=== PATIENT | male | born 1940 | race Caucasian/White ===

== ENCOUNTER → 2017-08-23 13:55 | Outpatient (CLI) | payer MEDICARE, SELFPAY ==
[2017-08-23 17:21] LABS: Absolute Lymphocyte Count 1.95 X10^3/ul (0.83-4.51); Absolute Neutrophil Count 2.9 X10^3/uL (2.0-7.7); Basophil# 0.04 X10^3/uL; Basophil% 0.7 % (0-1); Eosinophil# 0.26 X10^3/uL; Eosinophils% 4.5 % (0-5); Hematocrit 43.5 % (40-54); Hemoglobin 14.6 g/dl (13.0-16.5); Lymphocyte # 1.95 X10^3/ul (4.0); Lymphocyte % 33.4 % (19-41); Mean Corp Hgb Conc 33.6 g/gl (32-36); Mean Corpuscular Hgb 30.7 pg (27.0-32.0); Mean Corpuscular Volume 91.4 fL (80-94); Mean Platelet Vol. 11.1 fl (6.2-12.0); Monocyte# 0.66 X10^3/uL; Monocyte% 11.3 % (0-10); Neutrophil # 2.91 X10^3/uL (2.7-7.7); Neutrophil % 49.8 % (47-70); Platelet Count 243 K/mm3 (150-450); RBC Distribution Width CV 13.3 % (11.6-14.6); RBC Distribution Width SD 43.9 fl (35.1-43.9); Red Blood Count 4.76 M/mm3 (4.6-6.2); White Blood Count 5.8 K/mm3 (4.4-11.0)
[2017-08-23 17:25] LABS: POSITIVE COUNT NO; POSITIVE DIFFERENTIAL NO; POSITIVE MORPHOLOGY NO
[2017-08-23 18:17] LABS: AST(SGOT) 16 U/L (15-37); Alanine Aminotransfer ALT/SGPT 18 U/L (16-61); Albumin, Serum 3.8 g/dL (3.2-5.0); Alkaline Phosphatase 112 U/L (45-117); Anion Gap 8 (5-15); BUN 14 mg/dL (7-18); BUN/Creat Ratio 14.9 RATIO (10-20); Chloride 103 mmol/L (98-107); Creatinine, Serum 0.94 mg/dL (0.70-1.30); EST Glomerular Filtration Rate 82 mL/min (>60); Est Glom Filt Rate - Afr Amer 99 mL/min (>60); Glucose 95 mg/dL (74-106); Potassium 4.5 mmol/L (3.5-5.1); Protein, Total 7.8 g/dL (6.4-8.2); Sodium Level 138 mmol/L (136-145); Thyroid Stim Hormone (TSH) 3.13 uIU/mL (0.358-3.74)
[2017-08-24 08:50] LABS: Vitamin D,25 Hydroxy 25.4 ng/mL (29.95-100.01)
== END ==
LOC: POLAB3 13:56
PROVIDERS: Family Provider Family Medicine Geriatric Medicine; PCP Family Medicine Geriatric Medicine; Visit Provider Family Medicine Geriatric Medicine
DX: I10 Essential (primary) hypertension (principal); E55.9 Vitamin D deficiency, unspecified
CPT/HCPCS: 36415; 80053; 82306; 84443; 85025

== ENCOUNTER → 2018-02-13 13:29 | Outpatient (CLI) | payer MEDICARE, SELFPAY ==
[2018-02-13 17:23] LABS: Absolute Neutrophil Count 7.3 X10^3/uL (2.0-7.7); Basophil# 0.01 X10^3/uL; Basophil% 0.1 % (0-1); Eosinophil# 0.01 X10^3/uL; Eosinophils% 0.1 % (0-5); Hematocrit 40.3 % (40-54); Hemoglobin 13.5 g/dl (13.0-16.5); Lymphocyte % 12.3 % (19-41); Mean Corp Hgb Conc 33.5 g/gl (32-36); Mean Corpuscular Hgb 31.1 pg (27.0-32.0); Mean Corpuscular Volume 92.9 fL (80-94); Mean Platelet Vol. 10.8 fl (6.2-12.0); Monocyte# 0.45 X10^3/uL; Neutrophil # 7.27 X10^3/uL (2.7-7.7); Neutrophil % 81.5 % (47-70); Platelet Count 330 K/mm3 (150-450); RBC Distribution Width CV 13.4 % (11.6-14.6); RBC Distribution Width SD 44.3 fl (35.1-43.9); Red Blood Count 4.34 M/mm3 (4.6-6.2); White Blood Count 8.9 K/mm3 (4.4-11.0)
[2018-02-13 17:24] LABS: POSITIVE COUNT NO; POSITIVE DIFFERENTIAL NO; POSITIVE MORPHOLOGY NO
[2018-02-13 17:48] LABS: BUN 23 mg/dL (7-18); EST Glomerular Filtration Rate 77 mL/min (>60); Glucose 104 mg/dL (74-106)
[2018-02-13 17:49] LABS: ALB/GLOB Ratio 0.9 RATIO (0.9-2.4); AST(SGOT) 11 U/L (15-37); Alanine Aminotransfer ALT/SGPT 18 U/L (16-61); Albumin, Serum 3.4 g/dL (3.2-5.0); Alkaline Phosphatase 104 U/L (45-117); Anion Gap 11 (5-15); Calcium,Total 8.8 mg/dL (8.5-10.1); Chloride 101 mmol/L (98-107); Cholesterol 185 mg/dL (200); Est Glom Filt Rate - Afr Amer 93 mL/min (>60); Globulin 3.7 g/dL (2.2-4.2); High Density Lipoprotein 88 mg/dL; Potassium 4.1 mmol/L (3.5-5.1); Protein, Total 7.1 g/dL (6.4-8.2); Sodium Level 138 mmol/L (136-145); Thyroid Stim Hormone (TSH) 1.08 uIU/mL (0.358-3.74); Triglycerides 95 mg/dL; Very Low Density Lipoprotein 19 mg/dL (5-40)
[2018-02-13 17:52] LABS: Vitamin D,25 Hydroxy 22.4 ng/mL (29.95-100.01)
== END ==
PROVIDERS: Family Provider Family Medicine Geriatric Medicine; PCP Family Medicine Geriatric Medicine; Visit Provider Family Medicine Geriatric Medicine
DX: I10 Essential (primary) hypertension (principal); E78.49 Other hyperlipidemia; E55.9 Vitamin D deficiency, unspecified
CPT/HCPCS: 36415; 80053; 80061; 82306; 84443; 85025

== ENCOUNTER → 2018-08-17 10:45 | Outpatient (CLI) | payer MEDICARE, SELFPAY ==
[2017-01-06 13:29] VITALS: BMI 29.8
[2018-08-17 12:51] LABS: Absolute Neutrophil Count 3.4 X10^3/uL (2.0-7.7); Basophil# 0.03 X10^3/uL; Basophil% 0.5 % (0-1); Eosinophil# 0.09 X10^3/uL; Eosinophils% 1.5 % (0-5); Hematocrit 41.5 % (40-54); Hemoglobin 13.8 g/dl (13.0-16.5); Lymphocyte % 28.9 % (19-41); Mean Corp Hgb Conc 33.3 g/gl (32-36); Mean Corpuscular Hgb 31.2 pg (27.0-32.0); Mean Corpuscular Volume 93.9 fL (80-94); Mean Platelet Vol. 11.2 fl (6.2-12.0); Monocyte# 0.64 X10^3/uL; Monocyte% 10.9 % (0-10); Neutrophil # 3.41 X10^3/uL (2.7-7.7); Platelet Count 247 K/mm3 (150-450); RBC Distribution Width CV 13.9 % (11.6-14.6); RBC Distribution Width SD 47.7 fl (35.1-43.9); Red Blood Count 4.42 M/mm3 (4.6-6.2); White Blood Count 5.9 K/mm3 (4.4-11.0)
[2018-08-17 12:52] LABS: POSITIVE COUNT NO; POSITIVE DIFFERENTIAL NO; POSITIVE MORPHOLOGY NO
[2018-08-17 13:24] LABS: ALB/GLOB Ratio 1.1 RATIO (0.9-2.4); AST(SGOT) 19 U/L (15-37); Alanine Aminotransfer ALT/SGPT 23 U/L (16-61); Albumin, Serum 3.9 g/dL (3.2-5.0); Alkaline Phosphatase 93 U/L (45-117); Anion Gap 9 (5-15); BUN 15 mg/dL (7-18); BUN/Creat Ratio 14.4 RATIO (10-20); Calcium,Total 8.9 mg/dL (8.5-10.1); Chloride 103 mmol/L (98-107); Cholesterol 208 mg/dL (200); Creatinine, Serum 1.04 mg/dL (0.70-1.30); EST Glomerular Filtration Rate 73 mL/min (>60); Est Glom Filt Rate - Afr Amer 88 mL/min (>60); Globulin 3.6 g/dL (2.2-4.2); Glucose 87 mg/dL (74-106); High Density Lipoprotein 90 mg/dL; Potassium 3.8 mmol/L (3.5-5.1); Protein, Total 7.5 g/dL (6.4-8.2); Sodium Level 137 mmol/L (136-145); Thyroid Stim Hormone (TSH) 2.32 uIU/mL (0.358-3.74); Triglycerides 151 mg/dL; Very Low Density Lipoprotein 30 mg/dL (5-40)
[2018-08-17 14:20] LABS: Vitamin D,25 Hydroxy 14.5 ng/mL (29.95-100.01)
== END ==
PROVIDERS: Family Provider Family Medicine Geriatric Medicine; PCP Family Medicine Geriatric Medicine; Visit Provider Family Medicine Geriatric Medicine
DX: I10 Essential (primary) hypertension (principal); E78.5 Hyperlipidemia, unspecified; E55.9 Vitamin D deficiency, unspecified
CPT/HCPCS: 36415; 80053; 80061; 82306; 84443; 85025

== ENCOUNTER → 2019-02-14 11:35 | Outpatient (CLI) | payer MEDICARE, SELFPAY ==
[2017-01-06 13:29] VITALS: BMI 29.8
[2019-02-14 12:53] LABS: Absolute Lymphocyte Count 1.71 X10^3/uL (0.83-4.51); Absolute Neutrophil Count 3.2 X10^3/uL (2.0-7.7); Basophil# 0.05 X10^3/uL; Basophil% 0.9 % (0-1); Eosinophil# 0.14 X10^3/uL; Eosinophils% 2.4 % (0-5); Hematocrit 45.8 % (40-54); Hemoglobin 14.8 g/dL (13.0-16.5); Lymphocyte # 1.71 X10^3/ul (4.0); Lymphocyte % 29.4 % (19-41); Mean Corp Hgb Conc 32.3 g/dL (32-36); Mean Platelet Vol. 11.2 fl (6.2-12.0); NRBC Flagged by Analyzer 0 % (0-5); Neutrophil # 3.19 X10^3/uL (2.7-7.7); Neutrophil % 54.8 % (47-70); Platelet Count 270 K/mm3 (150-450); RBC Distribution Width CV 12.5 % (11.6-14.6); Red Blood Count 4.77 M/mm3 (4.6-6.2); White Blood Count 5.8 K/mm3 (4.4-11.0)
[2019-02-14 13:14] LABS: AST(SGOT) 13 U/L (15-37); Alanine Aminotransfer ALT/SGPT 17 U/L (16-61); Albumin, Serum 3.8 g/dL (3.2-5.0); Alkaline Phosphatase 94 U/L (45-117); Anion Gap 6 (5-15); BUN 19 mg/dL (7-18); BUN/Creat Ratio 19.3 RATIO (10-20); Calcium,Total 9.3 mg/dL (8.5-10.1); Chloride 104 mmol/L (98-107); Cholesterol 209 mg/dL (200); Creatinine, Serum 0.99 mg/dL (0.70-1.30); EST Glomerular Filtration Rate 78 mL/min (>60); Est Glom Filt Rate - Afr Amer 94 mL/min (>60); Globulin 3.9 g/dL (2.2-4.2); Glucose 106 mg/dL (74-106); High Density Lipoprotein 74 mg/dL; Potassium 4.9 mmol/L (3.5-5.1); Protein, Total 7.7 g/dL (6.4-8.2); Sodium Level 139 mmol/L (136-145); Thyroid Stim Hormone (TSH) 2.44 uIU/mL (0.358-3.74); Triglycerides 233 mg/dL; Very Low Density Lipoprotein 47 mg/dL (5-40); Vitamin D,25 Hydroxy 22.6 ng/mL (29.95-100.01)
== END ==
LOC: POLAB3 11:35
PROVIDERS: Family Provider Family Medicine Geriatric Medicine; PCP Family Medicine Geriatric Medicine; Visit Provider Family Medicine Geriatric Medicine
DX: I10 Essential (primary) hypertension (principal); E78.5 Hyperlipidemia, unspecified; E55.9 Vitamin D deficiency, unspecified
CPT/HCPCS: 36415; 80053; 80061; 82306; 84443; 85025

== ENCOUNTER → 2019-08-15 10:30 | Outpatient (CLI) | payer MEDICARE, SELFPAY ==
[2017-01-06 13:29] VITALS: BMI 29.8
[2019-08-15 11:37] LABS: Absolute Lymphocyte Count 1.75 X10^3/uL (0.83-4.51); Absolute Neutrophil Count 3.3 X10^3/uL (2.0-7.7); Basophil# 0.03 X10^3/uL; Basophil% 0.5 % (0-1); Eosinophil# 0.12 X10^3/uL; Eosinophils% 2.1 % (0-5); Hematocrit 41.7 % (40-54); Hemoglobin 13.7 g/dL (13.0-16.5); Lymphocyte # 1.75 X10^3/ul (4.0); Lymphocyte % 30.4 % (19-41); Mean Corp Hgb Conc 32.9 g/dL (32-36); Mean Corpuscular Hgb 30.8 pg (27.0-32.0); Mean Corpuscular Volume 93.7 fL (80-94); Mean Platelet Vol. 10.9 fl (6.2-12.0); Monocyte# 0.55 X10^3/uL; Monocyte% 9.5 % (0-10); NRBC Flagged by Analyzer 0 % (0-5); Neutrophil # 3.29 X10^3/uL (2.7-7.7); Neutrophil % 57.2 % (47-70); Platelet Count 216 K/mm3 (150-450); RBC Distribution Width CV 12.8 % (11.6-14.6); Red Blood Count 4.45 M/mm3 (4.6-6.2); White Blood Count 5.8 K/mm3 (4.4-11.0)
[2019-08-15 12:11] LABS: ALB/GLOB Ratio 1.1 RATIO (0.9-2.4); AST(SGOT) 23 U/L (15-37); Alanine Aminotransfer ALT/SGPT 19 U/L (16-61); Albumin, Serum 3.9 g/dL (3.2-5.0); Alkaline Phosphatase 95 U/L (45-117); Anion Gap 5 (5-15); BUN 16 mg/dL (7-18); BUN/Creat Ratio 15.7 RATIO (10-20); Calcium,Total 9.4 mg/dL (8.5-10.1); Chloride 106 mmol/L (98-107); Cholesterol 189 mg/dL (200); Creatinine, Serum 1.02 mg/dL (0.70-1.30); EST Glomerular Filtration Rate 75 mL/min (>60); Est Glom Filt Rate - Afr Amer 90 mL/min (>60); Globulin 3.6 g/dL (2.2-4.2); Glucose 90 mg/dL (74-106); High Density Lipoprotein 75 mg/dL; Potassium 4.9 mmol/L (3.5-5.1); Protein, Total 7.5 g/dL (6.4-8.2); Sodium Level 138 mmol/L (136-145); Thyroid Stim Hormone (TSH) 3.36 uIU/mL (0.358-3.74); Triglycerides 115 mg/dL; Very Low Density Lipoprotein 23 mg/dL (5-40); Vitamin D,25 Hydroxy 28.4 ng/mL
== END ==
LOC: LAB 10:33
PROVIDERS: PCP Family Medicine Geriatric Medicine; Referring Provider Family Medicine Geriatric Medicine; Visit Provider Family Medicine Geriatric Medicine
DX: E55.9 Vitamin D deficiency, unspecified (principal); E78.5 Hyperlipidemia, unspecified; I10 Essential (primary) hypertension
CPT/HCPCS: 36415; 80053; 80061; 82306; 84443; 85025

== ENCOUNTER → 2020-02-19 10:29 | Outpatient (CLI) | payer MEDICARE, SELFPAY ==
[2017-01-06 13:29] VITALS: BMI 29.8
[2020-02-19 12:46] LABS: Absolute Neutrophil Count 3.7 X10^3/uL (2.0-7.7); Basophil# 0.04 X10^3/uL; Basophil% 0.7 % (0-1); Eosinophil# 0.18 X10^3/uL; Hematocrit 44.4 % (40-54); Hemoglobin 14.3 g/dL (13.0-16.5); Lymphocyte % 23.1 % (19-41); Mean Corp Hgb Conc 32.2 g/dL (32-36); Mean Corpuscular Volume 96.3 fL (80-94); Mean Platelet Vol. 11.7 fl (6.2-12.0); Monocyte% 11.5 % (0-10); NRBC Flagged by Analyzer 0 % (0-5); Neutrophil # 3.74 X10^3/uL (2.7-7.7); Neutrophil % 61.5 % (47-70); Platelet Count 262 K/mm3 (150-450); RBC Distribution Width CV 12.8 % (11.6-14.6); Red Blood Count 4.61 M/mm3 (4.6-6.2); White Blood Count 6.1 K/mm3 (4.4-11.0)
[2020-02-19 13:04] LABS: Vitamin D,25 Hydroxy 24.6 ng/mL
[2020-02-19 13:13] LABS: AST(SGOT) 19 U/L (15-37); Alanine Aminotransfer ALT/SGPT 23 U/L (16-61); Albumin, Serum 3.8 g/dL (3.2-5.0); Alkaline Phosphatase 98 U/L (45-117); Anion Gap 7 (5-15); BUN 19 mg/dL (7-18); BUN/Creat Ratio 16.4 RATIO (10-20); Chloride 106 mmol/L (98-107); Creatinine, Serum 1.16 mg/dL (0.70-1.30); EST Glomerular Filtration Rate 64 mL/min (>60); Est Glom Filt Rate - Afr Amer 78 mL/min (>60); Glucose 103 mg/dL (74-106); Potassium 4.1 mmol/L (3.5-5.1); Protein, Total 7.8 g/dL (6.4-8.2); Sodium Level 140 mmol/L (136-145)
== END ==
LOC: POLAB3 10:31
PROVIDERS: PCP Family Medicine Geriatric Medicine; Visit Provider Family Medicine Geriatric Medicine
DX: E55.9 Vitamin D deficiency, unspecified (principal); I10 Essential (primary) hypertension
CPT/HCPCS: 36415; 80053; 82306; 84443; 85025

== ENCOUNTER → 2020-03-25 10:28 | Outpatient (CLI) | payer MEDICARE, SELFPAY ==
[2017-01-06 13:29] VITALS: BMI 29.8
[2020-03-25 12:46] LABS: Anion Gap 6 (5-15); BUN 23 mg/dL (7-18); BUN/Creat Ratio 21.1 RATIO (10-20); Calcium,Total 9.4 mg/dL (8.5-10.1); Chloride 104 mmol/L (98-107); Creatinine, Serum 1.09 mg/dL (0.70-1.30); EST Glomerular Filtration Rate 69 mL/min (>60); Est Glom Filt Rate - Afr Amer 83 mL/min (>60); Glucose 119 mg/dL (74-106); Potassium 4.8 mmol/L (3.5-5.1); Sodium Level 137 mmol/L (136-145)
== END ==
PROVIDERS: PCP Family Medicine Geriatric Medicine; Visit Provider Family Medicine Geriatric Medicine
DX: E87.6 Hypokalemia (principal)
CPT/HCPCS: 36415; 80048

== ENCOUNTER → 2020-08-19 10:07 | Outpatient (CLI) | payer MEDICARE, SELFPAY ==
[2020-08-19 12:34] LABS: Absolute Lymphocyte Count 1.63 X10^3/uL (0.83-4.51); Absolute Neutrophil Count 3.1 X10^3/uL (2.0-7.7); Basophil# 0.03 X10^3/uL; Basophil% 0.5 % (0-1); Eosinophil# 0.11 X10^3/uL; Hematocrit 43.8 % (40-54); Hemoglobin 13.8 g/dL (13.0-16.5); Lymphocyte # 1.63 X10^3/ul (0.83-4.51); Lymphocyte % 29.5 % (19-41); Mean Corp Hgb Conc 31.5 g/dL (32-36); Mean Corpuscular Hgb 29.6 pg (27.0-32.0); Mean Platelet Vol. 11.7 fl (6.2-12.0); Monocyte# 0.64 X10^3/uL; Monocyte% 11.6 % (0-10); NRBC Flagged by Analyzer 0 % (0-5); Neutrophil # 3.09 X10^3/uL (2.7-7.7); Platelet Count 249 K/mm3 (150-450); RBC Distribution Width CV 12.9 % (11.6-14.6); RBC Distribution Width SD 44.7 fl (35.1-43.9); Red Blood Count 4.66 M/mm3 (4.6-6.2); White Blood Count 5.5 K/mm3 (4.4-11.0)
[2020-08-19 12:50] LABS: Vitamin D,25 Hydroxy 16.8 ng/mL
[2020-08-19 13:03] LABS: ALB/GLOB Ratio 1.2 RATIO (0.9-2.4); AST(SGOT) 14 U/L (15-37); Alanine Aminotransfer ALT/SGPT 15 U/L (16-61); Albumin, Serum 3.9 g/dL (3.2-5.0); Alkaline Phosphatase 105 U/L (45-117); Anion Gap 8 (5-15); BUN 13 mg/dL (7-18); Calcium,Total 8.9 mg/dL (8.5-10.1); Chloride 104 mmol/L (98-107); Cholesterol 209 mg/dL (200); EST Glomerular Filtration Rate 76 mL/min (>60); Est Glom Filt Rate - Afr Amer 92 mL/min (>60); Globulin 3.2 g/dL (2.2-4.2); Glucose 96 mg/dL (74-106); High Density Lipoprotein 76 mg/dL; Potassium 3.8 mmol/L (3.5-5.1); Protein, Total 7.1 g/dL (6.4-8.2); Sodium Level 140 mmol/L (136-145); Thyroid Stim Hormone (TSH) 2.35 uIU/mL (0.358-3.74); Triglycerides 233 mg/dL; Very Low Density Lipoprotein 47 mg/dL (5-40)
== END ==
LOC: POLAB3 10:13
PROVIDERS: PCP Family Medicine Geriatric Medicine; Visit Provider Family Medicine Geriatric Medicine
DX: I10 Essential (primary) hypertension (principal); E78.5 Hyperlipidemia, unspecified; E55.9 Vitamin D deficiency, unspecified
CPT/HCPCS: 36415; 80053; 80061; 82306; 84443; 85025

== ENCOUNTER → 2021-02-19 09:31 | Outpatient (CLI) | payer MEDICARE, SELFPAY ==
--- NOTE | 2021-02-19 09:47 | RAD_ITS ---
STUDY: X-RAY CHEST REASON FOR EXAM: Male, 80 years old. Wheezing and shortness of breath. TECHNIQUE: PA and lateral views of the chest. COMPARISON: None. FINDINGS: The lungs are hypoexpanded. There is bibasilar atelectasis There is no acute infiltrate or mass. There is no demonstrated pleural abnormality. Normal size heart. Normal mediastinum and chasity. Normal visualized pulmonary arteries. Normal visualized aortic arch and descending thoracic aorta. There is demineralization of the osseous structures. There are mild degenerative changes of the thoracic spine without fracture. There is degenerative osteoarthritis of the bilateral shoulders. There is no demonstrated abnormality of the visualized soft tissue structures of the upper abdomen. RAD/Chest PA and Lateral IMPRESSION: Limited inspiration with bibasilar atelectasis Electronically Signed: Ernst Garzon DO at 18:19 EDT Tel [phone], Service support ,
[2021-02-19 12:33] LABS: Absolute Lymphocyte Count 1.76 X10^3/uL (0.83-4.51); Absolute Neutrophil Count 3.2 X10^3/uL (2.0-7.7); Basophil# 0.04 X10^3/uL; Basophil% 0.7 % (0-1); Eosinophil# 0.13 X10^3/uL; Eosinophils% 2.3 % (0-5); Hematocrit 41.4 % (40-54); Hemoglobin 13.2 g/dL (13.0-16.5); Lymphocyte # 1.76 X10^3/ul (0.83-4.51); Lymphocyte % 30.8 % (19-41); Mean Corp Hgb Conc 31.9 g/dL (32-36); Mean Corpuscular Hgb 30.1 pg (27.0-32.0); Mean Corpuscular Volume 94.5 fL (80-94); Mean Platelet Vol. 11.3 fl (6.2-12.0); Monocyte# 0.61 X10^3/uL; Monocyte% 10.7 % (0-10); NRBC Flagged by Analyzer 0 % (0-5); Neutrophil # 3.16 X10^3/uL (2.7-7.7); Neutrophil % 55.3 % (47-70); Platelet Count 254 K/mm3 (150-450); RBC Distribution Width CV 13.2 % (11.6-14.6); RBC Distribution Width SD 46.3 fl (35.1-43.9); Red Blood Count 4.38 M/mm3 (4.6-6.2); White Blood Count 5.7 K/mm3 (4.4-11.0)
[2021-02-19 12:56] LABS: Vitamin D,25 Hydroxy 18.2 ng/mL
[2021-02-19 12:57] LABS: ALB/GLOB Ratio 0.9 RATIO (0.9-2.4); AST(SGOT) 17 U/L (15-37); Alanine Aminotransfer ALT/SGPT 20 U/L (16-61); Albumin, Serum 3.6 g/dL (3.2-5.0); Alkaline Phosphatase 93 U/L (45-117); Anion Gap 6 (5-15); BUN 18 mg/dL (7-18); BUN/Creat Ratio 18.6 RATIO (10-20); Chloride 104 mmol/L (98-107); Cholesterol 201 mg/dL (200); Creatinine, Serum 0.97 mg/dL (0.70-1.30); EST Glomerular Filtration Rate 79 mL/min (>60); Est Glom Filt Rate - Afr Amer 95 mL/min (>60); Globulin 3.8 g/dL (2.2-4.2); Glucose 93 mg/dL (74-106); High Density Lipoprotein 87 mg/dL; Protein, Total 7.4 g/dL (6.4-8.2); Sodium Level 138 mmol/L (136-145); Thyroid Stim Hormone (TSH) 2.59 uIU/mL (0.358-3.74); Triglycerides 113 mg/dL; Very Low Density Lipoprotein 23 mg/dL (5-40)
[2021-02-19 13:32] LABS: BNP,B-Type NATRIURETIC PEPTIDE 33.9 pg/mL (0-100)
== END ==
PROVIDERS: PCP Family Medicine Geriatric Medicine; Visit Provider Family Medicine Geriatric Medicine
DX: E55.9 Vitamin D deficiency, unspecified (principal); E78.5 Hyperlipidemia, unspecified; I10 Essential (primary) hypertension; R06.9 Unspecified abnormalities of breathing
CPT/HCPCS: 36415; 71046; 80053; 80061; 82306; 83880; 84443; 85025

== ENCOUNTER → 2021-08-20 | Outpatient (CLI) | payer MEDICARE, SELFPAY ==
[2021-08-20 12:35] LABS: Absolute Lymphocyte Count 1.95 X10^3/uL (0.83-4.51); Absolute Neutrophil Count 3.8 X10^3/uL (2.0-7.7); Basophil# 0.05 X10^3/uL; Basophil% 0.7 % (0-1); Eosinophil# 0.15 X10^3/uL; Eosinophils% 2.2 % (0-5); Hematocrit 42.3 % (40-54); Hemoglobin 13.9 g/dL (13.0-16.5); Lymphocyte # 1.95 X10^3/ul (0.83-4.51); Lymphocyte % 28.7 % (19-41); Mean Corp Hgb Conc 32.9 g/dL (32-36); Mean Corpuscular Hgb 31.3 pg (27.0-32.0); Mean Corpuscular Volume 95.3 fL (80-94); Mean Platelet Vol. 11.7 fl (6.2-12.0); Monocyte# 0.83 X10^3/uL; Monocyte% 12.2 % (0-10); NRBC Flagged by Analyzer 0 % (0-5); Neutrophil # 3.78 X10^3/uL (2.7-7.7); Neutrophil % 55.8 % (47-70); Platelet Count 240 K/mm3 (150-450); RBC Distribution Width CV 13.1 % (11.6-14.6); RBC Distribution Width SD 45.8 fl (35.1-43.9); Red Blood Count 4.44 M/mm3 (4.6-6.2); White Blood Count 6.8 K/mm3 (4.4-11.0)
[2021-08-20 12:59] LABS: AST(SGOT) 21 U/L (15-37); Alanine Aminotransfer ALT/SGPT 25 U/L (16-61); Albumin, Serum 3.9 g/dL (3.2-5.0); Alkaline Phosphatase 79 U/L (45-117); Anion Gap 7 (5-15); BUN 21 mg/dL (7-18); BUN/Creat Ratio 18.9 RATIO (10-20); Calcium,Total 9.8 mg/dL (8.5-10.1); Chloride 102 mmol/L (98-107); Creatinine, Serum 1.11 mg/dL (0.70-1.30); EST Glomerular Filtration Rate 67 mL/min (>60); Est Glom Filt Rate - Afr Amer 81 mL/min (>60); Globulin 3.8 g/dL (2.2-4.2); Glucose 104 mg/dL (74-106); Potassium 5.1 mmol/L (3.5-5.1); Protein, Total 7.7 g/dL (6.4-8.2); Sodium Level 137 mmol/L (136-145); Thyroid Stim Hormone (TSH) 2.83 uIU/mL (0.358-3.74)
[2021-08-20 13:15] LABS: Vitamin D,25 Hydroxy 19.8 ng/mL
== END | disposition home or self-care (01) ==
PROVIDERS: PCP Family Medicine Geriatric Medicine; Visit Provider Family Medicine Geriatric Medicine
DX: E55.9 Vitamin D deficiency, unspecified (principal); E78.5 Hyperlipidemia, unspecified; I10 Essential (primary) hypertension
CPT/HCPCS: 36415; 80053; 82306; 84443; 85025

== ENCOUNTER → 2022-02-25 | Outpatient (CLI) | payer MEDICARE, SELFPAY ==
[2022-02-25 12:32] LABS: Absolute Lymphocyte Count 1.81 X10^3/uL (0.83-4.51); Absolute Neutrophil Count 2.8 X10^3/uL (2.0-7.7); Basophil# 0.04 X10^3/uL; Basophil% 0.7 % (0-1); Eosinophil# 0.14 X10^3/uL; Eosinophils% 2.6 % (0-5); Hematocrit 41.1 % (40-54); Hemoglobin 13.4 g/dL (13.0-16.5); Lymphocyte # 1.81 X10^3/ul (0.83-4.51); Lymphocyte % 33.2 % (19-41); Mean Corp Hgb Conc 32.6 g/dL (32-36); Mean Corpuscular Hgb 31.2 pg (27.0-32.0); Mean Corpuscular Volume 95.8 fL (80-94); Mean Platelet Vol. 11.6 fl (6.2-12.0); Monocyte# 0.67 X10^3/uL; Monocyte% 12.3 % (0-10); NRBC Flagged by Analyzer 0 % (0-5); Neutrophil # 2.78 X10^3/uL (2.7-7.7); Neutrophil % 50.8 % (47-70); Platelet Count 252 K/mm3 (150-450); RBC Distribution Width CV 13.1 % (11.6-14.6); RBC Distribution Width SD 46.3 fl (35.1-43.9); Red Blood Count 4.29 M/mm3 (4.6-6.2); White Blood Count 5.5 K/mm3 (4.4-11.0)
[2022-02-25 12:51] LABS: Vitamin D,25 Hydroxy 23.2 ng/mL
[2022-02-25 13:08] LABS: AST(SGOT) 17 U/L (15-37); Alanine Aminotransfer ALT/SGPT 27 U/L (16-61); Albumin, Serum 3.7 g/dL (3.2-5.0); Alkaline Phosphatase 86 U/L (45-117); Anion Gap 9 (5-15); BUN 16 mg/dL (7-18); BUN/Creat Ratio 17.9 RATIO (10-20); Calcium,Total 9.1 mg/dL (8.5-10.1); Chloride 100 mmol/L (98-107); Creatinine, Serum 0.89 mg/dL (0.70-1.30); EST Glomerular Filtration Rate 86 mL/min (>60); Est Glom Filt Rate - Afr Amer 105 mL/min (>60); Globulin 3.8 g/dL (2.2-4.2); Glucose 96 mg/dL (74-106); Potassium 4.2 mmol/L (3.5-5.1); Protein, Total 7.5 g/dL (6.4-8.2); Sodium Level 136 mmol/L (136-145); Thyroid Stim Hormone (TSH) 3.46 uIU/mL (0.358-3.74)
== END | disposition home or self-care (01) ==
LOC: POLAB3 08:56
PROVIDERS: PCP Family Medicine Geriatric Medicine; Visit Provider Family Medicine Geriatric Medicine
DX: E55.9 Vitamin D deficiency, unspecified (principal); I10 Essential (primary) hypertension
CPT/HCPCS: 36415; 80053; 82306; 84443; 85025

== ENCOUNTER → 2022-08-19 | Outpatient (CLI) | payer MEDICARE, SELFPAY ==
[2022-08-19 11:14] LABS: Absolute Lymphocyte Count 1.83 X10^3/uL (0.83-4.51); Absolute Neutrophil Count 3.5 X10^3/uL (2.0-7.7); Basophil# 0.04 X10^3/uL; Basophil% 0.7 % (0-1); Eosinophil# 0.14 X10^3/uL; Eosinophils% 2.3 % (0-5); Hematocrit 41.2 % (40-54); Lymphocyte # 1.83 X10^3/ul (0.83-4.51); Lymphocyte % 29.8 % (19-41); Mean Corp Hgb Conc 31.6 g/dL (32-36); Mean Corpuscular Hgb 30.7 pg (27.0-32.0); Mean Corpuscular Volume 97.4 fL (80-94); Mean Platelet Vol. 10.8 fl (6.2-12.0); Monocyte# 0.64 X10^3/uL; Monocyte% 10.4 % (0-10); NRBC Flagged by Analyzer 0 % (0-5); Neutrophil # 3.48 X10^3/uL (2.7-7.7); Neutrophil % 56.5 % (47-70); Platelet Count 242 K/mm3 (150-450); RBC Distribution Width CV 12.6 % (11.6-14.6); RBC Distribution Width SD 44.8 fl (35.1-43.9); Red Blood Count 4.23 M/mm3 (4.6-6.2); White Blood Count 6.2 K/mm3 (4.4-11.0)
[2022-08-19 11:39] LABS: Vitamin D,25 Hydroxy 31.9 ng/mL
[2022-08-19 11:50] LABS: ALB/GLOB Ratio 1.1 RATIO (0.9-2.4); AST(SGOT) 14 U/L (15-37); Alanine Aminotransfer ALT/SGPT 23 U/L (16-61); Albumin, Serum 3.8 g/dL (3.2-5.0); Alkaline Phosphatase 90 U/L (45-117); Anion Gap 8 (5-15); BUN 17 mg/dL (7-18); BUN/Creat Ratio 13.8 RATIO (10-20); Calcium,Total 9.2 mg/dL (8.5-10.1); Chloride 102 mmol/L (98-107); Creatinine, Serum 1.23 mg/dL (0.70-1.30); EST Glomerular Filtration Rate 60 mL/min (>60); Est Glom Filt Rate - Afr Amer 72 mL/min (>60); Globulin 3.5 g/dL (2.2-4.2); Glucose 110 mg/dL (74-106); Potassium 4.7 mmol/L (3.5-5.1); Protein, Total 7.3 g/dL (6.4-8.2); Sodium Level 138 mmol/L (136-145); Thyroid Stim Hormone (TSH) 3.23 uIU/mL (0.358-3.74)
== END | disposition home or self-care (01) ==
PROVIDERS: PCP Family Medicine Geriatric Medicine; Referring Provider Family Medicine Geriatric Medicine; Visit Provider Family Medicine Geriatric Medicine
DX: I10 Essential (primary) hypertension (principal); E55.9 Vitamin D deficiency, unspecified
CPT/HCPCS: 36415; 80053; 82306; 84443; 85025

== ENCOUNTER → 2023-02-15 | Outpatient (CLI) | payer MEDICARE, SELFPAY ==
[2023-02-15 11:20] LABS: Absolute Lymphocyte Count 1.66 X10^3/uL (0.83-4.51); Absolute Neutrophil Count 3.6 X10^3/uL (2.0-7.7); Basophil# 0.03 X10^3/uL; Basophil% 0.5 % (0-1); Eosinophil# 0.15 X10^3/uL; Eosinophils% 2.5 % (0-5); Hematocrit 43.1 % (40-54); Hemoglobin 13.7 g/dL (13.0-16.5); Lymphocyte # 1.66 X10^3/ul (0.83-4.51); Lymphocyte % 27.5 % (19-41); Mean Corp Hgb Conc 31.8 g/dL (32-36); Mean Corpuscular Hgb 30.3 pg (27.0-32.0); Mean Corpuscular Volume 95.4 fL (80-94); Mean Platelet Vol. 10.9 fl (6.2-12.0); Monocyte# 0.56 X10^3/uL; Monocyte% 9.3 % (0-10); NRBC Flagged by Analyzer 0 % (0-5); Neutrophil % 59.7 % (47-70); Platelet Count 250 K/mm3 (150-450); RBC Distribution Width CV 12.5 % (11.6-14.6); RBC Distribution Width SD 43.9 fl (35.1-43.9); Red Blood Count 4.52 M/mm3 (4.6-6.2)
[2023-02-15 11:36] LABS: AST(SGOT) 15 U/L (15-37); Alanine Aminotransfer ALT/SGPT 19 U/L (16-61); Albumin, Serum 3.7 g/dL (3.2-5.0); Alkaline Phosphatase 84 U/L (45-117); Anion Gap 5 (5-15); BUN 21 mg/dL (7-18); BUN/Creat Ratio 18.1 RATIO (10-20); Calcium,Total 9.1 mg/dL (8.5-10.1); Chloride 102 mmol/L (98-107); Creatinine, Serum 1.16 mg/dL (0.70-1.30); EST Glomerular Filtration Rate 64 mL/min (>60); Est Glom Filt Rate - Afr Amer 77 mL/min (>60); Globulin 3.6 g/dL (2.2-4.2); Glucose 109 mg/dL (74-106); Potassium 4.8 mmol/L (3.5-5.1); Protein, Total 7.3 g/dL (6.4-8.2); Sodium Level 137 mmol/L (136-145)
[2023-02-15 11:38] LABS: Vitamin D,25 Hydroxy 32.6 ng/mL
== END | disposition home or self-care (01) ==
LOC: POLAB3 10:31
PROVIDERS: PCP Family Medicine Geriatric Medicine; Visit Provider Family Medicine Geriatric Medicine
DX: I10 Essential (primary) hypertension (principal); E55.9 Vitamin D deficiency, unspecified
CPT/HCPCS: 36415; 80053; 82306; 84443; 85025

== ENCOUNTER → 2023-08-23 | Outpatient (CLI) | payer MEDICARE, SELFPAY ==
[2023-08-23 10:29] LABS: Absolute Lymphocyte Count 1.55 X10^3/uL (0.83-4.51); Absolute Neutrophil Count 3.5 X10^3/uL (2.0-7.7); Basophil# 0.03 X10^3/uL; Basophil% 0.5 % (0-1); Eosinophils% 1.7 % (0-5); Hematocrit 42.9 % (40-54); Lymphocyte # 1.55 X10^3/ul (0.83-4.51); Lymphocyte % 27.1 % (19-41); Mean Corp Hgb Conc 32.6 g/dL (32-36); Mean Corpuscular Volume 95.1 fL (80-94); Mean Platelet Vol. 9.9 fl (6.2-12.0); Monocyte# 0.57 X10^3/uL; Monocyte% 9.9 % (0-10); NRBC Flagged by Analyzer 0 % (0-5); Neutrophil # 3.46 X10^3/uL (2.7-7.7); Neutrophil % 60.5 % (47-70); Platelet Count 242 K/mm3 (150-450); RBC Distribution Width CV 12.4 % (11.6-14.6); RBC Distribution Width SD 43.2 fl (35.1-43.9); Red Blood Count 4.51 M/mm3 (4.6-6.2); White Blood Count 5.7 K/mm3 (4.4-11.0)
[2023-08-23 10:57] LABS: Vitamin D,25 Hydroxy 22.2 ng/mL
[2023-08-23 11:16] LABS: ALB/GLOB Ratio 1.1 RATIO (0.9-2.4); AST(SGOT) 15 U/L (15-37); Alanine Aminotransfer ALT/SGPT 14 U/L (16-61); Albumin, Serum 3.8 g/dL (3.2-5.0); Alkaline Phosphatase 85 U/L (45-117); Anion Gap 4 (5-15); BUN 15 mg/dL (7-18); BUN/Creat Ratio 12.1 RATIO (10-20); Calcium,Total 9.9 mg/dL (8.5-10.1); Chloride 104 mmol/L (98-107); Creatinine, Serum 1.24 mg/dL (0.70-1.30); EST Glomerular Filtration Rate 59 mL/min (>60); Est Glom Filt Rate - Afr Amer 71 mL/min (>60); Globulin 3.6 g/dL (2.2-4.2); Glucose 115 mg/dL (74-106); Potassium 4.4 mmol/L (3.5-5.1); Protein, Total 7.4 g/dL (6.4-8.2); Sodium Level 138 mmol/L (136-145); Thyroid Stim Hormone (TSH) 3.33 uIU/mL (0.358-3.74)
== END | disposition home or self-care (01) ==
LOC: LAB 10:13
PROVIDERS: PCP Family Medicine Geriatric Medicine; Referring Provider Family Medicine Geriatric Medicine; Visit Provider Family Medicine Geriatric Medicine
DX: I10 Essential (primary) hypertension (principal); E55.9 Vitamin D deficiency, unspecified
CPT/HCPCS: 36415; 80053; 82306; 84443; 85025

== ENCOUNTER → 2024-02-20 | Outpatient (CLI) | payer MEDICARE, SELFPAY ==
[2024-02-20 09:34] LABS: Absolute Lymphocyte Count 1.68 X10^3/uL (0.83-4.51); Absolute Neutrophil Count 4.1 X10^3/uL (2.0-7.7); Basophil# 0.05 X10^3/uL; Basophil% 0.7 % (0-1); Eosinophil# 0.17 X10^3/uL; Eosinophils% 2.5 % (0-5); Hemoglobin 14.2 g/dL (13.0-16.5); Lymphocyte # 1.68 X10^3/ul (0.83-4.51); Lymphocyte % 24.8 % (19-41); Mean Corp Hgb Conc 32.3 g/dL (32-36); Mean Corpuscular Hgb 30.9 pg (27.0-32.0); Mean Corpuscular Volume 95.7 fL (80-94); Mean Platelet Vol. 10.3 fl (6.2-12.0); Monocyte# 0.71 X10^3/uL; Monocyte% 10.5 % (0-10); NRBC Flagged by Analyzer 0 % (0-5); Neutrophil # 4.13 X10^3/uL (2.7-7.7); Neutrophil % 60.9 % (47-70); Platelet Count 260 K/mm3 (150-450); RBC Distribution Width CV 12.6 % (11.6-14.6); White Blood Count 6.8 K/mm3 (4.4-11.0)
[2024-02-20 10:01] LABS: Vitamin D,25 Hydroxy 19.2 ng/mL
[2024-02-20 10:15] LABS: AST(SGOT) 23 U/L (15-37); Alanine Aminotransfer ALT/SGPT 18 U/L (16-61); Albumin, Serum 3.8 g/dL (3.2-5.0); Alkaline Phosphatase 88 U/L (45-117); Anion Gap 7 (5-15); BUN 17 mg/dL (7-18); BUN/Creat Ratio 13.6 RATIO (10-20); Calcium,Total 9.4 mg/dL (8.5-10.1); Chloride 102 mmol/L (98-107); Creatinine, Serum 1.25 mg/dL (0.70-1.30); EST Glomerular Filtration Rate 58 mL/min (>60); Est Glom Filt Rate - Afr Amer 71 mL/min (>60); Globulin 3.8 g/dL (2.2-4.2); Glucose 107 mg/dL (74-106); Potassium 4.5 mmol/L (3.5-5.1); Protein, Total 7.6 g/dL (6.4-8.2); Sodium Level 138 mmol/L (136-145)
== END | disposition home or self-care (01) ==
LOC: POLAB3 09:20
PROVIDERS: PCP Family Medicine Geriatric Medicine; Referring Provider Family Medicine Geriatric Medicine; Visit Provider Family Medicine Geriatric Medicine
DX: I10 Essential (primary) hypertension (principal); E55.9 Vitamin D deficiency, unspecified
CPT/HCPCS: 36415; 80053; 82306; 84443; 85025

== ENCOUNTER 2024-07-28 18:34 | Inpatient (IN) | payer MEDICARE, SELFPAY ==
[2024-07-28] VITALS (7 sets, daily range): BP systolic 108–145; BP diastolic 79–95; PULSE 86–169; RESP 18–30; TEMP 36.5–37.1; O2SAT 89–96; BMI 35.2; BMI 33.3
--- NOTE | 2024-07-28 18:37 | EKG12_ITS ---
Test Reason : SVT Blood Pressure : */* mmHG Vent. Rate : 168 BPM Atrial Rate : * BPM P-R Int : * ms QRS Dur : 142 ms QT Int : 280 ms P-R-T Axes : * -52 -12 degrees QTcB Int : 468 ms Critical Test Result: High HR Probable SVT Left axis deviation Right bundle branch block Possible Lateral infarct , age undetermined Inferior infarct , age undetermined Abnormal ECG Confirmed by Bello Persaud ([id number]), online content editor MARY HERNANDEZ ([id number]) on 08/01/2024 10:05:19 AM Referred By: Confirmed By: Bello Persaud
[2024-07-28] MEDS: Adenosine 6 MG/2 ML Syringe IV ×2 (18:44→20:31)
--- NOTE | 2024-07-28 18:44 | RAD_ITS ---
PROCEDURE: CHEST 1 VIEW (PORTABLE) 07/28/2024 REASON FOR EXAM: Chest pain TECHNIQUE: Frontal view of the chest. COMPARISON: None FINDINGS: Low lung volumes. Mild cardiomegaly. Possible small right pleural with adjacent atelectasis/infiltrate. Left lung is relatively clear. No sizable pneumothorax. RAD/Chest 1 View (Portable) IMPRESSION: Low lung volumes with right basilar opacity as above. Reading Location: [facility]
--- NOTE | 2024-07-28 18:45 | EKG12_ITS ---
Test Reason : REPEAT Blood Pressure : */* mmHG Vent. Rate : 116 BPM Atrial Rate : 116 BPM P-R Int : 156 ms QRS Dur : 142 ms QT Int : 350 ms P-R-T Axes : 68 -29 -6 degrees QTcB Int : 486 ms Sinus tachycardia Right bundle branch block Inferior infarct , age undetermined Abnormal ECG When compared with ECG of 28-Jul-2024 18:37, MANUAL COMPARISON REQUIRED DATA IS UNCONFIRMED Confirmed by Bello Persaud ([id number]), editor at large MARY HERNANDEZ ([id number]) on 08/01/2024 10:07:27 AM Referred By: Confirmed By: Bello Persaud
--- NOTE | 2024-07-28 18:45 | EX.ED.DYSGE1 ---
HPI History of Present Illness Chief Complaint: General Illness Informant: patient and EMS Onset/Context/Timing Onset: Days and - (Started not feeling well afternoon.) Context: Gradual Onset Timing: Continuous Current Severity: Mild Maximum Severity: Mild Narrative Narrative: 84-year-old male from home history of hypertension. States he just has not felt well since . Just kind in general malaise. Some mild diarrhea. No melena. No vomiting or fever. No dysuria. He has chronic lower extremity edema he says he thinks it is a little worse. He denies any shortness of breath or chest pain. He denies any prior cardiac history. He denies being diabetic. He is on losartan for his blood pressure. Prior similar symptoms: No Recent Illness/Hospitalization: No PFSH [facility] Medical History History of blood transfusion Ulcer Hypertension Home Medications ?Medication ?Instructions ?Recorded ?Last Taken ?Type pantoprazole 40 mg tablet,delayed 40 mg PO BID 12/29/15 Unknown History release losartan 50 mg tablet 50 mg PO DAILY 07/28/24 Unknown History Allergy/AdvReac Type Severity Reaction Status Date / Time No Known Allergies Allergy Verified 01/06/17 13:32 Family History Father Arthritis Social History Smoking Status: Never smoker ROS ROS ED ROS Narrative General malaise. Weakness. Diarrhea. No melena. No fever. No chest pain. No shortness of breath. Constitutional Constitutional ED: Denies chills or fever(s) Eyes Eyes: Denies blurry vision ENT ENT ED: Denies ear pain Cardiovascular Cardiovascular: Reports racing heartbeat; Denies chest pain Respiratory/Chest Respiratory/Chest: Denies cough or dyspnea Gastrointestinal Gastrointestinal: Reports diarrhea; Denies abdominal pain, constipation, melena, nausea or vomiting Genitourinary Genitourinary ED: Denies dysuria or hematuria Musculoskeletal Musculoskeletal: Denies arthralgias Integumentary Denies abscess Neurologic Neurologic: Denies headache(s) Psychiatric Psychiatric: Denies anxiety or depression Endocrine Endocrinology: Denies cold intolerance Hematologic/Lymphatic Hematologic/Lymphatic: Reports none Allergic/Immunologic Allergic/Immunologic ED: Denies mouth swelling, tongue swelling or urticaria EXAM Physical Exam Narrative Exam Narrative: 84-year-old male brought in by squad. Blood pressure 108/92. Pulse ox 91% on room air no hypoxia. Afebrile. His heart rates 167. Suspect SVT on the monitor with a bundle branch block. He is awake alert talking. He sitting upright in bed. H EENT exam pupils are round reactive light. Moist mucous membranes. Poor dentition. No facial droop. Normal speech. Neck nontender no JVD. No lymphadenopathy. Lungs clear to auscultation bilaterally. Heart tachycardic 167 no murmur appreciated. Chest wall ribs nontender. Abdomen nontender. No peritoneal signs. Moving all 4 extremities. Normal maintenance aide strength. Normal dorsi plantarflexion. He has 1+ pitting edema from below his knees to his feet. Bilaterally. Equal symmetrical. Calves are nontender. Neurologically. He is awake alert. Answering questions following commands. No focal motor deficits. Const Vital Signs: 07/28/24 18:36 07/28/24 18:39 07/28/24 18:41 Temperature 98 F Temperature Source Oral Pulse Rate 167 H Respiratory Rate 30 H Respiratory Effort Short of Breath Blood Pressure 108/92 H Blood Pressure Mean 97 Pulse Ox 91 Oxygen Delivery Method Room Air Room Air Oxygen Flow Rate (L/min) 07/28/24 18:48 07/28/24 18:48 07/28/24 19:25 Temperature 97.7 F L Temperature Source Oral Pulse Rate 102 H Respiratory Rate 23 H Respiratory Effort Blood Pressure 139/95 H 145/93 H Blood Pressure Mean 109 110 Pulse Ox 89 95 96 Oxygen Delivery Method Room Air Nasal Cannula Room Air Oxygen Flow Rate (L/min) 2 07/28/24 20:20 Temperature Temperature Source Pulse Rate 169 H Respiratory Rate 25 H Respiratory Effort Blood Pressure 110/80 Blood Pressure Mean 90 Pulse Ox 95 Oxygen Delivery Method Nasal Cannula Oxygen Flow Rate (L/min) Positive well nourished, well developed and obese; Negative for cachectic, contractures or unkempt General Appearance ED: well developed; Negative for unkempt, cachectic, contractures, cyanotic, diaphoretic, NAD or pallor Nutritional Appearance: obese; Negative for cachectic HEENT Reports moist mucous membranes Negative for trauma or tenderness Eyes PERRL and EOMs intact bilaterally Neck no lymphadenopathy, supple and no JVD General: Negative for tenderness Lymph Lymphatic: Negative for other Chest Wall inspection of chest normal and palpation of chest normal Resp normal respiratory effort and clear to auscultation bilaterally Cardio no murmurs; Negative for regular rate Rate: tachycardic and other Other Details: Tachycardia rate 167. Suspect SVT with bundle branch block. GI normal to inspection, nondistended, normoactive bowel sounds, non-tender, non-distended and no masses Palpation: soft; Negative for tender, guarding or rebound tenderness present Back/Spine no CVA tenderness General Back: Negative for CVA tenderness Cervical Spine: Negative for cervical spine tenderness Thoracic Spine / Upper Back: Negative for thoracic spinal tenderness or paraspinal muscle tenderness Lumbar Spine / Lower Back: Negative for lumbar spinal tenderness Extremity Negative for normal to inspection Extremity Narrative: 1+ pitting edema bilaterally from below the knees to the feet. General Extremety ED: Yes edema; Negative for tenderness General Extremity: edema Neuro oriented x3 and CN's II-XII intact bilaterally Sensorium / Orientation: alert; Negative for orientation impaired, lethargic or stuporous Motor Exam: strength 5/5 throughout Psych mental status grossly normal Appearance: Negative for unkempt Attitude: No agitated Mood & Affect: Negative for depressed, anxious or tearful Skin no rashes or lesions noted and no wounds General Skin Exam: Negative for jaundice or pallor Lesions: No lesion noted Rashes: No rashes noted Trauma: Negative for abrasion Wounds: Negative for wounds noted MDM MDM MDM Narrative Medical decision making narrative: 84-year-old male suspect SVT with right bundle branch block. He is also increasing lower extremity peripheral edema. Consider CHF, cardiac event. Versus other etiologies. Patient was given Identicard 6 mg quickly cardioverted and currently has a sinus tachycardia rate around 114. Repeat exam at 8:15 PM he is feeling much better. Current heart rate is 101. He and I went over his test results. I ordered an ABG and a repeat 2-hour troponin. Patient had a recurrent episode of SVT again at 168. I again given 6 mg of adenosine. I again cardioverted after a single dose to a rate around 115. Patient doing well at 9:02 PM. I spoke to the hospitalist. He will be admitted to PCU. I have cardiology on page. History & Record Review Discussion w/independent historian: EMS personnel and Patient Additional record(s) reviewed:: Prior inpatient record, Prior outpatient record, Prior ED visit and Prior labs Lab Data Attestation: I reviewed the patient's lab results. Lab results narrative: CBC unremarkable. White count 8. H&H 14 and 43. Platelets 230. Chemistries show sodium 129. Gap of 27. BUN of 39 creatinine 1.2. Glucose 197. Initial troponin 30. BNP is 387. TSH is normal at 3.0. Chest x-ray shows cardiomegaly. Chronic changes. Due to the elevated anion gap I did obtain a blood gas is pH is 7.36. pCO2 is only 33 and his pO2 is 70. O2 sat is 93%. Labs: Laboratory Results - last 24 hr 07/28/24 18:40 WBC 8.4 RBC 4.63 Hgb 14.9 Hct 43.2 MCV 93.3 MCH 32.2 H MCHC 34.5 RDW Std Deviation 47.2 H RDW Coeff of Ailyn 14.4 Plt Count 230 MPV 9.8 Immature Gran % (Auto) 0.700 Neut % (Auto) 79.5 H Lymph % (Auto) 10.8 L [place] % (Auto) 8.5 Eos % (Auto) 0.1 Baso % (Auto) 0.4 Absolute Neuts (auto) 6.7 Absolute Lymphs (auto) 0.91 Nucleated RBC % 0.2 Sodium 129 L Potassium 4.9 Chloride 84 L Carbon Dioxide 18.1 L Anion Gap 27 H BUN 39 H Creatinine 1.20 Estim Creat Clear Calc 50.34 Est GFR (MDRD) Non-Af 59 L BUN/Creatinine Ratio 32.8 H Glucose 97 Calcium 9.0 Troponin T High Sens 30 H NT pro BNP II 387 TSH 3.010 ABG Data ABG results: ABG 07/28/24 20:28 Specimen Type ART Sample Site R Radial pH 7.37 Bicarbonate Actual 19.2 L Total CO2 20 Base Excess -6 L O2 Saturation 94 L ABG pCO2 33.6 L ABG pO2 71 L Erik Test Positive O2 Delivery Device Room Air Vent Mode Not entered Radiography Chest X-Ray - ED: 1 View, Read by ED Physician, Lungs, Mediastinum, Bony Structures, No Acute Disease, Chronic Changes and Cardiomegaly Diagnostic Testing: Clinical Impression(s) from Imaging Studies Chest X-Ray 07/28/24 18:44 IMPRESSION: Low lung volumes with right basilar opacity as above. Reading Location: [facility] Chest x-ray, portable, single view interpreted both by myself and the radiologist. Shows cardiomegaly. Chronic lung changes. No acute process. No pulmonary edema. No effusions. No pneumonia. Rhythm Strip Rhythm Strip: SVT Rate: 168 Ectopy: None EKG Initial EKG: Attestation: I personally reviewed and interpreted this EKG as follows: Interpretation: RBBB and SVT Comments: SVT with a right bundle branch block. Rate 168. Rate dependent ischemia with ST depression in lead I to III. V1 through V6. Follow-up EKG: Attestation: I personally reviewed and interpreted this EKG as follows: Interpretation: Sinus Tachycardia Comments: After 6 Identicard cardioverted. There is a sinus tachycardia rate of 116. Right bundle branch block. Prior: Changed Critical Care Time Critical Care Time: Yes Critical care time (excluding procedures): 30-74 minutes, Including time spent:, Discussing w/Patient &/or Family/Receiver/Laborer, Discussing w/Consultants, Arranging Admission or Transfer, Performing Direct Patient Care at Bedside and - ( 35 minutes.) Discharge Plan Dx/Rx/DC Orders Clinical Impression: Sustained SVT, Right bundle branch block, Edema, peripheral, History of hypertension, Elevated troponin, Acute hyponatremia Disposition Disposition: Acute Care [facility]
[2024-07-28 18:58] LABS: Absolute Lymphocyte Count 0.91 X10^3/uL (0.83-4.51); Absolute Neutrophil Count 6.7 X10^3/uL (2.0-7.7); Basophil# 0.03 X10^3/uL; Basophil% 0.4 % (0-1); Eosinophil# 0.01 X10^3/uL; Eosinophils% 0.1 % (0-5); Hematocrit 43.2 % (40-54); Hemoglobin 14.9 g/dL (13.0-16.5); Lymphocyte # 0.91 X10^3/ul (0.83-4.51); Lymphocyte % 10.8 % (19-41); Mean Corp Hgb Conc 34.5 g/dL (32-36); Mean Corpuscular Hgb 32.2 pg (27.0-32.0); Mean Corpuscular Volume 93.3 fL (80-94); Mean Platelet Vol. 9.8 fl (6.2-12.0); Monocyte# 0.72 X10^3/uL; Monocyte% 8.5 % (0-10); NRBC Flagged by Analyzer 0.2 % (0-5); Neutrophil % 79.5 % (47-70); Platelet Count 230 K/mm3 (150-450); RBC Distribution Width CV 14.4 % (11.6-14.6); RBC Distribution Width SD 47.2 fl (35.1-43.9); Red Blood Count 4.63 M/mm3 (4.6-6.2); White Blood Count 8.4 K/mm3 (4.4-11.0)
[2024-07-28 19:27] LABS: Anion Gap 27 (5-15); BUN 39 mg/dL (4-19); BUN/Creat Ratio 32.8 RATIO (10-20); Carbon Dioxide 18.1 mmol/L (21.0-32.0); Chloride 84 mmol/L (98-108); EST Glomerular Filtration Rate 59 (>60); Estimated Creatinine Clearance 50.34 ml/min (50-250); Glucose 97 mg/dL (70-99); Potassium 4.9 mmol/L (3.3-5.1); Sodium Level 129 mmol/L (133-145); Troponin T High Sensitivity 30 ng/L (<=22)
[2024-07-28 19:50] LABS: Pro- Brain NATRIURETIC PEPTIDE 387 pg/mL (<=1800)
[2024-07-28 20:32] LABS: Allen Test Positive; Base Excess -6 mmol/L (-2 to +2); Bicarbonate 19.2 mmol/L (22-26); Blood Gas Specimen Type ART; Mode Not entered; O2 Delivery Device Room Air; PO2 71 mmHG (75-100); SITE R Radial; SO2 94 % (95-99); Total Carbon Dioxide 20 mmol/L; pCO2 33.6 mmHg (35-45); pH 7.37 (7.35-7.45)
--- NOTE | 2024-07-28 20:57 | PCM.HP.STD ---
HPI - General General Date of Admission: 07/28/24 Date of Service: 07/28/24 Chief Complaint: Generalized Weakness and Malaise. HPI Narrative PATRICK STROUD, is a 84 M with a past medical history of essential hypertension; on losartan, obesity; with BMI of 35.3 this admission, chronic alcohol abuse; with patient meaning to drinking 2 beers and 2 glasses of whiskey daily, history of RBBB, history of RISHABH, GERD; with history of PUD and GI bleed (2017); s/p transfusion on pantoprazole BID, chronic lower extremity lymphedema and OA who presents to [facility] ER complaining of generalized weakness and malaise. Mr. Stroud reports his symptoms began approximately 3 days prior to admission on , July 26, 2024 with the abrupt-onset of not feeling well in general with some mild diarrhea that was nonbloody. He states he has been taking his losartan as scheduled with no other recent illness or medication changes. He admits to racing heartbeat. He states he has chronic lower extremity lymphedema that is slightly worse than normal but he denies related fever, chills, nausea, vomiting, chest pain, shortness of breath or headache. In the ER he was noted to have EKG evidence of SVT; with heart rate up to ~170 bpm requiring IV adenosine x 1 before resolving but then approximately 1 hour later he had a recurrence requiring a second dose of IV adenosine. He was also noted to have laboratory evidence of mild Hyponatremia with serum sodium of 129 mmol/L present on admission complicated by Dehydration with BUN/creatinine ratio of 32.8 present on admission with a corresponding CXR that revealed low lung volumes Right basilar opacity consistent with suspected atelectasis versus infiltrate. He was then admitted to the PCU for ongoing care for status expected to extend beyond 2 midnights. [facility] Medical History History of blood transfusion Ulcer Hypertension Home Medications ?Medication ?Instructions ?Recorded ?Last Taken ?Type pantoprazole 40 mg tablet,delayed 40 mg PO BID 12/29/15 Unknown History release losartan 50 mg tablet 50 mg PO DAILY 07/28/24 Unknown History Allergy/AdvReac Type Severity Reaction Status Date / Time No Known Allergies Allergy Verified 01/06/17 13:32 Family History Father Arthritis Social History Smoking Status: Never smoker ROS ROS Narrative Review of Systems: Constitutional: Patient admits to generalized weakness and malaise but he denies fever or chills. Eyes: Patient denies changes in vision or discharge from eyes. ENT: Patient denies runny nose, sore throat or ear pain. Resp: Patient denies shortness of breath or cough. CV: Patient admits to heart racing and palpitations with increasing lower extremity edema as per HPI but he denies chest pain. GI: Patient admits to nonbloody diarrhea but denies abdominal pain, nausea, vomiting or constipation. : Patient denies dysuria, hematuria or urinary frequency. MSK: Patient denies arthralgias or myalgias. Skin: Patient denies rash, abscess, wounds or jaundice. Psych: Patient denies symptoms of uncontrolled depression or anxiety. Neuro: Patient denies headache, paresthesias or focal neurologic deficits. Allergy: Patient denies lip swelling, tongue swelling or urticaria. Hematology: Patient denies easy bleeding or easy bruisability. Endocrinology: Patient denies polyuria, polydipsia, polyphagia or heat/cold intolerance. 14 point ROS otherwise negative save for positives noted above in HPI. Vital Signs Vital Signs Vital Signs: 07/28/24 18:36 07/28/24 18:39 07/28/24 18:41 Temperature 98 F Temperature Source Oral Pulse Rate 167 H Respiratory Rate 30 H Respiratory Effort Short of Breath Blood Pressure 108/92 H Blood Pressure Mean 97 Pulse Ox 91 Oxygen Delivery Method Room Air Room Air Oxygen Flow Rate (L/min) 07/28/24 18:48 07/28/24 18:48 07/28/24 19:25 Temperature 97.7 F L Temperature Source Oral Pulse Rate 102 H Respiratory Rate 23 H Respiratory Effort Blood Pressure 139/95 H 145/93 H Blood Pressure Mean 109 110 Pulse Ox 89 95 96 Oxygen Delivery Method Room Air Nasal Cannula Room Air Oxygen Flow Rate (L/min) 2 07/28/24 20:20 Temperature Temperature Source Pulse Rate 169 H Respiratory Rate 25 H Respiratory Effort Blood Pressure 110/80 Blood Pressure Mean 90 Pulse Ox 95 Oxygen Delivery Method Nasal Cannula Oxygen Flow Rate (L/min) Weight Weight: 225 lb 4.999 oz Body Mass Index (BMI) 35.2 Physical Exam Const alert, oriented x3, no apparent distress and average body habitus General Appearance: cooperative HEENT normocephalic, head/scalp atraumatic and hearing grossly normal bilaterally HEENT Narrative: Mucous membranes dry. Eyes PERRL and EOMs intact bilaterally Neck no lymphadenopathy and supple Resp normal respiratory effort, no retractions, no use of accessory muscles and clear to auscultation bilaterally Cardio regular rate and regular rhythm GI normal to inspection, nondistended, normoactive bowel sounds, soft to palpation, non-tender and non-distended GI Narrative: Obese. Extremity Extremity Narrative: Patient has ~1+ pitting edema below the knees on both lower extremities. Skin Skin Narrative: Patient has no evidence of rash, abscess, wounds or jaundice Neuro oriented x3, CN's II-XII intact bilaterally, moves all extremities and no focal motor deficits Sensorium / Orientation: awake, alert, oriented to person, oriented to place and oriented to time Speech: speech normal Psych affect normal Results Medical Records Data Attestation: I reviewed the patient's medical records Lab / Micro Data Attestation: I reviewed the patient's lab results. 07/28/24 18:40 07/28/24 18:40 Labs: Laboratory Results - last 24 hr 07/28/24 18:40: WBC 8.4, RBC 4.63, Hgb 14.9, Hct 43.2, MCV 93.3, MCH 32.2 H, MCHC 34.5, RDW Std Deviation 47.2 H, RDW Coeff of Ailyn 14.4, Plt Count 230, MPV 9.8, Immature Gran % (Auto) 0.700, Neut % (Auto) 79.5 H, Lymph % (Auto) 10.8 L, [place] % (Auto) 8.5, Eos % (Auto) 0.1, Baso % (Auto) 0.4, Absolute Neuts (auto) 6.7, Absolute Lymphs (auto) 0.91, Nucleated RBC % 0.2, Sodium 129 L, Potassium 4.9, Chloride 84 L, Carbon Dioxide 18.1 L, Anion Gap 27 H, BUN 39 H, Creatinine 1.20, Estim Creat Clear Calc 50.34, Est GFR (MDRD) Non-Af 59 L, BUN/Creatinine Ratio 32.8 H, Glucose 97, Calcium 9.0, Troponin T High Sens 30 H, NT pro BNP II 387, TSH 3.010 ABG Data ABG results: ABG 07/28/24 20:28 Specimen Type ART Sample Site R Radial pH 7.37 Bicarbonate Actual 19.2 L Total CO2 20 Base Excess -6 L O2 Saturation 94 L ABG pCO2 33.6 L ABG pO2 71 L Erik Test Positive O2 Delivery Device Room Air Vent Mode Not entered Rhythm Strip Rhythm Strip: SVT Rate: 168 Ectopy: None Imaging Radiology Impression Chest X-Ray 07/28/24 18:44 IMPRESSION: Low lung volumes with right basilar opacity as above. Reading Location: [facility] Imaging Services [address] [place], [place] [id number] CTA Chest W/WO Contrast MR#: [id number] Acct: [id number] Name: ARELYPATRICK FISHER Rep #: [id number] : 1940 M 84 From: Gus Davis DO PCP: Dr. Elvis Fishman MD Status: ADM IN Study: CTA Chest W/WO Contrast Date of Exam: 07/28/24 Exam# [id number] Ordering Dr: Andrea Barnes DO PROCEDURE: CTA CHEST W/WO CONTRAST 07/28/2024 REASON FOR EXAM: RLL INFILTRATE WITH RECURRENT SVT. TECHNIQUE: CTA imaging of the chest, abdomen and pelvis without and with intravenous contrast. Coronal and Sagittal reconstruction series were provided. 3D, 3D post processing, 3D reconstructions, Maximum intensity projection (MIPs) Volume rendering and Shaded surface rendering was provided. One or more dose reduction techniques were used (e.g., Automated exposure control, adjustment of the mA and/or kV according to patient size, use of iterative reconstruction technique). COMPARISON: None FINDINGS: Moderate cardiomegaly. Moderate LAD coronary artery calcifications. No significant pericardial effusion. 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 No dissection. Normal caliber pulmonary arteries without filling defects. No suspicious adenopathy. Moderate/large hiatal hernia. Mild distal esophageal wall thickening. Severe hepatic steatosis. Superficial soft tissues are within normal limits. Central airways are patent. Mild/moderate bibasilar atelectasis. No patchy infiltrates, pleural effusion or pneumothorax. No pulmonary mass. No acute osseous abnormality. CT/CTA Chest W/WO Contrast IMPRESSION: 1. No acute process. 2. Moderate/large hiatal hernia with distal esophageal wall thickening. 3. Severe hepatic steatosis. 4. Cardiomegaly and coronary artery disease. 5. Mild/moderate bibasilar atelectasis. 6. 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 Reading Location: [facility] CC: Dr. Andrea Barnes DO; Dr. Elvis Fishman MD ~ Thermal Intelligence Analyst: Signed Assessment & Plan Assessment/Plan (1) Sustained SVT: (2) Elevated troponin: (3) Diarrhea: QUALIFIERS: Diarrhea type: presumed infectious Qualified Code(s): R19.7 - Diarrhea, unspecified (4) Dehydration: (5) Chronic alcohol abuse: (6) Acute hyponatremia: (7) Obesity (BMI 30-39.9): PLAN: Plan 1. EKG evidence of SVT; with heart rate up to ~170 bpm requiring IV adenosine x 1 before resolving but then approximately 1 hour later he had a recurrence requiring a second dose of IV adenosine with a mildly elevated troponin T of 30 pg/mL present on admission - Admit to PCU. Give repeat dose of IV adenosine should SVT sustain again greater than 160 bpm. Serialize troponin. Check echocardiogram to evaluate LVEF. Finally, we will consult [facility] to see this patient on rounds in the a.m. further recommendations to help appreciated in advance. 2. Diarrhea with Dehydration; evidence by BUN/creatinine ratio of 32.8 present on admission complicating #1 - Stool studies pending at this time. Placed on enteric precautions. Continue volume resuscitation begun in ER and recheck renal indices daily to follow trend. 3. Chronic EtOH abuse; with patient admitting to drinking 2 beers and 2 glasses of whiskey daily compounding #1 & #2 - EtOH cessation will be strongly encouraged. Start phenobarbital taper plus standard alcohol detox protocol. 4. Hyponatremia with serum sodium of 129 mmol/L present on admission adding to the medical complexity of #1 - #3 - Give NS IVF to restore volume and recheck level in a.m. to ensure improvement. 5. Obesity; with BMI of 35.3 this admission adding to the burden of disease outlined from #1 - #4 - Weight loss will be recommended. Check TSH. This complicates his case and may hamper recovery. 6. Essential hypertension; on losartan - Hold losartan in light of #3. Give hydralazine IV prn for systolic blood pressure > 160 mmHg. 7. History of RBBB - Noted. 8. History of RISHABH - Stable with hemoglobin of 14.9 g/dL and MCV of 93.3 fL. 9. GERD; with history of PUD and GI bleed (2017); s/p transfusion on pantoprazole BID - Stable with no evidence of active bleeding. Stool studies pending. Resume PPI as before. 10. Chronic lower extremity lymphedema - Stable. 11. OA - Give acetaminophen prn pain or fever. 12. DVT prophylaxis - Heparin 5,000U sq BID plus SCD's. Total time: Approximately (but not less than) 75 minutes. Charges/Coding Visit Charges Inpatient E&M: 27480 Init Hosp L3
--- NOTE | 2024-07-28 21:16 | CT_ITS ---
PROCEDURE: CTA CHEST W/WO CONTRAST 07/28/2024 REASON FOR EXAM: RLL INFILTRATE WITH RECURRENT SVT. TECHNIQUE: CTA imaging of the chest, abdomen and pelvis without and with intravenous contrast. Coronal and Sagittal reconstruction series were provided. 3D, 3D post processing, 3D reconstructions, Maximum intensity projection (MIPs) Volume rendering and Shaded surface rendering was provided. One or more dose reduction techniques were used (e.g., Automated exposure control, adjustment of the mA and/or kV according to patient size, use of iterative reconstruction technique). COMPARISON: None FINDINGS: Moderate cardiomegaly. Moderate LAD coronary artery calcifications. No significant pericardial effusion. 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 No dissection. Normal caliber pulmonary arteries without filling defects. No suspicious adenopathy. Moderate/large hiatal hernia. Mild distal esophageal wall thickening. Severe hepatic steatosis. Superficial soft tissues are within normal limits. Central airways are patent. Mild/moderate bibasilar atelectasis. No patchy infiltrates, pleural effusion or pneumothorax. No pulmonary mass. No acute osseous abnormality. CT/CTA Chest W/WO Contrast IMPRESSION: 1. No acute process. 2. Moderate/large hiatal hernia with distal esophageal wall thickening. 3. Severe hepatic steatosis. 4. Cardiomegaly and coronary artery disease. 5. Mild/moderate bibasilar atelectasis. 6. 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 [facility]
[2024-07-28 21:25] LABS: Troponin T High Sens 2 HR 35 ng/L (<=22)
[2024-07-28] MEDS: Metoprolol Tartrate 25 MG Tablet 12.5 MG PO (21:42)
[2024-07-28] MEDS: 0.9% Normal Saline (1000mL) 1,000 ML 150 ML IV ×2 (21:44→23:08)
[2024-07-28 21:50] LABS: Magnesium 2.4 mg/dL (1.5-2.2)
[2024-07-28 21:56] LABS: D-Dimer Quantitative (DVT/PE) 2.26 FEU/ug/m (0.27-0.49)
[2024-07-28] MEDS: Mag Hydrox/Al Hydrox/Simeth 30 ML UDC PO (22:21)
[2024-07-28] MEDS: Heparin Injection (Vial) 5,000 UNIT/ML VIAL 5000 UNIT SC (22:22)
[2024-07-28] MEDS: Pantoprazole Sodium 40 MG Tablet PO (22:22)
[2024-07-28] MEDS: Phenobarbital 32.4 MG Tablet 64.8 MG PO (23:21)
[2024-07-28 23:38] LABS: International Normalized Ratio 1.1; Prothrombin Time (Protime)PT. 14.6 SECONDS (11.7-14.9)
[2024-07-28] MEDS: metroNIDAZOLE 500 MG/100 ML BAG 100 MG IV (23:49)
[2024-07-29] VITALS (8 sets, daily range): BP systolic 108–143; BP diastolic 78–87; PULSE 72–160; RESP 14–18; TEMP 35.7–36.6; O2SAT 93–96; BMI 33.3
[2024-07-29] MEDS: Metoprolol Tartrate 5 MG/5 ML Vial 2.5 MG IV ×2 (01:55→02:07)
[2024-07-29] MEDS: Phenobarbital 32.4 MG Tablet 64.8 MG PO ×6 (03:38→23:50)
[2024-07-29] MEDS: metroNIDAZOLE 500 MG/100 ML BAG 100 MG IV ×3 (05:37→21:08)
[2024-07-29 06:08] LABS: Absolute Lymphocyte Count 0.66 X10^3/uL (0.83-4.51); Basophil# 0.02 X10^3/uL; Basophil% 0.2 % (0-1); Eosinophil# 0.01 X10^3/uL; Eosinophils% 0.1 % (0-5); Hemoglobin 12.7 g/dL (13.0-16.5); Lymphocyte # 0.66 X10^3/ul (0.83-4.51); Lymphocyte % 7.7 % (19-41); Mean Corp Hgb Conc 34.3 g/dL (32-36); Mean Corpuscular Hgb 31.8 pg (27.0-32.0); Mean Corpuscular Volume 92.7 fL (80-94); Mean Platelet Vol. 9.9 fl (6.2-12.0); Monocyte# 0.87 X10^3/uL; Monocyte% 10.2 % (0-10); NRBC Flagged by Analyzer 0 % (0-5); Neutrophil # 6.95 X10^3/uL (2.7-7.7); Neutrophil % 81.3 % (47-70); Platelet Count 154 K/mm3 (150-450); RBC Distribution Width CV 14.1 % (11.6-14.6); RBC Distribution Width SD 46.6 fl (35.1-43.9); Red Blood Count 3.99 M/mm3 (4.6-6.2); White Blood Count 8.6 K/mm3 (4.4-11.0)
--- NOTE | 2024-07-29 06:35 | VDLE_ITS ---
Reason For Study Reason For Study: Elevated D Dimer RIGHT LEFT GSV is normal. GSV is normal. CFV is compressible, spontaneous, phasic, competent CFV is compressible, spontaneous, phasic, competent, and demonstrates normal augmentation. and demonstrates normal augmentation. FV is compressible, spontaneous, phasic, competent FV is compressible, spontaneous, phasic, competent and demonstrates normal augmentation. and demonstrates normal augmentation. POP V is compressible, spontaneous, phasic, competent POP V is compressible, spontaneous, phasic, competent and demonstrates normal augmentation. and demonstrates normal augmentation. T/P Trunk is compressible. T/P Trunk is compressible. PTV is compressible. PTV is compressible. RT PerV is compressible. LT PerV is compressible. Procedure This is a venous duplex using B-mode, color flow and spectral Doppler. Exam performed portable in patient room. The exam was diagnostic. A preliminary report was called and/or faxed to [facility]. VL/Venous Duplex US - Duong Extrem Interpretation Summary Deep veins of the bilateral lower extremities are patent and compressible segme ntally. There is no evidence of bilateral lower extremity deep vein thrombosis. The bilateral great saphenous veins appea r patent and compressible segmentally. Ordering Physician: Andrea Barnes Referring Physician: Elvis Fishman Chi Performed By: Carlos Rice RVT
[2024-07-29 07:05] LABS: ALB/GLOB Ratio 1.4 RATIO (0.9-2.4); AST(SGOT) 158 U/L (<=37); Alanine Aminotransfer ALT/SGPT 95 U/L (<=46); Albumin, Serum 3.8 g/dL (3.4-4.8); Alkaline Phosphatase 114 U/L (40-129); Anion Gap 21 (5-15); BUN 37 mg/dL (4-19); BUN/Creat Ratio 38.3 RATIO (10-20); Calcium,Total 8.1 mg/dL (7.6-11.0); Carbon Dioxide 20.3 mmol/L (21.0-32.0); Chloride 88 mmol/L (98-108); Creatinine, Serum 0.97 mg/dL (0.70-1.20); EST Glomerular Filtration Rate 76 (>60); Estimated Creatinine Clearance 60.54 ml/min (50-250); Globulin 2.7 g/dL (2.2-4.2); Glucose 88 mg/dL (70-99); Potassium 4.9 mmol/L (3.3-5.1); Protein, Total 6.5 g/dL (5.9-8.4); Sodium Level 129 mmol/L (133-145); Total Bilirubin 1.46 mg/dL (0.00-1.30)
--- NOTE | 2024-07-29 07:10 | CT_ITS ---
PROCEDURE: ABDOMEN/PELVIS WITHOUT CONT 07/29/2024 REASON FOR EXAM: DIARRHEA; EVALUATE FOR COLITIS. TECHNIQUE: Abdomen and pelvis CT without intravenous contrast. Noncontrast technique limits evaluation of the abdominal and pelvic viscera. Coronal and Sagittal reconstruction series were provided. One or more dose reduction techniques were used (e.g., Automated exposure control, adjustment of the mA and/or kV according to patient size, use of iterative reconstruction technique). PATIENT PREPARATION: Per protocol COMPARISON: None. FINDINGS: There are streaky changes at the lung bases. There are coronary artery calcifications present. There is no free air within the abdomen and pelvis. There is diffuse fatty infiltration of the liver. The liver is nonenlarged. The gallbladder, spleen, adrenals are within normal limits. The pancreas is mildly atrophic. The bilateral kidneys are without evidence of hydronephrosis. There is contrast within the collecting system and urinary bladder, likely from prior contrast administration. The prostate is nonenlarged. Moderate size hiatal hernia is present. There is no bowel obstruction. Tubular blind-ending structure seen within the right lower quadrant is likely to represent the appendix (image 73/160). There is no evidence to suggest acute appendicitis. No abnormal free fluid is seen within the abdomen and pelvis. Atheromatous calcification seen within the aorta and its branches. No acute osseous abnormality. CT/Abdomen/Pelvis without Cont IMPRESSION: Moderate size hiatal hernia. No evidence of bowel obstruction. No definite ac [place] inflammatory process is seen within the abdomen and pelvis. Diffuse fatty infiltration of the liver. Reading Location: [id number]
--- NOTE | 2024-07-29 07:50 | PN.HOSP_ITS ---
Reason for Visit Reason for Visit: Diagnoses Obesity, unspecified (07/28/24) Dehydration (07/28/24) Hypo-osmolality and hyponatremia (07/28/24) Alcohol abuse, uncomplicated (07/28/24) Supraventricular tachycardia, unspecified (07/28/24) Diarrhea, unspecified (07/28/24) Other specified abnormal findings of blood chemistry (07/28/24) Subjective Subjective Feeling well. Objective Data Objective Data Vital Signs: Vital Signs Temp Pulse Resp BP Pulse Ox O2 Del Method O2 Flow Rate 36.6 C 81 18 129/78 H 96 Nasal Cannula 2 07/29/24 03:37 07/29/24 03:37 07/29/24 03:37 07/29/24 03:37 07/29/24 03:37 07/29/24 07:36 07/29/24 07:36 Oxygen Flow Rate (L/min) 2 Oxygen Delivery Method Nasal Cannula Weight: 96.6 kg Body Mass Index (BMI) 33.3 Intake & Output: Intake and Output for Last 24 Hours 07/27/24 07/28/24 07/29/24 23:59 23:59 23:59 Intake Total 312.5 / 312.5 925.83 / 925.83 Balance 312.5 / 312.5 925.83 / 925.83 Lab / Micro Data 07/29/24 05:00 07/29/24 05:00 Labs: Laboratory Results - last 24 hr 07/28/24 18:40: WBC 8.4, RBC 4.63, Hgb 14.9, Hct 43.2, MCV 93.3, MCH 32.2 H, MCHC 34.5, RDW Std Deviation 47.2 H, RDW Coeff of Ailyn 14.4, Plt Count 230, MPV 9.8, Immature Gran % (Auto) 0.700, Neut % (Auto) 79.5 H, Lymph % (Auto) 10.8 L, Collier % (Auto) 8.5, Eos % (Auto) 0.1, Baso % (Auto) 0.4, Absolute Neuts (auto) 6.7, Absolute Lymphs (auto) 0.91, Nucleated RBC % 0.2, D-Dimer Quant (PE/DVT) 2.26 H*, Sodium 129 L, Potassium 4.9, Chloride 84 L, Carbon Dioxide 18.1 L, A nion Gap 27 H, BUN 39 H, Creatinine 1.20, Estim Creat Clear Calc 50.34, Est GFR (MDRD) Non-Af 59 L, BUN/Creatinine Ratio 32.8 H, Glucose 97, Calcium 9.0, T roponin T High Sens 30 H, NT pro BNP II 387, TSH 3.010 07/28/24 20:53: Phosphorus 4.0, Magnesium 2.4 H, Troponin T Hi Sens 2 Hr 35 H 07/28/24 23:11: PT 14.6, INR 1.1 07/29/24 05:00: WBC 8.6, RBC 3.99 L, Hgb 12.7 L, Hct 37.0 L, MCV 92.7, MCH 31.8, MCHC 34.3, RDW Std Deviation 46.6 H, RDW Coeff of Ailyn 14.1, Plt Count 154, MPV 9.9, Immature Gran % (Auto) 0.500, Neut % (Auto) 81.3 H, Lymph % (Auto) 7.7 L, M mylene % (Auto) 10.2 H, Eos % (Auto) 0.1, Baso % (Auto) 0.2, Absolute Neuts (auto) 7.0, Absolute Lymphs (auto) 0.66 L, Nucleated RBC % 0, Sodium 129 L, Potassium 4.9, Chloride 88 L, Carbon Dioxide 20.3 L, Anion Gap 21 H, BUN 37 H, Creatinine 0.97, Estim Creat Clear Calc 60.54, Est GFR (MDRD) Non-Af 76, BUN/Creatinine Ratio 38.3 H, Glucose 88, Calcium 8.1, Total Bilirubin 1.46 H, AST 158 H, ALT 95 H, Alkaline Phosphatase 114, Total Protein 6.5, Albumin 3.8, Globulin 2.7, Albumin/Globulin Ratio 1.4, TSH 3.300 Micro: Microbiology 07/29/24 06:45 Stool Stool Lactoferrin - Final ABG Data ABG results: ABG 07/28/24 20:28 Specimen Type ART Sample Site R Radial pH 7.37 Bicarbonate Actual 19.2 L Total CO2 20 Base Excess -6 L O2 Saturation 94 L ABG pCO2 33.6 L ABG pO2 71 L Erik Test Positive O2 Delivery Device Room Air Vent Mode Not entered Radiography Diagnostic Testing: Radiology Impression Chest X-Ray 07/28/24 18:44 IMPRESSION: Low lung volumes with right basilar opacity as above. Reading Location: [facility] Chest CTA 07/28/24 21:16 IMPRESSION: 1. No acute process. 2. Moderate/large hiatal hernia with distal esophageal wall thickening. 3. Severe hepatic steatosis. 4. Cardiomegaly and coronary artery disease. 5. Mild/moderate bibasilar atelectasis. 6. 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 Reading Location: [facility] Rhythm Strip Rhythm Strip: SVT Rate: 168 Ectopy: None Physical Exam Const alert and no apparent distress Constitutional Narrative: up in chair. [facility] [place] [facility]. afebrile. Resp normal respiratory effort, no retractions, no use of accessory muscles and clear to auscultation bilaterally Cardio regular rate, regular rhythm, S1 normal heart sound and S2 normal heart sound GI normal to inspection, nondistended, normoactive bowel sounds, soft to palpation, non-tender and non-distended Neuro Sensorium / Orientation: awake and alert Assessment & Plan Assessment/Plan (1) Sustained SVT: PLAN: x2 while here, both responding to adenosine CTA negative for DVT. Start metoprolol tartrate 50 BID. Check echo as noted cardiomegaly on CT. TSH WNL. (2) Diarrhea: QUALIFIERS: Diarrhea type: presumed infectious Qualified Code(s): R19.7 - Diarrhea, unspecified PLAN: Stool studies pending CT shows moderate Hiatal Hernia. Diffuse fatty infiltation of the liver. (3) Chronic alcohol abuse: PLAN: Started on phenobarbital taper Thiamine and folate (4) Hyponatremia: PLAN: suspect due to beer potomania + dehydration monitor (5) Transaminitis: PLAN: suspect due to alcohol. Also, concerning for underlying liver pathology. Alcohol cessation necessary. Follow up wit GI as outpt PLAN: Plan VTE prophylaxis: SQ heparin. Charges/Coding Visit Charges Inpatient E&M: 51922 Subs Hosp L2
--- NOTE | 2024-07-29 07:54 | ECHOLC_ITS ---
Reason For Study Reason For Study: SVT Procedure This was a limited 2D transthoracic echocardiogram. The study was technically difficult. Contrast injection was performed. Patient could not tolerate probe pressure. Exam performed portable in patient room. Left Ventricle Normal LV size. Left ventricular systolic function is normal. The left ventricular ejection fraction is 55 %. No regional wall motion abnormalities noted. Right Ventricle Normal RV size. Normal systolic function. Atria Normal left atrium. Normal right atrium. Mitral Valve There is mild mitral annular calcification. Tricuspid Valve Normal tricuspid valve. Aortic Valve Trisinus/trileaflet aortic valve. Mild focal aortic valve calcification. Pulmonic Valve The pulmonic valve is not well visualized. Great Vessels Normal aortic root. Pericardium/Pleural No pericardial effusion. Medication Diluted definity 2ml given slow IV push to enhance endocardial definition. MMode/2D Measurements & Calculations LVIDd: 4.3 cm IVSd: 1.1 cm LVOT diam: 2.2 cm LVIDs: 2.9 cm LVPWd: 1.4 cm FS: 32.2 % LVOT area: 3.7 cm2 Ao root diam: 3.9 cm Doppler Measurements & Calculations Ao V2 max: 211.1 cm/sec LV V1 max: 110.0 cm/sec SV(LVOT): 82.0 ml Ao max P.8 mmHg LV V1 max P.8 mmHg Ao V2 mean: 131.5 cm/sec LV V1 mean P.1 mmHg Ao mean P.1 mmHg LV V1 mean: 66.5 cm/sec Ao V2 VTI: 39.5 cm LV V1 VTI: 22.4 cm AV (velocity ratio): 0.57 VANDANA(I,D): 2.1 cm2 VANDANA(V,D): 1.9 cm2 ECHO/Echo Limited w/Contrast Interpretation Summary Normal LV size. Left ventricular systolic function is normal. The left ventricular ejection fraction is 55 %. Contrast injection was performed. Ordering Physician: Angelito Spence Referring Physician: Elvis Fishman Chi Performed By: Dipak Benavides RCS
[2024-07-29] MEDS: Metoprolol Tartrate 50 MG Tablet PO ×2 (08:19→19:55)
[2024-07-29] MEDS: Folic Acid 1 MG Tablet PO (08:19)
[2024-07-29] MEDS: Heparin Injection (Vial) 5,000 UNIT/ML VIAL 5000 UNIT SC ×2 (08:20→19:55)
[2024-07-29] MEDS: Pantoprazole Sodium 40 MG Tablet PO ×2 (08:20→19:55)
[2024-07-29] MEDS: Thiamine Hydrochloride 100 MG Tablet PO (08:20)
[2024-07-29] MEDS: 0.9% Saline Lock 10 ML Syringe IV (19:55)
--- NOTE | 2024-07-29 23:13 | NURSING ---
This RN taking over care at this time.
[2024-07-30] VITALS (12 sets, daily range): BP systolic 130–158; BP diastolic 81–95; PULSE 70–90; RESP 16–18; TEMP 35–36.4; O2SAT 92–94; BMI 34.0
[2024-07-30] MEDS: Phenobarbital 32.4 MG Tablet 64.8 MG PO ×6 (03:22→23:28)
[2024-07-30] MEDS: 0.9% Saline Lock 10 ML Syringe IV (05:32)
[2024-07-30] MEDS: metroNIDAZOLE 500 MG/100 ML BAG 100 MG IV ×2 (05:32→13:05)
[2024-07-30] MEDS: Pantoprazole Sodium 40 MG Tablet PO ×2 (09:11→19:32)
[2024-07-30] MEDS: Folic Acid 1 MG Tablet PO (09:11)
[2024-07-30] MEDS: Heparin Injection (Vial) 5,000 UNIT/ML VIAL 5000 UNIT SC ×2 (09:12→19:33)
[2024-07-30] MEDS: Metoprolol Tartrate 50 MG Tablet PO ×2 (09:12→19:35)
[2024-07-30] MEDS: Thiamine Hydrochloride 100 MG Tablet PO (09:12)
[2024-07-30] MEDS: Nystatin Powder 15gm Bottle 1 APPLIC TOPICAL ×2 (09:12→19:30)
--- NOTE | 2024-07-30 10:10 | CASEMGMT ---
RN CM Face to Face with patient for initial transition planning/care coordination assessment. RN CM introduced self and role at [facility]. Patient lying in bed, alert and oriented. Patient willing to participate in assessment and is able to answer all questions appropriately. Care providers, pharmacy, and demographics verified. Strata: 2 PCP: Kye Specialists: none Preferred Pharmacy: [facility] at discharge. Insurance: [employer] MCR Prescription Benefit: yes Living Will/HPOA: yes, Mina Rojas, son LNOK: son, friend Living Arrangements: Patient lives alone in a 2 story home with bed and bath on first floor. Patient states that he is independent at home. Transportation: self, friend DME/HHC: Patient has shower chair, cane, walker, grab bars. No previous HHC or SNF Patient wishes to discharge home, will monitor progress with therapy. Patient states he has no further needs or concerns at this time. CM to follow for discharge planning needs that may arise. Disposition Plan: TBD, anticipate home with HHC pending progress with therapy. Marlene DIAL, RN, CM
--- NOTE | 2024-07-30 11:08 | PN_ITS ---
Subjective Subjective Patient seen and examined. She had no complaints. He was having his 2D echo done. Review of systems otherwise negative. He has remained hemodynamically stable. Objective Data Objective Data Vital Signs: Vital Signs Temp Pulse Resp BP Pulse Ox O2 Del Method O2 Flow Rate 97.6 F L 88 18 147/87 H 92 Room Air 2 07/30/24 09:10 07/30/24 09:12 07/30/24 09:10 07/30/24 09:12 07/30/24 09:10 07/30/24 09:10 07/29/24 08:16 Oxygen Flow Rate (L/min) 2 Oxygen Delivery Method Room Air Weight: 217 lb Body Mass Index (BMI) 34.0 Intake & Output: Intake and Output for Last 24 Hours 07/28/24 07/29/24 07/30/24 23:59 23:59 23:59 Intake Total 312.5 / 312.5 1114.16 / 1114.16 100 / 100 Output Total 650 / 650 Balance 312.5 / 312.5 464.16 / 464.16 100 / 100 Lab / Micro Data 07/29/24 05:00 07/29/24 05:00 Micro: Microbiology 07/29/24 06:45 Stool Stool Lactoferrin - Final 07/29/24 06:45 Stool Enteric Bacteriology - Final 07/29/24 06:45 Stool Clostridioides difficile (PCR) - Final Rhythm Strip Rhythm Strip: SVT Rate: 168 Ectopy: None Physical Exam Const alert, oriented x3, no apparent distress and well nourished General Appearance: cooperative and well developed HEENT normocephalic, head/scalp atraumatic, moist oral mucous membranes and oropharynx normal Eyes PERRL and EOMs intact bilaterally Neck no lymphadenopathy and supple Lymph Lymphatic: no lymphadenopathy noted and no lymphedema noted Resp Resp Narrative: mildly diminished breath sounds bibasally, no wheezes or crackles. On room air. Cardio regular rate, regular rhythm, S1 normal heart sound, S2 normal heart sound and no murmurs GI normal to inspection, nondistended, normoactive bowel sounds, soft to palpation and non-tender GI Narrative: mild abdominal distension, which he says is chronic. No guarding or rebound tenderness. Extremity normal capillary refill, no clubbing, cyanosis or edema and no calf tenderness General Extremity: no tenderness to palpation of joints or extremities Skin General Skin Exam: no breakdown Neuro CN's II-XII intact bilaterally, no focal motor deficits and no sensory deficits noted Motor Exam: strength 5/5 throughout and general weakness Psych thought process normal and cooperative Appearance: appropriate Assessment & Plan Assessment/Plan (1) Chronic alcohol abuse: (2) Acute hyponatremia: PLAN: Plan #Sustained SVT * Heart rate better controlled today. He did receive adenosine initially during this admission. CT of the chest was negative for any evidence of PE. * On metoprolol. 2D echo ordered. Done today and read is pending. * TSH was within normal limits. #Diarrhea: Diarrhea has resolved. Stool studies are negative so far. #Chronic alcohol use disorder: Not in withdrawal. Was started on phenobarbital taper on admission. Monitor thiamine and folic acid #Hyponatremia: Likely due to beer potomania. Will monitor. #Transaminitis: * CT of the abdomen showed fatty liver. * Likely due to alcohol use disorder. * Follow-up with gastroenterology on outpatient basis. DVT prophylaxis: heparin Charges/Coding Visit Charges Inpatient E&M: 79332 Subs Hosp L2
[2024-07-30 13:21] LABS: ALB/GLOB Ratio 1.4 RATIO (0.9-2.4); AST(SGOT) 76 U/L (<=37); Alanine Aminotransfer ALT/SGPT 61 U/L (<=46); Albumin, Serum 3.8 g/dL (3.4-4.8); Alkaline Phosphatase 104 U/L (40-129); Anion Gap 11 (5-15); BUN 25 mg/dL (4-19); BUN/Creat Ratio 32.2 RATIO (10-20); Calcium,Total 8.7 mg/dL (7.6-11.0); Chloride 87 mmol/L (98-108); Creatinine, Serum 0.79 mg/dL (0.70-1.20); EST Glomerular Filtration Rate 87 (>60); Estimated Creatinine Clearance 74.09 ml/min (50-250); Globulin 2.7 g/dL (2.2-4.2); Glucose 110 mg/dL (70-99); Potassium 4.2 mmol/L (3.3-5.1); Protein, Total 6.4 g/dL (5.9-8.4); Sodium Level 125 mmol/L (133-145); Total Bilirubin 1.17 mg/dL (0.00-1.30)
--- NOTE | 2024-07-30 19:37 | NURSING ---
Pt requesting meds to be given now along with the phenobarb taper.
[2024-07-31] MEDS: Phenobarbital 32.4 MG Tablet 64.8 MG PO ×2 (02:50→06:40)
[2024-07-31 03:00] VITALS: BP 126/74; PULSE 84; RESP 18; TEMP 36.3; O2SAT 92
[2024-07-31 05:41] LABS: Absolute Lymphocyte Count 0.85 X10^3/uL (0.83-4.51); Absolute Neutrophil Count 2.5 X10^3/uL (2.0-7.7); Basophil# 0.03 X10^3/uL; Basophil% 0.7 % (0-1); Eosinophil# 0.27 X10^3/uL; Hematocrit 36.6 % (40-54); Hemoglobin 12.4 g/dL (13.0-16.5); Lymphocyte # 0.85 X10^3/ul (0.83-4.51); Mean Corp Hgb Conc 33.9 g/dL (32-36); Mean Corpuscular Hgb 31.6 pg (27.0-32.0); Mean Corpuscular Volume 93.4 fL (80-94); Mean Platelet Vol. 10.5 fl (6.2-12.0); Monocyte# 0.81 X10^3/uL; Monocyte% 18.1 % (0-10); NRBC Flagged by Analyzer 0 % (0-5); Neutrophil # 2.48 X10^3/uL (2.7-7.7); Neutrophil % 55.3 % (47-70); Platelet Count 116 K/mm3 (150-450); RBC Distribution Width CV 13.9 % (11.6-14.6); RBC Distribution Width SD 46.4 fl (35.1-43.9); Red Blood Count 3.92 M/mm3 (4.6-6.2); White Blood Count 4.5 K/mm3 (4.4-11.0)
[2024-07-31 06:00] VITALS: BMI 33.6
[2024-07-31 06:24] LABS: Anion Gap 12 (5-15); BUN 19 mg/dL (4-19); BUN/Creat Ratio 25.7 RATIO (10-20); Calcium,Total 8.5 mg/dL (7.6-11.0); Carbon Dioxide 27.5 mmol/L (21.0-32.0); Chloride 92 mmol/L (98-108); Creatinine, Serum 0.74 mg/dL (0.70-1.20); EST Glomerular Filtration Rate 88 (>60); Estimated Creatinine Clearance 73.74 ml/min (50-250); Glucose 104 mg/dL (70-99); Potassium 3.9 mmol/L (3.3-5.1); Sodium Level 131 mmol/L (133-145)
[2024-07-31 08:09] VITALS: BP 128/83; PULSE 78; RESP 17; TEMP 36.6; O2SAT 92
[2024-07-31 08:55] VITALS: BP 132/76; PULSE 90
[2024-07-31] MEDS: Pantoprazole Sodium 40 MG Tablet PO (08:55)
[2024-07-31] MEDS: Folic Acid 1 MG Tablet PO (08:55)
[2024-07-31] MEDS: Heparin Injection (Vial) 5,000 UNIT/ML VIAL 5000 UNIT SC (08:55)
[2024-07-31] MEDS: Metoprolol Tartrate 50 MG Tablet PO (08:55)
[2024-07-31] MEDS: Thiamine Hydrochloride 100 MG Tablet PO (08:55)
[2024-07-31] MEDS: Nystatin Powder 15gm Bottle 1 APPLIC TOPICAL (08:59)
[2024-07-31 09:13] VITALS: O2SAT 92
[2024-07-31 09:20] LABS: Amphetamine Urine NEGATIVE (<1000 ng/mL); Barbiturate Urine PRESUMPTIVE POSITIVE (< 200 ng/mL); Benzodiazepine Urine NEGATIVE (< 200 ng/mL); Buprenorphine Urine NEGATIVE (< 200 ng/mL); Cocaine Urine NEGATIVE (< 300 ng/mL); Fentanyl, Urine NEGATIVE; Methadone Urine NEGATIVE (< 300 ng/mL); Opiates Urine NEGATIVE (< 300 ng/mL); Oxycodone, Urine NEGATIVE (< 100 ng/mL); PCP Urine NEGATIVE (< 25 ng/mL); THC Urine NEGATIVE (< 50 ng/mL)
--- NOTE | 2024-07-31 12:38 | CASEMGMT ---
MARLEY RABAGO reviewed progress with therapy. Patient ambulated 180ft contact guard with FWW. MARLEY RABAGO in to discuss needs at discharge. Patient states he has foot pedal machine that he uses daily, declined need for therapy or HHC at discharge. Patient denies needs or help at discharge, states he friend is available to help is needed. Patient had no further questions or concerns. MARLEY RABAGO updated hospitalist to discharge plan.
[2024-07-31 13:51] VITALS: BP 151/95; PULSE 87; RESP 19; TEMP 36.6; O2SAT 92
--- NOTE | 2024-07-31 13:56 | DCINST_ITS ---
Discharge Instructions Diet Discharge Diet: Low fat / Low cholesterol DC O2, CPAP, BIPAP needs Home O2 Discharge instructions: No Dressing / Incision Discharge Activity: Return to Normal Activity Weight Bearing Status: Weight bearing as tolerated Dressing / Incision Call your doctor if you observe: Fever of 101 or Higher, Shortness of breath, Dizziness and Chest pain Follow Up Care Test Results: Test results from this visit will be discussed in further detail at your follow- up appointment, if applicable. Discharge Plan Admission Admit Date/Time: 07/28/24 21:22 Primary Reason for Your Visit: svt Attending Provider: Isabelle Guillen Primary Care Provider: Elvis Fishman [employer] Providers: Andrea Barnes; Angelito Spence Instructions Patient Instructions: Supraventricular Tachycardia Discharge Orders/Prescriptions Prescriptions: New metoprolol tartrate 50 mg Tablet 50 mg PO BID Qty: 60 2RF losartan 25 mg tablet 25 mg PO DAILY Qty: 30 2RF Continued pantoprazole 40 MG tablet 40 mg PO BID Discontinued losartan 50 mg tablet 50 mg PO DAILY Referrals / Follow Up: Khurram Reyes MD [Med Staff - Active Staff] - Within 1 Month (see to establish care for SVT) Elvis Fishman Chi, MD [Primary Care Provider] - Within 1 Week Disposition Disposition (needs filled in before D/C Order can be placed): Home, Self Care
--- NOTE | 2024-07-31 13:58 | DS.PCM_ITS ---
Providers Date of Admission: 07/28/24 Date of Discharge: 07/31/24 Primary Care Physician: Dr. Elvis Fishman MD Reason For Visit: SUSTAINED SVT, RLL INFILITRATE, DEHYDRATION Diagnosis Discharge Diagnosis (1) Chronic alcohol abuse: Status: Chronic Code(s): F10.10 - Alcohol abuse, uncomplicated (2) Acute hyponatremia: Status: Acute Code(s): E87.1 - Hypo-osmolality and hyponatremia Plan #Sustained SVT * Heart rate better controlled today. He did receive adenosine initially during this admission. CT of the chest was negative for any evidence of PE. * On metoprolol. 2D echo ordered. Done today and read is pending. * TSH was within normal limits. #Diarrhea: Diarrhea has resolved. Stool studies are negative so far. #Chronic alcohol use disorder: Not in withdrawal. Was started on phenobarbital taper on admission. Monitor thiamine and folic acid #Hyponatremia: Likely due to beer potomania. Will monitor. #Transaminitis: * CT of the abdomen showed fatty liver. * Likely due to alcohol use disorder. * Follow-up with gastroenterology on outpatient basis. DVT prophylaxis: heparin Medications at Discharge Home Medications pantoprazole 40 mg tablet,delayed release 40 mg PO BID 12/29/15 losartan 25 mg tablet 25 mg PO DAILY #30 tabs 07/31/24 metoprolol tartrate 50 mg tablet 50 mg PO BID #60 tabs 07/31/24 Hospital Course Operations None Procedures None Summary of Care Provided Minutes Spent on Discharge: 45 Hospital Course: Patient is an 84 y/o male with a PMH as outlined who wasa dmitted via the ED with a complaint of generalised weakness and malaise. His symptoms started about 2 days prior to admission. He had not taken his medication. He will be admitted to feeling his heart be tolerating. The ED EKG showed SVT with heart rate going up to the 170s. He was given a dose of adenosine which improved subsequently about an hour later his symptoms recurred with EKG showing SVT again. Labs were significant for sodium of 129 and BUN over creatinine ratio 32.8. Chest x-ray showed low lung volumes and right basilar opacity consistent with suspected atelectasis versus infiltrate. He was admitted to be managed for new onset SVT. He was also managed for hyponatremia. He was placed on PO metoprolol. 2D echo ordered showed normal LV size and systolic function and showed EF of 55% with no regional wall motion abnormalities noted. He remained stable and was discharged home o 07/31/2024. He is to follow up with his PCP within 1-2 weeks. Of note, the SVT did not recur during admission. Patient seen and examined prior to discharge. He had no active complaints. Review of systems is otherwise negative. He was discharged on PO metoprolol 50mg bid. His home dose of losartan was cut down from 50mg daily to 25mg daily. Physical Exam Const alert, oriented x3, no apparent distress and average body habitus General Appearance: cooperative, comfortable and well developed Exam Limitations: no limitations HEENT normocephalic, head/scalp atraumatic, hearing grossly normal bilaterally, moist oral mucous membranes and oropharynx normal Mouth: oral and palatal mucosa normal Eyes PERRL and EOMs intact bilaterally Neck no lymphadenopathy and supple Lymph Lymphatic: no lymphadenopathy noted and no lymphedema noted Resp normal respiratory effort, no retractions, no use of accessory muscles and clear to auscultation bilaterally Resp Narrative: mildly diminished breath sounds bibasally, no wheezes or crackles. On room air. Cardio regular rate, regular rhythm, S1 normal heart sound, S2 normal heart sound and no murmurs GI normal to inspection, nondistended, normoactive bowel sounds, soft to palpation, non-tender and non-distended Extremity normal to inspection, normal capillary refill, no clubbing, cyanosis or edema and no calf tenderness General Extremity: no tenderness to palpation of joints or extremities Skin General Skin Exam: no breakdown Neuro oriented x3, CN's II-XII intact bilaterally, moves all extremities, no focal motor deficits and no sensory deficits noted Sensorium / Orientation: awake, alert, oriented to person, oriented to place and oriented to time Speech: speech normal Motor Exam: strength 5/5 throughout and general weakness Psych thought process normal, cooperative and affect normal Appearance: appropriate Weight / BMI Weight Weight: 214 lb 15.211 oz Body Mass Index (BMI) 33.6 ABG / Lab / Microbiology Data 07/31/24 04:39 07/31/24 04:39 Laboratory: Laboratory Results - last 24 hr 07/28/24 06:50: Urine Opiates Screen NEGATIVE, U Buprenorphine Qual NEGATIVE, Ur Oxycodone Screen NEGATIVE, Urine Methadone Screen NEGATIVE, Urine Fentanyl Screen NEGATIVE, Ur Barbiturates Screen PRESUMPTIVE POSITIVE, Ur Phencyclidine Scrn NEGATIVE, Ur Amphetamines Screen NEGATIVE, U Benzodiazepines Scrn NEGATIVE, Urine Cocaine Screen NEGATIVE, U Cannabinoids Screen NEGATIVE 07/31/24 04:39: WBC 4.5, RBC 3.92 L, Hgb 12.4 L, Hct 36.6 L, MCV 93.4, MCH 31.6, MCHC 33.9, RDW Std Deviation 46.4 H, RDW Coeff of Ailyn 13.9, Plt Count 116 L, MPV 10.5, Immature Gran % (Auto) 0.900, Neut % (Auto) 55.3, Lymph % (Auto) 19.0, M mylene % (Auto) 18.1 H, Eos % (Auto) 6.0 H, Baso % (Auto) 0.7, Absolute Neuts (auto) 2.5, Absolute Lymphs (auto) 0.85, Nucleated RBC % 0, Sodium 131 L, Potassium 3.9, Chloride 92 L, Carbon Dioxide 27.5, Anion Gap 12, BUN 19, Creatinine 0.74, Estim Creat Clear Calc 73.74, Est GFR (MDRD) Non-Af 88, B UN/Creatinine Ratio 25.7 H, Glucose 104 H, Calcium 8.5 Microbiology: Microbiology 07/29/24 06:45 Stool Stool Lactoferrin - Final 07/29/24 06:45 Stool Enteric Bacteriology - Final 07/29/24 06:45 Stool Clostridioides difficile (PCR) - Final Radiography Diagnostic Testing: Radiology Impression Venous Doppler Study 07/29/24 06:35 Interpretation Summary Deep veins of the bilateral lower extremities are patent and compressible segmentally. There is no evidence of bilateral lower extremity deep vein thrombosis. The bilateral great saphenous veins appear patent and compressible segmentally. Ordering Physician: Andrea Barnes Referring Physician: Elvis Fishman Chi Performed By: Carlos Rice, RVT D/C Instructions Discharge Diet: Low fat / Low cholesterol Discharge Activity: Return to Normal Activity Weight Bearing Status: Weight bearing as tolerated Call your doctor if you observe: Fever of 101 or Higher, Shortness of breath, Dizziness and Chest pain DC O2, CPAP, BIPAP Needs Home O2 Discharge instructions: No DC home with Oxygen: No Meaningful Use Info Meaningful Use Meaningful Use Diagnoses (Choose all that apply): None applicable Ischemic Stroke Statin Dosing Therapy Reference: STATIN DOSE THERAPY REFERENCE: * Patients > 75 years receive moderate or high dose statin therapy. * Patients 75 years or YOUNGER should receive HIGH intensity statin dose unless contraindicated. You will be required to document reason for non-treatment if statin daily dose does not meet guidelines. HIGH DOSE STATIN THERAPY DAILY Atorvastatin > than or = to 40 mg Rosuvastatin > than or = to 20 mg Amlodipine + Atorvastatin > than or = to 2.5/40 mg Ezetimibe + Simvastatin 10/80 mg Simvastatin 80mg Discharge Plan Admission Admit Date/Time: 07/28/24 21:22 Primary Reason for Your Visit: svt Attending Provider: Isabelle Guillen Primary Care Provider: Elvis Fishman Chi Consulting Providers: Andrea Barnes; Angelito Spence Instructions Patient Instructions: Supraventricular Tachycardia Discharge Orders/Prescriptions Prescriptions: New metoprolol tartrate 50 mg Tablet 50 mg PO BID Qty: 60 2RF losartan 25 mg tablet 25 mg PO DAILY Qty: 30 2RF Continued pantoprazole 40 MG tablet 40 mg PO BID Discontinued losartan 50 mg tablet 50 mg PO DAILY Referrals / Follow Up: Khurram Reyes MD [Med Staff - Active Staff] - Within 1 Month (see to establish care for SVT) Elvis Fishman Chi, MD [Primary Care Provider] - Within 1 Week Disposition Disposition (needs filled in before D/C Order can be placed): Home, Self Care Charges/Coding Visit Charges Inpatient E&M: 96335 Disch Hosp >30min
--- NOTE | 2024-07-31 14:18 | PHA.DC_ITS ---
Pharmacy [facility] Service has performed discharge medication reconciliation and counseling for this patient. The patient's discharge medication list was reviewed for discrepancies and discrepancies were resolved. The patient was counseled on the following discharge medications and changes in medications for homegoing were reviewed. The Reason for Use, instructions for use, and potential side effects were reviewed for all new medications. The patient's questions regarding all of their medications were answered. 1. Losartan 25 mg PO daily 2. Metoprolol tartrate 50 mg PO BID The patient was able to verbally demonstrate an understanding of their discharge medications. The patient was counselled on new medications by pharmacy service associate Marshall. Medications at Discharge Home Medications pantoprazole 40 mg tablet,delayed release 40 mg PO BID 12/29/15 losartan 25 mg tablet 25 mg PO DAILY #30 tabs 07/31/24 metoprolol tartrate 50 mg tablet 50 mg PO BID #60 tabs 07/31/24
[2024-07-31 14:32] VITALS: BP 125/83; PULSE 90; RESP 18; TEMP 36.6; O2SAT 96
== END 2024-07-31 16:39 | disposition home or self-care (01) | DRG 309 ==
LOC: ED 20:52 → PCU 21:38
PROVIDERS: Admitting Provider Internal Medicine; Emergency Provider Emergency Medicine; PCP Family Medicine Geriatric Medicine; Visit Provider Student in an Organized Health Care Education/Training Program
DX: I47.10 Supraventricular tachycardia, unspecified (principal); E87.1 Hypo-osmolality and hyponatremia; I42.6 Alcoholic cardiomyopathy; D50.9 Iron deficiency anemia, unspecified; E66.9 Obesity, unspecified; F10.10 Alcohol abuse, uncomplicated; I10 Essential (primary) hypertension; K76.0 Fatty (change of) liver, not elsewhere classified; E86.0 Dehydration; K44.9 Diaphragmatic hernia without obstruction or gangrene; K21.9 Gastro-esophageal reflux disease without esophagitis; I45.10 Unspecified right bundle-branch block; R19.7 Diarrhea, unspecified; M19.90 Unspecified osteoarthritis, unspecified site; I89.0 Lymphedema, not elsewhere classified; R79.89 Other specified abnormal findings of blood chemistry; Z68.35 Body mass index [BMI] 35.0-35.9, adult
CPT/HCPCS: 36415; 36600; 71045; 71275; 74176; 80048; 80053; 80307; 83630; 84443; 85025; 87493; 87506; 93005; 93308; 93970; 94668; 97116; 97162; 97165; 97530; 97535; 97802; 99285; Q9967; A4216; C8924; J0153

== ENCOUNTER → 2024-09-03 | Outpatient (CLI) | payer MEDICARE, SELFPAY ==
[2024-09-03 12:17] LABS: Absolute Neutrophil Count 3.5 X10^3/uL (2.0-7.7); Basophil# 0.04 X10^3/uL; Basophil% 0.7 % (0-1); Eosinophil# 0.13 X10^3/uL; Eosinophils% 2.2 % (0-5); Hematocrit 41.9 % (40-54); Hemoglobin 13.7 g/dL (13.0-16.5); Lymphocyte % 27.7 % (19-41); Mean Corp Hgb Conc 32.7 g/dL (32-36); Mean Corpuscular Hgb 31.4 pg (27.0-32.0); Mean Corpuscular Volume 96.1 fL (80-94); Mean Platelet Vol. 10.3 fl (6.2-12.0); Monocyte# 0.54 X10^3/uL; Monocyte% 9.3 % (0-10); NRBC Flagged by Analyzer 0 % (0-5); Neutrophil # 3.46 X10^3/uL (2.7-7.7); Neutrophil % 59.9 % (47-70); Platelet Count 300 K/mm3 (150-450); RBC Distribution Width CV 13.8 % (11.6-14.6); RBC Distribution Width SD 49.1 fl (35.1-43.9); Red Blood Count 4.36 M/mm3 (4.6-6.2); White Blood Count 5.8 K/mm3 (4.4-11.0)
[2024-09-03 13:09] LABS: ALB/GLOB Ratio 1.3 RATIO (0.9-2.4); AST(SGOT) 28 U/L (<=37); Alanine Aminotransfer ALT/SGPT 18 U/L (<=46); Albumin, Serum 4.2 g/dL (3.4-4.8); Alkaline Phosphatase 104 U/L (40-129); Anion Gap 12 (5-15); BUN 10 mg/dL (4-19); BUN/Creat Ratio 10.5 RATIO (10-20); CPK Total, Creatine Kinase 26 U/L (24-195); Calcium,Total 9.4 mg/dL (7.6-11.0); Carbon Dioxide 25.6 mmol/L (21.0-32.0); Chloride 100 mmol/L (98-108); Creatinine, Serum 0.92 mg/dL (0.70-1.20); EST Glomerular Filtration Rate 81 (>60); Globulin 3.2 g/dL (2.2-4.2); Glucose 112 mg/dL (70-99); Potassium 4.7 mmol/L (3.3-5.1); Pro- Brain NATRIURETIC PEPTIDE 313 pg/mL (<=1800); Protein, Total 7.4 g/dL (5.9-8.4); Sodium Level 138 mmol/L (133-145); Total Bilirubin 0.33 mg/dL (0.00-1.30); Troponin T High Sensitivity 16 ng/L (<=22)
[2024-09-04 03:07] LABS: Myoglobin, Serum 26 ng/mL (28-72)
== END | disposition home or self-care (01) ==
LOC: LAB 11:29
PROVIDERS: PCP Family Medicine Geriatric Medicine; Referring Provider Family Medicine Geriatric Medicine; Visit Provider Family Medicine Geriatric Medicine
DX: I10 Essential (primary) hypertension (principal); E55.9 Vitamin D deficiency, unspecified; I47.10 Supraventricular tachycardia, unspecified
CPT/HCPCS: 36415; 80053; 82306; 82550; 83874; 83880; 84443; 84484; 85025; 85379

== ENCOUNTER → 2024-09-03 | Outpatient (CLI) | payer MEDICARE, SELFPAY ==
--- NOTE | 2024-09-03 16:51 | CT_ITS ---
PROCEDURE: CTA CHEST W/WO CONTRAST 09/03/2024 REASON FOR EXAM: PULMONARY EMBOLISM TECHNIQUE: CTA axial imaging of the chest with intravenous contrast. Multiplanar and multisequence images were obtained. 3D post processing was performed PATIENT PREPARATION: Per protocol CONTRAST: 100 mL Isovue 370 One or more dose reduction techniques were used (e.g., Automated exposure control, adjustment of the mA and/or kV according to patient size, use of iterative reconstruction technique). RADIATION DOSE SUMMARY: CTDlvol: 15.8 mGy DLP: 425 mGycm COMPARISON: CTA chest on 07/28/2024 FINDINGS: Lymph nodes: No significant thoracic or axillary lymphadenopathy. Heart: Mildly enlarged, unchanged. There are moderate multivessel coronary calcifications. Thoracic Aorta: The ascending thoracic aorta measures 4.0 cm, unchanged. Pulmonary Vessels: No evidence of acute pulmonary emboli through the segmental branches. Evaluation of the subsegmental branches is limited due to respiratory motion. Lungs and Airways: Linear atelectasis or scarring at the lung bases. Pleura: No pleural effusion. No pneumothorax. Upper Abdomen: Hepatic steatosis. Simple cyst in the midline liver. Hiatal hernia. There is reflux of contrast into the IVC and hepatic veins. Bones: Degenerative changes of the thoracic spine. CT/CTA Chest W/WO Contrast IMPRESSION: 1. No pulmonary embolism to the segmental level. 2. No acute cardiopulmonary abnormality. 3. Cardiomegaly with reflux of contrast into the IVC and hepatic veins, sugges tive of right heart dysfunction. 4. Unchanged findings to include ascending thoracic aorta measuring 4.0 cm, he patic steatosis, and hiatal hernia. Reading Location: [id number]
== END | disposition home or self-care (01) ==
LOC: CT 16:26
PROVIDERS: PCP Family Medicine Geriatric Medicine; Referring Provider Family Medicine Geriatric Medicine; Visit Provider Family Medicine Geriatric Medicine
DX: I26.99 Other pulmonary embolism without acute cor pulmonale (principal)
CPT/HCPCS: 71275; Q9967

== ENCOUNTER → 2025-03-04 | Outpatient (CLI) | payer MEDICARE, SELFPAY ==
[2025-03-04 09:25] LABS: Hematocrit 41.2 % (40-54); Hemoglobin 13.5 g/dL (13.0-16.5); Immature Granulocytes Count 0.030 X10^3/uL (0.0-0.0); Mean Corp Hgb Conc 32.8 g/dL (32-36); Mean Corpuscular Volume 94.5 fL (80-94); Mean Platelet Vol. 10.7 fl (6.2-12.0); NRBC Flagged by Analyzer 0 % (0-5); Platelet Count 259 K/mm3 (150-450); RBC Distribution Width CV 13.1 % (11.6-14.6); RBC Distribution Width SD 45.5 fl (35.1-43.9); Red Blood Count 4.36 M/mm3 (4.6-6.2); White Blood Count 7.0 K/mm3 (4.4-11.0)
--- OUTSIDE RECORDS SUMMARY | 2025-03-04 09:54 | XMS RPT_ITS | CCD ---
Author Organization [facility] Care Team Providers Care Rougher Operator Name Role Phone [facility] Consulting Un available BUCKNER, KATE Admitting Unavailable BUCKNER, KATE Attending Unavailable SYSTEM, PROVIDER NOT IN Primary Care Unavaila ble System, Provider Not In Primary Care Provider Un available KyeElvis felipe Chi Primary Care Provider TEN BRODY Attending Unavailabl e SELF Referring Unavailable KYEELVIS CHI Primary Care Unavailable TEN BRODY Attending Unavailabl e TEN BRODY Referring Unavailabl e KYE, ELVIS RUVALCABA Primary Care Unavailable Dr. Elvis Fishman MD, Chi Primary Care Provider [phone] Dr. Jc Nichols MD Emergency Provider Dr. Andrea Barnes DO Admit Provider Unavail able Dr. Andrea Barnes DO Attending Provider Dr. Elvis Kay MD, Chi Primary Care Provider Dr. Bello Persaud MD Attending Provider Dr. Bello Persaud MD Referring Provider Dr. Andrea Barnes DO Other Provider Unavail able Wilmer BRANDT, Dr. Isabelle Tillman Attending Provider Dr. Angelito Spence DO Other Provider Dr. Angelito Spence DO Attending Provider [phone] Eric BRANDT, Dr. Paulson Attending Provider Dr. Angelito Reeder MD Attending Provider Dr. Andrea Barnes DO Referring Provider Maged Guillen MD, Dr. Isabelle Tillman Other Provider [phone] Kye MD, Dr. Elvis Chi Attending Provider [phone] Kye BRANDT, Dr. Elvis Ruvalcaba Referring Provider [phone] Kye BRANDT, Dr. Elvis Ruvalcaba Primary Care Provider Eric BRANDT, Dr. Paulson Attending Provider [phone] Dinesh MANAGER FORENSIC-C, Bridget Attending Provider [phone] Kye, Elvis Chi Primary Care Unavailable Andrea Barnes Admitting Unavailable Andrea Barnes Attending Unavailable Adnrea Barnes Consulting Unavailable Kye, Elvis Chi Attending Unavailable Kye, Elvis Chi Primary Care Unavailable Kye, Elvis Chi Referring Unavailable Kye, Elvis Chi Attending Unavailable Kye, Elvis Chi Primary Care Unavailable Kye, Elvis Chi Referring Unavailable Kye, Elvis Chi Primary Care Unavailable Kye, Elvis Chi Referring Unavailable Kye, Elvis Chi Attending Unavailable Kye, Elvis Chi Primary Care Unavailable Koram, Isabelle Tillman Attending Unavailable Andrea Barnes Admitting Unavailable Andrea Barnes Consulting Unavailable Angelito Spence Consulting Unavailable Angelito Spence Attending Unavailable CarsoneriAngelito Consulting Unavailable Koram, Isabelle Layne Attending Unavailable Koram, Isabelle Layne Consulting Unavailable Kye, Elvis Chi Primary Care Unavailable Kye, Elvis Chi Referring Unavailable EricKhurram Attending Unavailable Kye, Elvis Chi Primary Care Unavailable Kye, Elvis Chi Referring Unavailable Bridget Montiel NP Attending Unavailable Kye, Elvis Chi Primary Care Unavailable Kye, Elvis Chi Referring Unavailable EricKhurram Attending Unavailable Kye, Elvis Chi Primary Care Unavailable Bello Persaud Attending Unavailable Bello Persaud Referring Unavailable Kye, Elvis Chi Primary Care Unavailable Khurram Reyes Attending Unavailable Kye, Elvis Chi Primary Care Unavailable Angelito Reeder Attending Unavailable Andrea Barnes Referring Unavailable Medications Current Medications Medication Drug Class(es) Dates Sig (Normalized) Sig (Original) azithromycin 250 mg oral tablet (2 sources) Macrolide Antimicrobial Start: 03-21-2020 End: 03-26-2020 take 1 tablet by mouth once daily azithromycin (ZITHROMAX) 250 MG tablet Take 1 (one) tablet (250 mg total) by mouth daily for 3 days Start: 03/23/20. 3 tablet 0 03/23/2020 03/26/2020 Active losartan potassium 50 mg oral tablet (20 sources) Angiotensin 2 Receptor Theresa Start: 09-13-2024 take 1 tablet by mouth once daily Losartan 50 mg tablet Active 50 mg PO DAILY September 13, 2024 12:00am Start: 07-31-2024 End: 09-13-2024 take 1 tablet by mouth once daily Losartan 25 mg tablet Discontinued 25 mg PO DAILY 30 2 July 31, 2024 12:00am September 13, 2024 1:12pm Start: 07-28-2024 End: 07-31-2024 take 1 tablet by mouth once daily Losartan 50 mg tablet Discontinued 50 mg PO DAILY July 28, 2024 12:00am July 31, 2024 1:40pm Start: 03-22-2020 End: 04-21-2020 take 1 tablet by mouth once daily at lunch losartan (COZAAR) 25 MG tablet Take 1 (one) tablet (25 mg total) by mouth daily with lunch . 30 tablet 3 03/22/2020 Active Start: 03-21-2020 End: 03-22-2020 take 50 mg by mouth once daily at lunch 50 mg, Oral, Daily with lunch, First dose on Tue03/21/20 at 1200 Start: 12-29-2015 losartan (COZA AR) 100 mg tablet 12/29/2015 Active Start: 05-05-2015 End: 07-28-2024 take 4 tablets by mouth once daily Losartan 25 MG tablet Discontinued 100 mg PO DAILY May 05, 2015 1:00am July 28, 2024 8:55pm Start: 05-05-2015 take 100 mg by mouth once pérez y Losartan Active 100 MG PO DAILY May 05, 2015 12:00am End: 03-22-2020 losartan (COZAAR) 100 MG tab let Take 50 mg by mouth daily . 0 03/22/2020 Discontinued (Stop Taking at Discharge) metoprolol tartrate 50 mg oral tablet (13 sources) beta-Adrenergic Theresa Start: 07-31-2024 End: 10-17-2024 take 1 tablet by mouth twice daily Metoprolol Tartrate 50 mg tablet Active 50 mg PO TWICE A DAY 60 3 October 17, 2024 12:00am Start: 03-22-2020 End: 04-21-2020 take 1 tablet by mouth twice daily metoprolol succinat e ER (TOPROL XL) 25 mg 24 hr tablet Take 25 mg by mouth twice daily. 03/22/2020 Active Start: 03-21-2020 End: 03-22-2020 take 5 mg intravenous route every six hours as needed metoprolol (LOPRESSOR) injection 5 mg Start: 03-21-2020 End: 03-21-2020 metoprolol (LOPRESSOR) 5 mg/ 5 mL injection - ADS Override Pull pantoprazole 40 mg delayed release oral tablet (16 sources) Proton Pump Inhibitor Start: 09-13-2024 take 1 tablet by mouth once daily Pantoprazole 40 mg tablet,delayed release (DR/EC) Active 40 mg PO daily September 13, 2024 1:12pm Start: 02-17-2016 End: 03-22-[address] (PROTONIX) 4 0 mg tablet 02/17/2016 Active Start: 12-29-2015 End: 09-13-2024 take 1 tablet by mouth twice daily Pantoprazole 40 MG tablet Discontinued 40 mg PO TWICE A DAY December 29, 2015 12:00am September 13, 2024 1:12pm polysaccharide iron complex 150 mg oral capsule (2 sources) Start: 02-24-2016 FERREX 150 150 mg iron capsule 02/24/2016 Active predniSONE 20 mg oral tablet (2 sources) Start: 03-23-2020 End: 03-26-2020 take 2 tablets by mouth once daily predniSONE (DELTASONE) 20 MG tablet Take 2 (two) tablets (40 mg total) by mouth daily for 3 days Start: 03/23/20. 6 tablet 0 03/23/2020 03/26/2020 Active Start: 03-20-2020 End: 03-22-2020 take 40 mg by mouth once daily at mealtime 40 mg, Oral, Daily, First dose on Melina 03/20/20 at 1300, For 5 doses Give with food propylene glycol 6 mg/ml ophthalmic solution (2 sources) Start: 05-15-2024 propylene glyc oL, PF, (SYSTANE COMPLETE PF) 0.6 % drop Use 1 Drop in both eyes four times daily. 20 mL 3 05/15/2024 Active Completed/Discontinued Medications Medication Drug Class(es) Dates Sig (Normalized) Sig (Original) acetaminophen 325 mg oral tablet (3 sources) Start: 03-20-2020 End: 03-22-2020 take 1 tablet by mouth every six hours as needed 650 mg, Oral, Every 6 hours PRN, mild pain, fever 100.4 F or greater, headaches, Starting Melina 03/20/20 at 1110 acetaminophen (T YLENOL) 325 mg cap Take by mouth. Active albuterol 0.83 mg/ml inhalant solution (3 sources) beta2-Adrenergic Agonist Start: 03-20-2020 End: 03-22-2020 take 2.5 mg by inhalation every two hours as needed 2.5 mg, Inhalation, Every 2 hour PRN (RT), wheezing, shortness of breath, Starting Melina 03/20/20 at 1110 albuterol 0.833 mg/ml / ipratropium bromide 0.167 mg/ml inhalant solution (3 sources) Anticholinergic, beta2-Adrenergic Agonist Start: 03-20-2020 End: 03-22-2020 take 3 mL by inhalation every four hours 3 mL, Inhalation, Every 4 hours scheduled (RT), First dose on Melina 03/20/20 at 1200 Start: 03-20-2020 End: 03-20-2020 ipratropium-albuteroL (DUO-N EB) 0.5-2.5 mg/3 ml nebulizer solution 3 mL aluminum hydroxide 40 mg/ml / magnesium hydroxide 40 mg/ml / simethicone 4 mg/ml oral suspension (1 source) Start: 03-20-2020 End: 03-22-2020 take 30 mL by mouth every four hours as needed 30 mL, Oral, Every 4 hours PRN, indigestion, Starting Melina 03/20/20 at 1110 azithromycin (ZITHROMAX) 500 mg in sodium chloride 0.9 % (NS) 250 mL IVPB (1 source) Start: 03-20-2020 End: 03-20-2020 azithromycin (ZITHROMAX) 500 mg in sodium chloride 0.9 % (NS) 250 mL IVPB bisacodyl 10 mg rectal suppository (1 source) Stimulant Laxative Start: 03-20-2020 End: 03-22-2020 take 10 mg rectal route once daily as needed for constipation 10 mg, Rectal, Daily PRN, constipation, Starting Melina 03/20/20 at 1110 Try oral medications first for constipation. & nbsp;Try rectal medication if oral meds are ineffective, not tolerated, or not ordered. cefTRIAXone 1000 mg injection (1 source) Cephalosporin Antibacterial Start: 03-20-2020 End: 03-20-2020 cefTRIAXone (ROCEPHIN) IVPB 1 g (premix) docusate sodium 50 mg / sennosides, shelter 8.6 mg oral tablet (1 source) Start: 03-20-2020 End: 03-22-2020 senna-docusate (SENNA-S) 8.6-50 mg per tablet 1 tablet 0.4 ml enoxaparin sodium 100 mg/ml prefilled syringe (1 source) Low Molecular Weight Heparin Start: 03-20-2020 End: 03-22-2020 inject 40 mg by subcutaneous injection once daily 40 mg, Subcutaneous, Daily, First dose on Melina 03/20/20 at 1300 Administer in abdomen unless otherwise directed by prescriber. Notify physician if patient refuses. Indication: VTE Prophylaxis methylPREDNISolone 125 mg injection (1 source) Corticosteroid Start: 03-20-2020 End: 03-20-2020 methylPREDNISolone sod suc(PF) (SOLU-medrol) Injection 125 mg omeprazole 40 mg delayed release oral capsule (1 source) Proton Pump Inhibitor End: 03-22-2020 take 1 capsule by mouth once daily omeprazole (PRILOSEC) 40 MG capsule Take 40 mg by mouth daily . 0 03/22/2020 Discontinued (Stop Taking at Discharge) 2 ml ondansetron 2 mg/ml injection (1 source) Serotonin-3 Receptor Antagonist Start: 03-20-2020 End: 03-22-2020 take 4 mg intravenous route every six hours as needed 4 mg, Intravenous, Every 6 hours PRN, nausea, vomiting, Starting Melina 03/20/20 at 1110 perflutren lipid microspheres (DEFINTeikhos Tech) 0.143 mg/mL solution 0-10 mL of mixture (1 source) Start: 03-21-2020 End: 03-22-2020 perflutren lipid microspheres (DEFINITY) 0.143 mg/mL solution 0-10 mL of mixture phenylephrine hydrochloride 25 mg/ml ophthalmic solution (2 sources) alpha-1 Adrenergic Agonist Start: 05-15-2024 End: 05-15-2024 PHENYLephrine 2.5 % 1 Drop (AK-DILATE, FOX-SYNEPHRINE) Start: 05-15-2024 End: 05-15-2024 1 Drop, BOTH EYES, ONCE, 1 d ose, On Tue05/15/24 at 0930, FOR OPHTHALMIC USE ONLY PROTECT FROM LIGHT microencapsulated potassium chloride 20 meq extended release oral tablet (2 sources) Start: 03-21-2020 End: 03-22-2020 potassium chloride SA (K-DUR,KLOR-CON) CR tablet 40 mEq proparacaine hydrochloride 5 mg/ml ophthalmic solution (2 sources) Local Anesthetic Start: 05-15-2024 End: 05-15-2024 proparacaine 0.5 % 1 Drop (ALCAINE) Start: 05-15-2024 End: 05-15-2024 1 Drop, BOTH EYES, ONCE, 1 d ose, On Tue05/15/24 at 0930, FOR THE EYE Sodium Chloride (1 source) Start: 03-20-2020 End: 03-22-2020 sodium chloride (PF) (NS) flush 5 mL traZODone hydrochloride 100 mg oral tablet (12 sources) Serotonin Reuptake Inhibitor Start: 01-19-2016 End: 07-28-2024 take 1 tablet by mouth at bedtime as needed for sleep Trazodone 100 MG tablet Discontinued 100 mg PO AT BEDTIME as needed for Sleep November 18, 2016 12:00am July 28, 2024 8:55pm tropicamide 10 mg/ml ophthalmic solution (2 sources) Anticholinergic Start: 05-15-2024 End: 05-15-2024 tropicamide 1 % 1 Drop (MYDRIACYL) Start: 05-15-2024 End: 05-15-2024 1 Drop, BOTH EYES, ONCE, 1 d ose, On Tue05/15/24 at 0930, FOR THE EYE Problems Active Problems Problem Classification Problem Date Documented Date Episodic/Chronic Alcohol-related disorders (9 sources) Alcohol abuse; Translations: [Alcohol abuse, uncomplicated] Onset: 08-07-19 25 09-13-2024 Chronic Cardiac dysrhythmias (10 sources) Supraventricular tachycardia; Translations: [Sustained supraventricular tachycardia] 07-28-2024 Chronic Cataract (3 sources) Bilateral pseudophakia; Translations: [Presence of intraocular lens] Onset: 03-02-20 16 05-15-2024 Chronic Conduction disorders (8 sources) Right bundle branch block; Translations: [Unspecified right bundle-branch block] Onset: 10-23-19 25 07-28-2024 Chronic Deficiency and other anemia (8 sources) Anemia; Translations: [Anemia, unspecified] 11-18-2016 Episodic Deficiency and other anemia (8 sources) Iron deficiency anemia; Translations: [Iron deficiency anemia, unspecified] 01-06-2017 Episodic Disorders of lipid metabolism (4 sources) Hyperlipidemia; Translations: [Hyperlipidemia, unspecified] Onset: 10-18-1909-13-2024 Chronic Essential hypertension (7 sources) Hypertensive disorder; Translations: [Essential (primary) hypertension] Onset: 10-18-1909-13-2024 Chronic Gastroduodenal ulcer (except hemorrhage) (3 sources) Chronic gastric ulcer; Translations: [Chronic gastric ulcer without hemorrhage or perforation] 09-13-2024 Chronic Inflammation; infection of eye (except that caused by tuberculosis or sexually transmitteddisease) (2 sources) Keratoconjunctivitis sicca; Translations: [Keratoconjunctivitis sicca, not specified as Sjogren's, bilateral] Onset: 03-02-20 16 03-02-2016 Chronic Nutritional deficiencies (3 sources) Vitamin D deficiency; Translations: [Vitamin D deficiency, unspecified] 09-13-2024 Chronic Other circulatory disease (1 source) H/O: hypertension; Translations: [Personal history of other diseases of the circulatory system] 07-28-2024 Episodic Other eye disorders (2 sources) Dry eyes; Translations: [Dry eye syndrome of bilateral lacrimal glands] 05-15-2024 Episodic Other gastrointestinal disorders (5 sources) Diarrhea; Translations: [Diarrhea, unspecified] 08-08-2024 Episodic Other liver diseases (5 sources) Enzyme level - finding; Translations: [Elevated transaminase measurement] 09-13-2024 Episodic Other lower respiratory disease (5 sources) Radiologic infiltrate of lung ; Translations: [Other nonspecific abnormal finding of lung field] 07-28-2024 Episodic Other nutritional; endocrine; and metabolic disorders (5 sources) Body mass index 30+ - obesity; Translations: [Obesity, unspecified] 09-13-2024 Chronic Other nutritional; endocrine; and metabolic disorders (1 source) Obesity, unspecified; Translations: [Obesity, unspecified] Onset: 08-07-19 Chronic Residual codes; unclassified (4 sources) Peripheral edema; Translations: [Localized edema] 07-28-2024 Episodic Residual codes; unclassified (3 sources) Insomnia; Translations: [Insomnia, unspecified] 09-13-2024 Episodic Respiratory failure; insufficiency; arrest (adult) (1 source) Alveolar hypoventilation; Translations: [Respiratory failure with hypoxia and hypercapnia, unspecified chronicity (HCC)] Episodic Retinal detachments; defects; vascular occlusion; and retinopathy (3 sources) Bilateral epiretinal membrane of eyes; 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, bilateral] Onset: 03-02-2005-15-2024 Chronic Thyroid disorders (3 sources) Hypothyroidism; Translations: [Hypothyroidism, unspecified] 09-13-2024 Chronic Unclassified (2 sources) see to establish care for SVT Unclassified (2 sources) Supraventricular tachycardia, unspecified; Translations: [Supraventricular tachycardia, unspecified] Onset: 08-07-19 Unclassified (1 source) Elevation of levels of liver transaminase levels; Translations: [Elevation of levels of liver transaminase levels] Onset: 08-01-19 Past or Other Problems Problem Classification Problem Date Documented Da te Episodic/Chronic Blindness and vision defects (6 sources) Bilateral hyperopia of eyes; Translations: [Hypermetropia, bilateral] Onset: 03-02-2016 05-15-2024 Episodic Chronic obstructive pulmonary disease and bronchiectasis (3 sources) Bronchitis; Translations: [Bronchitis] Onset: 03-20-2020 03-20-2020 Episodic Fluid and electrolyte disorders (20 sources) Acute hyponatremia; Translations: [Hypo-osmolality and hyponatremia] Onset: 08-06-2024 07-28-2024 Episodic Other and unspecified benign neoplasm (3 sources) Nevus of choroid of left eye; Translations: [Benign neoplasm of left choroid] Onset: 03-02-2016 05-15-2024 Episodic Other gastrointestinal disorders (1 source) Diarrhea, unspecified; Translations: [Diarrhea, unspecified] Onset: 08-06-2024 Episodic Other screening for suspected conditions (not mental disorders or infectious disease) (8 sources) Raised cardiac enzyme or marker; Translations: [Other specified abnormal findings of blood chemistry] Onset: 08-06-2024 07-28-2024 Episodic Pulmonary heart disease (1 source) Other pulmonary embolism without acute cor pulmonale; Translations: [Other pulmonary embolism without acute cor pulmonale] Onset: 09-06-2024 Episodic Results Test Name Value Interpretation Reference Range Facility Cardiology Visit Reporton Cardiology Visit Report [facility] [address] [place] [address] OFFICE VISIT Date of Service: 12/18/24 MR#: [id number] Acct: [id number] Name: MINA MCGEE Rep #: [id number] : 1940 Provider: CECILIA ceron Age/Sex: 84/M Location[place] [facility] [facility] [place] Status: Signed HPI HPI History of Present Illness Details: This is an 84-year-old male who presents to the office today for cardiovascular follow-up visit. He has a history of hypertension who apparently presented to the emergency room in July of this year with palpitations. At that time he was evaluated and he was noted to have an elevated heart rate of 167 bpm with a EKG demonstrating a right bundle branch block. Cardiology was called it was determined that it was a narrow complex tachycardia with aberrancy he was given 6 mg of intravenous adenosine and converted to sinus tachycardia with a rate of 114 bpm. During the hospitalization had an echocardiogram done which demonstrated preserved ejection fraction. He was subsequently discharged on 50 mg twice a day of metoprolol but he did not take it. His CT scan also demonstrated mildly dilated aortic measuring 4.0 cm. At his previous office visit, his electrocardiogram demonstrated wide QRS tachycardia with a right bundle branch block aberrancy a rate of 161 bpm. Carotid massage did not have any influence on the rhythm neither did Valsalva. He was started on metoprolol tartrate 50 mg twice daily, and instructed to follow-up for an EKG-Normal sinus rhythm with right bundle branch block, heart rate 62 bpm. From a cardiac standpoint, the patient is doing well. He denies any palpitations, chest pain, pressure or heaviness. He denies SOB, Orthopnea, and PND. He does not have bleeding issues; no blood in urine, stool, or nosebleeds. He denies any decrease in energy level, myalgias, or claudication. He does acknowledge occasional bilateral pedal edema. He does not have sudden weight gain. He denies lightheadedness, dizziness, syncopal or near syncopal episodes, and headaches. Intake Vital Signs 10/17/24 09:25 12/18/24 07:10 12/18/24 08:41 Height 5 ft 7 in 5 ft 7 in Weight: 215 lb BMI 33.6 BP 199/91 H 180/80 H Blood Pressure Location Lt brachial Lt brachial Position Sitting Sitting Respiration 18 Pulse 63 Pulse Source Monitor Pulse Oximetry (%) 93 Oxygen Delivery Method room air Intake Visit Reasons: 2 M FU Branch Associate Teller Required: No Is patient in pain?: No Allergies No Known Allergies Allergy (Verified 12/18/24 08:36) Medications ???Medication ???Instructions ???Recorded ???Confirmed ???Type losartan 50 mg tablet 50 mg PO DAILY 09/13/24 12/18/24 H istory pantoprazole 40 mg tablet,delayed 40 mg PO QDAY 09/13/24 12/18/24 H istory release metoprolol tartrate 50 mg tablet 50 mg PO BID #60 tabs 10/17/2406/12 Rx Ejection fraction %: 55 Have you fallen in the past year?: No PFSH Medical History Chronic gastric ulcer Hypothyroidism Vitamin D deficiency Hyperlipidemia Insomnia Obesity (BMI 30-39.9) Pulmonary infiltrate in right lung on CXR Edema, peripheral Right bundle branch block Sustained SVT Anemia Alcohol abuse Hypertension Surgical History Hx of left knee surgery Family History Father Arthritis Social History Smoking Status: Never smoker Smokeless tobacco user: chewing tobacco alcohol intake: never substance use type: does not use ROS Const Const: Negative for fatigue, weakness, headache(s) or frequent falls Eyes Eyes: Negative for blurry vision ENT ENT: Negative for headache(s), dizziness or Nosebleed/epistaxis Cardio Chest Pain: No Palpitations: No Edema: Bilateral Muscle aches with walking: None Resp Respiratory: Negative for SOB with activity, SOB at rest or SOB orthopnea SOB lying down GI GI: Negative nausea, vomiting, heartburn, bright, red blood in stools or black,tarry stools : Negative for hematuria Neuro Neuro: Negative for dizziness, lightheadedness, near syncope, syncope, frequent falls, headache(s), weakness or blurry vision Endo Endo: Negative for fatigue Cardiology Exam Const Appearance: cooperative, healthy appearing, no acute distress, well developed and well groomed Nutritional Appearance: average body habitus, well nourished and obese Orientation: alert, awake and oriented x3 Head Head: normal to inspection, normocephalic and atraumatic Ears: external ears normal and hearing grossly impaired Nose: external nose normal, nares normal, nasal mucous membranes and turbinates normal, s (more content not included)... Normal [facility] Ova and Parasites 8623on OP OVA AND PARASITES EXAM, ROUTINE These results were obtained using wet preparation(s) and trichrome stained smear. This test does not include testing for Crytosporidium parvum, Cyclospora, or Microsporidia. One negative specimen does not rule out the possibility of a parasitic infection. [facility] ORIGINAL REPORT ON FILE IN LAB CONTAINS ADDITIONAL TEST SITE INFORMATION. Ova/Parasite Exam NO OVA, CYSTS, OR PARASITES FOUND. Normal [facility] Comment on above: Performed By: #### L 501.4021, L500.2500, L100.0100 #### [facility] [address] [place], [address] Cardiology Visit Reporton Cardiology Visit Report [facility] [address] [place] [address] OFFICE VISIT Date of Service: 10/17/24 MR#: [id number] Acct: [id number] Name: MINA MCGEE Rep #: [id number] : 1940 Provider: Dr. Khurram Reyes MD Age/Sex: 84/M Location: [facility] [place] Status: Signed HPI HPI History of Present Illness Details: Pleasant gentleman who presents for an evaluation of his fast heart rate. He is a rather well- looking 84-year-old male with a history of hypertension who apparently presented to the emergency room in July of this year with palpitations. At that time he was evaluated and he was noted to have an elevated heart rate of 167 bpm with a EKG demonstrating a right bundle branch block. Cardiology was called it was determined that it was a narrow complex tachycardia with aberrancy he was given 6 mg of intravenous adenosine and converted to sinus tachycardia with a rate of 114 bpm. During the hospitalization had an echocardiogram done which demonstrated preserved ejection fraction. He was subsequently discharged on 50 mg twice a day of metoprolol but he did not take it. He presents today for an initial evaluation. His CT scan also demonstrated mildly dilated aortic measuring 4.0 cm. His physical exam today is unremarkable other than tachycardia his electrocardiogram does demonstrate wide QRS tachycardia with a right bundle branch block aberrancy a rate of 161 bpm. Carotid massage did not have any influence on the rhythm neither did Valsalva. Intake Vital Signs 07/29/24 09:57 10/17/24 09:25 Height 5 ft 7 in 5 ft 7 in Weight: 217 lb BMI 34.0 BP 122/70 H Blood Pressure Location Lt brachial Position Sitting Respiration 18 Pulse 161 H Pulse Source Monitor Intake Visit Reasons: SVT (KYE) Accompanied by: Self Is patient in pain?: No Allergies No Known Allergies Allergy (Verified 10/17/24 09:55) Medications ???Medication ???Instructions ???Recorded ???Confirmed ???Type losartan 50 mg tablet 50 mg PO DAILY 09/13/24 10/17/24 H istory pantoprazole 40 mg tablet,delayed 40 mg PO QDAY 09/13/24 10/17/24 H istory release metoprolol tartrate 50 mg tablet 50 mg PO BID #60 tabs 10/17/2406/12 Rx Have you fallen in the past year?: No PFSH Medical History Chronic gastric ulcer Hypothyroidism Vitamin D deficiency Hyperlipidemia Insomnia Obesity (BMI 30-39.9) Pulmonary infiltrate in right lung on CXR Edema, peripheral Right bundle branch block Sustained SVT Anemia Alcohol abuse Hypertension Surgical History Hx of left knee surgery Family History Father Arthritis Social History Smoking Status: Never smoker Smokeless tobacco user: chewing tobacco alcohol intake: never substance use type: does not use ROS Const Const: Negative for fatigue, weakness, headache(s), daytime sleepiness or difficulty sleeping ENT ENT: Negative for headache(s), dizziness or Nosebleed/epistaxis Cardio Chest Pain: No Palpitations: No Edema: Bilateral (BLE at times ) Resp Respiratory: Positive for SOB with activity (especially in AM ); Negative for SOB at rest, SOB orthopnea SOB lying down or Cough GI GI: Negative nausea, vomiting or heartburn Neuro Neuro: Negative for dizziness, lightheadedness, near syncope, headache(s) or weakness Endo Endo: Negative for fatigue Cardiology Exam Const Appearance: cooperative, healthy appearing, no acute distress, well developed and well groomed Nutritional Appearance: average body habitus and well nourished Orientation: alert, awake and oriented x3 Head Head: normal to inspection, normocephalic and atraumatic Ears: hearing grossly normal bilaterally and external ears normal Nose: external nose normal, nares normal, nasal mucous membranes and turbinates normal, septum normal and no nasal discharge Face and Sinus: face symmetric Mouth: oral mucosae normal, tongue normal, oropharynx normal and moist mucous membranes Teeth and gingiva: dentition normal Throat: posterior oropharynx normal, tonsils normal and uvula midline Eyes General: appearance normal, both eyes and all related structures Eyelids: eyelids normal Conjunctivae: conjunctivae normal Pupils: PERRL, normal by confrontation and accommodation normal EOM: EOM intact bilaterally Neck Neck: normal visual inspection, trachea midline and no JVD JVD: +5 Carotids: normal carotid upstroke and bounding pulses Chest Chest inspection: normal inspection of the chest, symmetric chest movement and normal respiratory effort Auscultation: Bilateral: Clear to Auscultation Car (more content not included)... Normal [facility] Myoglobin, Serumon 5 Myoglobin, Ser 26 ng/mL Low 28-[address] [facility] Comment on above: Result Comment: Perf ormed at: - [facility] [address] [id number] Director Of Rooms: Andrew Jolley PhD, Phone: [phone] Performed By: #### L 100.0100, L500.2500 #### [facility] [address] [place], [place], [id number] Absolute lymphocyte countOrd ered By: Elvis Kye on 09-03-2024 Lymphocytes Auto (Unsp spec) [#/Vol] 1.60 10*3/uL 0.83-4.[address] [facility] Absolute neutrophil countOrd ered By: [facility] on 09-03-2024 Neutrophils (Bld) [#/Vol] 3.5 10*3/uL 2.0-7.[address] [facility] Anion gap in Serum or Plasma Ordered By: Elvis Fishman on 09-03-2024 Anion gap [Moles/Vol] 12 mmol/L 5- [facility] Automated lymphocyte count a s percentage of total leukocytesOrdered By: [facility] on 09-03-2024 Lymphocytes/100 WBC Auto (Unsp spec) 27.7 % [facility] BUN/creatinine ratioOrdered By: [facility] on 09-03-2024 Urea nitrogen/Creatinine [Mass ratio] 10.5 mg/mg 10- [facility] Basophil percentageOrdered B y: Elvis Kye on 09-03-2024 Basophils/100 WBC (Bld) 0.7 % 0-1 [facility] Bilirubin, totalOrdered By: Elvis Kye on 09-03-2024 Bilirubin [Mass/Vol] 0.33 mg/dL 0.00-1.30 [facility] CBC W/Diff, Automatedon 08-16 Absolute Lymph 1.60 X10 3/uL Normal 0.83-4.[address] [facility] Comment on above: Performed By: #### L 501.4021, L500.2500, L100.0100 #### [facility] [address] [place], [address] Absolute Neut 3.5 X10 3/uL Normal 2.0-7.[address] [facility] Comment on above: Performed By: #### L 501.4021, L500.2500, L100.0100 #### [facility] [address] [place], [address] Basophils/100 WBC (Bld) 0.7 % Normal 0-1 [facility] Comment on above: Performed By: #### L 501.4021, L500.2500, L100.0100 #### [facility] [address] [place], [address] Eosinophils/100 WBC (Bld) 2.2 % Normal 0-[address] [facility] Comment on above: Performed By: #### L 501.4021, L500.2500, L100.0100 #### [facility] [address] [place], [address] Erythrocyte distribution width (RBC) [Ratio] 13.8 % Normal 11.6-14.[address] [facility] Comment on above: Performed By: #### L 501.4021, L500.2500, L100.0100 #### [facility] [address] [place], [address] Hematocrit (Bld) [Volume fraction] 41.9 % Normal 40-[address] [facility] Comment on above: Performed By: #### L 501.4021, L500.2500, L100.0100 #### [facility] [address] [place], [address] Hemoglobin (Bld) [Mass/Vol] 13.7 g/dL Normal 13.0-16.[address] [facility] Comment on above: Performed By: #### L 501.4021, L500.2500, L100.0100 #### [facility] [address] [place], [address] IG% 0.200 Normal 0.0-0.[address] [facility] Comment on above: Result Comment: IG% - Immature Granulocytes (promyelocytes, myelocytes and metamyelocytes) > 1% indicates that a LEFT SHIFT is Present. Performed By: #### L 501.4021, L500.2500, L100.0100 #### [facility] [address] [place], [address] Lymphocytes/100 WBC (Bld) 27.7 % Normal 19-[address] [facility] Comment on above: Performed By: #### L 501.4021, L500.2500, L100.0100 #### [facility] [address] [place], [address] MCH (RBC) [Entitic mass] 31.4 pg Normal 27.0-32.[address] [facility] Comment on above: Performed By: #### L 501.4021, L500.2500, L100.0100 #### [facility] [address] [place], [address] MCHC (RBC) [Mass/Vol] 32.7 g/dL Normal 32-36 [facility] Comment on above: Performed By: #### L 501.4021, L500.2500, L100.0100 #### [facility] [address] [place], [address] MCV (RBC) [Entitic vol] 96.1 fL High 80-94 [facility] Comment on above: Performed By: #### L 501.4021, L500.2500, L100.0100 #### [facility] [address] [place], [address] Monocytes/100 WBC (Bld) 9.3 % Normal 0-10 [facility] Comment on above: Performed By: #### L 501.4021, L500.2500, L100.0100 #### [facility] [address] [place], [address] Neutrophils/100 WBC (Bld) 59.9 % Normal 47-[address] [facility] Comment on above: Performed By: #### L 501.4021, L500.2500, L100.0100 #### [facility] [address] [place], [address] Nucleated RBC (Bld) [#/Vol] 0 10*3/uL Normal 0-[address] [facility] Comment on above: Performed By: #### L 501.4021, L500.2500, L100.0100 #### [facility] [address] [place], [address] Platelet mean volume (Bld) [Entitic vol] 10.3 fL Normal 6.2-12.[address] [facility] Comment on above: Performed By: #### L 501.4021, L500.2500, L100.0100 #### [facility] [address] [place], [address] Platelets (Bld) [#/Vol] 300 10*3/uL Normal 150-[address] [facility] Comment on above: Performed By: #### L 501.4021, L500.2500, L100.0100 #### [facility] [address] [place], [address] RBC (Bld) [#/Vol] 4.36 10*6/uL Low 4.6-6.2 [facility] Comment on above: Performed By: #### L 501.4021, L500.2500, L100.0100 #### [facility] [address] [place], [address] RDW SD 49.1 fl High 35.1-43.[address] [facility] Comment on above: Performed By: #### L 501.4021, L500.2500, L100.0100 #### [facility] [address] [place], [address] WBC (Bld) [#/Vol] 5.8 10*3/uL Normal 4.4-11.0 [facility] Comment on above: Performed By: #### L 501.4021, L500.2500, L100.0100 #### [facility] [address] [place], [address] CPK Total, Creatine Kinaseon 09-03-2024 CPK TOTAL 26 U/L Normal 24-[address] [facility] Comment on above: Performed By: #### L 100.0100, L500.2500 #### [facility] [address] [place], [address] CTA Chest W/WO Contraston CTA Chest W/WO Contrast [facility] [address] [place] [address] CTA Chest W/WO Contrast MR#: [id number] Acct: [id number] Name: MINA MCGEE Rep #: [id number] : 1940 M 84 From: Sandip Kerns MD PCP: Dr. Elvis Fishman MD Status: REG CLI Study: CTA Chest W/WO Contrast Date of Exam: 09/03/24 Exam# [id number] Ordering Dr: Elvis Fishman MD PROCEDURE: CTA CHEST W/WO CONTRAST 09/03/2024 REASON FOR EXAM: PULMONARY EMBOLISM TECHNIQUE: CTA axial imaging of the chest with intravenous contrast. Multiplanar and multisequence images were obtained. 3D post processing was performed PATIENT PREPARATION: Per protocol CONTRAST: 100 mL Isovue 370 One or more dose reduction techniques were used (e.g., Automated exposure control, adjustment of the mA and/or kV according to patient size, use of iterative reconstruction technique). RADIATION DOSE SUMMARY: CTDlvol: 15.8 mGy DLP: 425 mGycm COMPARISON: CTA chest on 07/28/2024 FINDINGS: Lymph nodes: No significant thoracic or axillary lymphadenopathy. Heart: Mildly enlarged, unchanged. There are moderate multivessel coronary calcifications. Thoracic Aorta: The ascending thoracic aorta measures 4.0 cm, unchanged. Pulmonary Vessels: No evidence of acute pulmonary emboli through the segmental branches. Evaluation of the subsegmental branches is limited due to respiratory motion. Lungs and Airways: Linear atelectasis or scarring at the lung bases. Pleura: No pleural effusion. No pneumothorax. Upper Abdomen: Hepatic steatosis. Simple cyst in the midline liver. Hiatal hernia. There is reflux of contrast into the IVC and hepatic veins. Bones: Degenerative changes of the thoracic spine. CT/CTA Chest W/WO Contrast IMPRESSION: 1. No pulmonary embolism to the segmental level. 2. No acute cardiopulmonary abnormality. 3. Cardiomegaly with reflux of contrast into the IVC and hepatic veins, suggestive of right heart dysfunction. 4. Unchanged findings to include ascending thoracic aorta measuring 4.0 cm, hepatic steatosis, and hiatal hernia. Reading Location: [id number] CC: Dr. 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 Carbon dioxide, total [Moles /volume] in Central venous bloodOrdered By: Evlis Fishman on 09-03-2024 CO2 [Moles/Vol] 25.6 mmol/L 21.0-32.[address] [facility] Chloride assayOrdered By: Varun Fishman on 09-03-2024 Chloride [Moles/Vol] 100 mmol/L 98-108 [facility] Comprehensive Metabolic Prof ilon 09-03-2024 Albumin [Mass/Vol] 4.2 g/dL Normal 3.4-4.8 [facility] Comment on above: Performed By: #### L 501.4021, L500.2500, L100.0100 #### [facility] [address] [place], [address] Albumin/Globulin [Mass ratio] 1.3 {ratio} Normal 0.9-2.[address] [facility] Comment on above: Performed By: #### L 501.4021, L500.2500, L100.0100 #### [facility] [address] [place], [address] ALK PHOS 104 U/L Normal 40-[address] [facility] Comment on above: Performed By: #### L 501.4021, L500.2500, L100.0100 #### [facility] [address] [place], [address] ALT [Catalytic activity/Vol] 18 U/L Normal <=[address] [facility] Comment on above: Performed By: #### L 501.4021, L500.2500, L100.0100 #### [facility] [address] [place], [address] AST [Catalytic activity/Vol] 28 U/L Normal <=[address] [facility] Comment on above: Performed By: #### L 501.4021, L500.2500, L100.0100 #### [facility] [address] [place], [address] Bilirubin [Mass/Vol] 0.33 mg/dL Normal 0.00-1.30 [facility] Comment on above: Performed By: #### L 501.4021, L500.2500, L100.0100 #### [facility] [address] [place], [address] BUN/CRE 10.5 RATIO Normal 10-[address] [facility] Comment on above: Performed By: #### L 501.4021, L500.2500, L100.0100 #### [facility] [address] [place], [address] Calcium [Mass/Vol] 9.4 mg/dL Normal 7.6-11.0 [facility] Comment on above: Performed By: #### L 501.4021, L500.2500, L100.0100 #### [facility] [address] [place], [address] Chloride [Moles/Vol] 100 mmol/L Normal 98-108 [facility] Comment on above: Performed By: #### L 501.4021, L500.2500, L100.0100 #### [facility] [address] [place], [address] CO2 [Moles/Vol] 25.6 mmol/L Normal 21.0-32.[address] [facility] Comment on above: Performed By: #### L 501.4021, L500.2500, L100.0100 #### [facility] [address] [place], [address] Creatinine [Mass/Vol] 0.92 mg/dL Normal 0.70-1.20 [facility] Comment on above: Performed By: #### L 501.4021, L500.2500, L100.0100 #### [facility] [address] [place], [address] GAP 12 Normal 5-[address] [facility] Comment on above: Performed By: #### L 501.4021, L500.2500, L100.0100 #### [facility] [address] [place], [address] GFR/1.73 sq M.predicted among non-blacks MDRD (S/P/Bld) [Vol rate/Area] 81 mL/min/{1.73_m2} Normal >[address] [facility] Comment on above: Result Comment: mL/m in/1.73m2 CKD-EPI Creatinine Equation (2020) Performed By: #### L 501.4021, L500.2500, L100.0100 #### [facility] [address] [place], [address] Globulin (S) [Mass/Vol] 3.2 g/dL Normal 2.2-4.2 [facility] Comment on above: Performed By: #### L 501.4021, L500.2500, L100.0100 #### [facility] [address] [place], [address] Glucose [Mass/Vol] 112 mg/dL High 70-99 [facility] Comment on above: Performed By: #### L 501.4021, L500.2500, L100.0100 #### [facility] [address] [place], [address] Potassium [Moles/Vol] 4.7 mmol/L Normal 3.3-5.1 [facility] Comment on above: Performed By: #### L 501.4021, L500.2500, L100.0100 #### [facility] [address] [place], [address] Sodium [Moles/Vol] 138 mmol/L Normal 133-145 [facility] Comment on above: Performed By: #### L 501.4021, L500.2500, L100.0100 #### [facility] [address] [place], [address] T PROT 7.4 g/dL Normal 5.9-8.[address] [facility] Comment on above: Performed By: #### L 501.4021, L500.2500, L100.0100 #### [facility] [address] [place], [address] Urea nitrogen [Mass/Vol] 10 mg/dL Normal - [facility] Comment on above: Performed By: #### L 501.4021, L500.2500, L100.0100 #### [facility] [address] [place], [address] D-Dimer Quantitative (DVT/PE )on 09-03-2024 D-DIMER QUANT 1.00 FEU/ug/m Invalid Interpretation Code 0.27-0.[address] [facility] Comment on above: Result Comment: D-Di morenita ELEVATED (>0.49): Additional studies and clinical assessments are indicated to conclude diagnosis of: Deep Vein Thrombosis (DVT) or Pulmonary Embolism (PE) Performed By: #### L 501.4021, L500.2500, L100.0100 #### [facility] [address] [place], [address] Eosinophil percentageOrdered By: [facility] on 09-03-2024 Eosinophils/100 WBC (Bld) 2.2 % 0-[address] [facility] Erythrocyte distribution wid th ratioOrdered By: [facility] on 09-03-2024 Erythrocyte distribution width (RBC) [Ratio] 13.8 % 11.6-14.[address] [facility] Erythrocyte distribution wid th standard deviationOrdered By: [facility] 09-03-2024 Erythrocyte distribution width (RBC) [Ratio] 49.1 fl High 35.1-43.[address] [facility] Glomerular filtration rate ( GFR) estimation/1.73 sq m using serum, plasma, or whole bOrdered By: [facility] on 09-03-2024 GFR/1.73 sq M.predicted among non-blacks MDRD (S/P/Bld) [Vol rate/Area] 81 mL/min/{1.73_m2} >[address] [facility] Comment on above: mL/min/1.73m2 CKD-EP I Creatinine Equation (2020) Hematocrit Auto (Bld) [Volum e fraction]Ordered By: [facility] on 09-03-2024 Hematocrit (Bld) [Volume fraction] 41.9 % 40-[address] [facility] Hemoglobin measurementOrdere d By: [facility] 09-03-2024 Hemoglobin (Bld) [Mass/Vol] 13.7 g/dL 13.0-16.[address] [facility] Immature granulocytes/100 WB C Auto (Bld)Ordered By: [facility] 09-03-2024 Immature granulocytes/100 WBC (Bld) 0.200 % 0.0-0.[address] [facility] Comment on above: IG% - Immature Granu locytes (promyelocytes, myelocytes and metamyelocytes) > 1% indicates that a LEFT SHIFT is Present. L501.4021on 09-03-2024 Trop T High Sen 16 ng/L Normal <=[address] [facility] Comment on above: Performed By: #### L 100.0100, L500.2500 #### [facility] [place], [address] L503.7505on 09-03-2024 Natriuretic peptide B (Bld) [Mass/Vol] 313 pg/mL Normal <=[address] [facility] Comment on above: Result Comment: Hear t Failure Unlikely: < 300 pg/mL Heart Failure Likely < 50 Years: > 450 pg/mL 50-75 Years: > 900 pg/mL >75 Years: > 1800 pg/mL Performed By: #### L 100.0100, L500.2500 #### [facility] [address] [place], [address] Laboratory - Chemistry and C hemistry - challengeOrdered By: Elvis Fishman on 09-03-2024 AST [Catalytic activity/Vol] 28 U/L <[address] [facility] MCV (mean corpuscular volume ) determinationOrdered By: Elvis Fishman on 09-03-2024 MCV (RBC) [Entitic vol] 96.1 fL High 80-94 [facility] Mean corpuscular hemoglobin (MCH) determinationOrdered By: Elvis Fishman 09-03-2024 MCH (RBC) [Entitic mass] 31.4 pg 27.0-32.[address] [facility] Mean corpuscular hemoglobin concentration (MCHC) determinationOrdered By: Elvis Fishman on 09-03-2024 MCHC (RBC) [Mass/Vol] 32.7 g/dL 32-36 [facility] Mean platelet volume determi nationOrdered By: Elvis Fishman on 09-03-2024 Platelet mean volume (Bld) [Entitic vol] 10.3 fL 6.2-12.[address] [facility] Monocyte percentageOrdered B y: Elvis Fishman on 09-03-2024 Monocytes/100 WBC (Bld) 9.3 % 0-10 [facility] Natriuretic peptide.B prohor juan N-Terminal [Mass/volume] in Serum or PlasmaOrdered By: Elvis Fishman 09-03-2024 Natriuretic peptide.B prohormone N-Terminal [Mass/Vol] 313 pg/mL <[address] [facility] Comment on above: Heart Failure Unlike ly: < 300 pg/mLHeart Failure Likely< 50 Years: > 450 pg/mL50-75 Years: > 900 pg/mL>75 Years: > 1800 pg/mL Neutrophil percentageOrdered By: Elvis Fishman on 09-03-2024 Neutrophils/100 WBC (Bld) 59.9 % 47-[address] [facility] Nucleated red blood cell per centageOrdered By: Elvis Fishman on 09-03-2024 Nucleated RBC/100 WBC (Bld) [Ratio] 0 % 0-[address] [facility] Platelet countOrdered By: Varun Fishman on 09-03-2024 Platelets (Bld) [#/Vol] 300 10*3/uL 150-[address] [facility] Potassium measurement (mass/ volume)Ordered By: Elvis Fishman on 09-03-2024 Potassium (Unsp spec) [Mass/Vol] 4.7 mmol/L 3.3-5.[address] [facility] RBC Auto (Bld) [#/Vol]Ordere d By: Elvis Fishman on 09-03-2024 RBC (Bld) [#/Vol] 4.36 10*6/uL Low 4.6-6.2 [facility] Serum creatinine measurement (mass/volume)Ordered By: Elvis Fishman on 09-03-2024 Creatinine [Mass/Vol] 0.92 mg/dL 0.70-1.20 [facility] Serum globulin measurementOr dered By: Elvis Fishman on 09-03-2024 Globulin (S) [Mass/Vol] 3.2 g/dL 2.2-4.2 [facility] Serum glucose measurement (m ass/volume)Ordered By: Elvis Fishman on 09-03-2024 Glucose [Mass/Vol] 112 mg/dL High 70-99 [facility] Serum myoglobin measurementO rdered By: Elvis Fishman on 09-03-2024 Myoglobin [Mass/Vol] 26 ng/mL Low 28-72 [facility] Comment on above: Performed at: [address] [id number] Director: Andrew Jolley PhD, Phone: [phone] Serum or plasma alanine wen otransferase (ALT) measurementOrdered By: Elvis Fishman on 09-03-2024 ALT [Catalytic activity/Vol] 18 U/L <[address] [facility] Serum or plasma albumin brian urement (mass/volume)Ordered By: Elvis Fishman on 09-03-2024 Albumin [Mass/Vol] 4.2 g/dL 3.4-4.8 [facility] Serum or plasma albumin/glob ulin mass ratioOrdered By: Elvis Fishman on 09-03-2024 Albumin/Globulin [Mass ratio] 1.3 {ratio} 0.9-2.[address] [facility] Serum or plasma alkaline corey sphatase measurementOrdered By: Elvis Fishman 09-03-2024 ALP [Catalytic activity/Vol] 104 U/L 40-[address] [facility] Serum or plasma calcium brian urement (mass/volume)Ordered By: Elvis Fishman on 09-03-2024 Calcium [Mass/Vol] 9.4 mg/dL 7.6-11.0 [facility] Serum or plasma creatine kin ase activityOrdered By: Elvis Fishman 09-03-2024 CK [Catalytic activity/Vol] 26 U/L 24-[address] [facility] Serum or plasma urea nitroge n measurement (mass/volume)Ordered By: Elvis Fishman 09-03-2024 Urea nitrogen [Mass/Vol] 10 mg/dL 4-[address] [facility] Sodium levelOrdered By: Elvis Fishman 09-03-2024 Sodium [Moles/Vol] 138 mmol/L 133-145 [facility] TSH DL <= 0.005 mIU/L QnOrde red By: Elvis Fishman on 09-03-2024 TSH Qn 2.710 uIU/mL 0.300-4.[address] [facility] Thyroid Stim Hormone (TSH)on 09-03-2024 TSH 2.710 uIU/mL Normal 0.300-4.[address] [facility] Comment on above: Performed By: #### L 100.0100, L500.2500 #### [facility] [address] [place], [place], [id number] Total proteinOrdered By: Elvis Fishman on 09-03-2024 Protein [Mass/Vol] 7.4 g/dL 5.9-8.4 [facility] Troponin T.cardiac [Mass/vol ume] in Serum or Plasma by High sensitivity methodOrdered By: Elvis Fishman 09-03-2024 Troponin T.cardiac High sensitivity method [Mass/Vol] 16 ng/L <[address] [facility] Comment on above: Delta: 30 on 5-1840 Vitamin D,25 Hydroxyon 09-03 Vitamin D 25-OH 19.0 ng/mL Low 30-[address] [facility] Comment on above: Result Comment: Lindsey min D Status Deficiency: <20 ng/mL (50nmol/L) Insufficiency: 20-30 ng/mL (50-75 nmol/L) Sufficiency: 30-100 ng/mL (75-250 nmol/L) Toxicity: >100 ng/mL (>250 nmol/L) Performed By: #### L 100.0100, L500.2500 #### [facility] [address] [place], [address] White blood cell (WBC) count Ordered By: Elvis Fishman on 09-03-2024 WBC (Bld) [#/Vol] 5.8 10*3/uL 4.4-11.0 [facility] Basic Metabolic Profile (BMP )on 08-07-2024 BUN Normal 4-[address] [facility] Comment on above: Result Comment: Canc elled via OM: Order cancelled - Patient discharged Performed By: #### L 100.0100, L500.2500 #### [facility] [address] [place], [address] BUN/CRE Normal 10-[address] [facility] Comment on above: Result Comment: Canc elled via OM: Order cancelled - Patient discharged Performed By: #### L 100.0100, L500.2500 #### [facility] [address] [place], [address] Calcium Normal 7.6-11.[address] [facility] Comment on above: Result Comment: Canc elled via OM: Order cancelled - Patient discharged Performed By: #### L 100.0100, L500.2500 #### [facility] [address] [place], [address] CL Normal 98-[address] [facility] Comment on above: Result Comment: Canc elled via OM: Order cancelled - Patient discharged Performed By: #### L 100.0100, L500.2500 #### [facility] [facility] [address] [place], [address] CO2 Normal 21.0-32.[address] [facility] Comment on above: Result Comment: Canc elled via OM: Order cancelled - Patient discharged Performed By: #### L 100.0100, L500.2500 #### [facility] [address] [place], [address] CREAT,SERUM Normal 0.70-1.[address] [facility] Comment on above: Result Comment: Canc elled via OM: Order cancelled - Patient discharged Performed By: #### L 100.0100, L500.2500 #### [facility] [address] [place], [address] eGFR Normal >[address] [facility] Comment on above: Result Comment: Canc elled via OM: Order cancelled - Patient discharged Performed By: #### L 100.0100, L500.2500 #### [facility] [address] [place], [address] GAP Normal 5-[address] [facility] Comment on above: Result Comment: Canc elled via OM: Order cancelled - Patient discharged Performed By: #### L 100.0100, L500.2500 #### [facility] [address] [place], [address] GLU Normal 70-[address] [facility] Comment on above: Result Comment: Canc elled via OM: Order cancelled - Patient discharged Performed By: #### L 100.0100, L500.2500 #### [facility] [address] [place], [address] Potassium Normal 3.3-5.[address] [facility] Comment on above: Result Comment: Canc elled via OM: Order cancelled - Patient discharged Performed By: #### L 100.0100, L500.2500 #### [facility] [address] [place], [address] Basic Metabolic Profile (BMP) Normal 133-[address] [facility] Comment on above: Result Comment: Canc elled via OM: Order cancelled - Patient discharged Performed By: #### L 100.0100, L500.2500 #### [facility] [address] [place], [address] CBC W/Diff, Automatedon 04- Absolute Neut Normal 2.0-7.[address] [facility] Comment on above: Result Comment: Canc elled via OM: Order cancelled - Patient discharged Performed By: #### L 100.0100, L500.2500 #### [facility] [address] [place], [address] HCT Normal 40-[address] [facility] Comment on above: Result Comment: Canc elled via OM: Order cancelled - Patient discharged Performed By: #### L 100.0100, L500.2500 #### [facility] [address] [place], [address] HGB Normal 13.0-16.[address] [facility] Comment on above: Result Comment: Canc elled via OM: Order cancelled - Patient discharged Performed By: #### L 100.0100, L500.2500 #### [facility] [address] [place], [address] MCH Normal 27.0-32.[address] [facility] Comment on above: Result Comment: Canc elled via OM: Order cancelled - Patient discharged Performed By: #### L 100.0100, L500.2500 #### [facility] [address] [place], [address] MCHC Normal 32-[address] [facility] Comment on above: Result Comment: Canc elled via OM: Order cancelled - Patient discharged Performed By: #### L 100.0100, L500.2500 #### [facility] [address] [place], [address] MCV Normal 80-[address] [facility] Comment on above: Result Comment: Canc elled via OM: Order cancelled - Patient discharged Performed By: #### L 100.0100, L500.2500 #### [facility] [address] [place], [address] NEUT% Normal 47-[address] [facility] Comment on above: Result Comment: Canc elled via OM: Order cancelled - Patient discharged Performed By: #### L 100.0100, L500.2500 #### [facility] [address] [place], [address] PLT Normal 150-[address] [facility] Comment on above: Result Comment: Canc elled via OM: Order cancelled - Patient discharged Performed By: #### L 100.0100, L500.2500 #### [facility] [address] [place], [address] RBC Normal 4.6-6.[address] [facility] Comment on above: Result Comment: Canc elled via OM: Order cancelled - Patient discharged Performed By: #### L 100.0100, L500.2500 #### [facility] [address] [place], [address] RDW CV Normal 11.6-14.[address] [facility] Comment on above: Result Comment: Canc elled via OM: Order cancelled - Patient discharged Performed By: #### L 100.0100, L500.2500 #### [facility] [address] [place], [address] RDW SD Normal 35.1-43.[address] [facility] Comment on above: Result Comment: Canc elled via OM: Order cancelled - Patient discharged Performed By: #### L 100.0100, L500.2500 #### [facility] [address] [place], [address] WBC Normal 4.4-11.[address] [facility] Comment on above: Result Comment: Canc elled via OM: Order cancelled - Patient discharged Performed By: #### L 100.0100, L500.2500 #### [facility] [address] [place], [address] Basic Metabolic Profile (BMP )on 08-06-2024 BUN Normal 4-[address] [facility] Comment on above: Result Comment: Canc elled via OM: Order cancelled - Patient discharged Performed By: #### L 100.0100, L500.2500 #### [facility] [address] [place], [address] BUN/CRE Normal 10-[address] [facility] Comment on above: Result Comment: Canc elled via OM: Order cancelled - Patient discharged Performed By: #### L 100.0100, L500.2500 #### [facility] [address] [place], [address] Calcium Normal 7.6-11.[address] [facility] Comment on above: Result Comment: Canc elled via OM: Order cancelled - Patient discharged Performed By: #### L 100.0100, L500.2500 #### [facility] [address] [place], [address] CL Normal 98-[address] [facility] Comment on above: Result Comment: Canc elled via OM: Order cancelled - Patient discharged Performed By: #### L 100.0100, L500.2500 #### [facility] [address] [place], [address] CO2 Normal 21.0-32.[address] [facility] Comment on above: Result Comment: Canc elled via OM: Order cancelled - Patient discharged Performed By: #### L 100.0100, L500.2500 #### [facility] [address] [place], [address] CREAT,SERUM Normal 0.70-1.[address] [facility] Comment on above: Result Comment: Canc elled via OM: Order cancelled - Patient discharged Performed By: #### L 100.0100, L500.2500 #### [facility] [address] [place], [address] eGFR Normal >[address] [facility] Comment on above: Result Comment: Canc elled via OM: Order cancelled - Patient discharged Performed By: #### L 100.0100, L500.2500 #### [facility] [address] [place], [address] GAP Normal 5-[address] [facility] Comment on above: Result Comment: Canc elled via OM: Order cancelled - Patient discharged Performed By: #### L 100.0100, L500.2500 #### [facility] [address] [place], [address] GLU Normal 70-[address] [facility] Comment on above: Result Comment: Canc elled via OM: Order cancelled - Patient discharged Performed By: #### L 100.0100, L500.2500 #### [facility] [address] [place], [address] Potassium Normal 3.3-5.[address] [facility] Comment on above: Result Comment: Canc elled via OM: Order cancelled - Patient discharged Performed By: #### L 100.0100, L500.2500 #### [facility] [address] [place], [address] Basic Metabolic Profile (BMP) Normal 133-[address] [facility] Comment on above: Result Comment: Canc elled via OM: Order cancelled - Patient discharged Performed By: #### L 100.0100, L500.2500 #### [facility] [address] [place], [address] CBC W/Diff, Automatedon 04-2 Absolute Neut Normal 2.0-7.[address] [facility] Comment on above: Result Comment: Canc elled via OM: Order cancelled - Patient discharged Performed By: #### L 100.0100, L500.2500 #### [facility] [address] [place], [address] HCT Normal 40-[address] [facility] Comment on above: Result Comment: Canc elled via OM: Order cancelled - Patient discharged Performed By: #### L 100.0100, L500.2500 #### [facility] [address] [place], [address] HGB Normal 13.0-16.[address] [facility] Comment on above: Result Comment: Canc elled via OM: Order cancelled - Patient discharged Performed By: #### L 100.0100, L500.2500 #### [facility] [address] [place], [address] MCH Normal 27.0-32.[address] [facility] Comment on above: Result Comment: Canc elled via OM: Order cancelled - Patient discharged Performed By: #### L 100.0100, L500.2500 #### [facility] [address] [place], [address] MCHC Normal 32-[address] [facility] Comment on above: Result Comment: Canc elled via OM: Order cancelled - Patient discharged Performed By: #### L 100.0100, L500.2500 #### [facility] [address] [place], [address] MCV Normal 80-[address] [facility] Comment on above: Result Comment: Canc elled via OM: Order cancelled - Patient discharged Performed By: #### L 100.0100, L500.2500 #### [facility] [address] [place], [address] NEUT% Normal 47-[address] [facility] Comment on above: Result Comment: Canc elled via OM: Order cancelled - Patient discharged Performed By: #### L 100.0100, L500.2500 #### [facility] [address] [place], [address] PLT Normal 150-[address] [facility] Comment on above: Result Comment: Canc elled via OM: Order cancelled - Patient discharged Performed By: #### L 100.0100, L500.2500 #### [facility] [address] [place], [address] RBC Normal 4.6-6.[address] [facility] Comment on above: Result Comment: Canc elled via OM: Order cancelled - Patient discharged Performed By: #### L 100.0100, L500.2500 #### [facility] [address] [place], [address] RDW CV Normal 11.6-14.[address] [facility] Comment on above: Result Comment: Canc elled via OM: Order cancelled - Patient discharged Performed By: #### L 100.0100, L500.2500 #### [facility] [address] [place], [address] RDW SD Normal 35.1-43.[address] [facility] Comment on above: Result Comment: Canc elled via OM: Order cancelled - Patient discharged Performed By: #### L 100.0100, L500.2500 #### [facility] [address] [place], [address] WBC Normal 4.4-11.[address] [facility] Comment on above: Result Comment: Canc elled via OM: Order cancelled - Patient discharged Performed By: #### L 100.0100, L500.2500 #### [facility] [address] [place], [address] Basic Metabolic Profile (BMP )on 08-05-2024 BUN Normal 4-[address] [facility] Comment on above: Result Comment: Canc elled via OM: Order cancelled - Patient discharged Performed By: #### L 501.9520, L503.7505 #### [facility] [address] [place], [address] BUN/CRE Normal 10-[address] [facility] Comment on above: Result Comment: Canc elled via OM: Order cancelled - Patient discharged Performed By: #### L 501.9520, L503.7505 #### [facility] [address] [place], [address] Calcium Normal 7.6-11.[address] [facility] Comment on above: Result Comment: Canc elled via OM: Order cancelled - Patient discharged Performed By: #### L 501.9520, L503.7505 #### [facility] [address] [place], [address] CL Normal 98-[address] [facility] Comment on above: Result Comment: Canc elled via OM: Order cancelled - Patient discharged Performed By: #### L 501.9520, L503.7505 #### [facility] [address] [place], [address] CO2 Normal 21.0-32.[address] [facility] Comment on above: Result Comment: Canc elled via OM: Order cancelled - Patient discharged Performed By: #### L 501.9520, L503.7505 #### [facility] [address] [place], [address] CREAT,SERUM Normal 0.70-1.[address] [facility] Comment on above: Result Comment: Canc elled via OM: Order cancelled - Patient discharged Performed By: #### L 501.9520, L503.7505 #### [facility] [address] [place], [address] eGFR Normal >[address] [facility] Comment on above: Result Comment: Canc elled via OM: Order cancelled - Patient discharged Performed By: #### L 501.9520, L503.7505 #### [facility] [address] [place], [address] GAP Normal 5-[address] [facility] Comment on above: Result Comment: Canc elled via OM: Order cancelled - Patient discharged Performed By: #### L 501.9520, L503.7505 #### [facility] [address] [place], [address] GLU Normal 70-[address] [facility] Comment on above: Result Comment: Canc elled via OM: Order cancelled - Patient discharged Performed By: #### L 501.9520, L503.7505 #### [facility] [address] [place], [address] Potassium Normal 3.3-5.[address] [facility] Comment on above: Result Comment: Canc elled via OM: Order cancelled - Patient discharged Performed By: #### L 501.9519, L503.7505 #### [facility] [address] [place], [address] Basic Metabolic Profile (BMP) Normal 133-[address] [facility] Comment on above: Result Comment: Canc elled via OM: Order cancelled - Patient discharged Performed By: #### L 501.9519, L503.7505 #### [facility] [address] [place], [address] CBC W/Diff, Automatedon 04-2 0-2024 Absolute Neut Normal 2.0-7.[address] [facility] Comment on above: Result Comment: Canc elled via OM: Order cancelled - Patient discharged Performed By: #### L 501.20, L503.7505 #### [facility] [address] [place], [address] HCT Normal 40-[address] [facility] Comment on above: Result Comment: Canc elled via OM: Order cancelled - Patient discharged Performed By: #### L 501.9520, L503.7505 #### [facility] [address] [place], [address] HGB Normal 13.0-16.[address] [facility] Comment on above: Result Comment: Canc elled via OM: Order cancelled - Patient discharged Performed By: #### L 501.9520, L503.7505 #### [facility] [address] [place], [address] MCH Normal 27.0-32.[address] [facility] Comment on above: Result Comment: Canc elled via OM: Order cancelled - Patient discharged Performed By: #### L 501.9520, L503.7505 #### [facility] [address] [place], [address] MCHC Normal 32-[address] [facility] Comment on above: Result Comment: Canc elled via OM: Order cancelled - Patient discharged Performed By: #### L 501.9519, L503.7505 #### [facility] [address] [place], [address] MCV Normal 80-[address] [facility] Comment on above: Result Comment: Canc elled via OM: Order cancelled - Patient discharged Performed By: #### L 501.9519, L503.7505 #### [facility] [address] [place], [address] NEUT% Normal 47-[address] [facility] Comment on above: Result Comment: Canc elled via OM: Order cancelled - Patient discharged Performed By: #### L 501.9520, L503.7505 #### [facility] [address] [place], [address] PLT Normal 150-[address] [facility] Comment on above: Result Comment: Canc elled via OM: Order cancelled - Patient discharged Performed By: #### L 501.9520, L503.7505 #### [facility] [address] [place], [address] RBC Normal 4.6-6.[address] [facility] Comment on above: Result Comment: Canc elled via OM: Order cancelled - Patient discharged Performed By: #### L 501.9520, L503.7505 #### [facility] [address] [place], [address] RDW CV Normal 11.6-14.[address] [facility] Comment on above: Result Comment: Canc elled via OM: Order cancelled - Patient discharged Performed By: #### L 501.9520, L503.7505 #### [facility] [address] [place], [address] RDW SD Normal 35.1-43.[address] [facility] Comment on above: Result Comment: Canc elled via OM: Order cancelled - Patient discharged Performed By: #### L 501.9520, L503.7505 #### [facility] [address] [place], [address] WBC Normal 4.4-11.[address] [facility] Comment on above: Result Comment: Canc elled via OM: Order cancelled - Patient discharged Performed By: #### L 501.9520, L503.7505 #### [facility] [address] [place], [address] Basic Metabolic Profile (BMP )on 08-04-2024 BUN Normal 4-[address] [facility] Comment on above: Result Comment: Canc elled via OM: Order cancelled - Patient discharged Performed By: #### L 501.9520, L503.7505 #### [facility] [address] [place], [address] BUN/CRE Normal 10-[address] [facility] Comment on above: Result Comment: Canc elled via OM: Order cancelled - Patient discharged Performed By: #### L 501.9520, L503.7505 #### [facility] [address] [place], [address] Calcium Normal 7.6-11.[address] [facility] Comment on above: Result Comment: Canc elled via OM: Order cancelled - Patient discharged Performed By: #### L 501.9519, L503.7505 #### [facility] [address] [place], [address] CL Normal 98-[address] [facility] Comment on above: Result Comment: Canc elled via OM: Order cancelled - Patient discharged Performed By: #### L 501.9519, L503.7505 #### [facility] [address] [place], [address] CO2 Normal 21.0-32.[address] [facility] Comment on above: Result Comment: Canc elled via OM: Order cancelled - Patient discharged Performed By: #### L 501.9519, L503.7505 #### [facility] [address] [place], [address] CREAT,SERUM Normal 0.70-1.[address] [facility] Comment on above: Result Comment: Canc elled via OM: Order cancelled - Patient discharged Performed By: #### L 501.9519, L503.7505 #### [facility] [address] [place], [address] eGFR Normal >[address] [facility] Comment on above: Result Comment: Canc elled via OM: Order cancelled - Patient discharged Performed By: #### L 501.9519, L503.7505 #### [facility] [address] [place], [address] GAP Normal 5-[address] [facility] Comment on above: Result Comment: Canc elled via OM: Order cancelled - Patient discharged Performed By: #### L 501.9519, L503.7505 #### [facility] [address] [place], [address] GLU Normal 70-[address] [facility] Comment on above: Result Comment: Canc elled via OM: Order cancelled - Patient discharged Performed By: #### L 501.9520, L503.7505 #### [facility] [address] [place], [address] Potassium Normal 3.3-5.[address] [facility] Comment on above: Result Comment: Canc elled via OM: Order cancelled - Patient discharged Performed By: #### L 501.9519, L503.7505 #### [facility] [address] [place], [address] Basic Metabolic Profile (BMP) Normal 133-[address] [facility] Comment on above: Result Comment: Canc elled via OM: Order cancelled - Patient discharged Performed By: #### L 501.9519, L503.7505 #### [facility] [address] [place], [address] CBC W/Diff, Automatedon 07-17 Absolute Neut Normal 2.0-7.[address] [facility] Comment on above: Result Comment: Canc elled via OM: Order cancelled - Patient discharged Performed By: #### L 501.95, L503.7505 #### [facility] [address] [place], [address] HCT Normal 40-[address] [facility] Comment on above: Result Comment: Canc elled via OM: Order cancelled - Patient discharged Performed By: #### L 501.95, L503.7505 #### [facility] [address] [place], [address] HGB Normal 13.0-16.[address] [facility] Comment on above: Result Comment: Canc elled via OM: Order cancelled - Patient discharged Performed By: #### L 501.95, L503.7505 #### [facility] [address] [place], [address] MCH Normal 27.0-32.[address] [facility] Comment on above: Result Comment: Canc elled via OM: Order cancelled - Patient discharged Performed By: #### L 501.9520, [id number] #### [facility] [address] [place], [address] MCHC Normal 32-[address] [facility] Comment on above: Result Comment: Canc elled via OM: Order cancelled - Patient discharged Performed By: #### L 501.9520, [id number] #### [facility] [address] [place], [address] MCV Normal 80-[address] [facility] Comment on above: Result Comment: Canc elled via OM: Order cancelled - Patient discharged Performed By: #### L 501.9520, [id number] #### [facility] [address] [place], [address] NEUT% Normal 47-[address] [facility] Comment on above: Result Comment: Canc elled via OM: Order cancelled - Patient discharged Performed By: #### L 501.9520, [id number] #### [facility] [address] [place], [address] PLT Normal 150-[address] [facility] Comment on above: Result Comment: Canc elled via OM: Order cancelled - Patient discharged Performed By: #### L 501.9520, [id number] #### [facility] [address] [place], [address] RBC Normal 4.6-6.[address] [facility] Comment on above: Result Comment: Canc elled via OM: Order cancelled - Patient discharged Performed By: #### L 501.9520, [id number] #### [facility] [address] [place], [address] RDW CV Normal 11.6-14.[address] [facility] Comment on above: Result Comment: Canc elled via OM: Order cancelled - Patient discharged Performed By: #### L 501.9520, [id number] #### [facility] [address] [place], [address] RDW SD Normal 35.1-43.[address] [facility] Comment on above: Result Comment: Canc elled via OM: Order cancelled - Patient discharged Performed By: #### L 501.9520, [id number] #### [facility] [address] [place], [address] WBC Normal 4.4-11.[address] [facility] Comment on above: Result Comment: Canc elled via OM: Order cancelled - Patient discharged Performed By: #### L 501.9520, [id number] #### [facility] [address] [place], [address] Basic Metabolic Profile (BMP )on 08-03-2024 BUN Normal 4-[address] [facility] Comment on above: Result Comment: Canc elled via OM: Order cancelled - Patient discharged Performed By: #### L 100.0100, L500.2500 #### [facility] [address] [place], [address] BUN/CRE Normal 10-[address] [facility] Comment on above: Result Comment: Canc elled via OM: Order cancelled - Patient discharged Performed By: #### L 100.0100, L500.2500 #### [facility] [address] [place], [address] Calcium Normal 7.6-11.[address] [facility] Comment on above: Result Comment: Canc elled via OM: Order cancelled - Patient discharged Performed By: #### L 100.0100, L500.2500 #### [facility] [address] [place], [address] CL Normal 98-[address] [facility] Comment on above: Result Comment: Canc elled via OM: Order cancelled - Patient discharged Performed By: #### L 100.0100, L500.2500 #### [facility] [address] [place], [address] CO2 Normal 21.0-32.[address] [facility] Comment on above: Result Comment: Canc elled via OM: Order cancelled - Patient discharged Performed By: #### L 100.0100, L500.2500 #### [facility] [address] [place], [address] CREAT,SERUM Normal 0.70-1.[address] [facility] Comment on above: Result Comment: Canc elled via OM: Order cancelled - Patient discharged Performed By: #### L 100.0100, L500.2500 #### [facility] [address] [place], [address] eGFR Normal >[address] [facility] Comment on above: Result Comment: Canc elled via OM: Order cancelled - Patient discharged Performed By: #### L 100.0100, L500.2500 #### [facility] [address] [place], [address] GAP Normal 5-[address] [facility] Comment on above: Result Comment: Canc elled via OM: Order cancelled - Patient discharged Performed By: #### L 100.0100, L500.2500 #### [facility] [address] [place], [address] GLU Normal 70-[address] [facility] Comment on above: Result Comment: Canc elled via OM: Order cancelled - Patient discharged Performed By: #### L 100.0100, L500.2500 #### [facility] [address] [place], [address] Potassium Normal 3.3-5.[address] [facility] Comment on above: Result Comment: Canc elled via OM: Order cancelled - Patient discharged Performed By: #### L 100.0100, L500.2500 #### [facility] [address] [place], [address] Basic Metabolic Profile (BMP) Normal 133-[address] [facility] Comment on above: Result Comment: Canc elled via OM: Order cancelled - Patient discharged Performed By: #### L 100.0100, L500.2500 #### [facility] [address] [place], [address] CBC W/Diff, Automatedon 04- Absolute Neut Normal 2.0-7.[address] [facility] Comment on above: Result Comment: Canc elled via OM: Order cancelled - Patient discharged Performed By: #### L 501.9520, L503.7505 #### [facility] [address] [place], [address] HCT Normal 40-[address] [facility] Comment on above: Result Comment: Canc elled via OM: Order cancelled - Patient discharged Performed By: #### L 501.9520, L503.7505 #### [facility] [address] [place], [address] HGB Normal 13.0-16.[address] [facility] Comment on above: Result Comment: Canc elled via OM: Order cancelled - Patient discharged Performed By: #### L 501.9520, L503.7505 #### [facility] [address] [place], [address] MCH Normal 27.0-32.[address] [facility] Comment on above: Result Comment: Canc elled via OM: Order cancelled - Patient discharged Performed By: #### L 501.9520, L503.7505 #### [facility] [address] [place], [address] MCHC Normal 32-[address] [facility] Comment on above: Result Comment: Canc elled via OM: Order cancelled - Patient discharged Performed By: #### L 501.9520, [id number] #### [facility] [address] [place], [address] MCV Normal 80-[address] [facility] Comment on above: Result Comment: Canc elled via OM: Order cancelled - Patient discharged Performed By: #### L 501.9520, L503.7505 #### [facility] [address] [place], [address] NEUT% Normal 47-[address] [facility] Comment on above: Result Comment: Canc elled via OM: Order cancelled - Patient discharged Performed By: #### L 501.20, L503.7505 #### [facility] [address] [place], [address] PLT Normal 150-[address] [facility] Comment on above: Result Comment: Canc elled via OM: Order cancelled - Patient discharged Performed By: #### L 501.9519, L503.7505 #### [facility] [address] [place], [address] RBC Normal 4.6-6.[address] [facility] Comment on above: Result Comment: Canc elled via OM: Order cancelled - Patient discharged Performed By: #### L 501.9519, L503.7505 #### [facility] [address] [place], [address] RDW CV Normal 11.6-14.[address] [facility] Comment on above: Result Comment: Canc elled via OM: Order cancelled - Patient discharged Performed By: #### L 501.95, L503.7505 #### [facility] [address] [place], [address] RDW SD Normal 35.1-43.[address] [facility] Comment on above: Result Comment: Canc elled via OM: Order cancelled - Patient discharged Performed By: #### L 501.95, L503.7505 #### [facility] [address] [place], [address] WBC Normal 4.4-11.[address] [facility] Comment on above: Result Comment: Canc elled via OM: Order cancelled - Patient discharged Performed By: #### L 501.9520, L503.7505 #### [facility] [address] [place], [address] Basic Metabolic Profile (BMP )on 08-02-2024 BUN Normal 4-[address] [facility] Comment on above: Result Comment: Canc elled via OM: Order cancelled - Patient discharged Performed By: #### L 100.0100, L500.2500 #### [facility] [address] [place], [address] BUN/CRE Normal 10-[address] [facility] Comment on above: Result Comment: Canc elled via OM: Order cancelled - Patient discharged Performed By: #### L 100.0100, L500.2500 #### [facility] [address] [place], [address] Calcium Normal 7.6-11.[address] [facility] Comment on above: Result Comment: Canc elled via OM: Order cancelled - Patient discharged Performed By: #### L 100.0100, L500.2500 #### [facility] [address] [place], [address] CL Normal 98-[address] [facility] Comment on above: Result Comment: Canc elled via OM: Order cancelled - Patient discharged Performed By: #### L 100.0100, L500.2500 #### [facility] [address] [place], [address] CO2 Normal 21.0-32.[address] [facility] Comment on above: Result Comment: Canc elled via OM: Order cancelled - Patient discharged Performed By: #### L 100.0100, L500.2500 #### [facility] [address] [place], [address] CREAT,SERUM Normal 0.70-1.[address] [facility] Comment on above: Result Comment: Canc elled via OM: Order cancelled - Patient discharged Performed By: #### L 100.0100, L500.2500 #### [facility] [address] [place], [address] eGFR Normal >[address] [facility] Comment on above: Result Comment: Canc elled via OM: Order cancelled - Patient discharged Performed By: #### L 100.0100, L500.2500 #### [facility] [address] [place], [address] GAP Normal 5-[address] [facility] Comment on above: Result Comment: Canc elled via OM: Order cancelled - Patient discharged Performed By: #### L 100.0100, L500.2500 #### [facility] [address] [place], [address] GLU Normal 70-[address] [facility] Comment on above: Result Comment: Canc elled via OM: Order cancelled - Patient discharged Performed By: #### L 100.0100, L500.2500 #### [facility] [address] [place], [address] Potassium Normal 3.3-5.[address] [facility] Comment on above: Result Comment: Canc elled via OM: Order cancelled - Patient discharged Performed By: #### L 100.0100, L500.2500 #### [facility] [address] [place], [address] Basic Metabolic Profile (BMP) Normal 133-[address] [facility] Comment on above: Result Comment: Canc elled via OM: Order cancelled - Patient discharged Performed By: #### L 100.0100, L500.2500 #### [facility] [address] [place], [address] CBC W/Diff, Automatedon 04-1 Absolute Neut Normal 2.0-7.[address] [facility] Comment on above: Result Comment: Canc elled via OM: Order cancelled - Patient discharged Performed By: #### L 100.0100, L500.2500 #### [facility] [address] [place], [address] HCT Normal 40-[address] [facility] Comment on above: Result Comment: Canc elled via OM: Order cancelled - Patient discharged Performed By: #### L 100.0100, L500.2500 #### [facility] [address] [place], [address] HGB Normal 13.0-16.[address] [facility] Comment on above: Result Comment: Canc elled via OM: Order cancelled - Patient discharged Performed By: #### L 100.0100, L500.2500 #### [facility] [address] [place], [address] MCH Normal 27.0-32.[address] [facility] Comment on above: Result Comment: Canc elled via OM: Order cancelled - Patient discharged Performed By: #### L 100.0100, L500.2500 #### [facility] [address] [place], [address] MCHC Normal 32-[address] [facility] Comment on above: Result Comment: Canc elled via OM: Order cancelled - Patient discharged Performed By: #### L 100.0100, L500.2500 #### [facility] [address] [place], [address] MCV Normal 80-[address] [facility] Comment on above: Result Comment: Canc elled via OM: Order cancelled - Patient discharged Performed By: #### L 100.0100, L500.2500 #### [facility] [address] [place], [address] NEUT% Normal 47-[address] [facility] Comment on above: Result Comment: Canc elled via OM: Order cancelled - Patient discharged Performed By: #### L 100.0100, L500.2500 #### [facility] [address] [place], [address] PLT Normal 150-[address] [facility] Comment on above: Result Comment: Canc elled via OM: Order cancelled - Patient discharged Performed By: #### L 100.0100, L500.2500 #### [facility] [address] [place], [address] RBC Normal 4.6-6.[address] [facility] Comment on above: Result Comment: Canc elled via OM: Order cancelled - Patient discharged Performed By: #### L 100.0100, L500.2500 #### [facility] [address] [place], [address] RDW CV Normal 11.6-14.[address] [facility] Comment on above: Result Comment: Canc elled via OM: Order cancelled - Patient discharged Performed By: #### L 100.0100, L500.2500 #### [facility] [address] [place], [address] RDW SD Normal 35.1-43.[address] [facility] Comment on above: Result Comment: Canc elled via OM: Order cancelled - Patient discharged Performed By: #### L 100.0100, L500.2500 #### [facility] [address] [place], [address] WBC Normal 4.4-11.[address] [facility] Comment on above: Result Comment: Canc elled via OM: Order cancelled - Patient discharged Performed By: #### L 100.0100, L500.2500 #### [facility] [address] [place], [address] Basic Metabolic Profile (BMP )on 08-01-2024 BUN Normal 4-[address] [facility] Comment on above: Result Comment: Canc elled via OM: Order cancelled - Patient discharged Performed By: #### L 100.0100, L500.2500 #### [facility] [address] [place], [address] BUN/CRE Normal 10-[address] [facility] Comment on above: Result Comment: Canc elled via OM: Order cancelled - Patient discharged Performed By: #### L 100.0100, L500.2500 #### [facility] [address] [place], [address] Calcium Normal 7.6-11.[address] [facility] Comment on above: Result Comment: Canc elled via OM: Order cancelled - Patient discharged Performed By: #### L 100.0100, L500.2500 #### [facility] [address] [place], [address] CL Normal 98-[address] [facility] Comment on above: Result Comment: Canc elled via OM: Order cancelled - Patient discharged Performed By: #### L 100.0100, L500.2500 #### [facility] [address] [place], [address] CO2 Normal 21.0-32.[address] [facility] Comment on above: Result Comment: Canc elled via OM: Order cancelled - Patient discharged Performed By: #### L 100.0100, L500.2500 #### [facility] [address] [place], [address] CREAT,SERUM Normal 0.70-1.[address] [facility] Comment on above: Result Comment: Canc elled via OM: Order cancelled - Patient discharged Performed By: #### L 100.0100, L500.2500 #### [facility] [address] [place], [address] eGFR Normal >[address] [facility] Comment on above: Result Comment: Canc elled via OM: Order cancelled - Patient discharged Performed By: #### L 100.0100, L500.2500 #### [facility] [address] [place], [address] GAP Normal 5-[address] [facility] Comment on above: Result Comment: Canc elled via OM: Order cancelled - Patient discharged Performed By: #### L 100.0100, L500.2500 #### [facility] [address] [place], [address] GLU Normal 70-[address] [facility] Comment on above: Result Comment: Canc elled via OM: Order cancelled - Patient discharged Performed By: #### L 100.0100, L500.2500 #### [facility] [address] [place], [address] Potassium Normal 3.3-5.[address] [facility] Comment on above: Result Comment: Canc elled via OM: Order cancelled - Patient discharged Performed By: #### L 100.0100, L500.2500 #### [facility] [address] [place], [address] Basic Metabolic Profile (BMP) Normal 133-[address] [facility] Comment on above: Result Comment: Canc elled via OM: Order cancelled - Patient discharged Performed By: #### L 100.0100, L500.2500 #### [facility] [address] [place], [address] CBC W/Diff, Automatedon 04-1 Absolute Neut Normal 2.0-7.[address] [facility] Comment on above: Result Comment: Canc elled via OM: Order cancelled - Patient discharged Performed By: #### L 100.0100, L500.2500 #### [facility] [address] [place], [address] HCT Normal 40-[address] [facility] Comment on above: Result Comment: Canc elled via OM: Order cancelled - Patient discharged Performed By: #### L 100.0100, L500.2500 #### [facility] [address] [place], [address] HGB Normal 13.0-16.[address] [facility] Comment on above: Result Comment: Canc elled via OM: Order cancelled - Patient discharged Performed By: #### L 100.0100, L500.2500 #### [facility] [address] [place], [address] MCH Normal 27.0-32.[address] [facility] Comment on above: Result Comment: Canc elled via OM: Order cancelled - Patient discharged Performed By: #### L 100.0100, L500.2500 #### [facility] [address] [place], [address] MCHC Normal 32-[address] [facility] Comment on above: Result Comment: Canc elled via OM: Order cancelled - Patient discharged Performed By: #### L 100.0100, L500.2500 #### [facility] [address] [place], [address] MCV Normal 80-[address] [facility] Comment on above: Result Comment: Canc elled via OM: Order cancelled - Patient discharged Performed By: #### L 100.0100, L500.2500 #### [facility] [address] [place], [address] NEUT% Normal 47-[address] [facility] Comment on above: Result Comment: Canc elled via OM: Order cancelled - Patient discharged Performed By: #### L 100.0100, L500.2500 #### [facility] [address] [place], [address] PLT Normal 150-[address] [facility] Comment on above: Result Comment: Canc elled via OM: Order cancelled - Patient discharged Performed By: #### L 100.0100, L500.2500 #### [facility] [address] [place], [address] RBC Normal 4.6-6.[address] [facility] Comment on above: Result Comment: Canc elled via OM: Order cancelled - Patient discharged Performed By: #### L 100.0100, L500.2500 #### [facility] [address] [place], [address] RDW CV Normal 11.6-14.[address] [facility] Comment on above: Result Comment: Canc elled via OM: Order cancelled - Patient discharged Performed By: #### L 100.0100, L500.2500 #### [facility] [address] [place], [address] RDW SD Normal 35.1-43.[address] [facility] Comment on above: Result Comment: Canc elled via OM: Order cancelled - Patient discharged Performed By: #### L 100.0100, L500.2500 #### [facility] [address] [place], [address] WBC Normal 4.4-11.[address] [facility] Comment on above: Result Comment: Canc elled via OM: Order cancelled - Patient discharged Performed By: #### L 100.0100, L500.2500 #### [facility] [address] [place], [address] Absolute lymphocyte countOrd ered By: Isabelle Guillen on 07-31-2024 Lymphocytes Auto (Unsp spec) [#/Vol] 0.85 10*3/uL 0.83-4.[address] [facility] Absolute neutrophil countOrd ered By: Isabelle Guillen on 07-31-2024 Neutrophils (Bld) [#/Vol] 2.5 10*3/uL 2.0-7.[address] [facility] Anion gap in Serum or Plasma Ordered By: Isabelle Guillen on 07-31-2024 Anion gap [Moles/Vol] 12 mmol/L 08-30 [facility] Automated lymphocyte count a s percentage of total leukocytesOrdered By: Isabelle Guillen on 07-31-2024 Lymphocytes/100 WBC Auto (Unsp spec) 19.0 % -[address] [facility] BUN/creatinine ratioOrdered By: Isabelle Guillen on 07-31-2024 Urea nitrogen/Creatinine [Mass ratio] 25.7 mg/mg High 10-[address] [facility] Basic Metabolic Profile (BMP )on 07-31-2024 BUN/CRE 25.7 RATIO High 10-[address] [facility] Comment on above: Performed By: #### L 501.9520, L503.7505 #### [facility] [address] [place], [address] Calcium [Mass/Vol] 8.5 mg/dL Normal 7.6-11.0 [facility] Comment on above: Performed By: #### L 501.9520, L503.7505 #### [facility] [address] [place], [address] Chloride [Moles/Vol] 92 mmol/L Low 98-108 [facility] Comment on above: Performed By: #### L 501.9520, L503.7505 #### [facility] [address] [place], [address] CO2 [Moles/Vol] 27.5 mmol/L Normal 21.0-32.[address] [facility] Comment on above: Performed By: #### L 501.9520, L503.7505 #### [facility] [address] [place], [address] Creatinine [Mass/Vol] 0.74 mg/dL Normal 0.70-1.20 [facility] Comment on above: Performed By: #### L 501.9520, L503.7505 #### [facility] [address] [place], [address] ECRCL 73.74 ml/min Normal 50-[address] [facility] Comment on above: Performed By: #### L 501.9520, L503.7505 #### [facility] [address] [place], [address] GAP 12 Normal 5-[address] [facility] Comment on above: Performed By: #### L 501.9520, L503.7505 #### [facility] [address] [place], [address] GFR/1.73 sq M.predicted among non-blacks MDRD (S/P/Bld) [Vol rate/Area] 88 mL/min/{1.73_m2} Normal >[address] [facility] Comment on above: Result Comment: mL/m in/1.73m2 CKD-EPI Creatinine Equation (2020) Performed By: #### L 501.9520, L503.7505 #### [facility] [address] [place], [address] Glucose [Mass/Vol] 104 mg/dL High 70-99 [facility] Comment on above: Performed By: #### L 501.9520, L503.7505 #### [facility] [address] [place], [address] Potassium [Moles/Vol] 3.9 mmol/L Normal 3.3-5.1 [facility] Comment on above: Performed By: #### L 501.9520, L503.7505 #### [facility] [address] [place], [address] Sodium [Moles/Vol] 131 mmol/L Low 133-145 [facility] Comment on above: Performed By: #### L 501.9520, L503.7505 #### [facility] [address] [place], [address] Urea nitrogen [Mass/Vol] 19 mg/dL Normal 4-[address] [facility] Comment on above: Performed By: #### L 501.9520, L503.7505 #### [facility] [address] [place], [address] Basophil percentageOrdered B y: Isabelleboris Guillen on 07-31-2024 Basophils/100 WBC (Bld) 0.7 % 0-1 [facility] CBC W/Diff, Automatedon 04- Absolute Lymph 0.85 X10 3/uL Normal 0.83-4.[address] [facility] Comment on above: Performed By: #### L 501.9520, L503.7505 #### [facility] [address] [place], [address] Absolute Neut 2.5 X10 3/uL Normal 2.0-7.[address] [facility] Comment on above: Performed By: #### L 501.9520, L503.7505 #### [facility] [address] [place], [address] Basophils/100 WBC (Bld) 0.7 % Normal 0-1 [facility] Comment on above: Performed By: #### L 501.9520, L503.7505 #### [facility] [address] [place], [address] Eosinophils/100 WBC (Bld) 6.0 % High 0-[address] [facility] Comment on above: Performed By: #### L 501.9520, L503.7505 #### [facility] [address] [place], [address] Erythrocyte distribution width (RBC) [Ratio] 13.9 % Normal 11.6-14.[address] [facility] Comment on above: Performed By: #### L 501.9520, L503.7505 #### [facility] [address] [place], [address] Hematocrit (Bld) [Volume fraction] 36.6 % Low 40-[address] [facility] Comment on above: Performed By: #### L 501.9520, L503.7505 #### [facility] [address] [place], [address] Hemoglobin (Bld) [Mass/Vol] 12.4 g/dL Low 13.0-16.[address] [facility] Comment on above: Performed By: #### L 501.9520, L503.7505 #### [facility] [address] [place], [address] IG% 0.900 Normal 0.0-0.[address] [facility] Comment on above: Result Comment: IG% - Immature Granulocytes (promyelocytes, myelocytes and metamyelocytes) > 1% indicates that a LEFT SHIFT is Present. Performed By: #### L 501.9520, L503.7505 #### [facility] [address] [place], [address] Lymphocytes/100 WBC (Bld) 19.0 % Normal 19-[address] [facility] Comment on above: Performed By: #### L 501.9520, L503.7505 #### [facility] [address] [place], [address] MCH (RBC) [Entitic mass] 31.6 pg Normal 27.0-32.[address] [facility] Comment on above: Performed By: #### L 501.9520, L503.7505 #### [facility] [address] [place], [address] MCHC (RBC) [Mass/Vol] 33.9 g/dL Normal 32-36 [facility] Comment on above: Performed By: #### L 501.9520, L503.7505 #### [facility] [address] [place], [address] MCV (RBC) [Entitic vol] 93.4 fL Normal 80-94 [facility] Comment on above: Performed By: #### L 501.9520, L503.7505 #### [facility] [address] [place], [address] Monocytes/100 WBC (Bld) 18.1 % High 0-10 [facility] Comment on above: Performed By: #### L 501.9520, L503.7505 #### [facility] [address] [place], [address] Neutrophils/100 WBC (Bld) 55.3 % Normal 47-[address] [facility] Comment on above: Performed By: #### L 501.9520, L503.7505 #### [facility] [address] [place], [address] Nucleated RBC (Bld) [#/Vol] 0 10*3/uL Normal 0-[address] [facility] Comment on above: Performed By: #### L 501.95, L503.7505 #### [facility] [address] [place], [address] Platelet mean volume (Bld) [Entitic vol] 10.5 fL Normal 6.2-12.[address] [facility] Comment on above: Performed By: #### L 501.9519, L503.7505 #### [facility] [address] [place], [address] Platelets (Bld) [#/Vol] 116 10*3/uL Low 150-[address] [facility] Comment on above: Performed By: #### L 501.95, L503.7505 #### [facility] [address] [place], [address] RBC (Bld) [#/Vol] 3.92 10*6/uL Low 4.6-6.2 [facility] Comment on above: Performed By: #### L 501.95, L503.7505 #### [facility] [address] [place], [address] RDW SD 46.4 fl High 35.1-43.[address] [facility] Comment on above: Performed By: #### L 501.95, L503.7505 #### [facility] [address] [place], [address] WBC (Bld) [#/Vol] 4.5 10*3/uL Normal 4.4-11.0 [facility] Comment on above: Performed By: #### L 501.9520, L503.7505 #### [facility] [address] [place], [address] Carbon dioxide, total [Moles /volume] in Central venous bloodOrdered By: Isabelle Guillen on 07-31-2024 CO2 [Moles/Vol] 27.5 mmol/L 21.0-32.[address] [facility] Chloride assayOrdered By: Na na Wilmer on 07-31-2024 Chloride [Moles/Vol] 92 mmol/L Low 98-108 [facility] Discharge Instructionon 07-[address] [facility] Medical Records Department [address] [place] [address] Instructions for Home/Discharge Instructions 07/31/24 1356 MR#: [id number] Acct: [id number] Name: ARELYMINA NUR Rep #: [id number] : [id number] 84 From: Isabelle Guillen MD PCP: Dr. Elvis Fishman MD Status:ADM IN Discharge Instructions Diet Discharge Diet: Low fat / Low cholesterol DC O2, CPAP, BIPAP needs Home O2 Discharge instructions: No Dressing / Incision Discharge Activity: Return to Normal Activity Weight Bearing Status: Weight bearing as tolerated Dressing / Incision Call your doctor if you observe: Fever of 101 or Higher, Shortness of breath, Dizziness and Chest pain Follow Up Care Test Results: Test results from this visit will be discussed in further detail at your follow-up appointment, if applicable. Discharge Plan Admission Admit Date/Time: 07/28/24 21:22 Primary Reason for Your Visit: svt Attending Provider: Isabelle Guillen Primary Care Provider: Elvis Fishman [employer] Providers: Andrea Barnes; Angelito Spence Instructions Patient Instructions: Supraventricular Tachycardia Discharge Orders/Prescriptions Prescriptions: New metoprolol tartrate 50 mg Tablet 50 mg PO BID Qty: 60 2RF losartan 25 mg tablet 25 mg PO DAILY Qty: 30 2RF Continued pantoprazole 40 MG tablet 40 mg PO BID Discontinued losartan 50 mg tablet 50 mg PO DAILY Referrals / Follow Up: Khurram Reyes MD [Med Staff - Active Staff] - Within 1 Month (see to establish care for SVT) Elvis Fishman Chi, MD [Primary Care Provider] - Within 1 Week Disposition Disposition (needs filled in before D/C Order can be placed): Home, Self Care 07/31/24 [id number] Isabelle Guillen MD CC: Dr. Anrdea Barnes DO; Dr. Angelito Spence DO; Dr. Elvis Fishman MD Signed Normal [facility] Eosinophil percentageOrdered By: Isabelle Guillen on 07-31-2024 Eosinophils/100 WBC (Bld) 6.0 % High 0-[address] [facility] Erythrocyte distribution wid th ratioOrdered By: Isabelle Guillen on 07-31-2024 Erythrocyte distribution width (RBC) [Ratio] 13.9 % 11.6-14.[address] [facility] Erythrocyte distribution wid th standard deviationOrdered By: Isabelle Guillen on 07-31-2024 Erythrocyte distribution width (RBC) [Ratio] 46.4 fl High 35.1-43.[address] [facility] Glomerular filtration rate ( GFR) estimation/1.73 sq m using serum, plasma, or whole bOrdered By: Isabelle Guillen on 07-31-2024 GFR/1.73 sq M.predicted among non-blacks MDRD (S/P/Bld) [Vol rate/Area] 88 mL/min/{1.73_m2} >[address] [facility] Comment on above: mL/min/1.73m2 CKD-EP I Creatinine Equation (2020) Hematocrit Auto (Bld) [Volum e fraction]Ordered By: Isabelle Guillen on 07-31-2024 Hematocrit (Bld) [Volume fraction] 36.6 % Low 40-[address] [facility] Hemoglobin measurementOrdere d By: Isabelle Guillen on 07-31-2024 Hemoglobin (Bld) [Mass/Vol] 12.4 g/dL Low 13.0-16.[address] [facility] Immature granulocytes/100 WB C Auto (Bld)Ordered By: Isabelle Guillen on 07-31-2024 Immature granulocytes/100 WBC (Bld) 0.900 % 0.0-0.[address] [facility] Comment on above: IG% - Immature Granu locytes (promyelocytes, myelocytes and metamyelocytes) > 1% indicates that a LEFT SHIFT is Present. MCV (mean corpuscular volume ) determinationOrdered By: Isabelle Guillen on 07-31-2024 MCV (RBC) [Entitic vol] 93.4 fL 80-94 [facility] Mean corpuscular hemoglobin (MCH) determinationOrdered By: Isabelle Guillen on 07-31-2024 MCH (RBC) [Entitic mass] 31.6 pg 27.0-32.[address] [facility] Mean corpuscular hemoglobin concentration (MCHC) determinationOrdered By: Isabelle Guillen on 07-31-2024 MCHC (RBC) [Mass/Vol] 33.9 g/dL 32-36 [facility] Mean platelet volume determi nationOrdered By: Isabelle Guillen 07-31-2024 Platelet mean volume (Bld) [Entitic vol] 10.5 fL 6.2-12.[address] [facility] Monocyte percentageOrdered B y: Isabelle Guillen on 07-31-2024 Monocytes/100 WBC (Bld) 18.1 % High 0-10 [facility] Neutrophil percentageOrdered By: Isabelle Guillen 07-31-2024 Neutrophils/100 WBC (Bld) 55.3 % 47-[address] [facility] Nucleated red blood cell per centageOrdered By: Isabelle Guillen 07-31-2024 Nucleated RBC/100 WBC (Bld) [Ratio] 0 % 0-[address] [facility] Platelet countOrdered By: Na mildred Guillen 07-31-2024 Platelets (Bld) [#/Vol] 116 10*3/uL Low 150-[address] [facility] Potassium measurement (mass/ volume)Ordered By: Isabelle Guillen 07-31-2024 Potassium (Unsp spec) [Mass/Vol] 3.9 mmol/L 3.3-5.[address] [facility] RBC Auto (Bld) [#/Vol]Ordere d By: Isabelle Guillen on 07-31-2024 RBC (Bld) [#/Vol] 3.92 10*6/uL Low 4.6-6.2 [facility] Serum creatinine measurement (mass/volume)Ordered By: Isabelle Guillen 07-31-2024 Creatinine [Mass/Vol] 0.74 mg/dL 0.70-1.20 [facility] Serum glucose measurement (m ass/volume)Ordered By: Isabelleboris Guillen on 07-31-2024 Glucose [Mass/Vol] 104 mg/dL High 70-99 [facility] Serum or plasma calcium brian urement (mass/volume)Ordered By: Isabelleboris Guillen on 07-31-2024 Calcium [Mass/Vol] 8.5 mg/dL 7.6-11.0 [facility] Serum or plasma urea nitroge n measurement (mass/volume)Ordered By: Isabelle Guillen on 07-31-2024 Urea nitrogen [Mass/Vol] 19 mg/dL 4-[address] [facility] Sodium levelOrdered By: Isabelleboris Guillen on 07-31-2024 Sodium [Moles/Vol] 131 mmol/L Low 133-145 [facility] Urine Drug Screen (VISTA)on 07-31-2024 AMPHETAMINES Negative Normal <1000 ng/mL [facility] Comment on above: Performed By: #### L 501.9520, L503.7505 #### [facility] [address] [place], [address] BARBITIURATES Positive Normal < 200 ng/mL [facility] Comment on above: Result Comment: If c onfirmation testing is needed, a separate order will be required to send out testing to the reference laboratory. Performed By: #### L 501.9520, L503.7505 #### [facility] [address] [place], [address] BENZODIAZIPINE Negative Normal < 200 ng/mL [facility] Comment on above: Performed By: #### L 501.9520, L503.7505 #### [facility] [address] [place], [address] BUP Ur Drug Scr Negative Normal < 200 ng/mL [facility] Comment on above: Performed By: #### L 501.9520, L503.7505 #### [facility] [address] [place], [address] COCAINE Negative Normal < 300 ng/mL [facility] Comment on above: Performed By: #### L 501.9520, L503.7505 #### [facility] [address] [place], [address] Fentanyl Negative Normal [facility] Comment on above: Performed By: #### L 501.9520, L503.7505 #### [facility] [address] [place], [address] METHADONE Negative Normal < 300 ng/mL [facility] Comment on above: Performed By: #### L 501.9520, L503.7505 #### [facility] [address] [place], [address] OPIATES Negative Normal < 300 ng/mL [facility] Comment on above: Performed By: #### L 501.9520, L503.7505 #### [facility] [address] [place], [address] OXYCODONE Negative Normal < 100 ng/mL [facility] Comment on above: Performed By: #### L 501.9520, L503.7505 #### [facility] [address] [place], [address] PCP Negative Normal < 25 ng/mL [facility] Comment on above: Performed By: #### L 501.9520, L503.7505 #### [facility] [address] [place], [address] THC Negative Normal < 50 ng/mL [facility] Comment on above: Performed By: #### L 501.9520, L503.7505 #### [facility] [address] [place], [address] White blood cell (WBC) count Ordered By: Isabelle Guillen on 07-31-2024 WBC (Bld) [#/Vol] 4.5 10*3/uL 4.4-11.0 [facility] Bilirubin, totalOrdered By: Isabelle Guillen on 07-30-2024 Bilirubin [Mass/Vol] 1.17 mg/dL 0.00-1.30 [facility] Metabolic Prof beon 07-30-2024 Albumin [Mass/Vol] 3.8 g/dL Normal 3.4-4.8 [facility] Comment on above: Performed By: #### L 501.4021, L500.2500, L100.0100 #### [facility] [address] [place], [address] Albumin/Globulin [Mass ratio] 1.4 {ratio} Normal 0.9-2.[address] [facility] Comment on above: Performed By: #### L 501.4021, L500.2500, L100.0100 #### [facility] [address] [place], [address] ALK PHOS 104 U/L Normal 40-[address] [facility] Comment on above: Performed By: #### L 501.4021, L500.2500, L100.0100 #### [facility] [address] [place], [address] ALT [Catalytic activity/Vol] 61 U/L High <=[address] [facility] Comment on above: Performed By: #### L 501.4021, L500.2500, L100.0100 #### [facility] [address] [place], [address] AST [Catalytic activity/Vol] 76 U/L High <=[address] [facility] Comment on above: Result Comment: Hemo lysis present, Results??could be affected. ?? Performed By: #### L 501.4021, L500.2500, L100.0100 #### [facility] [address] [place], [address] Bilirubin [Mass/Vol] 1.17 mg/dL Normal 0.00-1.30 [facility] Comment on above: Performed By: #### L 501.4021, L500.2500, L100.0100 #### [facility] [address] [place], [address] BUN/CRE 32.2 RATIO High 10-[address] [facility] Comment on above: Performed By: #### L 501.4021, L500.2500, L100.0100 #### [facility] [address] [place], [address] Calcium [Mass/Vol] 8.7 mg/dL Normal 7.6-11.0 [facility] Comment on above: Performed By: #### L 501.4021, L500.2500, L100.0100 #### [facility] [address] [place], [address] Chloride [Moles/Vol] 87 mmol/L Low 98-108 [facility] Comment on above: Performed By: #### L 501.4021, L500.2500, L100.0100 #### [facility] [address] [place], [address] CO2 [Moles/Vol] 27.0 mmol/L Normal 21.0-32.[address] [facility] Comment on above: Performed By: #### L 501.4021, L500.2500, L100.0100 #### [facility] [address] [place], [address] Creatinine [Mass/Vol] 0.79 mg/dL Normal 0.70-1.20 [facility] Comment on above: Performed By: #### L 501.4021, L500.2500, L100.0100 #### [facility] [address] [place], [address] ECRCL 74.09 ml/min Normal 50-[address] [facility] Comment on above: Performed By: #### L 501.4021, L500.2500, L100.0100 #### [facility] [address] [place], [address] GAP 11 Normal 5-[address] [facility] Comment on above: Performed By: #### L 501.4021, L500.2500, L100.0100 #### [facility] [address] [place], [address] GFR/1.73 sq M.predicted among non-blacks MDRD (S/P/Bld) [Vol rate/Area] 87 mL/min/{1.73_m2} Normal >[address] [facility] Comment on above: Result Comment: mL/m in/1.73m2 CKD-EPI Creatinine Equation (2020) Performed By: #### L 501.4021, L500.2500, L100.0100 #### [facility] [address] [place], [address] Globulin (S) [Mass/Vol] 2.7 g/dL Normal 2.2-4.2 [facility] Comment on above: Performed By: #### L 501.4021, L500.2500, L100.0100 #### [facility] [address] [place], [address] Glucose [Mass/Vol] 110 mg/dL High 70-99 [facility] Comment on above: Performed By: #### L 501.4021, L500.2500, L100.0100 #### [facility] [address] [place], [address] Potassium [Moles/Vol] 4.2 mmol/L Normal 3.3-5.1 [facility] Comment on above: Result Comment: Hemo lysis present, Results??could be affected. ?? Performed By: #### L 501.4021, L500.2500, L100.0100 #### [facility] [address] [place], [address] Sodium [Moles/Vol] 125 mmol/L Low 133-145 [facility] Comment on above: Performed By: #### L 501.4021, L500.2500, L100.0100 #### [facility] [address] [place], [address] T PROT 6.4 g/dL Normal 5.9-8.[address] [facility] Comment on above: Performed By: #### L 501.4021, L500.2500, L100.0100 #### [facility] [address] [place], [address] Urea nitrogen [Mass/Vol] 25 mg/dL High 4-[address] [facility] Comment on above: Performed By: #### L 501.4021, L500.2500, L100.0100 #### [facility] [address] [place], [address] Laboratory - Chemistry and C hemistry - challengeOrdered By: Isabelle Guillen on 07-30-2024 AST [Catalytic activity/Vol] 76 U/L High <[address] [facility] Comment on above: Hemolysis present, R esults could be affected. Serum globulin measurementOr dered By: Isabelle Guillen on 07-30-2024 Globulin (S) [Mass/Vol] 2.7 g/dL 2.2-4.2 [facility] Serum or plasma alanine wen otransferase (ALT) measurementOrdered By: Isabelle Guillen 07-30-2024 ALT [Catalytic activity/Vol] 61 U/L High <[address] [facility] Serum or plasma albumin brian urement (mass/volume)Ordered By: Isabelle Guillen on 07-30-2024 Albumin [Mass/Vol] 3.8 g/dL 3.4-4.8 [facility] Serum or plasma albumin/glob ulin mass ratioOrdered By: Isabelle Guillen 07-30-2024 Albumin/Globulin [Mass ratio] 1.4 {ratio} 0.9-2.[address] [facility] Serum or plasma alkaline corey sphatase measurementOrdered By: Isabelle Guillen 07-30-2024 ALP [Catalytic activity/Vol] 104 U/L 40-[address] [facility] Total proteinOrdered By: Fiona Guillen on 07-30-2024 Protein [Mass/Vol] 6.4 g/dL 5.9-8.4 [facility] Abdomen/Pelvis without Conto n 07-29-2024 Abdomen/Pelvis without Cont [facility] Services [address] [place] [address] Abdomen/Pelvis without Cont MR#: [id number] Acct: [id number] Name: MINA MCGEE Rep #: [id number] : 1940 M 84 From: Bello Escamilla i, MD PCP: Dr. Elvis Fishman MD Status: ADM IN Study: Abdomen/Pelvis without Cont Date of Exam: 07/17 07/10 Exam# [id number] Ordering Dr: Andrea Barnes DO PROCEDURE: ABDOMEN/PELVIS WITHOUT CONT 07/29/2024 REASON FOR EXAM: DIARRHEA; EVALUATE FOR COLITIS. TECHNIQUE: Abdomen and pelvis CT without intravenous contrast. Noncontrast technique limits evaluation of the abdominal and pelvic viscera. Coronal and Sagittal reconstruction series were provided. One or more dose reduction techniques were used (e.g., Automated exposure control, adjustment of the mA and/or kV according to patient size, use of iterative reconstruction technique). PATIENT PREPARATION: Per protocol COMPARISON: None. FINDINGS: There are streaky changes at the lung bases. There are coronary artery calcifications present. There is no free air within the abdomen and pelvis. There is diffuse fatty infiltration of the liver. The liver is nonenlarged. The gallbladder, spleen, adrenals are within normal limits. The pancreas is mildly atrophic. The bilateral kidneys are without evidence of hydronephrosis. There is contrast within the collecting system and urinary bladder, likely from prior contrast administration. The prostate is nonenlarged. Moderate size hiatal hernia is present. There is no bowel obstruction. Tubular blind-ending structure seen within the right lower quadrant is likely to represent the appendix (image 73/160). There is no evidence to suggest acute appendicitis. No abnormal free fluid is seen within the abdomen and pelvis. Atheromatous calcification seen within the aorta and its branches. No acute osseous abnormality. CT/Abdomen/Pelvis without Cont IMPRESSION: Moderate size hiatal hernia. No evidence of bowel obstruction. No definite acute inflammatory process is seen within the abdomen and pelvis. Diffuse fatty infiltration of the liver. Reading Location: [id number] CC: Dr. Andrea Barnes DO; Dr. 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 CBC W/Diff, Automatedon 07-17 Absolute Lymph 0.66 X10 3/uL Low 0.83-4.[address] [facility] Comment on above: Performed By: #### L 100.0100, L500.2500 #### [facility] [address] [place], [address] Absolute Neut 7.0 X10 3/uL Normal 2.0-7.[address] [facility] Comment on above: Performed By: #### L 100.0100, L500.2500 #### [facility] [address] [place], [address] Basophils/100 WBC (Bld) 0.2 % Normal 0-1 [facility] Comment on above: Performed By: #### L 100.0100, L500.2500 #### [facility] [address] [place], [address] Eosinophils/100 WBC (Bld) 0.1 % Normal 0-[address] [facility] Comment on above: Performed By: #### L 100.0100, L500.2500 #### [facility] [address] [place], [address] Erythrocyte distribution width (RBC) [Ratio] 14.1 % Normal 11.6-14.[address] [facility] Comment on above: Performed By: #### L 100.0100, L500.2500 #### [facility] [address] [place], [address] Hematocrit (Bld) [Volume fraction] 37.0 % Low 40-[address] [facility] Comment on above: Performed By: #### L 100.0100, L500.2500 #### [facility] [address] [place], [address] Hemoglobin (Bld) [Mass/Vol] 12.7 g/dL Low 13.0-16.[address] [facility] Comment on above: Performed By: #### L 100.0100, L500.2500 #### [facility] [address] [place], [address] IG% 0.500 Normal 0.0-0.[address] [facility] Comment on above: Result Comment: IG% - Immature Granulocytes (promyelocytes, myelocytes and metamyelocytes) > 1% indicates that a LEFT SHIFT is Present. Performed By: #### L 100.0100, L500.2500 #### [facility] [address] [place], [address] Lymphocytes/100 WBC (Bld) 7.7 % Low 19-[address] [facility] Comment on above: Performed By: #### L 100.0100, L500.2500 #### [facility] [address] [place], [address] MCH (RBC) [Entitic mass] 31.8 pg Normal 27.0-32.[address] [facility] Comment on above: Performed By: #### L 100.0100, L500.2500 #### [facility] [address] [place], [address] MCHC (RBC) [Mass/Vol] 34.3 g/dL Normal 32-36 [facility] Comment on above: Performed By: #### L 100.0100, L500.2500 #### [facility] [address] [place], [address] MCV (RBC) [Entitic vol] 92.7 fL Normal 80-94 [facility] Comment on above: Performed By: #### L 100.0100, L500.2500 #### [facility] [address] [place], [address] Monocytes/100 WBC (Bld) 10.2 % High 0-10 [facility] Comment on above: Performed By: #### L 100.0100, L500.2500 #### [facility] [address] [place], [address] Neutrophils/100 WBC (Bld) 81.3 % High 47-[address] [facility] Comment on above: Performed By: #### L 100.0100, L500.2500 #### [facility] [address] [place], [address] Nucleated RBC (Bld) [#/Vol] 0 10*3/uL Normal 0-[address] [facility] Comment on above: Performed By: #### L 100.0100, L500.2500 #### [facility] [address] [place], [address] Platelet mean volume (Bld) [Entitic vol] 9.9 fL Normal 6.2-12.[address] [facility] Comment on above: Performed By: #### L 100.0100, L500.2500 #### [facility] [address] [place], [address] Platelets (Bld) [#/Vol] 154 10*3/uL Normal 150-[address] [facility] Comment on above: Performed By: #### L 100.0100, L500.2500 #### [facility] [address] [place], [address] RBC (Bld) [#/Vol] 3.99 10*6/uL Low 4.6-6.2 [facility] Comment on above: Performed By: #### L 100.0100, L500.2500 #### [facility] [address] [place], [address] RDW SD 46.6 fl High 35.1-43.[address] [facility] Comment on above: Performed By: #### L 100.0100, L500.2500 #### [facility] [address] [place], [address] WBC (Bld) [#/Vol] 8.6 10*3/uL Normal 4.4-11.0 [facility] Comment on above: Performed By: #### L 100.0100, L500.2500 #### [facility] [address] [place], [address] CDIFF (PCR)on 07-29-2024 CDIFF Is the patient receiving laxatives? N New/unexplained onset of 3 or more stools in past 24 hrs? Y Pending 027 027 NAP1-B1 Presumptive Negative *for epidemiolologic???us e C. Diff PCR Negative- No toxigenic C. Diff Detected Normal [facility] Comment on above: Performed By: #### L 501.4021, L500.2500, L100.0100 #### [facility] [address] [place], [address] Clostridium difficile detect ion by polymerase chain reactionOrdered By: Andrea Sepulveda on 07-29-2024 C. difficile DNA ALESSANDRO+probe Ql (Unsp spec) [facility] Comprehensive Metabolic Prof ilon 07-29-2024 Albumin [Mass/Vol] 3.8 g/dL Normal 3.4-4.8 [facility] Comment on above: Performed By: #### L 100.0100, L500.2500 #### [facility] [address] [place], [address] Albumin/Globulin [Mass ratio] 1.4 {ratio} Normal 0.9-2.[address] [facility] Comment on above: Performed By: #### L 100.0100, L500.2500 #### [facility] [address] [place], [address] ALK PHOS 114 U/L Normal 40-[address] [facility] Comment on above: Performed By: #### L 100.0100, L500.2500 #### [facility] [address] [place], [address] ALT [Catalytic activity/Vol] 95 U/L High <=[address] [facility] Comment on above: Performed By: #### L 100.0100, L500.2500 #### [facility] [address] [place], [address] AST [Catalytic activity/Vol] 158 U/L High <=[address] [facility] Comment on above: Performed By: #### L 100.0100, L500.2500 #### [facility] [address] [place], [address] Bilirubin [Mass/Vol] 1.46 mg/dL High 0.00-1.30 [facility] Comment on above: Performed By: #### L 100.0100, L500.2500 #### [facility] [address] [place], [address] BUN/CRE 38.3 RATIO High 10-[address] [facility] Comment on above: Performed By: #### L 100.0100, L500.2500 #### [facility] [address] [place], [address] Calcium [Mass/Vol] 8.1 mg/dL Normal 7.6-11.0 [facility] Comment on above: Performed By: #### L 100.0100, L500.2500 #### [facility] [address] [place], [address] Chloride [Moles/Vol] 88 mmol/L Low 98-108 [facility] Comment on above: Performed By: #### L 100.0100, L500.2500 #### [facility] [address] [place], [address] CO2 [Moles/Vol] 20.3 mmol/L Low 21.0-32.[address] [facility] Comment on above: Performed By: #### L 100.0100, L500.2500 #### [facility] [address] [place], [address] Creatinine [Mass/Vol] 0.97 mg/dL Normal 0.70-1.20 [facility] Comment on above: Performed By: #### L 100.0100, L500.2500 #### [facility] [address] [place], [address] ECRCL 60.54 ml/min Normal 50-[address] [facility] Comment on above: Performed By: #### L 100.0100, L500.2500 #### [facility] [address] [place], [address] GAP 21 High 5-[address] [facility] Comment on above: Performed By: #### L 100.0100, L500.2500 #### [facility] [address] [place], [address] GFR/1.73 sq M.predicted among non-blacks MDRD (S/P/Bld) [Vol rate/Area] 76 mL/min/{1.73_m2} Normal >[address] [facility] Comment on above: Result Comment: mL/m in/1.73m2 CKD-EPI Creatinine Equation (2020) Performed By: #### L 100.0100, L500.2500 #### [facility] [address] [place], [address] Globulin (S) [Mass/Vol] 2.7 g/dL Normal 2.2-4.2 [facility] Comment on above: Performed By: #### L 100.0100, L500.2500 #### [facility] [address] [place], [address] Glucose [Mass/Vol] 88 mg/dL Normal 70-99 [facility] Comment on above: Performed By: #### L 100.0100, L500.2500 #### [facility] [address] [place], [address] Potassium [Moles/Vol] 4.9 mmol/L Normal 3.3-5.1 [facility] Comment on above: Performed By: #### L 100.0100, L500.2500 #### [facility] [facility] [address] [place], [address] Sodium [Moles/Vol] 129 mmol/L Low 133-145 [facility] Comment on above: Performed By: #### L 100.0100, L500.2500 #### [facility] [address] [place], [address] T PROT 6.5 g/dL Normal 5.9-8.[address] [facility] Comment on above: Performed By: #### L 100.0100, L500.2500 #### [facility] [address] [place], [address] Urea nitrogen [Mass/Vol] 37 mg/dL High 4-[address] [facility] Comment on above: Performed By: #### L 100.0100, L500.2500 #### [facility] [address] [place], [address] ENTERIC PATHOGEN PANEL STOOL on 07-29-2024 EP PANEL Is the patient receiving laxatives? N New/unexplained onset of 3 or more stools in past 24 hrs? Y Normal Reference Range = Not Detected Not detected for Campylobacter group, Salmonella species, Shigella species, Vibrio Group, Yersinia enterocolitica, EHEC (Shiga Toxin 1, Shiga Toxin 2), Norovirus Gl/Gll, and Rotavirus A. Other common stool pathogens are not detected on this panel include: Aeromonas/Plesiomona s or parasites. Order testing for these organisms separately if suspected. This is an amplified DNA test which makes it both specific and sensitive. CAMPYLOBACTER Not Detected Norovirus Not Detected Rotavirus Not Detected Salmonella Not Detected Shiga Toxin Not Detected Shigella sp. Not Detected VIBRIO Not Detected Yersinia Not Detected Normal [facility] Comment on above: Performed By: #### L 501.4021, L500.2500, L100.0100 #### [facility] [address] [place], [address] Echo Limited w/Contraston Echo Limited w/Contrast [facility] [address] [place] [address] Echo Limited w/Contrast 07/30/24 0838 MR#: [id number] Acct: [id number] Name: MINA MCGEE Rep #: [id number] : 1940 84 From: Khurram Reyes MD Attending Dr: Dr. Isabelle Guillen MD Status: AD M IN Ordering Dr: Angelito Spence DO Date: 07/29/24 Location: [facility] Sex: M C Admitted: 07/28/24 Reason For Study Reason For Study: SVT Procedure This was a limited 2D transthoracic echocardiogram. The study was technically difficult. Contrast injection was performed. Patient could not tolerate probe pressure. Exam performed portable in patient room. Left Ventricle Normal LV size. Left ventricular systolic function is normal. The left ventricular ejection fraction is 55 %. No regional wall motion abnormalities noted. Right Ventricle Normal RV size. Normal systolic function. Atria Normal left atrium. Normal right atrium. Mitral Valve There is mild mitral annular calcification. Tricuspid Valve Normal tricuspid valve. Aortic Valve Trisinus/trileaflet aortic valve. Mild focal aortic valve calcification. Pulmonic Valve The pulmonic valve is not well visualized. Great Vessels Normal aortic root. Pericardium/Pleural No pericardial effusion. Medication Diluted definity 2ml given slow IV push to enhance endocardial definition. MMode/2D Measurements Calculations LVIDd: 4.3 cm IVSd: 1.1 cm LVOT diam: 2.2 cm LVIDs: 2.9 cm LVPWd: 1.4 cm FS: 32.2 % LVOT area: 3.7 cm2 Ao root diam: 3.9 cm Doppler Measurements Calculations Ao V2 max: 211.1 cm/sec LV V1 max: 110.0 cm/sec SV(LVOT): 82.0 ml Ao max P.8 mmHg LV V1 max P.8 mmHg Ao V2 mean: 131.5 cm/sec LV V1 mean P.1 mmHg Ao mean P.1 mmHg LV V1 mean: 66.5 cm/sec Ao V2 VTI: 39.5 cm LV V1 VTI: 22.4 cm AV (velocity ratio): 0.57 VANDANA(I,D): 2.1 cm2 VANDANA(V,D): 1.9 cm2 ECHO/Echo Limited w/Contrast Interpretation Summary Normal LV size. Left ventricular systolic function is normal. The left ventricular ejection fraction is 55 %. Contrast injection was performed. Ordering Physician: Angelito Spence Referring Physician: Elvis Fishman Chi Performed By: Dipak Benavides RCS 07/30/24 113 Date Khurram Reyes MD CC: Dr. Angelito Spence DO; Dr. Isabelle Guillen MD; Dr. Elvis Fishman MD Date Dictated: 07/30/24 0838 Date Transcribed: 07/30/24 113 [employer]: Signed Normal [facility] Stool Lactoferrin/WBCon 07-17 WBCST Is the patient receiving laxatives? N New/unexplained onset of 3 or more stools in past 24 hrs? Y Normal Reference Range = Negative Fecal WBC Lactoferrin Negative: No Fecal WBC Lactoferrin present Normal [facility] Comment on above: Performed By: #### L 501.4021, L500.2500, L100.0100 #### [facility] [address] [place], [address] Stool lactoferrin detection by immunoassayOrdered By: Andrea Sepulveda on 07-29-2024 Lactoferrin IA Ql (Stl) [facility] TSH DL <= 0.005 mIU/L QnOrde red By: Andrea Sepulveda on 07-29-2024 TSH Qn 3.300 uIU/mL 0.300-4.[address] [facility] Thyroid Stim Hormone (TSH)on 07-29-2024 TSH 3.300 uIU/mL Normal 0.300-4.[address] [facility] Comment on above: Performed By: #### L 100.0100, L500.2500 #### [facility] [address] [place], [address] Venous Duplex US - Duong Extre mon 07-29-2024 Venous Duplex US - Duong Extrem [facility] [address] [place] [place] [address] Venous Duplex US - Duong Extrem 07/30/24 1023 MR#: [id number] Acct: [id number] Name: MINA MCGEE Rep #: [id number] : 1940 84 From: Angelito Reeder MD Attending Dr: Dr. Isabelle Guillen MD Status: AD M IN Ordering Dr: Andrea Barnes DO Date: 07/29/24 Location: U Sex: M C Admitted: 07/28/24 Reason For Study Reason For Study: Elevated D Dimer RIGHT LEFT GSV is normal. GSV is normal. CFV is compressible, spontaneous, phasic, competent CFV is compressible, spontaneous, phasic, competent, and demonstrates normal augmentation. and demonstrates normal augmentation. FV is compressible, spontaneous, phasic, competent FV is compressible, spontaneous, phasic, competent and demonstrates normal augmentation. and demonstrates normal augmentation. POP V is compressible, spontaneous, phasic, competent POP V is compressible, spontaneous, phasic, competent and demonstrates normal augmentation. and demonstrates normal augmentation. T/P Trunk is compressible. T/P Trunk is compressible. PTV is compressible. PTV is compressible. RT PerV is compressible. LT PerV is compressible. Procedure This is a venous duplex using B-mode, color flow and spectral Doppler. Exam performed portable in patient room. The exam was diagnostic. A preliminary report was called and/or faxed to [facility]. VL/Venous Duplex US - Duong Extrem Interpretation Summary Deep veins of the bilateral lower extremities are patent and compressible segmentally. There is no evidence of bilateral lower extremity deep vein thrombosis. The bilateral great saphenous veins appear patent and compressible segmentally. Ordering Physician: Andrea Barnes Referring Physician: Elvis Fishman Chi Performed By: Carlos Rice, Augusto 07/30/241658 Date Angelito Reeder MD CC: Dr. Andrea Barnes DO; Dr. Isabelle Guillen MD; Dr. Elvis Fishman MD Date Dictated: 07/30/24 1023 Date Transcribed: 07/30/241658 [employer]: Signed Normal [facility] 12 Lead EKGon 07-28-2024 12 Lead EKG [facility] [address] [place] [address] 12 Lead EKG 07/28/24 1842 MR#: [id number] Acct: [id number] Name: MINA MCGEE Rep #: [id number] : 1940 84 From: Bello Persaud MD Attending Dr: Dr. Isabelle Guillen MD Status: DI S IN Ordering Dr: Jc Nichols MD Date: 07/28/24 Location: [facility] Sex: M C Admitted: 07/28/24 Test Reason : REPEAT Blood Pressure : */* mmHG Vent. Rate : 116 BPM Atrial Rate : 116 BPM P-R Int : 156 ms QRS Dur : 142 ms QT Int : 350 ms P-R-T Axes : 68 -29 -6 degrees QTcB Int : 486 ms Sinus tachycardia Right bundle branch block Inferior infarct , age undetermined Abnormal ECG When compared with ECG of 28-Jul-2024 18:37, MANUAL COMPARISON REQUIRED DATA IS UNCONFIRMED Confirmed by Bello Persaud ([id number]), editor producer MARY HERNANDEZ ([id number]) on 08/01/2024 10:07:27 AM Referred By: Confirmed By: Bello Persaud 08/01/24 1007 Date Bello Persaud MD CC: Dr. Jc Nichols MD; Dr. Isabelle Guillen MD; Dr. Elvis Fishman MD Signed Normal [facility] 12 Lead EKG [facility] Cardi[facility] Services [address] [place] [address] 12 Lead EKG 07/28/24 1837 MR#: [id number] Acct: [id number] Name: MINA MCGEE Rep #: [id number] : 1940 84 From: Bello Persaud MD Attending Dr: Dr. Isabelle Guillen MD Status: DI S IN Ordering Dr: Jc Nichols MD Date: 07/28/24 Location: U Sex: M C Admitted: 07/28/24 Test Reason : SVT Blood Pressure : */* mmHG Vent. Rate : 168 BPM Atrial Rate : * BPM P-R Int : * ms QRS Dur : 142 ms QT Int : 280 ms P-R-T Axes : * -52 -12 degrees QTcB Int : 468 ms Critical Test Result: High HR Probable SVT Left axis deviation Right bundle branch block Possible Lateral infarct , age undetermined Inferior infarct , age undetermined Abnormal ECG Confirmed by Bello Persaud ([id number]), editor producer MARY HERNANDEZ ([id number]) on 08/01/2024 10:05:19 AM Referred By: Confirmed By: Bello Persaud 08/01/24 1005 Date Bello Persaud MD CC: Dr. Jc Nichols MD; Dr. Isabelle Guillen MD; Dr. Elvis Fishman MD Signed Normal [facility] Absolute neutrophil countOrd ered By: Jc Nichols on 07-28-2024 Neutrophils (Bld) [#/Vol] 6.7 10*3/uL 2.0-7.[address] [facility] Amphetamine detection with 1 000 ng/mL as cutoffOrdered By: Andrea Sepulveda on 07-28-2024 Amphetamines Screen method >1000 ng/mL Ql (U) Negative <1000 ng/mL [facility] Amphetamines Screen method >1000 ng/mL Ql (U) Positive < 200 ng/mL [facility] Comment on above: If confirmation test ing is needed, a separate order will be required to send out testing to the reference laboratory. Anion gap in Serum or Plasma Ordered By: Jc Nichols on 07-28-2024 Anion gap [Moles/Vol] 27 mmol/L High 08-30 [facility] Arterial patency Wrist arter y --pre arterial punctureOrdered By: Jc Nichols on 07-28-2024 Arnel Test Positive [facility] Assessment of wrist artery p atency prior to arterial punctureOrdered By: Jc Nichols on 07-28-2024 Arterial patency Wrist artery --pre arterial puncture Positive [facility] BUN/creatinine ratioOrdered By: Jc Nichols on 07-28-2024 Urea nitrogen/Creatinine [Mass ratio] 32.8 mg/mg High 02-[address] [facility] Base excess Calc (BldV) [Mol es/Vol]Ordered By: Jc Nichols on 07-28-2024 Blood Gas Base Excess -6 mmol/L Low -2-2 [facility] Basic Metabolic Profile (BMP )on 07-28-2024 BUN/CRE 32.8 RATIO High 02-[address] [facility] Comment on above: Performed By: #### L 501.4021, L500.2500, L100.0100 #### [facility] [address] [place], [address] Calcium [Mass/Vol] 9.0 mg/dL Normal 7.6-11.0 [facility] Comment on above: Performed By: #### L 501.4021, L500.2500, L100.0100 #### [facility] [address] [place], [address] Chloride [Moles/Vol] 84 mmol/L Low 98-108 [facility] Comment on above: Performed By: #### L 501.4021, L500.2500, L100.0100 #### [facility] [address] [place], [address] CO2 [Moles/Vol] 18.1 mmol/L Low 21.0-32.[address] [facility] Comment on above: Performed By: #### L 501.4021, L500.2500, L100.0100 #### [facility] [address] [place], [address] Creatinine [Mass/Vol] 1.20 mg/dL Normal 0.70-1.20 [facility] Comment on above: Performed By: #### L 501.4021, L500.2500, L100.0100 #### [facility] [address] [place], [address] ECRCL 50.34 ml/min Normal 50-[address] [facility] Comment on above: Performed By: #### L 501.4021, L500.2500, L100.0100 #### [facility] [address] [place], [address] GAP 27 High 5-[address] [facility] Comment on above: Performed By: #### L 501.4021, L500.2500, L100.0100 #### [facility] [address] [place], [address] GFR/1.73 sq M.predicted among non-blacks MDRD (S/P/Bld) [Vol rate/Area] 59 mL/min/{1.73_m2} Low >[address] [facility] Comment on above: Result Comment: mL/m in/1.73m2 CKD-EPI Creatinine Equation (2020) Performed By: #### L 501.4021, L500.2500, L100.0100 #### [facility] [address] [place], [address] Glucose [Mass/Vol] 97 mg/dL Normal 70-99 [facility] Comment on above: Performed By: #### L 501.4021, L500.2500, L100.0100 #### [facility] [address] [place], [address] Potassium [Moles/Vol] 4.9 mmol/L Normal 3.3-5.1 [facility] Comment on above: Performed By: #### L 501.4021, L500.2500, L100.0100 #### [facility] [address] [place], [address] Sodium [Moles/Vol] 129 mmol/L Low 133-145 [facility] Comment on above: Performed By: #### L 501.4021, L500.2500, L100.0100 #### [facility] [address] [place], [address] Urea nitrogen [Mass/Vol] 39 mg/dL High 4-[address] [facility] Comment on above: Performed By: #### L 501.4021, L500.2500, L100.0100 #### [facility] [address] [place], [address] Basophil percentageOrdered B y: Jc Nichols on 07-28-2024 Basophils/100 WBC (Bld) 0.4 % 0-1 [facility] Positive Normal [facility] Comment on above: Performed By: #### L 501.4021, L500.2500, L100.0100 #### [facility] [address] [place], [address] Base excess Calc (Bld) [Moles/Vol] -6 mmol/L Low -2 to +[address] [facility] Comment on above: Performed By: #### L 501.4021, L500.2500, L100.0100 #### [facility] [address] [place], [address] Blood Gas Type ART Normal [facility] Comment on above: Performed By: #### L 501.4021, L500.2500, L100.0100 #### [facility] [address] [place], [address] CO2 [Moles/Vol] 20 mmol/L Normal [facility] Comment on above: Performed By: #### L 501.4021, L500.2500, L100.0100 #### [facility] [address] [place], [address] HCO3 (Bld) [Moles/Vol] 19.2 mmol/L Low 22-26 [facility] Comment on above: Performed By: #### L 501.4021, L500.2500, L100.0100 #### [facility] [address] [place], [address] Mode Not entered Normal [facility] Comment on above: Performed By: #### L 501.4021, L500.2500, L100.0100 #### [facility] [address] [place], [address] O2 Delivery Dev Room Air Normal [facility] Comment on above: Performed By: #### L 501.4021, L500.2500, L100.0100 #### [facility] [address] [place], [address] pCO2 33.6 mmHg Low 35-[address] [facility] Comment on above: Performed By: #### L 501.4021, L500.2500, L100.0100 #### [facility] [address] [place], [address] pH (Bld) 7.37 [pH] Normal 7.35-7.[address] [facility] Comment on above: Performed By: #### L 501.4021, L500.2500, L100.0100 #### [facility] [address] [place], [address] PO2 71 mmHG Low 75-[address] [facility] Comment on above: Performed By: #### L 501.4021, L500.2500, L100.0100 #### [facility] [address] [place], [address] SITE R Radial Normal [facility] Comment on above: Performed By: #### L 501.4021, L500.2500, L100.0100 #### [facility] [address] [place], [address] SO2 94 Low 95-[address] [facility] Comment on above: Performed By: #### L 501.4021, L500.2500, L100.0100 #### [facility] [address] [place], [address] Blood base excess determinat ionOrdered By: Jc Nichols on 07-28-2024 Base excess Calc (BldV) [Moles/Vol] -6 mmol/L Low -2-[address] [facility] Blood bicarbonate measuremen tOrdered By: Jc Nichols on 07-28-2024 Blood Gas Bicarbonate Actual 19.2 mmol/L Low - [facility] HCO3 (Bld) [Moles/Vol] 19.2 mmol/L Low 22- [facility] CBC W/Diff, Automatedon 07-17 Absolute Lymph 0.91 X10 3/uL Normal 0.83-4.[address] [facility] Comment on above: Performed By: #### L 501.4021, L500.2500, L100.0100 #### [facility] [address] [place], [address] Absolute Neut 6.7 X10 3/uL Normal 2.0-7.[address] [facility] Comment on above: Performed By: #### L 501.4021, L500.2500, L100.0100 #### [facility] [address] [place], [address] Basophils/100 WBC (Bld) 0.4 % Normal 0-1 [facility] Comment on above: Performed By: #### L 501.4021, L500.2500, L100.0100 #### [facility] [address] [place], [address] Eosinophils/100 WBC (Bld) 0.1 % Normal 0-[address] [facility] Comment on above: Performed By: #### L 501.4021, L500.2500, L100.0100 #### [facility] [address] [place], [address] Erythrocyte distribution width (RBC) [Ratio] 14.4 % Normal 11.6-14.[address] [facility] Comment on above: Performed By: #### L 501.4021, L500.2500, L100.0100 #### [facility] [address] [place], [address] Hematocrit (Bld) [Volume fraction] 43.2 % Normal 40-[address] [facility] Comment on above: Performed By: #### L 501.4021, L500.2500, L100.0100 #### [facility] [address] [place], [address] Hemoglobin (Bld) [Mass/Vol] 14.9 g/dL Normal 13.0-16.[address] [facility] Comment on above: Performed By: #### L 501.4021, L500.2500, L100.0100 #### [facility] [address] [place], [address] IG% 0.700 Normal 0.0-0.[address] [facility] Comment on above: Result Comment: IG% - Immature Granulocytes (promyelocytes, myelocytes and metamyelocytes) > 1% indicates that a LEFT SHIFT is Present. Performed By: #### L 501.4021, L500.2500, L100.0100 #### [facility] [address] [place], [address] Lymphocytes/100 WBC (Bld) 10.8 % Low 19-[address] [facility] Comment on above: Performed By: #### L 501.4021, L500.2500, L100.0100 #### [facility] [address] [place], [address] MCH (RBC) [Entitic mass] 32.2 pg High 27.0-32.[address] [facility] Comment on above: Performed By: #### L 501.4021, L500.2500, L100.0100 #### [facility] [address] [place], [address] MCHC (RBC) [Mass/Vol] 34.5 g/dL Normal 32-36 [facility] Comment on above: Performed By: #### L 501.4021, L500.2500, L100.0100 #### [facility] [address] [place], [address] MCV (RBC) [Entitic vol] 93.3 fL Normal 80-94 [facility] Comment on above: Performed By: #### L 501.4021, L500.2500, L100.0100 #### [facility] [address] [place], [address] Monocytes/100 WBC (Bld) 8.5 % Normal 0-10 [facility] Comment on above: Performed By: #### L 501.4021, L500.2500, L100.0100 #### [facility] [address] [place], [address] Neutrophils/100 WBC (Bld) 79.5 % High 47-[address] [facility] Comment on above: Performed By: #### L 501.4021, L500.2500, L100.0100 #### [facility] [address] [place], [address] Nucleated RBC (Bld) [#/Vol] 0.2 10*3/uL Normal 0-[address] [facility] Comment on above: Performed By: #### L 501.4021, L500.2500, L100.0100 #### [facility] [address] [place], [address] Platelet mean volume (Bld) [Entitic vol] 9.8 fL Normal 6.2-12.[address] [facility] Comment on above: Performed By: #### L 501.4021, L500.2500, L100.0100 #### [facility] [address] [place], [address] Platelets (Bld) [#/Vol] 230 10*3/uL Normal 150-[address] [facility] Comment on above: Performed By: #### L 501.4021, L500.2500, L100.0100 #### [facility] [address] [place], [address] RBC (Bld) [#/Vol] 4.63 10*6/uL Normal 4.6-6.2 [facility] Comment on above: Performed By: #### L 501.4021, L500.2500, L100.0100 #### [facility] [address] [place], [address] RDW SD 47.2 fl High 35.1-43.[address] [facility] Comment on above: Performed By: #### L 501.4021, L500.2500, L100.0100 #### [facility] [address] [place], [address] WBC (Bld) [#/Vol] 8.4 10*3/uL Normal 4.4-11.0 [facility] Comment on above: Performed By: #### L 501.4021, L500.2500, L100.0100 #### [facility] [address] [place], [address] CTA Chest W/WO Contraston CTA Chest W/WO Contrast [facility] Imaging Services [address] [place] [address] CTA Chest W/WO Contrast MR#: [id number] Acct: [id number] Name: MINA MCGEE Rep #: [id number] : 1940 M 84 From: Gus Kimbrough PCP: Dr. Elvis Fishman MD Status: ADM IN Study: CTA Chest W/WO Contrast Date of Exam: 07/28/24 Exam# [id number] Ordering Dr: Andrea Barnes DO PROCEDURE: CTA CHEST W/WO CONTRAST 07/28/2024 REASON FOR EXAM: RLL INFILTRATE WITH RECURRENT SVT. TECHNIQUE: CTA imaging of the chest, abdomen and pelvis without and with intravenous contrast. Coronal and Sagittal reconstruction series were provided. 3D, 3D post processing, 3D reconstructions, Maximum intensity projection (MIPs) Volume rendering and Shaded surface rendering was provided. One or more dose reduction techniques were used (e.g., Automated exposure control, adjustment of the mA and/or kV according to patient size, use of iterative reconstruction technique). COMPARISON: None FINDINGS: Moderate cardiomegaly. Moderate LAD coronary artery calcifications. No significant pericardial effusion. 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 No dissection. Normal caliber pulmonary arteries without filling defects. No suspicious adenopathy. Moderate/large hiatal hernia. Mild distal esophageal wall thickening. Severe hepatic steatosis. Superficial soft tissues are within normal limits. Central airways are patent. Mild/moderate bibasilar atelectasis. No patchy infiltrates, pleural effusion or pneumothorax. No pulmonary mass. No acute osseous abnormality. CT/CTA Chest W/WO Contrast IMPRESSION: 1. No acute process. 2. Moderate/large hiatal hernia with distal esophageal wall thickening. 3. Severe hepatic steatosis. 4. Cardiomegaly and coronary artery disease. 5. Mild/moderate bibasilar atelectasis. 6. 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 Reading Location: [facility] CC: Dr. Andrea Barnes DO; Dr. 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 Carbon dioxide, total [Moles /volume] in Central venous bloodOrdered By: Jc Nichols on 07-28-2024 CO2 [Moles/Vol] 18.1 mmol/L Low 21.0-32.[address] [facility] Chest 1 View (Portable)on Chest 1 View (Portable) [facility] Imaging Services [address] [place] [address] Chest 1 View (Portable) MR#: [id number] Acct: [id number] Name: MINA MCGEE Rep #: [id number] : 1940 M 84 From: Gus Kimbrough PCP: Dr. Elvis Fishman MD Status: [facility] ER Study: Chest 1 View (Portable) Date of Exam: 07/28/24 Exam# [id number] Ordering Dr: Jc Nichols MD PROCEDURE: CHEST 1 VIEW (PORTABLE) 07/28/2024 REASON FOR EXAM: Chest pain TECHNIQUE: Frontal view of the chest. COMPARISON: None FINDINGS: Low lung volumes. Mild cardiomegaly. Possible small right pleural with adjacent atelectasis/infiltra te. Left lung is relatively clear. No sizable pneumothorax. RAD/Chest 1 View (Portable) IMPRESSION: Low lung volumes with right basilar opacity as above. Reading Location: [facility] CC: Dr. Jc Nichols MD; Dr. 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 Chloride assayOrdered By: Mika Nichols on 07-28-2024 Chloride [Moles/Vol] 84 mmol/L Low 98-108 [facility] D-Dimer Quantitative (DVT/PE )on 07-28-2024 D-DIMER QUANT 2.26 FEU/ug/m Invalid Interpretation Code 0.27-0.[address] [facility] Comment on above: Result Comment: CRIT ICAL VALUE CALLED TO PHILOMENA BAHENA [facility] 07/28/242155 [place]. RESULTS READ BACK BY SAME. D-Dimer ELEVATED (>0.49): Additional studies and clinical assessments are indicated to conclude diagnosis of: Deep Vein Thrombosis (DVT) or Pulmonary Embolism (PE) Performed By: #### L 501.4021, L500.2500, L100.0100 #### [facility] [address] [place], [address] Emergency Department Summary on 07-28-2024 Emergency Department Summary [facility] Medical Records Department [address] [place] [address] Emergency Department Summary 07/28/24 MR#: [id number] Acct: [id number] Name: MINA MCGEE Rep #: [id number] : 1940 84 From: Jc Nichols MD PCP: Dr. Elvis Fishman MD Status:ADM IN Location: [place] [address] HPI History of Present Illness Chief Complaint: General Illness Informant: patient and EMS Onset/Context/Timing Onset: Days and - (Started not feeling well afternoon.) Context: Gradual Onset Timing: Continuous Current Severity: Mild Maximum Severity: Mild Narrative Narrative: 84-year-old male from home history of hypertension. States he just has not felt well since . Just kind in general malaise. Some mild diarrhea. No melena. No vomiting or fever. No dysuria. He has chronic lower extremity edema he says he thinks it is a little worse. He denies any shortness of breath or chest pain. He denies any prior cardiac history. He denies being diabetic. He is on losartan for his blood pressure. Prior similar symptoms: No Recent Illness/Hospitalizat ion: No PFSH PFSH Medical History History of blood transfusion Ulcer Hypertension Home Medications ???Medication ???Instructions ???Recorded ???Last Taken ???Type pantoprazole 40 mg tablet,delayed 40 mg PO BID 12/29/15 Unknown His tory release losartan 50 mg tablet 50 mg PO DAILY 07/28/24 Unknown Hi story Allergy/AdvReac Type Severity Reaction Status Date / Time No Known Allergies Allergy Verified 01/06/17 13:32 Family History Father Arthritis Social History Smoking Status: Never smoker ROS ROS ED ROS Narrative General malaise. Weakness. Diarrhea. No melena. No fever. No chest pain. No shortness of breath. Constitutional Constitutional ED: Denies chills or fever(s) Eyes Eyes: Denies blurry vision ENT ENT ED: Denies ear pain Cardiovascular Cardiovascular: Reports racing heartbeat; Denies chest pain Respiratory/Chest Respiratory/Chest: Denies cough or dyspnea Gastrointestinal Gastrointestinal: Reports diarrhea; Denies abdominal pain, constipation, melena, nausea or vomiting Genitourinary Genitourinary ED: Denies dysuria or hematuria Musculoskeletal Musculoskeletal: Denies arthralgias Integumentary Denies abscess Neurologic Neurologic: Denies headache(s) Psychiatric Psychiatric: Denies anxiety or depression Endocrine Endocrinology: Denies cold intolerance Hematologic/Lymphati c Hematologic/Lymphati c: Reports none Allergic/Immunologic Allergic/Immunologic ED: Denies mouth swelling, tongue swelling or urticaria EXAM Physical Exam Narrative Exam Narrative: 84-year-old male brought in by squad. Blood pressure 108/92. Pulse ox 91% on room air no hypoxia. Afebrile. His heart rates 167. Suspect SVT on the monitor with a bundle branch block. He is awake alert talking. He sitting upright in bed. H EENT exam pupils are round reactive light. Moist mucous membranes. Poor dentition. No facial droop. Normal speech. Neck nontender no JVD. No lymphadenopathy. Lungs clear to auscultation bilaterally. Heart tachycardic 167 no murmur appreciated. Chest wall ribs nontender. Abdomen nontender. No peritoneal signs. Moving all 4 extremities. 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 Normal dorsi plantarflexion. He has 1+ pitting edema from below his knees to his feet. Bilaterally. Equal symmetrical. Calves are nontender. Neurologically. He is awake alert. Answering questions following commands. No focal motor deficits. Const Vital Signs: 07/28/24 18:36 07/28/24 18:39 07/28/24 18:41 Temperature 98 F Temperature Source Oral Pulse Rate 167 H Respiratory Rate 30 H Respiratory Effort Short of Breath Blood Pressure 108/92 H Blood Pressure Mean 97 Pulse Ox 91 Oxygen Delivery Method Room Air Room Air Oxygen Flow Rate (L/min) 07/28/24 18:48 07/28/24 18:48 07/28/24 19:25 Temperature 97.7 F L Temperature Source Oral Pulse Rate 102 H Respiratory Rate 23 H Respiratory Effort Blood Pressure 139/95 H 145/93 H Blood Pressure Mean 109 110 Pulse Ox 89 95 96 Oxygen Delivery Method Room Air Nasal Cannula Room Air Oxygen Flow Rate (L/min) 2 07/28/24 20:20 Temperature Temperature Source Pulse Rate 169 H Respiratory Rate 25 H Respiratory Effort Blood Pressure 110/80 Blood Pressure Mean 90 Pulse Ox 95 Oxygen Delivery Method Nasal Cannula Oxygen Flow Rate (L/min) Positive well nourished, well developed and obese; Negative for cachectic, contractures or unkempt General Appearance ED: well developed; Negative for unkempt, cachectic, co (more content not included)... Normal [facility] Eosinophil percentageOrdered By: Jc Nichols on 07-28-2024 Eosinophils/100 WBC (Bld) 0.1 % 0-[address] [facility] Erythrocyte distribution wid th (RBC) [Ratio]Ordered By: Jc Nichols on 07-28-2024 Erythrocyte distribution width (RBC) [Entitic vol] 47.2 fL High 35.1-43.[address] [facility] Erythrocyte distribution wid th ratioOrdered By: Jc Nichols on 07-28-2024 Erythrocyte distribution width (RBC) [Ratio] 14.4 % 11.6-14.[address] [facility] Estimation of creatinine brandee aranceOrdered By: Jc Nichols on 07-28-2024 Estimated Creatinine Clearance Calc 50.34 ml/min 50-[address] [facility] GFR/1.73 sq M.predicted geraldine g non-blacks MDRD (S/P/Bld) [Vol rate/Area]Ordered By: Jc Nichols on 07-28-2024 Estimated GFR (MDRD) Non-Af Amer 59 Low >[address] [facility] Comment on above: mL/min/1.73m2 CKD-EP I Creatinine Equation (2020) H AND P Exam - Hospitaliston 07-28-2024 H&P Exam - Hospitalist [facility] Medical Records Department [address] [place] [address] H P Exam - Hospitalist 07/28/242056 MR#: [id number] Acct: [id number] Name: MINA MCGEE Rep #: [id number] : 1940 84 From: Andrea Barnes DO PCP: Dr. Elvis Fishman MD Status:ADM IN Location: [place] [address] HPI - General General Date of Admission: 07/28/24 Date of Service: 07/28/24 Chief Complaint: Generalized Weakness and Malaise. HPI Narrative MINA MCGEE, is a 84 M with a past medical history of essential hypertension; on losartan, obesity; with BMI of 35.3 this admission, chronic alcohol abuse; with patient meaning to drinking 2 beers and 2 glasses of whiskey daily, history of RBBB, history of RISHABH, GERD; with history of PUD and GI bleed (2017); s/p transfusion on pantoprazole BID, chronic lower extremity lymphedema and OA who presents to [facility] ER complaining of generalized weakness and malaise. Mr. Mcgee reports his symptoms began approximately 3 days prior to admission on July with the abrupt-onset of not feeling well in general with some mild diarrhea that was nonbloody. He states he has been taking his losartan as scheduled with no other recent illness or medication changes. He admits to racing heartbeat. He states he has chronic lower extremity lymphedema that is slightly worse than normal but he denies related fever, chills, nausea, vomiting, chest pain, shortness of breath or headache. In the ER he was noted to have EKG evidence of SVT; with heart rate up to 170 bpm requiring IV adenosine x 1 before resolving but then approximately 1 hour later he had a recurrence requiring a second dose of IV adenosine. He was also noted to have laboratory evidence of mild Hyponatremia with serum sodium of 129 mmol/L present on admission complicated by Dehydration with BUN/creatinine ratio of 32.8 present on admission with a corresponding CXR that revealed low lung volumes Right basilar opacity consistent with suspected atelectasis versus infiltrate. He was then admitted to the PCU for ongoing care for status expected to extend beyond 2 midnights. [facility] Medical History History of blood transfusion Ulcer Hypertension Home Medications ???Medication ???Instructions ???Recorded ???Last Taken ???Type pantoprazole 40 mg tablet,delayed 40 mg PO BID 12/29/15 Unknown His tory release losartan 50 mg tablet 50 mg PO DAILY 07/28/24 Unknown Hi story Allergy/AdvReac Type Severity Reaction Status Date / Time No Known Allergies Allergy Verified 01/06/17 13:32 Family History Father Arthritis Social History Smoking Status: Never smoker ROS ROS Narrative Review of Systems: Constitutional: Patient admits to generalized weakness and malaise but he denies fever or chills. Eyes: Patient denies changes in vision or discharge from eyes. ENT: Patient denies runny nose, sore throat or ear pain. Resp: Patient denies shortness of breath or cough. CV: Patient admits to heart racing and palpitations with increasing lower extremity edema as per HPI but he denies chest pain. GI: Patient admits to nonbloody diarrhea but denies abdominal pain, nausea, vomiting or constipation. : Patient denies dysuria, hematuria or urinary frequency. MSK: Patient denies arthralgias or myalgias. Skin: Patient denies rash, abscess, wounds or jaundice. Psych: Patient denies symptoms of uncontrolled depression or anxiety. Neuro: Patient denies headache, paresthesias or focal neurologic deficits. Allergy: Patient denies lip swelling, tongue swelling or urticaria. Hematology: Patient denies easy bleeding or easy bruisability. Endocrinology: Patient denies polyuria, polydipsia, polyphagia or heat/cold intolerance. 14 point ROS otherwise negative save for positives noted above in HPI. Vital Signs Vital Signs Vital Signs: 07/28/24 18:36 07/28/24 18:39 07/28/24 18:41 Temperature 98 F Temperature Source Oral Pulse Rate 167 H Respiratory Rate 30 H Respiratory Effort Short of Breath Blood Pressure 108/92 H Blood Pressure Mean 97 Pulse Ox 91 Oxygen Delivery Method Room Air Room Air Oxygen Flow Rate (L/min) 07/28/24 18:48 07/28/24 18:48 07/28/24 19:25 Temperature 97.7 F L Temperature Source Oral Pulse Rate 102 H Respiratory Rate 23 H Respiratory Effort Blood Pressure 139/95 H 145/93 H Blood Pressure Mean 109 110 Pulse Ox 89 95 96 Oxygen Delivery Method Room Air Nasal Cannula Room Air Oxygen Flow Rate (L/min) 2 07/28/24 20:20 Temperature Temperature Source Pulse Rate 169 H Respiratory Rate 25 H (more content not included)... Normal [facility] Hematocrit Auto (Bld) [Volum e fraction]Ordered By: Jc Nichols on 07-28-2024 Hematocrit (Bld) [Volume fraction] 43.2 % 40-[address] [facility] Hemoglobin measurementOrdere d By: Jc Nichols on 07-28-2024 Hemoglobin (Bld) [Mass/Vol] 14.9 g/dL 13.0-16.[address] [facility] Immature granulocytes/100 WB C Auto (Bld)Ordered By: Jc Nichols on 07-28-2024 Immature granulocytes/100 WBC (Bld) 0.700 % 0.0-0.[address] [facility] Comment on above: IG% - Immature Granu locytes (promyelocytes, myelocytes and metamyelocytes) > 1% indicates that a LEFT SHIFT is Present. International normalized rat io (INR) calculationOrdered By: Andrea Sepulveda on 07-28-2024 INR Coag (Bld) [Relative time] 1.1 {INR} [facility] L499.0042on 07-28-2024 Trop T High Sen 35 ng/L High <=[address] [facility] Comment on above: Performed By: #### L 501.9598, L503.7505 #### [facility] [address] [place], [address] L501.4021on 07-28-2024 Trop T High Sen 30 ng/L High <=[address] [facility] Comment on above: Performed By: #### L 501.4021, L500.2500, L100.0100 #### [facility] [address] [place], [address] L503.7505on 07-28-2024 Natriuretic peptide B (Bld) [Mass/Vol] 387 pg/mL Normal <=[address] [facility] Comment on above: Result Comment: Hear t Failure Unlikely: < 300 pg/mL Heart Failure Likely < 50 Years: > 450 pg/mL 50-75 Years: > 900 pg/mL >75 Years: > 1800 pg/mL Performed By: #### L 501.9520, L503.7505 #### [facility] [address] [place], [address] Lymphocytes Auto (Unsp spec) [#/Vol]Ordered By: Jc Nichols on 07-28-2024 Lymphocytes (Bld) [#/Vol] 0.91 10*3/uL 0.83-4.[address] [facility] Lymphocytes/100 WBC Auto (Un sp spec)Ordered By: Jc Nichols on 07-28-2024 Lymphocytes/100 WBC (Bld) 10.8 % Low 19-[address] [facility] MCV (mean corpuscular volume ) determinationOrdered By: Jc Nichols on 07-28-2024 MCV (RBC) [Entitic vol] 93.3 fL 80-94 [facility] Magnesiumon 07-28-2024 Magnesium [Mass/Vol] 2.4 mg/dL High 1.5-2.2 [facility] Comment on above: Performed By: #### L 501.4021, L500.2500, L100.0100 #### [facility] [address] [place], [address] Magnesium measurement (mass/ volume)Ordered By: Andrea Sepulveda on 07-28-2024 Magnesium (Unsp spec) [Mass/Vol] 2.4 mg/dL High 1.5-2.[address] [facility] Mean corpuscular hemoglobin (MCH) determinationOrdered By: Jc Nichols on 07-28-2024 MCH (RBC) [Entitic mass] 32.2 pg High 27.0-32.[address] [facility] Mean corpuscular hemoglobin concentration (MCHC) determinationOrdered By: Jc Nichols on 07-28-2024 MCHC (RBC) [Mass/Vol] 34.5 g/dL 32-36 [facility] Mean platelet volume determi nationOrdered By: Jc Nichols on 07-28-2024 Platelet mean volume (Bld) [Entitic vol] 9.8 fL 6.2-12.[address] [facility] Measurement, pHOrdered By: Jo Nichols on 07-28-2024 pH (Unsp spec) 7.37 [pH] 7.35-7.[address] [facility] Monocyte percentageOrdered B y: Jc Nichols on 07-28-2024 Monocytes/100 WBC (Bld) 8.5 % 0-10 [facility] Natriuretic peptide.B prohor juan N-Terminal [Mass/Vol]Ordered By: Jc Nichols on 07-28-2024 Natriuretic peptide B (Bld) [Mass/Vol] 387 pg/mL <[address] [facility] Comment on above: Heart Failure Unlike ly: < 300 pg/mLHeart Failure Likely< 50 Years: > 450 pg/mL50-75 Years: > 900 pg/mL>75 Years: > 1800 pg/mL Natriuretic peptide.B prohor jaun N-Terminal [Mass/volume] in Serum or PlasmaOrdered By: Jc Nichols on 07-28-2024 Natriuretic peptide.B prohormone N-Terminal [Mass/Vol] 387 pg/mL <[address] [facility] Comment on above: Heart Failure Unlike ly: < 300 pg/mLHeart Failure Likely< 50 Years: > 450 pg/mL50-75 Years: > 900 pg/mL>75 Years: > 1800 pg/mL Neutrophil percentageOrdered By: Jc Nichols on 07-28-2024 Neutrophils/100 WBC (Bld) 79.5 % High 47-[address] [facility] No Panel InformationOrdered By: Jc Nichols on 07-28-2024 Blood Gas Sample Site R Radial [facility] Blood Gas Specimen Type ART [facility] Blood Gas Vent Mode Not entered [facility] Oxygen Delivery Device Room Air [facility] No Panel InformationOrdered By: Andrea Sepulveda on 07-28-2024 Urine Buprenorphine Qualitative Negative < 200 ng/mL [facility] Urine Oxycodone Screen Negative < 100 ng/mL [facility] Nucleated red blood cell per centageOrdered By: Jc Nichols on 07-28-2024 Nucleated RBC/100 WBC (Bld) [Ratio] 0.2 % 0-[address] [facility] Oxygen saturation measuremen tOrdered By: Jc Nichols on 07-28-2024 Blood Gas Oxygen Saturation 94 % Low 95-[address] [facility] Partial pressure of carbon d ioxide measurementOrdered By: Jc Nichols on 07-28-2024 Arterial Blood Partial Pressure CO2 33.6 mmHg Low 35-[address] [facility] Partial pressure of oxygen m easurementOrdered By: Jc Nichols on 07-28-2024 Arterial Blood Partial Pressure O2 71 mmHG Low 75-[address] [facility] Phosphoruson 07-28-2024 Phosphate [Mass/Vol] 4.0 mg/dL Normal 2.7-4.5 [facility] Comment on above: Performed By: #### L 501.4021, L500.2500, L100.0100 #### [facility] [address] [place], [address] Platelet countOrdered By: Mika Nichols on 07-28-2024 Platelets (Bld) [#/Vol] 230 10*3/uL 150-[address] [facility] Potassium (Unsp spec) [Mass/ Vol]Ordered By: Jc Nichols on 07-28-2024 Potassium [Moles/Vol] 4.9 mmol/L 3.3-5.1 [facility] Prothrombin Time w/INRon INR Coag (PPP) [Relative time] 1.1 {INR} Normal [facility] Comment on above: Performed By: #### L 501.4021, L500.2500, L100.0100 #### [facility] [address] [place], [address] PT Coag (PPP) [Time] 14.6 s Normal 11.7-14.9 [facility] Comment on above: Performed By: #### L 501.9866, L500.2500, L100.0100 #### [facility] [address] [place], [address] Prothrombin timeOrdered By: Andrea Sepulveda on 07-28-2024 PT Coag (PPP) [Time] 14.6 s 11.7-14.9 [facility] Quantitative urine opiates m easurementOrdered By: Andrea Sepulveda on 07-28-2024 Opiates Ql (U) Negative < 300 ng/mL [facility] RBC Auto (Bld) [#/Vol]Ordere d By: Jc Nichols on 07-28-2024 RBC (Bld) [#/Vol] 4.63 10*6/uL 4.6-6.2 [facility] Screening urine fentanyl kevyn surementOrdered By: Andrea Sepulveda on 07-28-2024 fentaNYL Screen Ql (U) Negative [facility] Serum creatinine measurement (mass/volume)Ordered By: Jc Nichols on 07-28-2024 Creatinine [Mass/Vol] 1.20 mg/dL 0.70-1.20 [facility] Serum glucose measurement (m ass/volume)Ordered By: Jc Nichols on 07-28-2024 Glucose [Mass/Vol] 97 mg/dL 70-99 [facility] Serum or plasma calcium brian urement (mass/volume)Ordered By: Jc Nichols on 07-28-2024 Calcium [Mass/Vol] 9.0 mg/dL 7.6-11.0 [facility] Serum or plasma urea nitroge n measurement (mass/volume)Ordered By: Jc Nichols on 07-28-2024 Urea nitrogen [Mass/Vol] 39 mg/dL High 4-[address] [facility] Sodium levelOrdered By: Jc Nichols on 07-28-2024 Sodium [Moles/Vol] 129 mmol/L Low 133-145 [facility] TSH DL <= 0.005 mIU/L QnOrde red By: Jc Nichols on 07-28-2024 Thyroid Stimulating Hormone (TSH) 3.010 uIU/mL 0.300-4.[address] [facility] Thyroid Stim Hormone (TSH)on 07-28-2024 TSH 3.010 uIU/mL Normal 0.300-4.[address] [facility] Comment on above: Performed By: #### L 501.9520, L503.7505 #### [facility] [address] [place], [address] Total carbon dioxide measure mentOrdered By: Jc Nichols on 07-28-2024 Blood Gas Total CO2 20 mmol/L [facility] CO2 [Moles/Vol] 20 mmol/L [facility] Troponin T.cardiac High sens itivity method [Mass/Vol]Ordered By: Jc Nichols on 07-28-2024 Troponin T High Sensitivity 2 Hour 35 ng/L High <[address] [facility] Troponin T High Sensitivity 30 ng/L High <[address] [facility] Troponin T.cardiac [Mass/vol ume] in Serum or Plasma by High sensitivity methodOrdered By: Jc Nichols on 07-28-2024 Troponin T.cardiac High sensitivity method [Mass/Vol] 35 ng/L High <[address] [facility] Troponin T.cardiac High sensitivity method [Mass/Vol] 30 ng/L High <[address] [facility] Urine benzodiazepine levelOr dered By: Andrea Sepulveda on 07-28-2024 Benzodiazepines Ql (U) Negative < 200 ng/mL [facility] Urine cocaine levelOrdered B y: Andrea Sepulveda on 07-28-2024 Cocaine Ql (U) Negative < 300 ng/mL [facility] Urine [id number] abinol (THC) measurementOrdered By: Andrea Sepulveda on 07-28-2024 Cannabinoids Screen Ql (U) Negative < 50 ng/mL [facility] Urine phencyclidine (PCP) de tectionOrdered By: Andrea Sepulveda on 07-28-2024 Phencyclidine Ql (U) Negative < 25 ng/mL [facility] White blood cell (WBC) count Ordered By: Jc Nichols on 07-28-2024 WBC (Bld) [#/Vol] 8.4 10*3/uL 4.4-11.0 [facility] pH (Unsp spec)Ordered By: Mika Nichols on 07-28-2024 Blood Gas pH 7.37 7.35-7.[address] [facility] OCT MACULA CIRRUS OU (BOTH E YES)on 05-15-2024 [facility] Radiology Study observation (narrative) [facility] CBC W/Diff, Automatedon 11-0 Absolute Lymph 1.68 X10 3/uL Normal 0.83-4.[address] [facility] Comment on above: Performed By: #### L 501.4021, L500.2500, L100.0100 #### [facility] [address] [place], [address] Absolute Neut 4.1 X10 3/uL Normal 2.0-7.[address] [facility] Comment on above: Performed By: #### L 501.4021, L500.2500, L100.0100 #### [facility] [address] [place], [address] Basophils/100 WBC (Bld) 0.7 % Normal 0-1 [facility] Comment on above: Performed By: #### L 501.4021, L500.2500, L100.0100 #### [facility] [address] [place], [address] Eosinophils/100 WBC (Bld) 2.5 % Normal 0-[address] [facility] Comment on above: Performed By: #### L 501.4021, L500.2500, L100.0100 #### [facility] [address] [place], [address] Erythrocyte distribution width (RBC) [Ratio] 12.6 % Normal 11.6-14.[address] [facility] Comment on above: Performed By: #### L 501.4021, L500.2500, L100.0100 #### [facility] [address] [place], [address] Hematocrit (Bld) [Volume fraction] 44.0 % Normal 40-[address] [facility] Comment on above: Performed By: #### L 501.4021, L500.2500, L100.0100 #### [facility] [address] [place], [address] Hemoglobin (Bld) [Mass/Vol] 14.2 g/dL Normal 13.0-16.[address] [facility] Comment on above: Performed By: #### L 501.4021, L500.2500, L100.0100 #### [facility] [address] [place], [address] IG% 0.600 Normal 0.0-0.[address] [facility] Comment on above: Result Comment: IG% - Immature Granulocytes (promyelocytes, myelocytes and metamyelocytes) > 1% indicates that a LEFT SHIFT is Present. Performed By: #### L 501.4021, L500.2500, L100.0100 #### [facility] [address] [place], [address] Lymphocytes/100 WBC (Bld) 24.8 % Normal 19-[address] [facility] Comment on above: Performed By: #### L 501.4021, L500.2500, L100.0100 #### [facility] [address] [place], [address] MCH (RBC) [Entitic mass] 30.9 pg Normal 27.0-32.[address] [facility] Comment on above: Performed By: #### L 501.4021, L500.2500, L100.0100 #### [facility] [address] [place], [address] MCHC (RBC) [Mass/Vol] 32.3 g/dL Normal 32-36 [facility] Comment on above: Performed By: #### L 501.4021, L500.2500, L100.0100 #### [facility] [address] [place], [address] MCV (RBC) [Entitic vol] 95.7 fL High 80-94 [facility] Comment on above: Performed By: #### L 501.4021, L500.2500, L100.0100 #### [facility] [address] [place], [address] Monocytes/100 WBC (Bld) 10.5 % High 0-10 [facility] Comment on above: Performed By: #### L 501.4021, L500.2500, L100.0100 #### [facility] [address] [place], [address] Neutrophils/100 WBC (Bld) 60.9 % Normal 47-[address] [facility] Comment on above: Performed By: #### L 501.4021, L500.2500, L100.0100 #### [facility] [address] [place], [address] Nucleated RBC (Bld) [#/Vol] 0 10*3/uL Normal 0-[address] [facility] Comment on above: Performed By: #### L 501.4021, L500.2500, L100.0100 #### [facility] [address] [place], [address] Platelet mean volume (Bld) [Entitic vol] 10.3 fL Normal 6.2-12.[address] [facility] Comment on above: Performed By: #### L 501.4021, L500.2500, L100.0100 #### [facility] [address] [place], [address] Platelets (Bld) [#/Vol] 260 10*3/uL Normal 150-[address] [facility] Comment on above: Performed By: #### L 501.4021, L500.2500, L100.0100 #### [facility] [address] [place], [address] RBC (Bld) [#/Vol] 4.60 10*6/uL Normal 4.6-6.2 [facility] Comment on above: Performed By: #### L 501.4021, L500.2500, L100.0100 #### [facility] [address] [place], [address] RDW SD 45.0 fl High 35.1-43.[address] [facility] Comment on above: Performed By: #### L 501.4021, L500.2500, L100.0100 #### [facility] [address] [place], [address] WBC (Bld) [#/Vol] 6.8 10*3/uL Normal 4.4-11.0 [facility] Comment on above: Performed By: #### L 501.4021, L500.2500, L100.0100 #### [facility] [address] [place], [address] Comprehensive Metabolic Prof [facility] 02-20-2024 Albumin [Mass/Vol] 3.8 g/dL Normal 3.2-5.0 [facility] Comment on above: Performed By: #### L 501.4021, L500.2500, L100.0100 #### [facility] [address] [place], [address] Albumin/Globulin [Mass ratio] 1.0 {ratio} Normal 0.9-2.[address] [facility] Comment on above: Performed By: #### L [id number], L500.2500, L100.0100 #### [facility] [address] [place], [address] ALK P 88 U/L Normal 45-[address] [facility] Comment on above: Performed By: #### L [id number], L500.2500, L100.0100 #### [facility] [address] [place], [address] ALT [Catalytic activity/Vol] 18 U/L Normal 16-[address] [facility] Comment on above: Performed By: #### L [id number], L500.2500, L100.0100 #### [facility] [address] [place], [address] AST [Catalytic activity/Vol] 23 U/L Normal 15-[address] [facility] Comment on above: Result Comment: Slig ht Hemolysis, Result may be falsely increased. Performed By: #### L [id number], L500.2500, L100.0100 #### [facility] [address] [place], [address] Bilirubin [Mass/Vol] 0.50 mg/dL Normal 0.20-1.00 [facility] Comment on above: Result Comment: For patients on eltrombopag therapy, use of Dimension [place] TBIL is not recommended. Performed By: #### L [id number], L500.2500, L100.0100 #### [facility] [address] [place], [address] BUN/CRE 13.6 RATIO Normal 10-[address] [facility] Comment on above: Performed By: #### L [id number], L500.2500, L100.0100 #### [facility] [address] [place], [address] CA,Total 9.4 mg/dL Normal 8.5-10.[address] [facility] Comment on above: Performed By: #### L [id number], L500.2500, L100.0100 #### [facility] [address] [place], [address] Chloride [Moles/Vol] 102 mmol/L Normal 98-107 [facility] Comment on above: Performed By: #### L [id number], L500.2500, L100.0100 #### [facility] [address] [place], [address] CO2 [Moles/Vol] 29.0 mmol/L Normal 21.0-32.[address] [facility] Comment on above: Performed By: #### L [id number], L500.2500, L100.0100 #### [facility] [address] [place], [address] Creatinine [Mass/Vol] 1.25 mg/dL Normal 0.70-1.30 [facility] Comment on above: Result Comment: The validity of the calculated GFR GFRAA in patients over 70 years has not been determined. Clinical correlation is essential. Performed By: #### L 501.4021, L500.2500, L100.0100 #### [facility] [address] [place], [address] EST GFR - AA 71 mL/min Normal >[address] [facility] Comment on above: Result Comment: Afri can Barb[place] GFR Calc Performed By: #### L [id number], L500.2500, L100.0100 #### [facility] [address] [place], [address] GAP 7 Normal 5-[address] [facility] Comment on above: Performed By: #### L [id number], L500.2500, L100.0100 #### [facility] [address] [place], [address] GFR/1.73 sq M.predicted among non-blacks MDRD (S/P/Bld) [Vol rate/Area] 58 mL/min/{1.73_m2} Low >[address] [facility] Comment on above: Result Comment: Non- GFR Calc Performed By: #### L [id number], L500.2500, L100.0100 #### [facility] [address] [place], [address] Globulin (S) [Mass/Vol] 3.8 g/dL Normal 2.2-4.2 [facility] Comment on above: Performed By: #### L [id number], L500.2500, L100.0100 #### [facility] [address] [place], [address] Glucose [Mass/Vol] 107 mg/dL High 74-106 [facility] Comment on above: Result Comment: Fast ing Glucose result from 100 to 125 mg/dL suggests IMPAIRED HOMEOSTASIS per A.D.A. criteria. Performed By: #### L [id number], L500.2500, L100.0100 #### [facility] [address] [place], [address] Potassium [Moles/Vol] 4.5 mmol/L Normal 3.5-5.1 [facility] Comment on above: Result Comment: Slig ht Hemolysis, Result may be falsely increased. Performed By: #### L [id number], L500.2500, L100.0100 #### [facility] [address] [place], [address] Sodium [Moles/Vol] 138 mmol/L Normal 136-145 [facility] Comment on above: Performed By: #### L [id number], L500.2500, L100.0100 #### [facility] [address] [place], [address] T PROT 7.6 g/dL Normal 6.4-8.[address] [facility] Comment on above: Performed By: #### L [id number], L500.2500, L100.0100 #### [facility] [address] [place], [address] Urea nitrogen [Mass/Vol] 17 mg/dL Normal 7-[address] [facility] Comment on above: Performed By: #### L [id number], L500.2500, L100.0100 #### [facility] [address] [place], [address] Thyroid Stim Hormone (TSH)on 02-20-2024 TSH 3.240 uIU/mL Normal 0.358-3.[address] [facility] Comment on above: Performed By: #### L [id number], L500.2500, L100.0100 #### [facility] [address] [place], [address] Vitamin D,25 Hydroxyon 02-19 Vitamin D 25-OH 19.2 ng/mL Normal [facility] Comment on above: Result Comment: Lindsey min D 25(OH) Status Range Deficiency <20 ng/mL (50nmol/L) Insufficiency 20 - 30 ng/mL (50 - 75 nmol/L) Sufficiency 30 - 100 ng/mL (75 - 250 nmol/L) Toxicity >100 ng/mL (>250 nmol/L) Performed By: #### L [id number], L500.2500, L100.0100 #### [facility] [address] [place], [address] Absolute lymphocyte countOrd ered By: Elvis Fishman on 02-15-2023 Lymphocytes Auto (Unsp spec) [#/Vol] 1.66 10*3/uL 0.83-4.[address] [facility] Basophil percentageOrdered B y: Elvis Fishman on 02-15-2023 Basophils/100 WBC (Bld) 0.5 % 0-1 [facility] Bilirubin [Mass/Vol] 0.30 mg/dL 0.20-1.00 [facility] Comment on above: For patients on eltr ombopag therapy, use of Dimension [place] TBIL is not recommended. Chloride [Moles/Vol] 102 mmol/L 98-107 [facility] Eosinophils/100 WBC (Bld) 2.5 % 0-[address] [facility] Glucose [Mass/Vol] 109 mg/dL 74-106 [facility] Comment on above: Fasting Glucose resu lt from 100 to 125 mg/dL suggests IMPAIRED HOMEOSTASIS per A.D.A. criteria. Neutrophils (Bld) [#/Vol] 3.6 10*3/uL 2.0-7.[address] [facility] Neutrophils/100 WBC (Bld) 59.7 % 47-[address] [facility] Potassium [Moles/Vol] 4.8 mmol/L 3.5-5.1 [facility] Protein [Mass/Vol] 7.3 g/dL 6.4-8.2 [facility] Sodium [Moles/Vol] 137 mmol/L 136-145 [facility] WBC (Bld) [#/Vol] 6.0 10*3/uL 4.4-11.0 [facility] Blood erythrocytes count (nu mber/volume)Ordered By: Elvis Fishman on 02-15-2023 RBC (Bld) [#/Vol] 4.52 10*6/uL 4.6-6.2 [facility] Blood hemoglobin measurement (mass/volume)Ordered By: Elvis Fishman on 02-15-2023 Hemoglobin (Bld) [Mass/Vol] 13.7 g/dL 13.0-16.[address] [facility] Blood lymphocytes/100 leukoc ytesOrdered By: Elvis Fishman on 02-15-2023 Lymphocytes/100 WBC (Bld) 27.5 % 19-[address] [facility] Blood monocytes/100 leukocyt esOrdered By: Elvis Fishman on 02-15-2023 Monocytes/100 WBC (Bld) 9.3 % 0-10 [facility] Blood platelet mean volumeOr dered By: Elvis Fishman on 02-15-2023 Platelet mean volume (Bld) [Entitic vol] 10.9 fL 6.2-12.[address] [facility] Determination of erythrocyte mean corpuscular volume (MCV)Ordered By: Elvis Fishman on 02-15-2023 MCV (RBC) [Entitic vol] 95.4 fL 80-94 [facility] Hematocrit Auto (Bld) [Volum e fraction]Ordered By: Elvis Kye on 02-15-2023 Hematocrit (Bld) [Volume fraction] 43.1 % 40-[address] [facility] - Chemistry and C hemistry - challengeOrdered By: Elvis Fishman on 02-15-2023 ALP [Catalytic activity/Vol] 84 U/L 45-[address] [facility] ALT [Catalytic activity/Vol] 19 U/L 16-[address] [facility] CO2 [Moles/Vol] 30.0 mmol/L 21.0-32.[address] [facility] Globulin (S) [Mass/Vol] 3.6 g/dL 2.2-4.2 [facility] Urea nitrogen/Creatinine [Mass ratio] 18.1 mg/mg 10-[address] [facility] - Hematology and Cell countsOrdered By: Elvis Fishman on 02-15-2023 Erythrocyte distribution width (RBC) [Entitic vol] 43.9 fL 35.1-43.[address] [facility] Erythrocyte distribution width (RBC) [Ratio] 12.5 % 11.6-14.[address] [facility] Immature granulocytes/100 WBC (Bld) 0.500 % 0.0-0.[address] [facility] Comment on above: IG% - Immature Granu locytes (promyelocytes, myelocytes and metamyelocytes) > 1% indicates that a LEFT SHIFT is Present. MCH (RBC) [Entitic mass] 30.3 pg 27.0-32.[address] [facility] Nucleated RBC/100 WBC (Bld) [Ratio] 0 % 0-[address] [facility] MCHC Auto (RBC) [Mass/Vol]Or dered By: lEvis Fishman on 02-15-2023 MCHC (RBC) [Mass/Vol] 31.8 g/dL 32-36 [facility] No Panel InformationOrdered By: Elvis Fishman on 02-15-2023 Estimated GFR (MDRD) Amer 77 mL/min >[address] [facility] Comment on above: GFR Calc Estimated GFR (MDRD) Non-Af Amer 64 mL/min >[address] [facility] Comment on above: Non- GFR Calc Thyroid Stimulating Hormone (TSH) 2.70 uIU/mL 0.358-3.[address] [facility] Vitamin D 25-Hydroxy 32.6 ng/mL [facility] Comment on above: Vitamin D 25(OH) Sta tus Range Deficiency <20 ng/mL (50nmol/L) Insufficiency 20 - 30 ng/mL (50 - 75 nmol/L) Sufficiency 30 - 100 ng/mL (75 - 250 nmol/L) Toxicity >100 ng/mL (>250 nmol/L) Platelets bldOrdered By: Elvis Fishman on 02-15-2023 Platelets (Bld) [#/Vol] 250 10*3/uL 150-[address] [facility] Serum or plasma albumin brian urement (mass/volume)Ordered By: Elvis Fishman on 02-15-2023 Albumin [Mass/Vol] 3.7 g/dL 3.2-5.0 [facility] Serum or plasma albumin/glob ulin mass ratioOrdered By: Elvis Fishman on 02-15-2023 Albumin/Globulin [Mass ratio] 1.0 {ratio} 0.9-2.[address] [facility] Serum or plasma calcium brian urement (mass/volume)Ordered By: Elvis Fishman on 02-15-2023 Calcium [Mass/Vol] 9.1 mg/dL 8.5-10.1 [facility] Serum or plasma creatinine m easurement (mass/volume)Ordered By: Elvis Fishman on 02-15-2023 Creatinine [Mass/Vol] 1.16 mg/dL 0.70-1.30 [facility] Comment on above: The validity of the calculated GFR & GFRAA in patients over 70 years has not been determined. Clinical correlation is essential. Serum or plasma urea nitroge n measurement (mass/volume)Ordered By: Elvis Fishman on 02-15-2023 Urea nitrogen [Mass/Vol] 21 mg/dL 7-[address] [facility] Thin prep Papanicolaou smear with manual screeningOrdered By: Elvis Fishman on 02-15-2023 Thin prep Papanicolaou smear with manual screening 15 U/L 15-[address] [facility] Thin prep Papanicolaou smear with manual screening 5 5-[address] [facility] Absolute lymphocyte countOrd ered By: Dr. Fishman on 08-19-2022 Lymphocytes Auto (Unsp spec) [#/Vol] 1.83 10*3/uL 0.83-4.[address] [facility] Basophil percentageOrdered B y: Dr. Fishman on 08-19-2022 Basophils/100 WBC (Bld) 0.7 % 0-1 [facility] Bilirubin [Mass/Vol] 0.40 mg/dL 0.20-1.00 [facility] Comment on above: For patients on eltr ombopag therapy, use of Dimension [place] TBIL is not recommended. Chloride [Moles/Vol] 102 mmol/L 98-107 [facility] Eosinophils/100 WBC (Bld) 2.3 % 0-[address] [facility] Glucose [Mass/Vol] 110 mg/dL 74-106 [facility] Comment on above: Fasting Glucose resu lt from 100 to 125 mg/dL suggests IMPAIRED HOMEOSTASIS per A.D.A. criteria. Neutrophils (Bld) [#/Vol] 3.5 10*3/uL 2.0-7.[address] [facility] Neutrophils/100 WBC (Bld) 56.5 % 47-[address] [facility] Potassium [Moles/Vol] 4.7 mmol/L 3.5-5.1 [facility] Protein [Mass/Vol] 7.3 g/dL 6.4-8.2 [facility] Sodium [Moles/Vol] 138 mmol/L 136-145 [facility] WBC (Bld) [#/Vol] 6.2 10*3/uL 4.4-11.0 [facility] Blood erythrocytes count (nu mber/volume)Ordered By: Dr. Fishman on 08-19-2022 RBC (Bld) [#/Vol] 4.23 10*6/uL 4.6-6.2 [facility] Blood hemoglobin measurement (mass/volume)Ordered By: Dr. Fishman on 08-19-2022 Hemoglobin (Bld) [Mass/Vol] 13.0 g/dL 13.0-16.[address] [facility] Blood lymphocytes/100 leukoc ytesOrdered By: Dr. Fishman on 08-19-2022 Lymphocytes/100 WBC (Bld) 29.8 % 19-[address] [facility] Blood monocytes/100 leukocyt esOrdered By: Dr. Fishman on 08-19-2022 Monocytes/100 WBC (Bld) 10.4 % 0-10 [facility] Blood platelet mean volumeOr dered By: Dr. Fishman on 08-19-2022 Platelet mean volume (Bld) [Entitic vol] 10.8 fL 6.2-12.[address] [facility] Determination of erythrocyte mean corpuscular volume (MCV)Ordered By: Dr. Fishman on 08-19-2022 MCV (RBC) [Entitic vol] 97.4 fL 80-94 [facility] Hematocrit Auto (Bld) [Volum e fraction]Ordered By: Dr. Fishman on 08-19-2022 Hematocrit (Bld) [Volume fraction] 41.2 % 40-[address] [facility] - Chemistry and C hemistry - challengeOrdered By: Dr. Fishman on 08-19-2022 ALP [Catalytic activity/Vol] 90 U/L 45-[address] [facility] ALT [Catalytic activity/Vol] 23 U/L 16-[address] [facility] CO2 [Moles/Vol] 28.0 mmol/L 21.0-32.[address] [facility] Globulin (S) [Mass/Vol] 3.5 g/dL 2.2-4.2 [facility] Urea nitrogen/Creatinine [Mass ratio] 13.8 mg/mg 10-[address] [facility] - Hematology and Cell countsOrdered By: Dr. Fishman on 08-19-2022 Erythrocyte distribution width (RBC) [Entitic vol] 44.8 fL 35.1-43.[address] [facility] Erythrocyte distribution width (RBC) [Ratio] 12.6 % 11.6-14.[address] [facility] Immature granulocytes/100 WBC (Bld) 0.300 % 0.0-0.[address] [facility] Comment on above: IG% - Immature Granu locytes (promyelocytes, myelocytes and metamyelocytes) > 1% indicates that a LEFT SHIFT is Present. MCH (RBC) [Entitic mass] 30.7 pg 27.0-32.[address] [facility] Nucleated RBC/100 WBC (Bld) [Ratio] 0 % 0-[address] [facility] MCHC Auto (RBC) [Mass/Vol]Or dered By: Dr. Fishman on 08-19-2022 MCHC (RBC) [Mass/Vol] 31.6 g/dL 32-36 [facility] No Panel InformationOrdered By: Dr. Fishman on 08-19-2022 Estimated GFR (MDRD) Amer 72 mL/min >[address] [facility] Comment on above: GFR Calc Estimated GFR (MDRD) Non-Af Amer 60 mL/min >[address] [facility] Comment on above: Non- GFR Calc Thyroid Stimulating Hormone (TSH) 3.23 uIU/mL 0.358-3.[address] [facility] Vitamin D 25-Hydroxy 31.9 ng/mL [facility] Comment on above: Vitamin D 25(OH) Sta tus Range Deficiency <20 ng/mL (50nmol/L) Insufficiency 20 - 30 ng/mL (50 - 75 nmol/L) Sufficiency 30 - 100 ng/mL (75 - 250 nmol/L) Toxicity >100 ng/mL (>250 nmol/L) Platelets bldOrdered By: Dr. Fishman on 08-19-2022 Platelets (Bld) [#/Vol] 242 10*3/uL 150-[address] [facility] Serum or plasma albumin brian urement (mass/volume)Ordered By: Dr. Fishman on 08-19-2022 Albumin [Mass/Vol] 3.8 g/dL 3.2-5.0 [facility] Serum or plasma albumin/glob ulin mass ratioOrdered By: Dr. Fishman on 08-19-2022 Albumin/Globulin [Mass ratio] 1.1 {ratio} 0.9-2.[address] [facility] Serum or plasma calcium brian urement (mass/volume)Ordered By: Dr. Fishman on 08-19-2022 Calcium [Mass/Vol] 9.2 mg/dL 8.5-10.1 [facility] Serum or plasma creatinine m easurement (mass/volume)Ordered By: Dr. Fishman on 08-19-2022 Creatinine [Mass/Vol] 1.23 mg/dL 0.70-1.30 [facility] Comment on above: The validity of the calculated GFR & GFRAA in patients over 70 years has not been determined. Clinical correlation is essential. Serum or plasma urea nitroge n measurement (mass/volume)Ordered By: Dr. Fishman on 08-19-2022 Urea nitrogen [Mass/Vol] 17 mg/dL 7-[address] [facility] Thin prep Papanicolaou smear with manual screeningOrdered By: Dr. Fishman on 08-19-2022 Thin prep Papanicolaou smear with manual screening 14 U/L 15-[address] [facility] Thin prep Papanicolaou smear with manual screening 8 5-[address] [facility] Absolute lymphocyte counton 02-25-2022 Lymphocytes Auto (Unsp spec) [#/Vol] 1.81 10*3/uL 0.83-4.[address] [facility] Work Phone: Basophil percentageon 2021 Basophils/100 WBC (Bld) 0.7 % 0-1 [facility] Work Phone: Bilirubin [Mass/Vol] 0.40 mg/dL 0.20-1.00 [facility] Work Phone: [phone] Comment on above: For patients on eltr ombopag therapy, use of Dimension [place] TBIL is not recommended. Chloride [Moles/Vol] 100 mmol/L 98-107 [facility] Work Phone: [phone] Eosinophils/100 WBC (Bld) 2.6 % 0-[address] [facility] Work Phone: [phone] Glucose [Mass/Vol] 96 mg/dL 74-106 [facility] Work Phone: [phone] Neutrophils (Bld) [#/Vol] 2.8 10*3/uL 2.0-7.[address] [facility] Work Phone: [phone] Neutrophils/100 WBC (Bld) 50.8 % 47-[address] [facility] Work Phone: [phone] Potassium [Moles/Vol] 4.2 mmol/L 3.5-5.1 [facility] Work Phone: Protein [Mass/Vol] 7.5 g/dL 6.4-8.2 [facility] Work Phone: [phone] Sodium [Moles/Vol] 136 mmol/L 136-145 [facility] Work Phone: WBC (Bld) [#/Vol] 5.5 10*3/uL 4.4-11.0 [facility] Work Phone: Blood erythrocytes count (nu mber/volume)on 02-25-2022 RBC (Bld) [#/Vol] 4.29 10*6/uL 4.6-6.2 [facility] Work Phone: [phone] Blood hemoglobin measurement (mass/volume)on 02-25-2022 Hemoglobin (Bld) [Mass/Vol] 13.4 g/dL 13.0-16.[address] [facility] Work Phone: [phone] Blood lymphocytes/100 leukoc yteson 02-25-2022 Lymphocytes/100 WBC (Bld) 33.2 % 19-[address] [facility] Work Phone: Blood monocytes/100 leukocyt eson 02-25-2022 Monocytes/100 WBC (Bld) 12.3 % 0-10 [facility] Work Phone: Blood platelet mean volumeon 02-25-2022 Platelet mean volume (Bld) [Entitic vol] 11.6 fL 6.2-12.[address] [facility] Work Phone: Determination of erythrocyte mean corpuscular volume (MCV)on 02-25-2022 MCV (RBC) [Entitic vol] 95.8 fL 80-94 [facility] Work Phone: Hematocrit Auto (Bld) [Volum e fraction]on 02-25-2022 Hematocrit (Bld) [Volume fraction] 41.1 % 40-[address] [facility] Work Phone: Laboratory - Chemistry and C hemistry - challengeon 02-25-2022 ALP [Catalytic activity/Vol] 86 U/L 45-[address] [facility] Work Phone: ALT [Catalytic activity/Vol] 27 U/L 16-[address] [facility] Work Phone: CO2 [Moles/Vol] 27.0 mmol/L 21.0-32.[address] [facility] Work Phone: Globulin (S) [Mass/Vol] 3.8 g/dL 2.2-4.2 [facility] Work Phone: Urea nitrogen/Creatinine [Mass ratio] 17.9 mg/mg 10-[address] [facility] Work Phone: Laboratory - Hematology and Cell countson 02-25-2022 Erythrocyte distribution width (RBC) [Entitic vol] 46.3 fL 35.1-43.[address] [facility] Work Phone: Erythrocyte distribution width (RBC) [Ratio] 13.1 % 11.6-14.[address] [facility] Work Phone: Immature granulocytes/100 WBC (Bld) 0.400 % 0.0-0.[address] [facility] Work Phone: Comment on above: IG% - Immature Granu locytes (promyelocytes, myelocytes and metamyelocytes) > 1% indicates that a LEFT SHIFT is Present. MCH (RBC) [Entitic mass] 31.2 pg 27.0-32.[address] [facility] Work Phone: Nucleated RBC/100 WBC (Bld) [Ratio] 0 % 0-[address] [facility] Work Phone: MCHC Auto (RBC) [Mass/Vol]on 02-25-2022 MCHC (RBC) [Mass/Vol] 32.6 g/dL 32-36 [facility] Work Phone: No Panel Informationon 02-25 Estimated GFR (MDRD) Amer 105 mL/min >[address] [facility] Work Phone: Comment on above: GFR Calc Estimated GFR (MDRD) Non-Af Amer 86 mL/min >[address] [facility] Work Phone: Comment on above: Non- GFR Calc Thyroid Stimulating Hormone (TSH) 3.46 uIU/mL 0.358-3.[address] [facility] Work Phone: Vitamin D 25-Hydroxy 23.2 ng/mL [facility] Work Phone: Comment on above: Vitamin D 25(OH) Sta tus Range Deficiency <20 ng/mL (50nmol/L) Insufficiency 20 - 30 ng/mL (50 - 75 nmol/L) Sufficiency 30 - 100 ng/mL (75 - 250 nmol/L) Toxicity >100 ng/mL (>250 nmol/L) Platelets bldon 02-25-2022 Platelets (Bld) [#/Vol] 252 10*3/uL 150-[address] [facility] Work Phone: Serum or plasma albumin brian urement (mass/volume)on 02-25-2022 Albumin [Mass/Vol] 3.7 g/dL 3.2-5.0 [facility] Work Phone: Serum or plasma albumin/glob ulin mass ratioon 02-25-2022 Albumin/Globulin [Mass ratio] 1.0 {ratio} 0.9-2.[address] [facility] Work Phone: Serum or plasma calcium brian urement (mass/volume)on 02-25-2022 Calcium [Mass/Vol] 9.1 mg/dL 8.5-10.1 [facility] Work Phone: Serum or plasma creatinine m easurement (mass/volume)on 02-25-2022 Creatinine [Mass/Vol] 0.89 mg/dL 0.70-1.30 [facility] Work Phone: Comment on above: The validity of the calculated GFR & GFRAA in patients over 70 years has not been determined. Clinical correlation is essential. Serum or plasma urea nitroge n measurement (mass/volume)on 02-25-2022 Urea nitrogen [Mass/Vol] 16 mg/dL 7-[address] [facility] Work Phone: Thin prep Papanicolaou smear with manual screeningon 02-25-2022 Thin prep Papanicolaou smear with manual screening 17 U/L 15-[address] [facility] Work Phone: Thin prep Papanicolaou smear with manual screening 9 5-[address] [facility] Work Phone: Absolute lymphocyte counton 08-20-2021 Lymphocytes Auto (Unsp spec) [#/Vol] 1.95 10*3/uL 0.83-4.[address] [facility] Work Phone: Basophil percentageon 2021 Basophils/100 WBC (Bld) 0.7 % 0-1 [facility] Work Phone: Bilirubin [Mass/Vol] 0.50 mg/dL 0.20-1.00 [facility] Work Phone: Comment on above: For patients on eltr ombopag therapy, use of Dimension [place] TBIL is not recommended. Chloride [Moles/Vol] 102 mmol/L 98-107 [facility]: Eosinophils/100 WBC (Bld) 2.2 % 0-[address] [facility] Work Phone: Glucose [Mass/Vol] 104 mg/dL 74-106 [facility] Work Phone: Comment on above: Fasting Glucose resu lt from 100 to 125 mg/dL suggests IMPAIRED HOMEOSTASIS per A.D.A. criteria. Neutrophils (Bld) [#/Vol] 3.8 10*3/uL 2.0-7.[address] [facility] Work Phone: [phone] Neutrophils/100 WBC (Bld) 55.8 % 47-[address] [facility] Work Phone: [phone] Potassium [Moles/Vol] 5.1 mmol/L 3.5-5.1 [facility] Work Phone: [phone] Protein [Mass/Vol] 7.7 g/dL 6.4-8.2 [facility] Work Phone: Sodium [Moles/Vol] 137 mmol/L 136-145 [facility] Work Phone: WBC (Bld) [#/Vol] 6.8 10*3/uL 4.4-11.0 [facility] Work Phone: [phone] Blood erythrocytes count (nu mber/volume)on 08-20-2021 RBC (Bld) [#/Vol] 4.44 10*6/uL 4.6-6.2 [facility] Work Phone: Blood hemoglobin measurement (mass/volume)on 08-20-2021 Hemoglobin (Bld) [Mass/Vol] 13.9 g/dL 13.0-16.[address] [facility] Work Phone: Blood lymphocytes/100 leukoc yteson 08-20-2021 Lymphocytes/100 WBC (Bld) 28.7 % 19-[address] [facility] Work Phone: Blood monocytes/100 leukocyt eson 08-20-2021 Monocytes/100 WBC (Bld) 12.2 % 0-10 [facility] Work Phone: Blood platelet mean volumeon 08-20-2021 Platelet mean volume (Bld) [Entitic vol] 11.7 fL 6.2-12.[address] [facility] Work Phone: Determination of erythrocyte mean corpuscular volume (MCV)on 08-20-2021 MCV (RBC) [Entitic vol] 95.3 fL 80-94 [facility] Work Phone: Hematocrit Auto (Bld) [Volum e fraction]on 08-20-2021 Hematocrit (Bld) [Volume fraction] 42.3 % 40-[address] [facility] Work Phone: Laboratory - Chemistry and C hemistry - challengeon 08-20-2021 ALP [Catalytic activity/Vol] 79 U/L 45-[address] [facility] Work Phone: ALT [Catalytic activity/Vol] 25 U/L 16-[address] [facility] Work Phone: CO2 [Moles/Vol] 28.0 mmol/L 21.0-32.[address] [facility] Work Phone: Globulin (S) [Mass/Vol] 3.8 g/dL 2.2-4.2 [facility] Work Phone: Urea nitrogen/Creatinine [Mass ratio] 18.9 mg/mg 10-[address] [facility] Work Phone: Laboratory - Hematology and Cell countson 08-20-2021 Erythrocyte distribution width (RBC) [Entitic vol] 45.8 fL 35.1-43.[address] [facility] Work Phone: Erythrocyte distribution width (RBC) [Ratio] 13.1 % 11.6-14.[address] [facility] Work Phone: Immature granulocytes/100 WBC (Bld) 0.400 % 0.0-0.[address] [facility] Work Phone: Comment on above: IG% - Immature Granu locytes (promyelocytes, myelocytes and metamyelocytes) > 1% indicates that a LEFT SHIFT is Present. MCH (RBC) [Entitic mass] 31.3 pg 27.0-32.[address] [facility] Work Phone: Nucleated RBC/100 WBC (Bld) [Ratio] 0 % 0-[address] [facility] Work Phone: MCHC Auto (RBC) [Mass/Vol]on 08-20-2021 MCHC (RBC) [Mass/Vol] 32.9 g/dL 32-36 [facility] Work Phone: No Panel Informationon 08-20 Estimated GFR (MDRD) Amer 81 mL/min >[address] [facility] Work Phone: Comment on above: GFR Calc Estimated GFR (MDRD) Non-Af Amer 67 mL/min >[address] [facility] Work Phone: Comment on above: Non- GFR Calc Thyroid Stimulating Hormone (TSH) 2.83 uIU/mL 0.358-3.[address] [facility] Work Phone: Vitamin D 25-Hydroxy 19.8 ng/mL [facility] Work Phone: Comment on above: Vitamin D 25(OH) Sta tus Range Deficiency <20 ng/mL (50nmol/L) Insufficiency 20 - 30 ng/mL (50 - 75 nmol/L) Sufficiency 30 - 100 ng/mL (75 - 250 nmol/L) Toxicity >100 ng/mL (>250 nmol/L) Platelets bldon 08-20-2021 Platelets (Bld) [#/Vol] 240 10*3/uL 150-[address] [facility] Work Phone: Serum or plasma albumin brian urement (mass/volume)on 08-20-2021 Albumin [Mass/Vol] 3.9 g/dL 3.2-5.0 [facility] Work Phone: Serum or plasma albumin/glob ulin mass ratioon 08-20-2021 Albumin/Globulin [Mass ratio] 1.0 {ratio} 0.9-2.[address] [facility] Work Phone: Serum or plasma calcium brian urement (mass/volume)on 08-20-2021 Calcium [Mass/Vol] 9.8 mg/dL 8.5-10.1 [facility] Work Phone: Serum or plasma creatinine m easurement (mass/volume)on 08-20-2021 Creatinine [Mass/Vol] 1.11 mg/dL 0.70-1.30 [facility] ster [facility] Work Phone: Comment on above: The validity of the calculated GFR & GFRAA in patients over 70 years has not been determined. Clinical correlation is essential. Serum or plasma urea nitroge n measurement (mass/volume)on 08-20-2021 Urea nitrogen [Mass/Vol] 21 mg/dL 7-[address] [facility] Work Phone: Thin prep Papanicolaou smear with manual screeningon 08-20-2021 Thin prep Papanicolaou smear with manual screening 21 U/L 15-[address] [facility] Work Phone: Thin prep Papanicolaou smear with manual screening 7 5-[address] [facility] Work Phone: Basic Metabolic Panelon 12-0 Anion gap [Moles/Vol] 13 mmol/L 10 - 2 0 mmol/L [facility] Calcium [Mass/Vol] 8.9 mg/dL 8.4 - 10. 2 mg/dL [facility] Chloride [Moles/Vol] 108 mmol/L 98 - 10 8 mmol/L [facility] Creatinine [Mass/Vol] 0.97 mg/dL 0.80 - 1.30 [facility] GFR/1.73 sq M predicted among non-blacks MDRD (S/P/Bld) [Vol rate/Area] The eGFR should be used for monitoring renal function only and not for medication dosing. [facility] GFR/1.73 sq M.predicted CKD-EPI (S/P/Bld) [Vol rate/Area] 73 >=60 mL/min/1.73 m2 [facility] Glucose [Mass/Vol] 87 mg/dL 65 - 99 mg/dL [facility] HCO3 [Moles/Vol] 25 mmol/L 21 - 32 mmol/L [facility] Interpretation and review of laboratory results Abnormal [facility] Potassium [Moles/Vol] 3.8 mmol/L 3.5 - 5.1 mmol/L [facility] Sodium [Moles/Vol] 142 mmol/L 135 - 145 mmol/L [facility] Urea nitrogen [Mass/Vol] 23 mg/dL 8 - 25 mg/dL [facility] Urea nitrogen/Creatinine [Mass ratio] 23.7 mg/mg High [facility] CBC WITH AUTO DIFFERENTIALon 03-22-2020 Basophils (Bld) [#/Vol] 0.02 10*3/uL [facility] Basophils/100 WBC (Bld) 0.2 % [facility] Eosinophils (Bld) [#/Vol] 0.01 10*3/uL [facility] Eosinophils/100 WBC (Bld) 0.1 % [facility] Erythrocyte distribution width (RBC) [Entitic vol] 13.3 % 11.6 - 14.8 % [facility] Hematocrit (Bld) [Volume fraction] 38.4 % Low 41 - 53 % [facility] Hemoglobin (Bld) [Mass/Vol] 12.1 g/dL Low 13.5 - 17.5 g/dL [facility] Immature granulocytes (Bld) [#/Vol] 0.05 10*3/uL [facility] Immature granulocytes/100 WBC (Bld) 0.40 % [facility] Comment on above: The IG parameter is the percentage of metamyelocytes, myelocytes and promyelocytes. An immature granulocyte count (IG) of 1% or more suggests the possibility of infection, an IG count of 3% is very likely related to an infection. Interpretation and review of laboratory results Abnormal [facility] Lymphocytes (Bld) [#/Vol] 1.78 10*3/uL [facility] Lymphocytes/100 WBC (Bld) 15.1 % [facility] MCH (RBC) [Entitic mass] 30.9 pg 26 - 34 pg [facility] MCHC (RBC) [Mass/Vol] 31.5 g/dL 31 - 37 g/dL [facility] MCV (RBC) [Entitic vol] 98.2 fL 80 - 100 fL [facility] Monocytes (Bld) [#/Vol] 1.03 10*3/uL High [facility] Monocytes/100 WBC (Bld) 8.8 % [facility] Neutrophils (Bld) [#/Vol] 8.88 10*3/uL High [facility] Neutrophils/100 WBC (Bld) 75.4 % [facility] Nucleated RBC (Bld) [#/Vol] 0.00 10*3/uL [facility] Nucleated RBC/100 WBC (Bld) [Ratio] 0.0 % [facility] Platelet mean volume (Bld) [Entitic vol] 11.3 fL 9.4 - 12.4 fL [facility] Platelets (Bld) [#/Vol] 205 10*3/uL [facility] RBC (Bld) [#/Vol] 3.91 10*6/uL Low [facility]alth WBC (Bld) [#/Vol] 11.77 10*3/uL [facility] Magnesium Levelon 03-22-2020 Interpretation and review of laboratory results Normal [facility] Magnesium [Mass/Vol] 2.3 mg/dL 1.6 - 2 .4 mg/dL [facility] Basic Metabolic Panelon Anion gap [Moles/Vol] 11 mmol/L 10 - 2 0 mmol/L [facility] Calcium [Mass/Vol] 8.6 mg/dL 8.4 - 10. 2 mg/dL [facility] Chloride [Moles/Vol] 106 mmol/L 98 - 10 8 mmol/L [facility] Creatinine [Mass/Vol] 0.91 mg/dL 0.80 - 1.30 [facility] GFR/1.73 sq M predicted among non-blacks MDRD (S/P/Bld) [Vol rate/Area] The eGFR should be used for monitoring renal function only and not for medication dosing. [facility] GFR/1.73 sq M.predicted CKD-EPI (S/P/Bld) [Vol rate/Area] 79 >=60 mL/min/1.73 m2 [facility] Glucose [Mass/Vol] 119 mg/dL High 65 - 99 mg/dL [facility] HCO3 [Moles/Vol] 26 mmol/L 21 - 32 mmol/L [facility] Interpretation and review of laboratory results Abnormal [facility] Potassium [Moles/Vol] 3.7 mmol/L 3.5 - 5.1 mmol/L [facility] Sodium [Moles/Vol] 139 mmol/L 135 - 145 mmol/L [facility] Urea nitrogen [Mass/Vol] 21 mg/dL 8 - 25 mg/dL [facility] Urea nitrogen/Creatinine [Mass ratio] 23.1 mg/mg High [facility] CBC WITH AUTO DIFFERENTIALon 03-21-2020 Basophils (Bld) [#/Vol] 0.01 10*3/uL [facility] Basophils/100 WBC (Bld) 0.1 % [facility] Eosinophils (Bld) [#/Vol] 0.00 10*3/uL [facility] Eosinophils/100 WBC (Bld) 0.0 % [facility] Erythrocyte distribution width (RBC) [Entitic vol] 12.9 % 11.6 - 14.8 % [facility] Hematocrit (Bld) [Volume fraction] 38.1 % Low 41 - 53 % [facility] Hemoglobin (Bld) [Mass/Vol] 12.3 g/dL Low 13.5 - 17.5 g/dL [facility] Immature granulocytes (Bld) [#/Vol] 0.05 10*3/uL [facility] Immature granulocytes/100 WBC (Bld) 0.40 % [facility] Comment on above: The IG parameter is the percentage of metamyelocytes, myelocytes and promyelocytes. An immature granulocyte count (IG) of 1% or more suggests the possibility of infection, an IG count of 3% is very likely related to an infection. Interpretation and review of laboratory results Abnormal [facility] Lymphocytes (Bld) [#/Vol] 0.90 10*3/uL [facility] Lymphocytes/100 WBC (Bld) 7.2 % [facility] MCH (RBC) [Entitic mass] 31.1 pg 26 - 34 pg [facility] MCHC (RBC) [Mass/Vol] 32.3 g/dL 31 - 37 g/dL [facility] MCV (RBC) [Entitic vol] 96.5 fL 80 - 100 fL [facility] Monocytes (Bld) [#/Vol] 0.72 10*3/uL [facility] Monocytes/100 WBC (Bld) 5.8 % [facility] Neutrophils (Bld) [#/Vol] 10.75 10*3/uL High [facility] Neutrophils/100 WBC (Bld) 86.5 % [facility] Nucleated RBC (Bld) [#/Vol] 0.00 10*3/uL [facility] Nucleated RBC/100 WBC (Bld) [Ratio] 0.0 % [facility] Platelet mean volume (Bld) [Entitic vol] 10.7 fL 9.4 - 12.4 fL [facility] Platelets (Bld) [#/Vol] 199 10*3/uL [facility] RBC (Bld) [#/Vol] 3.95 10*6/uL Low [facility] WBC (Bld) [#/Vol] 12.43 10*3/uL [facility] ECG 12-LEADon 03-21-2020 Atrial Rate 104 BPM [facility] P [place] 26 degrees [facility] P-R Interval 160 ms [facility] Q-T Interval 364 ms [facility] QRS Duration 144 ms [facility] QTC Calculation (Bezet) 478 ms [facility] R [place] -27 degrees [facility] T [place] -12 degrees [facility] Urea nitrogen [Mass/Vol] Sinus tachycardia Right bundle branch block Abnormal ECG ECG Cart Interpretation see physician note for interpretation. Confirmed by Armida Banegas ([id number]) on 03/21/2020 7:17:11 PM [facility] Ventricular Rate 104 BPM [facility] Atrial Rate 75 BPM [facility] P [place] 22 degrees [facility] P-R Interval 170 ms [facility] Q-T Interval 446 ms [facility] QRS Duration 156 ms [facility] QTC Calculation (Bezet) 498 ms [facility] R [place] -20 degrees [facility] T [place] 2 degrees [facility] Urea nitrogen [Mass/Vol] Normal sinus rhythm Right bundle branch block Abnormal ECG Confirmed by Vinh Ho MD ([id number]) on 03/21/2020 11:35:53 AM [facility] Ventricular Rate 75 BPM [facility] th ECHOCARDIOGRAM COMPLETEon ECHOCARDIOGRAM COMPLETE Patient Info Name: MINA MCGEE Age: 79 years : 1940 Gender: Male Ht: 170 cm Wt: 86 kg BSA: 2.04 m2 HR: 100 bpm BP: 133 / 70 mmHg Heart Rhythm: Right Bundle Branch Block, Tachycardia Technical Quality: Fair Exam Date: 03/21/2020 2:52 PM Patient Status: Outpatient Trim Stencil Maker: Jeaneth Garcia, RN, RCS Exam Type: ECHOCARDIOGRAM COMPLETE Study Info Indications - - Abnormal ekg Referring Physician: DUDLEY Ham; [id number] BMI: 29.76 kg/m2 Summary 1. Technically fair quality study. 2. Normal left ventricular size and systolic function with LVEF by biplane measurement 63%. 3. Impaired LV relaxation. 4. Normal right ventricular size and systolic function. 5. Moderately thickened/calcified trileaflet aortic valve with mild aortic regurgitation and no hemodynamically significant stenosis. 6. Mild pulmonary hypertension with estimated RVSP 43 mmHg. 7. 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 Mildly dilated ascending aorta measuring 4.1 cm. History/Risk Factors Hypertension: Yes Tobacco Use: Never Procedure(s): Complete two-dimensional, color flow and Doppler transthoracic echocardiogram is performed. Left Ventricle Left ventricular chamber dimension is normal. Left ventricular systolic function is normal with an ejection fraction by Biplane Method of Discs of 63 %. Normal left ventricular mass. Left ventricular segmental wall motion is normal. The left ventricular diastolic function is grade I diastolic dysfunction, consistent with low or normal atrial pressures. Right Ventricle Right ventricular chamber dimension is normal. Right ventricular systolic function is normal. Left Atria Left atrial chamber dimension is normal. Right Atria Right atrial chamber dimension is normal. Aortic Valve The aortic valve is trileaflet. There is moderate aortic valve sclerosis. There is no aortic valve stenosis with a peak velocity of 2.5 m/s, mean gradient of 7 mmHg, and aortic valve area of 2.29 cm2. There is mild aortic valve regurgitation. Pulmonic Valve The pulmonic valve is normal. There is no pulmonic valve stenosis. There is trace pulmonic regurgitation. Mitral Valve The mitral valve has normal leaflets. There is no mitral valve stenosis. There is trace mitral valve regurgitation. Tricuspid Valve The tricuspid valve leaflets are normal. There is no significant tricuspid valve stenosis. There is trace tricuspid valve regurgitation. There is pulmonary hypertension, estimated right ventricle systolic pressure is 43 mmHg. Pericardium/Pleural The pericardium appears normal. There is no pericardial effusion. Inferior Vena Cava Normal inferior vena cava with >50% collapse upon inspiration consistent with normal right atrial pressure. Aorta The aortic measurements are indexed to age and body surface area. The aortic root is mildly dilated measuring 3.97 cm with an index of 1.94 cm/m2. The proximal ascending aorta is mildly dilated measuring 4.1 cm with an index of 1.99 cm/m2. Left Ventricular Outflow Tract Name Value Normal LVOT 2D LVOT Diameter 2.21 cm LVOT Doppler LVOT Peak Velocity 1.31 m/s LVOT Peak Gradient 3 mmHg LVOT Mean Gradient 2 mmHg LVOT VTI 25.87 cm LVOT VTI/AV VTI Ratio 0.60 LVOT Stroke Volume 99.55 ml LVOT Stroke Index 27.52 ml/m2 LVOT CO 5.30 l/min LVOT CI 2.60 L/min/m2 Pulmonic Valve Name Value Normal PV 2D RVOT Diameter (2D) 2.59 cm 1.70-2.70 RVOT Doppler RVOT Peak Velocity 80.14 cm/s RVOT Peak Gradient 3 mmHg RVOT Mean Gradient 2 mmHg RVOT VTI 16.56 cm PV Doppler PV Peak Velocity 0.87 m/s PV Peak Gradient 3 mmHg PV Area (Cont Eq Jerry) 4.81 cm2 PV Area Index (Cont Eq Jerry) 2.36 cm2/m2 Mitral Valve Name Value Normal MV Doppler MV Peak Velocity 1.37 m/s MV Peak Gradient 7 mmHg MV Mean Gradient 4 mmHg MV VTI 31.69 cm MV Decel [place] 394.96 cm/s2 MV PHT 58 ms MV Area (PHT) 3.79 cm2 4.00-5.00 MV Area (Cont Eq VTI) 3.14 cm2 MV Area Index (Cont Eq VTI) 1.54 cm2/m2 MV Diastolic Function MV E Peak Velocity 0.79 m/s MV A Peak Velocity 1.18 m/s MV E/A 0.67 MV Decel Time 200 ms MV Annular TDI MV Septal e' Velocity 6.42 cm/s >=8.00 MV E/e' (Septal) 12.32 <=8.00 MV Lateral e' Velocity 5.99 cm/s >=10.00 MV E/e' (Lateral) 13.20 <=8.00 MV e' Average 6.20 MV E/e' (Average) 12.76 Tricuspid Valve Name Value Normal TV Regurgitation Doppler TR Peak Velocity 3.16 m/s TR Peak Gradient 40 mmHg Estimated PAP/RSVP RA Pressure 3 mmHg <=5 PA Systolic Pressure 43 mmHg <=36 RV Systolic Pressure 43 mmHg <36 Aorta Name Value Normal Ascending Aorta Ao Root Diameter (2D) 3.97 cm 3.10-3.70 Ao Root Diam Index (2D) 1.94 cm/m2 1.50-1.90 Prox Asc Ao Diameter 4.1 cm 2.6-3.4 Prox Asc Ao Diameter Index 1.99 cm/m2 1.30-1.70 Venous Name Value Normal IVC/SVC IVC Diameter (Exp 2D) 1.98 cm <=2.10 Aortic Valve Name Value Normal AV Doppler AV Peak Velocity 2.5 m/s AV Peak Gradient 12 mmHg AV Mean Gradient 7 mmHg AV VTI 43.46 cm AV Area (Cont Eq VTI) 2.29 cm2 AV Area Index (Cont Eq VTI) 1 cm2/m2 AV Area (Cont Eq Jerry) 2.04 cm2 AV Area Index (Cont Eq Jerry) 1 cm2/m2 LVOT Vmax/AV Vmax 0.53 LVOT VTI/AV VTI Ratio 0.60 AV Regurgitation 2D LVOT Area 3.85 cm2 AV Regurgitation Doppler AR Decel Time 2 s AR Decel [place] 204.72 cm/s2 AR PHT 469 ms Ventricles Name Value Normal LV Dimensions 2D/MM IVS Diastolic Thickness (2D) 1.06 cm 0.60-1.00 LVID Diastole (2D) 4.84 cm 4.20-5.80 LVIW Diastolic Thickness (2D) 1.09 cm 0.60-1.00 LVID Systole (2D) 3.29 cm 2.50-4.00 LVOT Diameter 2.21 cm LV Mass (2D Cubed) 191 g 88-224 LV Mass Index (2D Cubed) 94 g/m2 49-115 Relative Wall Thickness (2D) 0.45 <=0.42 LV Fractional Shortening/Ejection Fraction 2D/MM LV Fractional Shortening (2D) 32 % 25-43 LV EF (2D Teicholz) 60 % 52-72 LV Diastolic Volume (4C MOD) 95 ml LV Systolic Volume (4C MOD) 38 ml LV EF (4C MOD) 60 % LV Diastolic Volume (2C MOD) 65 ml LV Systolic Volume (2C MOD) 24 ml LV EF (2C MOD) 63 % LV Diastolic Volume (BP MOD) 83.30 ml 62.00-150.00 LV Diastolic Volume Index (BP MOD) 40.78 ml/m2 34.00-74.00 LV Systolic Volume (BP MOD) 30.71 ml 21.00-61.00 LV Systolic Volume Index (BP MOD) 15.04 ml/m2 11.00-31.00 LV EF (BP MOD) 63 % 55-70 LV Diastolic Length (4C) 7.36 cm LV Systolic Length (4C) 6.35 cm LV Stroke Volume (4C MOD) 57.09 ml RV Dimensions 2D/MM RV Basal Diastolic Dimension 3.72 cm 2.50-4.10 TAPSE 2.43 cm >=1.70 RV Systolic Function RV s' Velocity 0.19 m/s 0.10-0.19 Atria Name Value Normal LA Dimensions LA Volume (4C MOD) 58.30 ml LA Volume (2C MOD) 60.96 ml LA Volume (4C A-L) 60.55 ml LA Volume (2C A-L) 63.02 ml LA Volume (BP A-L) 62.18 ml LA Volume Index (BP A-L) 30.44 ml/m2 <=34.00 LA Volume (BP MOD) 59.87 ml LA Volume Index (BP MOD) 29.31 ml/m2 16.00-34.00 RA Dimensions RA Systolic Major [place] Length (4C) 5.09 cm <=5.30 RA Area (4C) 15.91 cm2 <=18.00 RA Area (4C) Index 7.79 cm2/m2 RA ESV (4C MOD) 41.18 ml 18.00-32.00 RA ESV Index (4C MOD) 20.16 ml/m2 <=32.00 Report Signatures Finalized by Christie Andrews MD on 03/21/2020 05:01 PM [facility] Aortic valve area 2.10344 cm [facility] AV mean gradient 7.00241 mmHg [facility] AV peak gradient 12.4198 mmHg [facility] EF 63.1342 % [facility] Patient Info Name: MINA MCGEE Age: 79 years : 1940 Gender: Male Ht: 170 cm Wt: 86 kg BSA: 2.04 m2 HR: 100 bpm BP: 133 / 70 mmHg Heart Rhythm: Right Bundle Branch Block, Tachycardia Technical Quality: Fair Exam Date: 03/21/2020 2:52 PM Patient Status: Outpatient Trim Stencil Maker: Jeaneth Garcia, MARLEY, RCS Exam Type: ECHOCARDIOGRAM COMPLETE Study Info Indications - - Abnormal ekg Referring Physician: DUDLEY Ham; [id number] BMI: 29.76 kg/m2 Summary 1. Technically fair quality study. 2. Normal left ventricular size and systolic function with LVEF by biplane measurement 63%. 3. Impaired LV relaxation. 4. Normal right ventricular size and systolic function. 5. Moderately thickened/calcified trileaflet aortic valve with mild aortic regurgitation and no hemodynamically significant stenosis. 6. Mild pulmonary hypertension with estimated RVSP 43 mmHg. 7. 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 Mildly dilated ascending aorta measuring 4.1 cm. History/Risk Factors Hypertension: Yes Tobacco Use: Never Procedure(s): Complete two-dimensional, color flow and Doppler transthoracic echocardiogram is performed. Left Ventricle Left ventricular chamber dimension is normal. Left ventricular systolic function is normal with an ejection fraction by Biplane Method of Discs of 63 %. Normal left ventricular mass. Left ventricular segmental wall motion is normal. The left ventricular diastolic function is grade I diastolic dysfunction, consistent with low or normal atrial pressures. Right Ventricle Right ventricular chamber dimension is normal. Right ventricular systolic function is normal. Left Atria Left atrial chamber dimension is normal. Right Atria Right atrial chamber dimension is normal. Aortic Valve The aortic valve is trileaflet. There is moderate aortic valve sclerosis. There is no aortic valve stenosis with a peak velocity of 2.5 m/s, mean gradient of 7 mmHg, and aortic valve area of 2.29 cm2. There is mild aortic valve regurgitation. Pulmonic Valve The pulmonic valve is normal. There is no pulmonic valve stenosis. There is trace pulmonic regurgitation. Mitral Valve The mitral valve has normal leaflets. There is no mitral valve stenosis. There is trace mitral valve regurgitation. Tricuspid Valve The tricuspid valve leaflets are normal. There is no significant tricuspid valve stenosis. There is trace tricuspid valve regurgitation. There is pulmonary hypertension, estimated right ventricle systolic pressure is 43 mmHg. Pericardium/Pleural The pericardium appears normal. There is no pericardial effusion. Inferior Vena Cava Normal inferior vena cava with >50% collapse upon inspiration consistent with normal right atrial pressure. Aorta The aortic measurements are indexed to age and body surface area. The aortic root is mildly dilated measuring 3.97 cm with an index of 1.94 cm/m2. The proximal ascending aorta is mildly dilated measuring 4.1 cm with an index of 1.99 cm/m2. Left Ventricular Outflow Tract Name Value Normal LVOT 2D LVOT Diameter 2.21 cm LVOT Doppler LVOT Peak Velocity 1.31 m/s LVOT Peak Gradient 3 mmHg LVOT Mean Gradient 2 mmHg LVOT VTI 25.87 cm LVOT VTI/AV VTI Ratio 0.60 LVOT Stroke Volume 99.55 ml LVOT Stroke Index 27.52 ml/m2 LVOT CO 5.30 l/min LVOT CI 2.60 L/min/m2 Pulmonic Valve Name Value Normal PV 2D RVOT Diameter (2D) 2.59 cm 1.70-2.70 RVOT Doppler RVOT Peak Velocity 80.14 cm/s RVOT Peak Gradient 3 mmHg RVOT Mean Gradient 2 mmHg RVOT VTI 16.56 cm PV Doppler PV Peak Velocity 0.87 m/s PV Peak Gradient 3 mmHg PV Area (Cont Eq Jerry) 4.81 cm2 PV Area Index (Cont Eq Jerry) 2.36 cm2/m2 Mitral Valve Name Value Normal MV Doppler MV Peak Velocity 1.37 m/s MV Peak Gradient 7 mmHg MV Mean Gradient 4 mmHg MV VTI 31.69 cm MV Decel [place] 394.96 cm/s2 MV PHT 58 ms MV Area (PHT) 3.79 cm2 4.00-5.00 MV Area (Cont Eq VTI) 3.14 cm2 MV Area Index (Cont Eq VTI) 1.54 cm2/m2 MV Diastolic Function MV E Peak Velocity 0.79 m/s MV A Peak Velocity 1.18 m/s MV E/A 0.67 MV Decel Time 200 ms MV Annular TDI MV Septal e' Velocity 6.42 cm/s >=8.00 MV E/e' (Septal) 12.32 <=8.00 MV Lateral e' Velocity 5.99 cm/s >=10.00 MV E/e' (Lateral) 13.20 <=8.00 MV e' Average 6.20 MV E/e' (Average) 12.76 Tricuspid Valve Name Value Normal TV Regurgitation Doppler TR Peak Velocity 3.16 m/s TR Peak Gradient 40 mmHg Estimated PAP/RSVP RA Pressure 3 mmHg <=5 PA Systolic Pressure 43 mmHg <=36 RV Systolic Pressure 43 mmHg <36 Aorta Name Value Normal Ascending Aorta Ao Root Diameter (2D) 3.97 cm 3.10-3.70 Ao Root Diam Index (2D) 1.94 cm/m2 1.50-1.90 Prox Asc Ao Diameter 4.1 cm 2.6-3.4 Prox Asc Ao Diameter Index 1.99 cm/m2 1.30-1.70 Venous Name Value Normal IVC/SVC IVC Diameter (Exp 2D) 1.98 cm <=2.10 Aortic Valve Name Value Normal AV Doppler AV Peak Velocity 2.5 m/s AV Peak Gradient 12 mmHg AV Mean Gradient 7 mmHg AV VTI 43.46 cm AV Area (Cont Eq VTI) 2.29 cm2 AV Area Index (Cont Eq VTI) 1 cm2/m2 AV Area (Cont Eq Jerry) 2.04 cm2 AV Area Index (Cont Eq Jerry) 1 cm2/m2 LVOT Vmax/AV Vmax 0.53 LVOT VTI/AV VTI Ratio 0.60 AV Regurgitation 2D LVOT Area 3.85 cm2 AV Regurgitation Doppler AR Decel Time 2 s AR Decel [place] 204.72 cm/s2 AR PHT 469 ms Ventricles Name Value Normal LV Dimensions 2D/MM IVS Diastolic Thickness (2D) 1.06 cm 0.60-1.00 LVID Diastole (2D) 4.84 cm 4.20-5.80 LVIW Diastolic Thickness (2D) 1.09 cm 0.60-1.00 LVID Systole (2D) 3.29 cm 2.50-4.00 LVOT Diameter 2.21 cm LV Mass (2D Cubed) 191 g 88-224 LV Mass Index (2D Cubed) 94 g/m2 49-115 Relative Wall Thickness (2D) 0.45 <=0.42 LV Fractional Shortening/Ejection Fraction 2D/MM LV Fractional Shortening (2D) 32 % 25-43 LV EF (2D Teicholz) 60 % 52-72 LV Diastolic Volume (4C MOD) 95 ml LV Systolic Volume (4C MOD) 38 ml LV EF (4C MOD) 60 % LV Diastolic Volume (2C MOD) 65 ml LV Systolic Volume (2C MOD) 24 ml LV EF (2C MOD) 63 % LV Diastolic Volume (BP MOD) 83.30 ml 62.00-150.00 LV Diastolic Volume Index (BP MOD) 40.78 ml/m2 34.00-74.00 LV Systolic Volume (BP MOD) 30.71 ml 21.00-61.00 LV Systolic Volume Index (BP MOD) 15.04 ml/m2 11.00-31.00 LV EF (BP MOD) 63 % 55-70 LV Diastolic Length (4C) 7.36 cm LV Systolic Length (4C) 6.35 cm LV Stroke Volume (4C MOD) 57.09 ml RV Dimensions 2D/MM RV Basal Diastolic Dimension 3.72 cm 2.50-4.10 TAPSE 2.43 cm >=1.70 RV Systolic Function RV s' Velocity 0.19 m/s 0.10-0.19 Atria Name Value Normal LA Dimensions LA Volume (4C MOD) 58.30 ml LA Volume (2C MOD) 60.96 ml LA Volume (4C A-L) 60.55 ml LA Volume (2C A-L) 63.02 ml LA Volume (BP A-L) 62.18 ml LA Volume Index (BP A-L) 30.44 ml/m2 <=34.00 LA Volume (BP MOD) 59.87 ml LA Volume Index (BP MOD) 29.31 ml/m2 16.00-34.00 RA Dimensions RA Systolic Major [place] Length (4C) 5.09 cm <=5.30 RA Area (4C) 15.91 cm2 <=18.00 RA Area (4C) Index 7.79 cm2/m2 RA ESV (4C MOD) 41.18 ml 18.00-32.00 RA ESV Index (4C MOD) 20.16 ml/m2 <=32.00 Report Signatures Finalized by Christie Andrews MD on 03/21/2020 05:01 PM [facility] Interface, Rad In Heartlab Xper Echopacs - 03/21/2020 5:02 PM EST Patient Info Name: MINA MCGEE Age: 79 years : 1940 Gender: Male Ht: 170 cm Wt: 86 kg BSA: 2.04 m2 HR: 100 bpm BP: 133 / 70 mmHg Heart Rhythm: Right Bundle Branch Block, Tachycardia Technical Quality: Fair Exam Date: 03/21/2020 2:52 PM Patient Status: Outpatient Trim Stencil Maker: Jeaneth Garcia RN, [facility] Exam Type: ECHOCARDIOGRAM COMPLETE Study Info Indications - - Abnormal ekg Referring Physician: [id number] Chung; [id number] BMI: 29.76 kg/m2 Summary 1. Technically fair quality study. 2. Normal left ventricular size and systolic function with LVEF by biplane measurement 63%. 3. Impaired LV relaxation. 4. Normal right ventricular size and systolic function. 5. Moderately thickened/calcified trileaflet aortic valve with mild aortic regurgitation and no hemodynamically significant stenosis. 6. Mild pulmonary hypertension with estimated RVSP 43 mmHg. 7. 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 Mildly dilated ascending aorta measuring 4.1 cm. History/Risk Factors Hypertension: Yes Tobacco Use: Never Procedure(s): Complete two-dimensional, color flow and Doppler transthoracic echocardiogram is performed. Left Ventricle Left ventricular chamber dimension is normal. Left ventricular systolic function is normal with an ejection fraction by Biplane Method of Discs of 63 %. Normal left ventricular mass. Left ventricular segmental wall motion is normal. The left ventricular diastolic function is grade I diastolic dysfunction, consistent with low or normal atrial pressures. Right Ventricle Right ventricular chamber dimension is normal. Right ventricular systolic function is normal. Left Atria Left atrial chamber dimension is normal. Right Atria Right atrial chamber dimension is normal. Aortic Valve The aortic valve is trileaflet. There is moderate aortic valve sclerosis. There is no aortic valve stenosis with a peak velocity of 2.5 m/s, mean gradient of 7 mmHg, and aortic valve area of 2.29 cm2. There is mild aortic valve regurgitation. Pulmonic Valve The pulmonic valve is normal. There is no pulmonic valve stenosis. There is trace pulmonic regurgitation. Mitral Valve The mitral valve has normal leaflets. There is no mitral valve stenosis. There is trace mitral valve regurgitation. Tricuspid Valve The tricuspid valve leaflets are normal. There is no significant tricuspid valve stenosis. There is trace tricuspid valve regurgitation. There is pulmonary hypertension, estimated right ventricle systolic pressure is 43 mmHg. Pericardium/Pleural The pericardium appears normal. There is no pericardial effusion. Inferior Vena Cava Normal inferior vena cava with >50% collapse upon inspiration consistent with normal right atrial pressure. Aorta The aortic measurements are indexed to age and body surface area. The aortic root is mildly dilated measuring 3.97 cm with an index of 1.94 cm/m2. The proximal ascending aorta is mildly dilated measuring 4.1 cm with an index of 1.99 cm/m2. Left Ventricular Outflow Tract Name Value Normal LVOT 2D LVOT Diameter 2.21 cm LVOT Doppler LVOT Peak Velocity 1.31 m/s LVOT Peak Gradient 3 mmHg LVOT Mean Gradient 2 mmHg LVOT VTI 25.87 cm LVOT VTI/AV VTI Ratio 0.60 LVOT Stroke Volume 99.55 ml LVOT Stroke Index 27.52 ml/m2 LVOT CO 5.30 l/min LVOT CI 2.60 L/min/m2 Pulmonic Valve Name Value Normal PV 2D RVOT Diameter (2D) 2.59 cm 1.70-2.70 RVOT Doppler RVOT Peak Velocity 80.14 cm/s RVOT Peak Gradient 3 mmHg RVOT Mean Gradient 2 mmHg RVOT VTI 16.56 cm PV Doppler PV Peak Velocity 0.87 m/s PV Peak Gradient 3 mmHg PV Area (Cont Eq Jerry) 4.81 cm2 PV Area Index (Cont Eq Jerry) 2.36 cm2/m2 Mitral Valve Name Value Normal MV Doppler MV Peak Velocity 1.37 m/s MV Peak Gradient 7 mmHg MV Mean Gradient 4 mmHg MV VTI 31.69 cm MV Decel [place] 394.96 cm/s2 MV PHT 58 ms MV Area (PHT) 3.79 cm2 4.00-5.00 MV Area (Cont Eq VTI) 3.14 cm2 MV Area Index (Cont Eq VTI) 1.54 cm2/m2 MV Diastolic Function MV E Peak Velocity 0.79 m/s MV A Peak Velocity 1.18 m/s MV E/A 0.67 MV Decel Time 200 ms MV Annular TDI MV Septal e' Velocity 6.42 cm/s >=8.00 MV E/e' (Septal) 12.32 <=8.00 MV Lateral e' Velocity 5.99 cm/s >=10.00 MV E/e' (Lateral) 13.20 <=8.00 MV e' Average 6.20 MV E/e' (Average) 12.76 Tricuspid Valve Name Value Normal TV Regurgitation Doppler TR Peak Velocity 3.16 m/s TR Peak Gradient 40 mmHg Estimated PAP/RSVP RA Pressure 3 mmHg <=5 PA Systolic Pressure 43 mmHg <=36 RV Systolic Pressure 43 mmHg <36 Aorta Name Value Normal Ascending Aorta Ao Root Diameter (2D) 3.97 cm 3.10-3.70 Ao Root Diam Index (2D) 1.94 cm/m2 1.50-1.90 Prox Asc Ao Diameter 4.1 cm 2.6-3.4 Prox Asc Ao Diameter Index 1.99 cm/m2 1.30-1.70 Venous Name Value Normal IVC/SVC IVC Diameter (Exp 2D) 1.98 cm <=2.10 Aortic Valve Name Value Normal AV Doppler AV Peak Velocity 2.5 m/s AV Peak Gradient 12 mmHg AV Mean Gradient 7 mmHg AV VTI 43.46 cm AV Area (Cont Eq VTI) 2.29 cm2 AV Area Index (Cont Eq VTI) 1 cm2/m2 AV Area (Cont Eq Jerry) 2.04 cm2 AV Area Index (Cont Eq Jerry) 1 cm2/m2 LVOT Vmax/AV Vmax 0.53 LVOT VTI/AV VTI Ratio 0.60 AV Regurgitation 2D LVOT Area 3.85 cm2 AV Regurgitation Doppler AR Decel Time 2 s AR Decel [place] 204.72 cm/s2 AR PHT 469 ms Ventricles Name Value Normal LV Dimensions 2D/MM IVS Diastolic Thickness (2D) 1.06 cm 0.60-1.00 LVID Diastole (2D) 4.84 cm 4.20-5.80 LVIW Diastolic Thickness (2D) 1.09 cm 0.60-1.00 LVID Systole (2D) 3.29 cm 2.50-4.00 LVOT Diameter 2.21 cm LV Mass (2D Cubed) 191 g 88-224 LV Mass Index (2D Cubed) 94 g/m2 49-115 Relative Wall Thickness (2D) 0.45 <=0.42 LV Fractional Shortening/Ejection Fraction 2D/MM LV Fractional Shortening (2D) 32 % 25-43 LV EF (2D Teicholz) 60 % 52-72 LV Diastolic Volume (4C MOD) 95 ml LV Systolic Volume (4C MOD) 38 ml LV EF (4C MOD) 60 % LV Diastolic Volume (2C MOD) 65 ml LV Systolic Volume (2C MOD) 24 ml LV EF (2C MOD) 63 % LV Diastolic Volume (BP MOD) 83.30 ml 62.00-150.00 LV Diastolic Volume Index (BP MOD) 40.78 ml/m2 34.00-74.00 LV Systolic Volume (BP MOD) 30.71 ml 21.00-61.00 LV Systolic Volume Index (BP MOD) 15.04 ml/m2 11.00-31.00 LV EF (BP MOD) 63 % 55-70 LV Diastolic Length (4C) 7.36 cm LV Systolic Length (4C) 6.35 cm LV Stroke Volume (4C MOD) 57.09 ml RV Dimensions 2D/MM RV Basal Diastolic Dimension 3.72 cm 2.50-4.10 TAPSE 2.43 cm >=1.70 RV Systolic Function RV s' Velocity 0.19 m/s 0.10-0.19 Atria Name Value Normal LA Dimensions LA Volume (4C MOD) 58.30 ml LA Volume (2C MOD) 60.96 ml LA Volume (4C A-L) 60.55 ml LA Volume (2C A-L) 63.02 ml LA Volume (BP A-L) 62.18 ml LA Volume Index (BP A-L) 30.44 ml/m2 <=34.00 LA Volume (BP MOD) 59.87 ml LA Volume Index (BP MOD) 29.31 ml/m2 16.00-34.00 RA Dimensions RA Systolic Major [place] Length (4C) 5.09 cm <=5.30 RA Area (4C) 15.91 cm2 <=18.00 RA Area (4C) Index 7.79 cm2/m2 RA ESV (4C MOD) 41.18 ml 18.00-32.00 RA ESV Index (4C MOD) 20.16 ml/m2 <=32.00 Report Signatures Finalized by Christie Andrews MD on 03/21/2020 05:01 PM [facility] Magnesiumon 03-21-2020 Interpretation and review of laboratory results Normal [facility] Magnesium [Mass/Vol] 2.2 mg/dL 1.6 - 2 .4 mg/dL [facility] TSH with Reflex Free T4on Interpretation and review of laboratory results Normal [facility] TSH Qn 0.55 m[IU]/L [facility] DUPLEX VENOUS LEGS BILATE RALon 03-21-2020 DUPLEX VENOUS LEGS BILATERAL Patient Info Name: MINA MCGEE Age: 79 years : 1940 Gender: Male Exam Date: 03/21/2020 2:01 PM Patient Status: Outpatient Mentally Impaired Teacher: Echo Garcia RVT Referring Physician: DUDLEY Ham PRATIK, ; Indications R79.1 - Abnormal coagulation profile Procedure Description 12971 Duplex examination using B-mode, color and spectral Doppler of extremity veins including responses to compression and other maneuvers; complete bilateral study. Conclusions * No evidence of deep or superficial vein thrombosis in either lower extremity. Risk Factors Patient has a history of hypertension. shortness of breath, elevated D-Dimer. . Report Signatures Finalized by CELESTINO Samayoa MD on 03/21/2020 02:43 PM Normal [facility] Ultrasound duplex venous leg s bilaton 03-21-2020 Interface, Rad In Heartlab Xper Echopacs - 03/21/2020 2:44 PM EST Patient Info Name: MINA MCGEE Age: 79 years : 1940 Gender: Male Exam Date: 03/21/2020 2:01 PM Patient Status: Outpatient Mentally Impaired Teacher: Echo Garcia RVT Referring Physician: DUDLEY Ham PRATIK, ; Indications R79.1 - Abnormal coagulation profile Procedure Description 23250 Duplex examination using B-mode, color and spectral Doppler of extremity veins including responses to compression and other maneuvers; complete bilateral study. Conclusions * No evidence of deep or superficial vein thrombosis in either lower extremity. Risk Factors Patient has a history of hypertension. shortness of breath, elevated D-Dimer. . Report Signatures Finalized by CELESTINO Samayoa MD on 03/21/2020 02:43 PM [facility] Patient Info Name: MINA MCGEE Age: 79 years : 1940 Gender: Male Exam Date: 03/21/2020 2:01 PM Patient Status: Outpatient Mentally Impaired Teacher: Echo Garcia RVT Referring Physician: DUDLEY Ham PRATIK, ; Indications R79.1 - Abnormal coagulation profile Procedure Description 77565 Duplex examination using B-mode, color and spectral Doppler of extremity veins including responses to compression and other maneuvers; complete bilateral study. Conclusions * No evidence of deep or superficial vein thrombosis in either lower extremity. Risk Factors Patient has a history of hypertension. shortness of breath, elevated D-Dimer. . Report Signatures Finalized by CELESTINO Samayoa MD on 03/21/2020 02:43 PM [facility] Bilirubin, Directon 03-20-20 20 Bilirubin.conjugated [Mass/Vol] 0.2 mg/dL 0 - 0.4 mg/dL [facility] Blood Gason 03-20-2020 HCO3 (Bld) [Moles/Vol] 27.6 mmol/L 24 - 28 mmol/L [facility] CBC WITH AUTO DIFFERENTIALon 03-20-2020 Basophils (Bld) [#/Vol] 0.03 10*3/uL [facility] Basophils/100 WBC (Bld) 0.3 % [facility] Eosinophils (Bld) [#/Vol] 0.01 10*3/uL [facility] Eosinophils/100 WBC (Bld) 0.1 % [facility] Erythrocyte distribution width (RBC) [Entitic vol] 12.7 % 11.6 - 14.8 % [facility] Hematocrit (Bld) [Volume fraction] 48.0 % 41 - 53 % [facility] Hemoglobin (Bld) [Mass/Vol] 15.5 g/dL 13.5 - 17.5 g/dL [facility] Immature granulocytes (Bld) [#/Vol] 0.02 10*3/uL [facility] Immature granulocytes/100 WBC (Bld) 0.20 % [facility] Comment on above: The IG parameter is the percentage of metamyelocytes, myelocytes and promyelocytes. An immature granulocyte count (IG) of 1% or more suggests the possibility of infection, an IG count of 3% is very likely related to an infection. Interpretation and review of laboratory results Abnormal [facility] Lymphocytes (Bld) [#/Vol] 0.52 10*3/uL Low [facility] Lymphocytes/100 WBC (Bld) 4.6 % [facility] MCH (RBC) [Entitic mass] 31.2 pg 26 - 34 pg [facility] MCHC (RBC) [Mass/Vol] 32.3 g/dL 31 - 37 g/dL [facility] MCV (RBC) [Entitic vol] 96.6 fL 80 - 100 fL [facility] Monocytes (Bld) [#/Vol] 0.57 10*3/uL [facility] Monocytes/100 WBC (Bld) 5.0 % [facility] Neutrophils (Bld) [#/Vol] 10.27 10*3/uL High [facility] Neutrophils/100 WBC (Bld) 89.8 % [facility] Nucleated RBC (Bld) [#/Vol] 0.00 10*3/uL [facility] Nucleated RBC/100 WBC (Bld) [Ratio] 0.0 % [facility] Platelet mean volume (Bld) [Entitic vol] 11.8 fL 9.4 - 12.4 fL [facility] Platelets (Bld) [#/Vol] 246 10*3/uL [facility] RBC (Bld) [#/Vol] 4.97 10*6/uL [facility] WBC (Bld) [#/Vol] 11.42 10*3/uL [facility] COVID-19/INFLUENZA A,B MOLEC [facility] 03-20-2020 COVID-19/INFLUENZA A,B MOLECULAR SARS-COV-2 (YOLANDA): Not Detected INFLUENZA A (YOLANDA): Not Detected INFLUENZA B (YOLANDA): Not Detected Normal Not Detected [facility] Comment on above: Order Comment: This test was performed under the FDA's Emergency Use Authorization (EUA). Testing was performed using the Aleja joyce SARS-CoV-2 AND Influenza A/B Nucleic Acid Test on the joyce Yolanda System. This test has not been approved for use in asymptomatic patients and its performance in this patient population has not been evaluated. Negative results do not rule out the presence of SARS-CoV-2, influenza A, and/or influenza B. Fact sheets for the EUA can be found at the following links: For Healthcare Providers: https://www.fda.gov/media/206016/download For Patients: https://www.fda.gov/media/674044/download Performed By: #### L [id number] #### [facility] [address] [place], [place] [address] Oren Davis M.D. [id number] COVID-19/Influenza A,B [facility] 03-20-2020 Influenza A Not Detected Not Detected [facility] Influenza B Not Detected Not Detected [facility] Interpretation and review of laboratory results Normal [facility] SARS-CoV-2 Not Detected Not Detected [facility] This test was performed under the FDA's Emergency Use Authorization (EUA). Testing was performed using the Aleja joyce SARS-CoV-2 & Influenza A/B Nucleic Acid Test on the joyce Yolanda System. This test has not been approved for use in asymptomatic patients and its performance in this patient population has not been evaluated. Negative results do not rule out the presence of SARS-CoV-2, influenza A, and/or influenza B. Fact sheets for the EUA can be found at the following links: For Healthcare Providers: https://www.fda.gov/ media/842536/downloa d For Patients: https://www.fda.gov/ media/078486/downloa d [facility] CT PULMONARY ARTERIESon 1. Negative for aortic aneurysm or aortic dissection. 2. Distal most segmental and subsegmental pulmonary arterial branches are suboptimally opacified and partially obscured by severity of respiratory motion artifact. No convincing evidence of an acute pulmonary embolus to the proximal segmental level. 3. Cardiomegaly. 4. Moderate-size hiatal hernia. 5. Mild hypoventilation with bibasilar mild atelectatic/fibrotic changes involving middle lobe, lingula and both lower lobes. No overt edema, failure or pneumonia otherwise identified. 6. Old bilateral rib fracture deformities. Dunamu/Arkeo Workstation ID: [id number] [facility] Interface, Rad In I-DISPOi Speechq - 03/20/2020 9:04 AM EST EXAMINATION: CT PULMONARY ARTERIES 03/20/2020 HISTORY: ORDERING SYSTEM PROVIDED HISTORY: PE suspected, intermediate prob, positive D-dimer, TECHNOLOGIST PROVIDED HISTORY: Illness/Other Reason for exam: sob, elevated D dimer Encounter Type: Initial Additional signs and symptoms: ORDERING SYSTEM PROVIDED DIAGNOSIS CODES: COMPARISON: AP chest from the same day performed earlier. TECHNIQUE: CT angiography of the pulmonary arteries following the administration of intravenous contrast. Coronal and sagittal MIP images were performed. Dose reduction techniques were achieved by using automated exposure control and/or adjustment of mA and/or kV according to patient size and/or use of iterative reconstruction technique. CONTRAST: IOPAMIDOL 76% INTRAVENOUS SOLUTION - 75 mL, FINDINGS: Right posterior oblique positioning of the patient is identified. Moderate-size hiatal hernia is identified. Asymmetric cortical thinning and scarring at the superior pole of the left kidney centered about the lateral cortex noted. A subcentimeter upper pole calculus may be present. There is a cyst associated with the medial segment left hepatic lobe measuring 3.4 cm. Visualized portions of the pancreas are atrophic. A portion of the pancreatic body and adjacent splenic artery herniates above the diaphragmatic hiatus. Thyroid is atrophic. Atherosclerotic change of the aorta and its branches are identified without aneurysm or dissection. Cardiomegaly with calcifications involving the valvular annuli and coronary arteries noted. The distal most segmental/subsegment al pulmonary arterial segments are suboptimally opacified and are also partially obscured by severity of respiratory motion artifact. No evidence of a large central pulmonary embolus to the proximal segmental level within limits of study. No significantly enlarged adenopathy or fusion. Lung volumes are mildly diminished. Mild atelectatic/fibrotic changes involving caudal aspect of middle lobe, lingula as well as basilar segments of the lower lobes appear relatively symmetric. Compressive atelectasis involving the medial aspect of the lower lobes from the diaphragmatic hernia noted. Diffuse multilevel lower cervical, thoracic and upper lumbar spondylitic/facet arthritic changes. Developmental partial fusion of lower thoracic segments at 3 contiguous levels noted incidentally. Kdrmysif-[id number] arthritic changes about the shoulder girdles are noted. Old anterior left 3rd through 6th rib fracture deformities are identified. Old anterior right 3rd rib fracture deformities also identified. IMPRESSION: 1. Negative for aortic aneurysm or aortic dissection. 2. Distal most segmental and subsegmental pulmonary arterial branches are suboptimally opacified and partially obscured by severity of respiratory motion artifact. No convincing evidence of an acute pulmonary embolus to the proximal segmental level. 3. Cardiomegaly. 4. Moderate-size hiatal hernia. 5. Mild hypoventilation with bibasilar mild atelectatic/fibrotic changes involving middle lobe, lingula and both lower lobes. No overt edema, failure or pneumonia otherwise identified. 6. Old bilateral rib fracture deformities. Dunamu/Arkeo Workstation ID: [id number] [facility] EXAMINATION: CT PULMONARY ARTERIES 03/20/2020 HISTORY: ORDERING SYSTEM PROVIDED HISTORY: PE suspected, intermediate prob, positive D-dimer, TECHNOLOGIST PROVIDED HISTORY: Illness/Other Reason for exam: sob, elevated D dimer Encounter Type: Initial Additional signs and symptoms: ORDERING SYSTEM PROVIDED DIAGNOSIS CODES: COMPARISON: AP chest from the same day performed earlier. TECHNIQUE: CT angiography of the pulmonary arteries following the administration of intravenous contrast. Coronal and sagittal MIP images were performed. Dose reduction techniques were achieved by using automated exposure control and/or adjustment of mA and/or kV according to patient size and/or use of iterative reconstruction technique. CONTRAST: IOPAMIDOL 76% INTRAVENOUS SOLUTION - 75 mL, FINDINGS: Right posterior oblique positioning of the patient is identified. Moderate-size hiatal hernia is identified. Asymmetric cortical thinning and scarring at the superior pole of the left kidney centered about the lateral cortex noted. A subcentimeter upper pole calculus may be present. There is a cyst associated with the medial segment left hepatic lobe measuring 3.4 cm. Visualized portions of the pancreas are atrophic. A portion of the pancreatic body and adjacent splenic artery herniates above the diaphragmatic hiatus. Thyroid is atrophic. Atherosclerotic change of the aorta and its branches are identified without aneurysm or dissection. Cardiomegaly with calcifications involving the valvular annuli and coronary arteries noted. The distal most segmental/subsegment al pulmonary arterial segments are suboptimally opacified and are also partially obscured by severity of respiratory motion artifact. No evidence of a large central pulmonary embolus to the proximal segmental level within limits of study. No significantly enlarged adenopathy or fusion. Lung volumes are mildly diminished. Mild atelectatic/fibrotic changes involving caudal aspect of middle lobe, lingula as well as basilar segments of the lower lobes appear relatively symmetric. Compressive atelectasis involving the medial aspect of the lower lobes from the diaphragmatic hernia noted. Diffuse multilevel lower cervical, thoracic and upper lumbar spondylitic/facet arthritic changes. Developmental partial fusion of lower thoracic segments at 3 contiguous levels noted incidentally. [id number] arthritic changes about the shoulder girdles are noted. Old anterior left 3rd through 6th rib fracture deformities are identified. Old anterior right 3rd rib fracture deformities also identified. [facility] CT PULMONARY ARTERIES EXAMINATION: CT PULMONARY ARTERIES 03/20/2020 HISTORY: ORDERING SYSTEM PROVIDED HISTORY: PE suspected, intermediate prob, positive D-dimer, TECHNOLOGIST PROVIDED HISTORY: Illness/Other Reason for exam: sob, elevated D dimer Encounter Type: Initial Additional signs and symptoms: ORDERING SYSTEM PROVIDED DIAGNOSIS CODES: COMPARISON: AP chest from the same day performed earlier. TECHNIQUE: CT angiography of the pulmonary arteries following the administration of intravenous contrast. Coronal and sagittal MIP images were performed. Dose reduction techniques were achieved by using automated exposure control and/or adjustment of mA and/or kV according to patient size and/or use of iterative reconstruction technique. CONTRAST: IOPAMIDOL 76% INTRAVENOUS SOLUTION - 75 mL, FINDINGS: Right posterior oblique positioning of the patient is identified. Moderate-size hiatal hernia is identified. Asymmetric cortical thinning and scarring at the superior pole of the left kidney centered about the lateral cortex noted. A subcentimeter upper pole calculus may be present. There is a cyst associated with the medial segment left hepatic lobe measuring 3.4 cm. Visualized portions of the pancreas are atrophic. A portion of the pancreatic body and adjacent splenic artery herniates above the diaphragmatic hiatus. Thyroid is atrophic. Atherosclerotic change of the aorta and its branches are identified without aneurysm or dissection. Cardiomegaly with calcifications involving the valvular annuli and coronary arteries noted. The distal most segmental/subsegment al pulmonary arterial segments are suboptimally opacified and are also partially obscured by severity of respiratory motion artifact. No evidence of a large central pulmonary embolus to the proximal segmental level within limits of study. No significantly enlarged adenopathy or fusion. Lung volumes are mildly diminished. Mild atelectatic/fibrotic changes involving caudal aspect of middle lobe, lingula as well as basilar segments of the lower lobes appear relatively symmetric. Compressive atelectasis involving the medial aspect of the lower lobes from the diaphragmatic hernia noted. Diffuse multilevel lower cervical, thoracic and upper lumbar spondylitic/facet arthritic changes. Developmental partial fusion of lower thoracic segments at 3 contiguous levels noted incidentally. [id number] arthritic changes about the shoulder girdles are noted. Old anterior left 3rd through 6th rib fracture deformities are identified. Old anterior right 3rd rib fracture deformities also identified. IMPRESSION: 1. Negative for aortic aneurysm or aortic dissection. 2. Distal most segmental and subsegmental pulmonary arterial branches are suboptimally opacified and partially obscured by severity of respiratory motion artifact. No convincing evidence of an acute pulmonary embolus to the proximal segmental level. 3. Cardiomegaly. 4. Moderate-size hiatal hernia. 5. Mild hypoventilation with bibasilar mild atelectatic/fibrotic changes involving middle lobe, lingula and both lower lobes. No overt edema, failure or pneumonia otherwise identified. 6. Old bilateral rib fracture deformities. [facility] [facility] Workstation ID: [id number] Dictated by: MAYRA CLAY on TueMar 20, 2020 8:26:24 AM EST Transcribed by: ISAURA GROSS on TueMar 20, 2020 8:34:13 AM EST Finalized by: MAYRA CLAY on TueMar 20, 2020 9:01:22 AM EST Normal [facility] Comment on above: Order Comment: Injur y/Trauma or Illness?:Illness/Other How long have you had these symptoms (acute/chronic)?:Acute Reason for exam?:sob, elevated D dimer Type of Exam?:Initial Additional signs and symptoms?: Comprehensive Metabolic Pane stephy 03-20-2020 Albumin [Mass/Vol] 3.6 g/dL 3.2 - 5.2 g/dL [facility] ALP [Catalytic activity/Vol] 96 U/L 40 - 150 U/L [facility] ALT [Catalytic activity/Vol] 14 U/L 14 - 65 U/L [facility] Anion gap [Moles/Vol] 12 mmol/L 10 - 2 0 mmol/L [facility] AST [Catalytic activity/Vol] 14 U/L 0 - 45 U/L [facility] Bilirubin [Mass/Vol] 0.5 mg/dL 0 - 1.3 mg/dL [facility] Calcium [Mass/Vol] 8.2 mg/dL Low 8.4 - 10. 2 mg/dL [facility] Chloride [Moles/Vol] 104 mmol/L 98 - 10 8 mmol/L [facility] Creatinine [Mass/Vol] 1.00 mg/dL 0.80 - 1.30 [facility] GFR/1.73 sq M predicted among non-blacks MDRD (S/P/Bld) [Vol rate/Area] The eGFR should be used for monitoring renal function only and not for medication dosing. [facility] GFR/1.73 sq M.predicted CKD-EPI (S/P/Bld) [Vol rate/Area] 70 >=60 mL/min/1.73 m2 [facility] Glucose [Mass/Vol] 119 mg/dL High 65 - 99 mg/dL [facility] HCO3 [Moles/Vol] 26 mmol/L 21 - 32 mmol/L [facility] Potassium [Moles/Vol] 4.0 mmol/L 3.5 - 5.1 mmol/L [facility] Protein [Mass/Vol] 7.4 g/dL 6 - 8 g/dL [facility] Sodium [Moles/Vol] 138 mmol/L 135 - 145 mmol/L [facility] Urea nitrogen [Mass/Vol] 20 mg/dL 8 - 25 mg/dL [facility] Urea nitrogen/Creatinine [Mass ratio] 20.0 mg/mg [facility] D-DIMER, QUANTITATIVEon 12-0 Fibrin D-dimer FEU (PPP) [Mass/Vol] 0.93 High 0.27 - 0.49 mcg/mL FEU [facility] Interpretation and review of laboratory results Abnormal [facility] A D-dimer concentration of <0.5 micrograms per milliliter FEU is considered a low probability for pulmonary embolus (PE) and deep venous thrombosis (DVT). Results of this test should always be interpreted in conjunction with the patient's medical history,clinical presentation, and other findings. Clinical diagnosis should not be based on the results of the D-dimer alone. [facility] EKGon 03-20-2020 Ordered by an unspecified provider. [facility] Hematologyon 03-20-2020 Hemoglobin (Bld) [Mass/Vol] 16.2 g/dL 13.5 - 18 g/dL [facility] Magnesium Levelon 03-20-2020 Magnesium [Mass/Vol] 1.8 mg/dL 1.6 - 2 .4 mg/dL [facility] NT Pro BNPon 03-20-2020 Natriuretic peptide.B prohormone N-Terminal [Mass/Vol] 360 pg/mL High 0 - 300 pg/mL [facility] Pride Study Cut-offs Rule In: < /= 50 Years >450 pg/mL 51 Years - 75 Years >900 pg/mL 76 Years - 99 Years >1800 pg/mL Rule Out: All patients <300 pg/mL [facility] Otheron 03-20-2020 Interpretation and review of laboratory results Normal [facility] Interpretation and review of laboratory results Abnormal [facility] Base excess Calc (BldV) [Moles/Vol] -1.3 mmol/L [facility] Breath rate setting Ventilator synchronized intermittent mandatory 0 [facility] h CO2 (BldV) [Partial pressure] 61.9 mm[Hg] High [facility] Hematocrit (BldA) [Volume fraction] 49.7 % 41 - 53 % [facility] Inhaled oxygen concentration 28 % [facility] Inhaled oxygen flow rate 2 L/min [facility] Interpretation and review of laboratory results Abnormal [facility] Oxygen (BldV) [Partial pressure] 59 mm[Hg] High [facility] Oxygen saturation in Venous blood 85.9 % High 40 - 70 % [facility] pH (BldV) 7.26 [pH] Low [facility] Tidal volume setting Ventilator 0 [facility] PT/INRon 03-20-2020 INR Coag (PPP) [Relative time] 1.0 {INR} [facility] Interpretation and review of laboratory results Normal [facility] PT Coag (PPP) [Time] 12.8 s [facility] During the induction phase of oral anticoagulation, the INR may not reflect the anticoagulation status of the patient. Therapeutic ranges for INR's are: Most clinical situations: INR 2.0-3.0 Mechanical Prosthetic Valve: INR 2.5-3.5 Critical: INR >5.0 [facility] RESPIRATORY PCR PANELon RESPIRATORY PCR PANEL INFLUENZA A FILMARRAY: Not Detected INFLUENZA B FILM ARRAY: Not Detected PARAINFLUENZA VIRUS 1: Not Detected PARAINFLUENZA VIRUS 2: Not Detected PARAINFLUENZA VIRUS 3: Not Detected PARAINFLUENZA VIRUS 4: Not Detected RESPIRATORY SYNCYTIAL VIRUS FILM ARRAY: Not Detected HUMAN METAPNEUMOVIRUS: Not Detected HUMAN RHINOVIRUS/ENTEROVIR US: Not Detected ADENOVIRUS FILM ARRAY: Not Detected CORONAVIRUS 229E: Not Detected CORONAVIRUS HKU1: Not Detected CORONAVIRUS NL63: Not Detected CORONAVIRUS OC43: Not Detected BORDETELLA PARAPERTUSSIS: Not Detected BORDETELLA PERTUSSIS: Not Detected MYCOPLASMA PNEUMONIAE: Not Detected CHLAMYDIA PNEUMONIAE: Not Detected SARS-COV-2 (BIOFIRE): Not Detected This test was performed under the FDA's Emergency Use Authorization (EUA). Testing was performed using the AviacodeFire RP2.1 test on the [employer] platform. This test has not been approved for use in asymptomatic patients and its performance in this patient population has not been evaluated. Negative results do not rule out the presence of SARS-CoV-2/COVID-19. Fact sheets for this EUA can be found at the following links: For Healthcare Providers: https://www.fda.gov/ media/896726/downloa d For Patients: https://www.fda.gov/ media/036415/downloa d [facility] Comment on above: Performed By: #### L [id number] #### [facility] [address] [place] [address] Earl Alejandra M.D. [id number] Respiratory PCR Panelon Adenovirus DNA ALESSANDRO+non-probe Ql (Nph) Not Detected Not Detected [facility]. parapertussis [id number] DNA ALESSANDRO+non-probe Ql (Nph) Not Detected Not Detected [facility] B. pertussis toxin promoter region ALESSANDRO+non-probe Ql (Nph) Not Detected Not Detected [facility] DNA ALESSANDRO+non-probe Ql (Nph) Not Detected Not Detected [facility] FLUAV RNA ALESSANDRO+non-probe Ql (Nph) Not Detected Not Detected [facility] FLUBV RNA ALESSANDRO+non-probe Ql (Nph) Not Detected Not Detected [facility] HCoV 229E RNA ALESSANDRO+non-probe Ql (Nph) Not Detected Not Detected [facility] HCoV HKU1 RNA ALESSANDRO+non-probe Ql (Nph) Not Detected Not Detected [facility] HCoV NL63 RNA ALESSANDRO+non-probe Ql (Nph) Not Detected Not Detected [facility] HCoV OC43 RNA ALESSANDRO+non-probe Ql (Nph) Not Detected Not Detected [facility] hMPV RNA ALESSANDRO+non-probe Ql (Nph) Not Detected Not Detected [facility] Interpretation and review of laboratory results Normal [facility] M. pneumoniae DNA ALESSANDRO+non-probe Ql (Nph) Not Detected Not Detected [facility] Parainfluenza virus 1 RNA ALESSANDRO+non-probe Ql (Nph) Not Detected Not Detected [facility] Parainfluenza virus 2 RNA ALESSANDRO+non-probe Ql (Nph) Not Detected Not Detected [facility] Parainfluenza virus 3 RNA ALESSANDRO+non-probe Ql (Nph) Not Detected Not Detected [facility] Parainfluenza virus 4 RNA ALESSANDRO+non-probe Ql (Nph) Not Detected Not Detected [facility] Rhinovirus+Enterovirus RNA ALESSANDRO+non-probe Ql (Nph) Not Detected Not Detected [facility] RSV RNA ALESSANDRO+non-probe Ql (Nph) Not Detected Not Detected [facility] SARS-CoV-2 Not Detected Not Detected [facility] Comment on above: This test was perfor med under the FDA's Emergency Use Authorization (EUA). Testing was performed using the BioQnarye RP2.1 test on the [employer] platform. This test has not been approved for use in asymptomatic patients and its performance in this patient population has not been evaluated. Negative results do not rule out the presence of SARS-CoV-2/COVID-19. Fact sheets for this EUA can be found at the following links: For Healthcare Providers: https://www.fda.gov/media/130663/download For Patients: https://www.fda.gov/media/745411/download TROPONINon 03-20-2020 Troponin I.cardiac [Mass/Vol] ng/mL <=45 ng/L [facility] Troponin I.cardiac [Mass/Vol] No biomarker evidence of cardiac injury. [facility] Troponin I.cardiac [Mass/Vol] ng/mL <=45 ng/L [facility] Troponin I.cardiac [Mass/Vol] Normal [facility] URINALYSISon 03-20-2020 Bacteria Auto Ql (U) None Seen None Se en /hpf [facility] Bilirubin Ql (U) Negative Negative [facility] th Clarity Refractometry automated (U) Clear Clear [facility] Color (U) Yellow Colorless, Yellow [facility] Glucose Auto test strip (U) [Mass/Vol] Negative Negative mg/dL [facility] Hemoglobin Auto test strip Ql (U) Negative Negative [facility] Interpretation and review of laboratory results Normal [facility] Ketones (U) [Mass/Vol] Negative Negat calixto mg/dL [facility] Leukocyte esterase Auto test strip Ql (U) Negative Negative [facility] Mucus Auto (Urine sed) [#/Area] Rare None Seen, Rare /lpf [facility] Nitrite Auto test strip Ql (U) Negative Negative [facility] pH (U) 5.0 [pH] [facility] Protein (U) [Mass/Vol] Negative Negat calixto mg/dL [facility] RBC Auto (Urine sed) [#/Area] 2 [facility] Specific gravity (U) [Rel density] 1.025 [facility] Urobilinogen (U) [Mass/Vol] <2.0 <2.0 mg/dL [facility] WBC Auto (Urine sed) [#/Area] 1 [facility] Microscopic examination is performed on all urinalysis samples and only positive findings are reported. The test for blood on the chemical analytic portion of urinalysis may also be positive due to hemoglobinuria and myoglobinuria and if red blood cells are present they are quantified by microscopic examination. [facility] XR CHEST PA/APon 03-20-2020 XR CHEST PA/AP EXAMINATION: XR CHEST PA/AP HISTORY: sob Injury/Trauma or Illness?:Illness/Oth er How long have you had these symptoms (acute/chronic)?:Acu te Reason for exam?:sob History of cancer?:u Surgeries, chemotherapy, or radiation?:u COMPARISON: None. TECHNIQUE: Single AP radiograph of the chest was obtained. FINDINGS: There is bronchial wall thickening. Mild airspace density at the right lung base. No visible rib fractures. Cardiac silhouette is large in size. Osseous structures within normal limits. IMPRESSION: Bronchitis with potential developing right basilar pneumonia. Continued follow-up indicated. Workstation ID: [id number] Dictated by: SIVA FERREIRA on TueMar 20, 2020 4:49:42 AM EST Transcribed by: SIVA FERREIRA on TueMar 20, 2020 4:49:42 AM EST Finalized by: SIVA FERREIRA on TueMar 20, 2020 4:49:42 AM EST Normal [facility] Comment on above: Order Comment: Injur y/Trauma or Illness?:Illness/Other How long have you had these symptoms (acute/chronic)?:Acute Reason for exam?:sob History of cancer?:u Surgeries, chemotherapy, or radiation?:u Type of Exam?:Initial Additional signs and symptoms?:n/a XR Chest 1 Viewon 03-20-2020 Bronchitis with potential developing right basilar pneumonia. Continued follow-up indicated. Workstation ID: [id number] [facility] EXAMINATION: XR CHEST PA/AP HISTORY: sob Injury/Trauma or Illness?:Illness/Oth er How long have you had these symptoms (acute/chronic)?:Acu te Reason for exam?:sob History of cancer?:u Surgeries, chemotherapy, or radiation?:u COMPARISON: None. TECHNIQUE: Single AP radiograph of the chest was obtained. FINDINGS: There is bronchial wall thickening. Mild airspace density at the right lung base. No visible rib fractures. Cardiac silhouette is large in size. Osseous structures within normal limits. [facility] 4:52 AM EST EXAMINATION: XR CHEST PA/AP HISTORY: sob Injury/Trauma or Illness?:Illness/Oth er How long have you had these symptoms (acute/chronic)?:Acu te Reason for exam?:sob History of cancer?:u Surgeries, chemotherapy, or radiation?:u COMPARISON: None. TECHNIQUE: Single AP radiograph of the chest was obtained. FINDINGS: There is bronchial wall thickening. Mild airspace density at the right lung base. No visible rib fractures. Cardiac silhouette is large in size. Osseous structures within normal limits. IMPRESSION: Bronchitis with potential developing right basilar pneumonia. Continued follow-up indicated. Workstation ID: [id number] [facility] Vital Signs Date Time Vital Sign Value Performing Clinician Facility 12-18-2024 08:41-0400 Diastolic blood pressure 80 mm[Hg] Dr. Elvis Fishman MD Work Phone: [facility] 12-18-2024 08:41-0400 Systolic blood pressure 180 mm[Hg] Dr. Elvis Fishman MD Work Phone: [facility] 12-18-2024 07:10-0400 Body height 170.[address] Elvis Fishman MD Work Phone: [facility] 12-18-2024 07:10-0400 Body mass index (BMI) [Ratio] 33.6 kg/m2 Dr. Elvis Fishman MD Work Phone: 2(136)556-745560 [place] [address] 12-18-2024 07:10-0400 Body weight 97.[address] Elvis Fishman MD Work Phone: 7(515)140-186660 [place] [address] 12-18-2024 07:10-0400 Heart rate 63 /min Dr. Elvis Fishman MD Work Phone: 6(674)714-311260 [place] [address] 12-18-2024 07:10-0400 Respiratory rate 18 /min Dr. Elvis Fishman MD Work Phone: 1([phone])775-487760 [address] 12-18-2024 07:10-0400 SaO2% (BldA) [Mass fraction] 93 % Dr. Elvis Fishman MD Work Phone: [facility] 10-17-2024 09:25-0400 Body height 170.[address] Elvis Fishman MD Work Phone: [facility] 10-17-2024 09:25-0400 Body mass index (BMI) [Ratio] 34 kg/m2 Dr. Elvis Fishman MD Work Phone: [facility] 10-17-2024 09:25-0400 Body weight 98.[address] Elvis Fishman MD Work Phone: [facility] 10-17-2024 09:25-0400 Diastolic blood pressure 70 mm[Hg] Dr. Elvis Fishman MD Work Phone: [facility] 10-17-2024 09:25-0400 Heart rate 161 /min Dr. Elvis Fishman MD Work Phone: [facility] 10-17-2024 09:25-0400 Respiratory rate 18 /min Dr. Elvis Fishman MD Work Phone: 0([phone])932-157160 [place] [address] 10-17-2024 09:25-0400 Systolic blood pressure 122 mm[Hg] Dr. Elvis Fishman MD Work Phone: 0(500)[phone] [place] [address] 07-31-2024 14:32-0400 Body temperature 98 [degF] Dr. Elvis Fishman MD Work Phone: 1(252)583-814060 [place] [address] 07-31-2024 14:32-0400 Diastolic blood pressure 83 mm[Hg] Dr. Elvis Fishman MD Work Phone: 9(544)321-991404 [place] [address] 07-31-2024 14:32-0400 Heart rate 90 /min Dr. Elvis Fishman MD Work Phone: 0(233)015-641604 [place] [address] 07-31-2024 14:32-0400 Respiratory rate 18 /min Dr. Elvis Fishman MD Work Phone: 2(276)048-545360 [place] [address] 07-31-2024 14:32-0400 SaO2% (BldA) [Mass fraction] 96 % Dr. Elvis Fishman MD Work Phone: 5(295)020-278904 [place] [address] 07-31-2024 14:32-0400 Systolic blood pressure 125 mm[Hg] Dr. Elvis Fishman MD Work Phone: 3([phone])[phone] [place] [address] 07-31-2024 06:00-0400 Body mass index (BMI) [Ratio] 33.6 kg/m2 Dr. Elvis Fishman MD Work Phone: 1(215)337-067960 [place] [address] 07-31-2024 06:00-0400 Body weight 97.[address] Elvis Fishman MD Work Phone: 1(085)073-156304 [place] [address] 07-31-2024 03:00-0400 Inhaled oxygen flow rate 2 L/min Dr. Elvis Fishman MD Work Phone: 5(615)[phone] [place] [address] 07-28-2024 20:35-0400 Body temperature 98.1 [degF] Dr. Elvis Fishman MD Work Phone: [facility] 07-28-2024 20:35-0400 Diastolic blood pressure 79 mm[Hg] Dr. Elvis Fishman MD Work Phone: [facility] 07-28-2024 20:35-0400 Heart rate 104 /min Dr. Elvis Fishman MD Work Phone: [facility] 07-28-2024 20:35-0400 Inhaled oxygen flow rate 2 L/min Dr. Elvis Fishman MD Work Phone: [facility] 07-28-2024 20:35-0400 Respiratory rate 22 /min Dr. Elvis Fishman MD Work Phone: [facility] 07-28-2024 20:35-0400 SaO2% (BldA) [Mass fraction] 95 % Dr. Elvis Fishman MD Work Phone: [facility] 07-28-2024 20:35-0400 Systolic blood pressure 109 mm[Hg] Dr. Elvis Fishman MD Work Phone: [facility] 07-28-2024 18:36-0400 Body height 170.[address] Elvis Fishman MD Work Phone: [facility] 07-28-2024 18:36-0400 Body mass index (BMI) [Ratio] 35.2 kg/m2 Dr. Elvis Fishman MD Work Phone: [facility] 07-28-2024 18:36-0400 Body weight 102.[address] Elvis Fishman MD Work Phone: [facility] 03-22-2020 11:42-0500 BP Diastolic 67 mm[Hg] Moi Pagan [facility] 03-22-2020 11:42-0500 BP Systolic 162 mm[Hg] Moi Pagan [facility] 03-22-2020 11:42-0500 Pulse (Heart Rate) 79 /min Moi Pagan [facility] 03-22-2020 11:42-0500 Pulse Oximetry 95 % Moi [facility] 03-22-2020 07:08-0500 Body Temperature 98.1 [degF] Moi Pagan [facility] 03-22-2020 07:08-0500 Respiratory Rate 15 /min Moi Pagan [facility] 03-20-2020 04:45-0500 Respiratory rate 0 /min Moi Pagan [facility] 03-20-2020 03:28-0500 BMI (Body Mass Index) 29.76 kg/m2 Moi Pagan [facility] 03-20-2020 03:28-0500 Body weight 86.18 kg Moi Pagan [facility] 03-20-2020 03:28-0500 Height 170.2 cm Moi Pagan [facility] Encounters Encounter Date Encounter Type Care Provider Facility Start: 12-18-2024 End: 12-18-2024 Patient encounter procedure Bridget FINLEYC -[facility] Work Phone: Start: 12-18-2024 End: 12-18-[address] Elvis Fishman MD Work Phone: [facility] Start: 10-22-2024 End: 10-22-[address] Khurram Reyes MD -[facility] Work Phone: Start: 10-22-2024 End: 10-22-[address] Elvis Fishman MD Work Phone: -[facility] Start: 10-17-2024 End: 10-17-[address] Khurram Reyes MD -[facility] Work Phone: Start: 10-17-2024 End: 10-17-[address] Elvis Fishman MD Work Phone: -[facility] Start: 09-03-2024 End: 09-03-[address] Elvis Fishman MD -[facility] Work Phone: Start: 09-03-2024 End: 09-03-[address] Elvis Fishman MD -Laboratory Work Phone: Start: 09-03-2024 End: 09-03-2024 ambulatory Elvis Fishman Facility:[facility] Start: 07-31-2024 Non-patient / Non-visit Dr. Isabelle Guillen MD -[facility] Work Phone: Start: 07-30-2024 ambulatory Elvis Chi Kye Facility:[facility] Start: 07-30-2024 Non-patient / Non-visit Dr. Isabelle Guillen MD [facility] Work Phone: Start: 07-30-2024 ambulatory Elvis Chi Kye Facility:[facility] Start: 07-30-2024 Non-patient / Non-visit Dr. Kelechi BRANDT -[facility] Start: 07-29-2024 Non-patient / Non-visit Dr. Angelito dailey [facility] Work Phone: Start: 07-28-2024 ambulatory Elvis Chi Kye Facility:[facility] Start: 07-28-2024 End: 07-31-2024 Evaluation and management of inpatient Dr. Andrea Barnes [facility] Work Phone: Start: 07-28-2024 End: 07-28-2024 ambulatory Elvis Chi Kye Facility:[facility] Start: 07-28-2024 End: 07-28-2024 Non-patient / Non-visit Dr. Bello Persaud MD -[facility] Work Phone: Start: 05-22-2024 End: 05-22-2024 ambulatory TEN BRODY Facility:[facility] Start: 05-22-2024 End: 05-22-2024 Patient encounter procedure Ten Brody OD Work Phone: Optometry Comment on above: Chronically dry eyes , bilateral (Primary Dx) Start: 05-15-2024 End: 05-15-2024 ambulatory TEN T RONN Facility:[facility] Start: 05-15-2024 End: 05-15-2024 Patient encounter procedure Ten Brody OD Work Phone: Optometry Comment on above: Epiretinal membrane (ERM) of both eyes (Primary Dx); Choroidal nevus, left eye; Chronically dry eyes, bilateral; Hyperopia of both eyes; Regular astigmatism of both eyes; Pseudophakia, both eyes Start: 02-20-2024 End: 02-20-2024 ambulatory Elvis Chi Kye Facility:[facility] Start: 02-15-2023 End: 02-15-[address] [facility] Work Phone: Start: 02-15-2023 End: 02-15-[address] [facility]-Laboratory, Phy Office 3rd Flr Start: 08-19-2022 End: 08-19-[address] [facility] Work Phone: Start: 08-19-2022 End: 08-19-[address] [facility] Start: 02-25-2022 End: 02-25-[address] [facility] Work Phone: Start: 02-25-2022 End: 02-25-[address] [facility]-Laboratory, Phy Office 3rd Flr Start: 08-20-2021 End: 08-20-[address] [facility]-Laboratory, Phy Office 3rd Flr Start: 05-02-2020 End: 05-02-2020 Orders Only Lita Renee Wood Work Phone: [facility] Start: 03-20-2020 End: 03-22-2020 Patient encounter procedure [facility] Start: 03-20-2020 End: 03-22-2020 Emergency department patient visit Moi Pressley Ej Work Phone: [facility] Med Surg Comment on above: Respiratory failure with hypoxia and hypercapnia, unspecified chronicity (HCC) (Primary Dx) Procedures Date Procedure Procedure Detail Performing Clinician Start: 09-03-2024 CT angiography of ch est with contrast Dr. Elvis Fishman MD Work Phone: Start: 09-03-2024 D-dimer assay, quantitative Dr. Elvis Fishman MD Work Phone: Comment on above: D-Dimer ELEVATED (>0 .49): Additional studies and clinicalassessments are indicated to conclude diagnosis of:Deep Vein Thrombosis (DVT) or Pulmonary Embolism (PE) Start: 09-03-2024 Vitamin D, 25-hydrox y measurement Dr. Elvis Fishman MD Work Phone: Comment on above: Vitamin D StatusDefi ciency: <20 ng/mL (50nmol/L)Insufficiency: 20-30 ng/mL (50-75 nmol/L)Sufficiency: 30-100 ng/mL (75-250 nmol/L)Toxicity: >100 ng/mL (>250 nmol/L) Start: 07-31-[address] Elvis Fishman MD Work Phone: Start: 07-29-2024 Clostridium difficil e detection Dr. Elvis Fishman MD Work Phone: Start: 07-29-[address] Elvis Fishmna MD Work Phone: Start: 07-29-[address] Elvis Fishman MD Work Phone: Start: 07-29-2024 CT of abdomen and pe lvis without contrast Dr. Elvis Fishman MD Work Phone: Start: 07-29-2024 Iadna-dna/rna gi pth gn multiplex probe tq 6-11 Dr. Elvis Fishman MD Work Phone: Start: 07-28-2024 CT angiography of ch est with contrast Dr. Elvis Fishman MD Work Phone: Start: 07-28-2024 Serum inorganic phos phate measurement Dr. Elvis Fishman MD Work Phone: Start: 07-28-2024 Carbon dioxide measu rement, partial pressure Dr. Elvis Fishman MD Work Phone: Start: 07-28-2024 Gases blood o2 satur ation only direct brian Dr. Elvis Fishman MD Work Phone: Start: 07-28-2024 Measurement of parti al pressure of oxygen in blood Dr. Elvis Fishman MD Work Phone: Start: 07-28-2024 Plain chest X-ray Dr. Augusto Fishman MD Work Phone: Start: 07-28-2024 D-dimer assay, quantitative Dr. Elvis Fishman MD Work Phone: Comment on above: CRITICAL VALUE COOLEY D TO [facility]OMENA [facility]07/28/24 [address].RESULTS READ BACK BY SAME. D-Dimer ELEVATED (>0.49): Additional studies and clinicalassessments are indicated to conclude diagnosis of:Deep Vein Thrombosis (DVT) or Pulmonary Embolism (PE) Start: 07-28-2024 Methadone measurement, urine Dr. Elvis Fishman MD Work Phone: Start: 05-15-2024 Computerized ophthal liat imaging retina [place] OD Work Phone: Start: 03-22-2020 Basic metabolic 2000 panel - Serum or Plasma Kate Buckner Work Phone: Start: 03-22-2020 Complete blood count with white cell differential, automated Kate Buckner Work Phone: Start: 03-22-2020 Complete blood count with white cell differential, manual Kate Buckner Work Phone: Start: 03-22-2020 Magnesium [Mass/volu me] in Serum or Plasma Kate Buckner Work Phone: Start: 03-21-2020 Echocardiography Kate Buckner Work Phone: Start: 03-21-2020 Dup-scan xtr veins c omplete bilateral study Kate Buckner Work Phone: Start: 03-21-2020 12 lead ECG Kate Pat el Work Phone: Start: 03-21-2020 Basic metabolic 2000 panel - Serum or Plasma Kate Buckner Work Phone: Start: 03-21-2020 Complete blood count with white cell differential, automated Kate Buckner Work Phone: Start: 03-21-2020 Complete blood count with white cell differential, manual Kate Buckner Work Phone: Start: 03-21-2020 Magnesium [Mass/volu me] in Serum or Plasma Kate Buckner Work Phone: Start: 03-21-2020 Thyrotropin [Units/v olume] in Serum or Plasma by Detection limit <= 0.005 mIU/L Kate Buckner Work Phone: Start: 03-20-2020 Respiratory pathogen s DNA and RNA panel - Nasopharynx by ALESSANDRO with non-probe detection Kate Buckner Work Phone: Start: 03-20-2020 Electrocardiogram Provi juna Not In System Start: 03-20-2020 Troponin measurement Pa ela Pagan Work Phone: Start: 03-20-2020 Bacteria identified in Blood by Culture Moi Pagan Work Phone: Start: 03-20-2020 CT angiography of pu lmonary artery Moi Pagan Work Phone: Start: 03-20-2020 Bilirubin.direct [Mass/volume] in Serum or Plasma Moi Pagan Work Phone: Start: 03-20-2020 Comprehensive metabo lic 2000 panel - Serum or Plasma Moi Pagan Work Phone: Start: 03-20-2020 Magnesium [Mass/volu me] in Serum or Plasma Moi Pagan Work Phone: Start: 03-20-2020 Natriuretic peptide. B prohormone N-Terminal [Mass/volume] in Serum or Plasma Moi Pagan Work Phone: Start: 03-20-2020 Troponin measurement Yonis Pagan Work Phone: Start: 03-20-2020 Urinalysis Moi Pagan Work Phone: Start: 03-20-2020 Gases blood ph direc t brian xcpt pulse oximitry Moi Pagan Work Phone: Start: 03-20-2020 Radiologic exam ches t single view Moi Pagan Work Phone: Start: 03-20-2020 Bacteria identified in Blood by Culture Moi Pagan Work Phone: Start: 03-20-2020 D-dimer assay, quantitative Moi Pagan Work Phone: Start: 03-20-2020 INR in Platelet poor plasma by Coagulation assay Moi Pagan Work Phone: Start: 03-20-2020 Complete blood count with white cell differential, automated Moi Pagan Work Phone: Start: 03-20-2020 Complete blood count with white cell differential, manual Moi Pagan Work Phone: Start: 03-20-2020 COVID-19/INFLUENZA A ,B MOLECULAR Moi Pagan Work Phone: Start: 03-20-2020 OBTAIN VENOUS BLOOD GASES AND PERFORM Moi Pagan Work Phone: Start: 03-20-2020 12 lead ECG Moi Pagan Work Phone: Plan of Treatment Date Care Activity Detail Author Start: 09-02-2032 Urine microalbumin profile DTaP,Tdap,Td Vaccine (3 - Td or Tdap) [facility] Start: 05-28-2025 End: 05-28-2025 Patient encounter procedure 05/28/2025 8:00 AM EST Office Visit [facility] [address] [place] [address] Ten Brody, OD [address] [place] [id number] Eye exam/[facility] Comment on above: [facility] exam/[facility] Start: 10-22-2024 Evaluation of diagnostic study results [facility] Start: 10-17-2024 Evaluation of diagnostic study results [facility] Start: 07-31-[address] [facility] Start: 07-28-2024 Application of intermittent pneumatic compression device [facility] Start: 07-28-2024 Following clinical pathway protocol [facility] Start: 07-28-2024 Assessment of risk of venous thromboembolism [facility] Start: 07-28-2024 Insertion of catheter into peripheral vein [facility] Start: 07-28-2024 Measuring intake and output [facility] Start: 07-28-[address] [facility] Start: 07-28-2024 Providing care according to standard [facility] Start: 07-28-2024 Provision of activity privileges [facility] Start: 07-28-2024 Referral to occupational therapist [facility] Start: 07-28-2024 Referral to service [facility] Start: 07-28-[address] [facility] Start: 07-28-2024 Clostridioides difficile DNA [Presence] in Unspecified specimen by ALESSANDRO with probe detection [facility] Start: 07-28-2024 Lactoferrin [Presence] in Stool by Immunoassay [facility] Start: 07-28-2024 Nucleic acid assay [facility] Start: 07-28-[address] [facility] Start: 07-28-[address] [facility] Start: 07-28-2024 CT angiography of chest with contrast CTA Chest W/WO Contrast [facility] Start: 07-28-2024 Hospital admission, emergency, from emergency room, medical nature [facility] Start: 07-28-2024 Serum inorganic phosphate measurement [facility] Start: 07-28-2024 D-dimer assay, quantitative [facility] Start: 07-28-2024 End: 07-28-[address] [facility] Start: 07-28-2024 Ova and Parasites Ova and Parasites [facility] Start: 07-28-2024 Patient referral to dietitian [facility] Start: 05-22-2024 End: 05-22-2024 Patient encounter procedure 05/22/2024 8:00 AM EST Office Visit [facility] [address] [place] [address] Ten Brody, OD [address] [place] [address] 1 week follow up Dry eye/[facility] Comment on above: 1 week follow up [facility] Start: 04-18-2024 Advance Directive Discussion Advance Directive Discussion [facility] Start: 03-22-2023 Diabetes Screening Diabetes Screening [facility] Start: 12-18-2019 Influenza vaccination given Sequential Influenza Vaccine (#1) [facility] Start: 07-10-2003 Pneumococcal vaccination Pneumococcal Vaccine Age 65+ (1 of 2 - PCV13) [facility] Start: 1988 Administration of herpes zoster vaccine Zoster Vaccines (1 of 2) [facility] Start: 1988 Pneumococcal Vaccine: 50+ (1 of 1 - PCV) Pneumococcal Vaccine: 50+ (1 of 1 - PCV) [facility] Start: 1956 Anxiety Screening Anxiety Screening [facility] Start: 1956 Depression Screening Depression Screening [facility] Start: 1950 Adolescent depression screening assessment Depression Screening (PHQ9) [facility] Start: 1941 History and physical examination, annual for health maintenance Wellness Visit [facility] Start: 1938 Fall risk assessment Falls Risk Assessment [facility] Start: 1938 Tetanus vaccination Tetanus: Every 10yrs [facility] Bacteria identified Cx Nom (Bld) [facility] Magnesium measurement [facility] Ova OR parasites identification [facility] Ova OR parasites identification [facility] Patient Education Supraventricul ar Tachycardia [facility] Work Phone: Patient referral [facility] Work Phone: Immunizations Immunization Date Immunization Notes Care Provider Sundeep andersen 05-05-2015 tetanus toxoid, reduced diphtheria toxoid, and acellular pertussis vaccine, adsorbed [facility] 02-27-2011 influenza virus vaccine, unspecified formulation Ten Brody OD Work Phone: [facility] Payers Date Payer Category Payer Self-pay [id number] 2021 Unknown ANTH BLUE [facility] S AND BLUE [employer] MEDICARE ADVANTAGE HMO [id number] 2021-Present [phone] [address] [place] [address] HMO [id number] 2021 Medicare [id number] 2018 Medicare [employer] [facility] ADVANTAGE CHOICE PPO [id number] 2018-Present [id number] 2015 Unknown [id number] 2010 Medicare [id number] 1940 Unknown [id number] Unknown [id number] [id number] Unknown [id number] [id number] Unknown [id number] [id number] Unknown [id number] [id number] Unknown [id number] [id number] Unknown [id number] [id number] Unknown [id number] [id number] Unknown [id number] [id number] Unknown [id number] [id number] Unknown [id number] [id number] Unknown [id number] [id number] Unknown [id number] [id number] Unknown [id number] [id number] Unknown [id number] [id number] Social History Date Type Detail Facility Start: 03-20-2020 End: 09-13-2024 Tobacco smoking status CTIS Never smoker [facility] Start: 03-20-2020 Tobacco use and exposure Never used [facility] Start: 03-20-2020 Alcohol intake Lifetime non-d huma (finding) [facility] Start: 03-20-2020 History SDOH Alcohol Frequency 1 [facility] Start: 1940 Sex Assigned At Not on file [facility] Exposure to SARS-CoV -2 (event) Not sure [facility] Start: 01-06-2017 End: 01-06-2017 Tobacco smoking status NHIS Unknown if ever smoked [facility] Start: 1940 Sex Assigned At Male [facility] Start: 03-02-2016 Tobacco use and exposure User of smokeless tobacco [facility] History of tobacco use Snuff User [facility] Start: 05-15-2024 End: 05-22-2024 Alcoholic beverage intake Current non-drinker of alcohol (finding) [facility] Start: 01-13-2023 End: 05-15-2024 History of Social function [facility] Start: 01-13-2023 End: 05-15-2024 Tobacco use panel [facility] National Score (1-100), lower number is lower risk 79 [facility] Start: 07-28-2024 Sex Male (finding) [facility] Goals Date Patient Goal Desired Activity /State Functional Status Date Assessment Result Facility 07-31-2024 Functional status Ambulates;Chair [facility] Work Phone: Mental Status Date Assessment Result Facility 07-31-2024 Cognitive function Voice/Name [facility] Work Phone: 07-28-2024 Cognitive function Level Of Cons ciousness Awake;Alert;Appropriate [facility] Work Phone: Clinical Notes 05-15-2024 to 10-17-2024 Note Date & Type Note Facility 10-17-2024 Evaluation note Diagnosis Onset Date Resolution Right bundle branch block acute October 17, 2024 9 :24am Sustained SVT acute October 17 025 9:24am Hypertension chronic October 17 9:24am Right bundle branch block acute December 18 025 8:04am Sustained SVT acute December 182024 8:04am Hypertension chronic December 8:04am [email or web address] [facility] Work Phone: 1(260) 955-885504-15-2025 [facility] Medical Records Department [address] [place] [address] Discharge Summary 07/31/24 1358 MR#: [id number] Acct: [id number] Name: MINA MCGEE Rep #: [id number] : 1940 84 From: Isabelle Guillen MD PCP: Dr. Elvis Fishman MD Status:DIS IN Location: [place] [address] Providers Date of Admission: 07/28/24 Date of Discharge: 07/31/24 Primary Care Physician: Dr. Elvis Fishman MD Reason For Visit: SUSTAINED SVT, RLL INFILITRATE, DEHYDRATION Diagnosis Discharge Diagnosis (1) Chronic alcohol abuse: Status: Chronic Code(s): F10.10 - Alcohol abuse, uncomplicated (2) Acute hyponatremia: Status: Acute Code(s): E87.1 - Hypo-osmolality and hyponatremia Plan #Sustained SVT * Heart rate better controlled today. He did receive adenosine initially during this admission. CT of the chest was negative for any evidence of PE. * On metoprolol. 2D echo ordered. Done today and read is pending. * TSH was within normal limits. #Diarrhea: Diarrhea has resolved. Stool studies are negative so far. #Chronic alcohol use disorder: Not in withdrawal. Was started on phenobarbital taper on admission. Monitor thiamine and folic acid #Hyponatremia: Likely due to beer potomania. Will monitor. #Transaminitis: * CT of the abdomen showed fatty liver. * Likely due to alcohol use disorder. * Follow-up with gastroenterology on outpatient basis. DVT prophylaxis: heparin Medications at Discharge Home Medications pantoprazole 40 mg tablet,delayed release 40 mg PO BID 12/29/15 losartan 25 mg tablet 25 mg PO DAILY #30 tabs 07/31/24 metoprolol tartrate 50 mg tablet 50 mg PO BID #60 tabs 07/31/24 Hospital Course Operations None Procedures None Summary of Care Provided Minutes Spent on Discharge: 45 Hospital Course: Patient is an 84 y/o male with a PMH as outlined who wasa dmitted via the ED with a complaint of generalised weakness and malaise. His symptoms started about 2 days prior to admission. He had not taken his medication. He will be admitted to feeling his heart be tolerating. The ED EKG showed SVT with heart rate going up to the 170s. He was given a dose of adenosine which improved subsequently about an hour later his symptoms recurred with EKG showing SVT again. Labs were significant for sodium of 129 and BUN over creatinine ratio 32.8. Chest x-ray showed low lung volumes and right basilar opacity consistent with suspected atelectasis versus infiltrate. He was admitted to be managed for new onset SVT. He was also managed for hyponatremia. He was placed on PO metoprolol. 2D echo ordered showed normal LV size and systolic function and showed EF of 55% with no regional wall motion abnormalities noted. He remained stable and was discharged home o 07/31/2024. He is to follow up with his PCP within 1-2 weeks. Of note, the SVT did not recur during admission. Patient seen and examined prior to discharge. He had no active complaints. Review of systems is otherwise negative. He was discharged on PO metoprolol 50mg bid. His home dose of losartan was cut down from 50mg daily to 25mg daily. Physical Exam Const alert, oriented x3, no apparent distress and average body habitus General Appearance: cooperative, comfortable and well developed Exam Limitations: no limitations HEENT normocephalic, head/scalp atraumatic, hearing grossly normal bilaterally, moist oral mucous membranes and oropharynx normal Mouth: oral and palatal mucosa normal Eyes PERRL and EOMs intact bilaterally Neck no lymphadenopathy and supple Lymph Lymphatic: no lymphadenopathy noted and no lymphedema noted Resp normal respiratory effort, no retractions, no use of accessory muscles and clear to auscultation bilaterally Resp Narrative: mildly diminished breath sounds bibasally, no wheezes or crackles. On room air. Cardio regular rate, regular rhythm, S1 normal heart sound, S2 normal heart sound and no murmurs GI normal to inspection, nondistended, normoactive bowel sounds, soft to palpation, non-tender and non- distended Extremity normal to inspection, normal capillary refill, no clubbing, cyanosis or edema and no calf tenderness General Extremity: no tenderness to palpation of joints or extremities Skin General Skin Exam: no breakdown Neuro oriented x3, CN's II-XII intact bilaterally, moves all extremities, no focal motor deficits and no sensory deficits noted Sensorium / Orientation: awake, alert, oriented to person, oriented to place and oriented to time Speech: speech normal Motor Exam: strength 5/5 throughout and general weakness Psych thought process normal, cooperative and affect normal Appearance: appropriate Weight / BMI Weight Weight: 214 lb 15.211 oz Body Mass Index (BMI) 33.6 ABG / Lab / Microbiology Data 07/31/24 04:39 07/31/24 04:39 Laborator (more content not included)...[facility]04-12-2025 Evaluation note* Diagnosis Onset Date Resolution Status Admit Date Obesity (BMI 30-39.9) acute Jul 9:22pm Sustained SVT acute July 28, 2024 9:22pm Acute hyponatremia resolved July 28, 2024 9:22pm Dehydration resolved July 28 025 9:22pm Diarrhea resolved July 28 9:22pm Elevated troponin resolved July 172024 9:22pm Chronic alcohol abuse inactive Jul 9:22pm Hyponatremia inactive July 28, 2024 9:22pm Transaminitis inactive July 28, 2024 9:22pm [facility] [employer] Work Phone: 1(312) 698-377204-12-2025 Evaluation note* Diagnosis Onset Date Resolution Status Admit Date Obesity (BMI 30-39.9) acute Jul 9:22pm Sustained SVT acute July 28, 2024 9:22pm Acute hyponatremia resolved July 28, 2024 9:22pm Dehydration resolved July 28 025 9:22pm Diarrhea resolved July 28 9:22pm Elevated troponin resolved July 172024 9:22pm Chronic alcohol abuse inactive Jul 9:22pm Hyponatremia inactive July 28, 2024 9:22pm Transaminitis inactive July 28, 2024 9:22pm Right bundle branch block acute October 17, 2024 9:24am Sustained SVT acute October 17 2 025 9:24am Hypertension chronic October 17 9:24am [facility] [employer] Work Phone: 1(528) 777-296704-12-2025 Radiology Diagnostic study note [facility] Imaging Services [address] [place] [address] Chest 1 View (Portable) MR#: [id number] Acct: [id number] Name: MINA MCGEE Rep #: [id number] : 1940 M 84 From: Prashant Davis DO PCP: Dr. Elvis Fishman MD Status: REG E R Study:Chest 1 View (Portable) Date of Exam: 07/28/24 Exam# [id number] Ordering Dr: Jo Nichols MD PROCEDURE: CHEST 1 VIEW (PORTABLE) 07/28/2024 REASON FOR EXAM: Chest pain TECHNIQUE: Frontal view of the chest. COMPARISON: None FINDINGS: Low lung volumes. Mild cardiomegaly. Possible small right pleural with adjacent atelectasis/infiltrate. Left lung is relatively clear. No sizable pneumothorax. RAD/Chest 1 View (Portable) IMPRESSION: Low lung volumes with right basilar opacity as above. Reading Location: [facility] CC: Dr. Jc Nichols MD; Dr. Elvis Fishman MD ~ Main Entree Cook And Cashier: Signed [facility]02-04-2025 NoteHNO ID: [id number] Author: TEN BRODY OD Service: ? Author Type: DIE CUTTER APPRENTICE Type: Progress Notes Filed: 05/22/2024 08:15 Note Text: ASSESSMENT/PLAN: 1. Chronically dry eyes, bilateral - ICD9: 375.15, ICD10: H04.123 Improving at this time and encouraged him to use the drops four times a day. Recommended yearly exams. Ten Brody OD I have confirmed and edited as necessary the relevant ophthalmic history, ROS, and the neuro exam findings as obtained by others.[facility] 05-22-2024 History of Present illness Narrative* Ten Brody OD - 05/22/2024 8:14 AM EST ASSESSMENT/PLAN: 1. Chronically dry eyes, bilateral - ICD9: 375.15, ICD10: H04.123 Improving at this time and encouraged him to use the drops four times a day. Recommended yearly exams. Ten Brody OD I have confirmed and edited as necessary the relevant ophthalmic history, ROS, and the neuro exam findings as obtained by others. documented in [facility] Instructions* Patient Instructions* Ten Brody, OD - 05/22/2024 8:14 AM EST ASSESSMENT/PLAN: 1. Chronically dry eyes, bilateral - ICD9: 375.15, ICD10: H04.123 Improving at this time and encouraged him to use the drops four times a day. Recommended yearly exams. documented in [facility] encounterC[facility] NoteDate of Procedure 05/15/2024. Appointment Setter Information Insulation Installer: [email or web address]. Start time: 9:25 AM. OCT Macula Interpretation Right Eye Abnormal foveal contour. Findings include Epiretinal membrane, Vitreomacular traction. Left Eye Abnormal foveal contour. Findings include Vitreomacular traction. Interval Change Right Eye Initial. Left Eye Initial.[id number] Instructions* Patient Instructions* Ten Brody, OD - 05/15/2024 9:27 AM EST ASSESSMENT/PLAN: 1. Epiretinal membrane (ERM) of both eyes - ICD9: 362.56, ICD10: H35.373 (primary diagnosis) Continue to monitor. Traction apparent Both eyes 2. 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 3. Chronically dry eyes, bilateral - ICD9: 375.15, ICD10: H04.123 Current Ophthalmic Meds propylene glycoL, PF, (SYSTANE COMPLETE PF) 0.6 % drop Use 1 Drop in both eyes four times daily. Will recheck in one week. 4. Hyperopia of both eyes - ICD9: 367.0, ICD10: H52.03 5. Regular astigmatism of both eyes - ICD9: 367.21, ICD10: H52.223 Hold until follow up 6. Pseudophakia, both eyes - ICD9: V43.1, ICD10: Z96.1 Posterior chamber intraocular lenses are well positioned. Return in one week for Dry eye check documented in this encounterC[facility]01-28-2025 NoteHNO ID: [id number] Author: TEN BRODY OD Service: ? Author Type: DIE CUTTER APPRENTICE Type: Progress Notes Filed: 05/15/2024 09:33 Note Text: ASSESSMENT/PLAN: 1. Epiretinal membrane (ERM) of both eyes - ICD9: 362.56, ICD10: H35.373 (primary diagnosis) Continue to monitor. Traction apparent Both eyes 2. 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 3. Chronically dry eyes, bilateral - ICD9: 375.15, ICD10: H04.123 Current Ophthalmic Meds propylene glycoL, PF, (SYSTANE COMPLETE PF) 0.6 % drop Use 1 Drop in both eyes four times daily. Will recheck in one week. 4. Hyperopia of both eyes - ICD9: 367.0, ICD10: H52.03 5. Regular astigmatism of both eyes - ICD9: 367.21, ICD10: H52.223 Hold until follow up 6. Pseudophakia, both eyes - ICD9: V43.1, ICD10: Z96.1 Posterior chamber intraocular lenses are well positioned. Return in one week for Dry eye check Ten Brody, OD I have confirmed and edited as necessary the relevant ophthalmic history, ROS, and the neuro exam findings as [facility] History of Present illness Narrative* Ten Brody, OD - 05/15/2024 9:25 AM EST ASSESSMENT/PLAN: 1. Epiretinal membrane (ERM) of both eyes - ICD9: 362.56, ICD10: H35.373 (primary diagnosis) Continue to monitor. Traction apparent Both eyes 2. 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 3. Chronically dry eyes, bilateral - ICD9: 375.15, ICD10: H04.123 Current Ophthalmic Meds propylene glycoL, PF, (SYSTANE COMPLETE PF) 0.6 % drop Use 1 Drop in both eyes four times daily. Will recheck in one week. 4. Hyperopia of both eyes - ICD9: 367.0, ICD10: H52.03 5. Regular astigmatism of both eyes - ICD9: 367.21, ICD10: H52.223 Hold until follow up 6. Pseudophakia, both eyes - ICD9: V43.1, ICD10: Z96.1 Posterior chamber intraocular lenses are well positioned. Return in one week for Dry eye check Ten Brody, OD I have confirmed and edited as necessary the relevant ophthalmic history, ROS, and the neuro exam findings as obtained by others documented [facility] encounterCh[facility] noteNo assessment information availableWElyria Memorial [facility] Work Phone: Evaluation note* Diagnosis Epiretinal membrane (ERM) of both eyes- Primary Choroidal nevus, left eye Benign neoplasm of choroid Chronically dry eyes, bilateral Hyperopia of both eyes Regular astigmatism of both eyes Regular astigmatism Pseudophakia, both eyes Lens replaced by other means documented in this encounter [facility] note* Diagnosis Chronically dry eyes, bilateral- Primary documented in this encounter [facility] note* Diagnosis Onset Date Resolution Status Admit Date Acute hyponatremia acute July 28, 2024 9:22pm Dehydration acute July 28, 025 9:22pm Elevated troponin acute July 172024 9:22pm Pulmonary infiltrate in righ t lung on CXR acute July 28, 2024 9:22pm Sustained SVT acute July 28, 2024 9:22pm [facility] Work Phone: Reason for referral (narrative)No reason for referral information [facility] Work Phone: Summary Purpose Family History No Family History Records Found Relationship Condition Age at Onset Recorded Date/T caroline father Arthritis Unknown Advance Directives No Advanced Directives Records FoundDocuments on File Type Date Recorded Patient Suction Worker Expl anation Advance Directives and Livin g Will 03/20/2020 6:09 AM Latest Code Status on File Code Status Date Activated Date Inactivated Comments Full Code - Unverified 03/20/2020 11:08 AM 03/22/2020 3: 06 PM Advance Directive Response Recorded Date/ Time Advance Directives No December 12:20pm Living Will No November 25 1:23pm Power of Corner Former No November 25 1:23pm Advance Directive Response Recorded Date/ Time Advance Directives No December 11:20am Living Will No November 25 12:23pm Power of Corner Former No November 25 12:23pm Advance Directive Response Recorded Date/ Time Living Will Yes July 28, 2024 6:46pm Do you have a Healthcare Power of Corner Former? Yes July 28, 2024 6:46pm Name of Medical Power of Corner Former Mina (son) July 28, 2024 6:46pm Advance Directives No December 12:20pm Advance Directive Response Recorded Date/ Time Living Will Yes July 28, 2024 9:58pm Do you have a Healthcare Power of Corner Former? Yes July 28, 2024 9:58pm Name of Medical Power of Corner Former Mina (son) July 28, 2024 9:58pm Advance Directives No December 12:20pm Advance Directive Response Recorded Date/ Time Advance Directives No December 12:20pm Hospital Course * Kate Buckner MD - 03/22/2020 10:29 AM EST HOSPITALIST DISCHARGE SUMMARY Patient: Mina Mcgee Account: [id number] Admitted: 03/20/2020 Discharge Date/Time: 03/22/2020 Clinical Summary FINAL DIAGNOSIS: Principal Problem: Bronchitis Hypertension REASON FOR HOSPITALIZATION AND ADMITTING DIAGNOSIS: Shortness of Breath Bronchitis [J40] Respiratory failure with hypoxia and hypercapnia, unspecified chronicity (HCC) [J96.91, J96.92] HOSPITAL COURSE: 79-year-old male with history of hypertension presented with complains of shortness of breath progressive for 3 to 4 weeks. He was admitted with acute bronchitis. CT PE study was obtained which is negative for any pulmonary embolism, no infiltrates. He was given IV steroids and azithromycin with imp rovement. Lower extremity Dopplers were negative for DVT. During his stay patient did have episode of SVT into 160s, carotid massage did not help, he was given 5 mg of IV metoprolol which broke the rhythm and he was back in sinus rhythm. EKG showing old right bundle branch block. He had absolutely no symptoms during this episode. TSH was 0.55. Echocardiogram was obtained which showed normal EF and impaired relaxation. Mild pulmonary hypertension. Normal right ventricular size and systolic function. Mild aortic regurgitation but no significant aortic stenosis. Patient had intermittent episodes of ventricular bigeminy. Potassium was replaced. He was initiatedon Toprol-XL 25 mg twice daily with improvement. His losartan was cut in half to 25 mg daily. Patient felt back to baseline within 48 hours and was very eager to go home. He was strongly advised to follow-up with his primary care doctor or come back to the ED for evaluation if he starts having chest pain palpitations or lightheadedness. Discharge finish 3 more days of azithromycin and prednisone. CONDITION AT DISCHARGE: Stable Physical Examination: Blood pressure (!) 157/63, pulse (!) 101, temperature 98.1 F (36.7 C), temperature source Oral, resp. rate 15, height 5' 7, weight 86.2 kg (190 lb), SpO2 97 %. General appearance: alert, cooperative, in no acute distress. Head/Neck: Head- normocephalic. Neck- supple, non-tender, without lymphadenopathy Eyes: No Scleral icterus or pallor; EOMI ENT: Trachea midline. Cardiovascular: regular rate and rhythm; normal S1, S2; no murmurs, rubs, clicks or gallops; No/+ peripheral edema. Respiratory: CTABL Abdomen: soft, non tender, non-distended; positive bowel sounds. Neurological: alert, oriented, normal speech; no focal findings or movement disorder noted. Musculoskeletal: no significant deformity noted. Skin: normal coloration, texture and turgor; no lesions or eruptions. Procedures: No orders of the defined types were placed in this encounter. Consults: Procedures Hospitalize Patient To : Other Tests: Procedures Echocardiogram complete LAST LABS: Results from last 7 days Lab Units 03/22/20 0623 SODIUM mmol/L 142 POTASSIUM mmol/L 3.8 CHLORIDE mmol/L 108 BUN mg/dL 23 CREATININE mg/dL 0.97 GLUCOSE mg/dL 87 CALCIUM mg/dL 8.9 Results from last 7 days Lab Units 03/20/20 0614 ALK PHOS U/L 96 BILIRUBIN TOTAL mg/dL 0.5 BILIRUBIN DIRECT mg/dL 0.2 TOTAL PROTEIN g/dL 7.4 ALTR U/L 14 AST U/L 14 Results from last 7 days Lab Units 03/20/20 0423 INR 1.0 Results from last 7 days Lab Units 03/22/20 0623 WBC K/mcL 11.77* HGB g/dL 12.1* HCT % 38.4* PLT K/mcL 205 Results from last 7 days Lab Units 03/21/20 0727 TSH mcIU/mL 0.55 Allergies: Patient has no known allergies. Discharge Diet: Diet Special; Cardiac Disposition: home Discharge Medications Medication List ASK your doctor about these medications losartan 100 MG tablet Commonly known as: COZAAR omeprazole 40 MG capsule Commonly known as: PRILOSEC pantoprazole 40 MG tablet Commonly known as: PROTONIX traZODone 100 MG tablet Commonly known as: DESYREL Physician(s) Family: Provider Not in System, Phone: None, Address: None Follow Up: No follow-up provider specified. Patient instructions, including activity, were given to the patient/family at discharge. Please seethe After Visit Summary in the medical record for details. Time spent on discharge: > 30 minutes Completed by: Kate Buckner on 03/22/20, 10:28 AM documented in this encounter History of Present Illness * Rachell Sifuentes - 03/21/2020 12:15 PM EST Spiritual Care Progress Note Completed by: Wily Ortega Chi Person(s) Present During this Visit: Patient Time Spent in Direct Patient Care: 15 Narrative: While rounding on the Med Surg Unit, I visited Mina in order to provide spiritual support. I introduced myself and the role of the metaphysicist. Mina talked to me about his health condition.He also expressed emotional distress, when he said he was worried because this was the first time he has had health issues. I listened to him and provided spiritual/emotional support. Patients Response to Pastoral Care: Expressed Gratitude for Visit Planning for Future Visits: PRN Provided information regarding pastoral care services, 08/11 availability, and how to contact. Rev Juan Pablo. Father Customer Program Manager [employer] [facility] [phone] * Kate Buckner MD - 03/21/2020 11:20 AM EST [facility] Medicine Inpatient Follow-up 03/21/2020 Kate Buckner MD [facility] Patient: Mina Mcgee Date of : 1940 (79 y.o.) PCP: Provider Not in System ASSESSMENT/PLAN: Mina Mcgee 79 y.o. male presented with complains of SOB Acute bronchitis Improved, continue inhalers. Continue azithromycin and steroids. Incentive spirometry. Elevated D-dimer CT PE study was negative. Obtain lower extremity Dopplers. SVT Patient went into tachycardia this morning, telemetry showed SVT at 160s, carotid massage did not help 5 mg IV metoprolol broke the rhythm is back in sinus with heart rate 80s. EKG showed old right bundle branch block and sinus rhythm. During all this patient had absolutely no symptoms. He was feeling like he was earlier when I rounded on him. He was ready to be discharged. We will obtain echocardiogram, TSH. Replace potassium. Troponins were checked yesterday and they were negative. Consider low-dose oral metoprolol. SUBJECTIVE: On my rounds he was back to baseline and reported his breathing had improved. Shortly after he wentto tachycardia had SVT on the telemetry as mentioned above. He did not have any symptoms during this episode, no chest pain palpitations or lightheadedness. All other systems reviewed and negative other than noted above. OBJECTIVE: Physical Examination: BP 147/81 Pulse 78 Temp 97.9 F (36.6 C) (Oral) Resp 16 Ht 5' 7 Wt 86.2 kg (190 lb) SpO2 93% BMI 29.76 kg/m General Appearance: Alert, well appearing, and in no acute distress. HEENT: Head - Normocephalic, atraumatic. Eyes - HARDY bilaterally and EOMI. Ears - normal external appearance, hearing intact. Nose - normal, no erythema. Throat - mucous membranes moist, pharynx without lesions. Neck: Supple, trachea midline. Cardiovascular: S1, S2 normal. No murmurs, rubs, clicks or gallops appreciated. No pedal edema. Respiratory: Lungs clear to auscultation, no wheezes, rales or rhonchi heard. Abdomen: Soft, non-tender, normal bowel sounds, non-distended, no masses or organomegaly appreciated. Neurological: Grossly normal motor and sensory exam. No focal deficits. Musculoskeletal: No joint tenderness, deformity or swelling. Skin: Normal coloration and turgor. No rashes. Psych: Alert, oriented x 3. Normal mood and affect. CURRENT MEDICATIONS: azithromycin 250 mg Oral Daily enoxaparin (LOVENOX) injection 40 mg Subcutaneous Daily ipratropium-albuteroL 3 mL Inhalation Q4H EVANGELINA losartan 50 mg Oral Daily with lunch pantoprazole 40 mg Oral Daily potassium chloride SA 40 mEq Oral Once predniSONE 40 mg Oral Daily senna-docusate 1 tablet Oral BID Results/Medications Reviewed 03/21/20 11:20 AM: Results from last 7 days Lab Units 03/21/20 0727 03/20/20 0614 SODIUM mmol/L 139 138 POTASSIUM mmol/L 3.7 4.0 CHLORIDE mmol/L 106 104 BUN mg/dL 21 20 CREATININE mg/dL 0.91 1.00 GLUCOSE mg/dL 119* 119* CALCIUM mg/dL 8.6 8.2* Results from last 7 days Lab Units 03/21/20 0727 03/20/20 0445 03/20/20 0422 WBC K/mcL 12.43* -- 11.42* HGB g/dL 12.3* -- 15.5 HEMOGLOBIN BG g/dL -- 16.2 16.2 -- HEMATOCRIT, CALCULATED % -- 49.7 49.7 -- HCT % 38.1* -- 48.0 PLT K/mcL 199 -- 246 Results from last 7 days Lab Units 03/20/20 1035 03/20/20 0614 TROPONIN I ng/L <15 <15 Results from last 7 days Lab Units 03/20/20 0423 INR 1.0 Results from last 7 days Lab Units 03/20/20 0614 ALK PHOS U/L 96 BILIRUBIN TOTAL mg/dL 0.5 BILIRUBIN DIRECT mg/dL 0.2 TOTAL PROTEIN g/dL 7.4 ALTR U/L 14 AST U/L 14 CULTURES: Reviewed 11:20 AM IMAGING: Reviewed 11:20 AM * Billie Mayo RN - 03/21/2020 9:55 AM EST Patient currently in SVT on the monitor with HR in the 160's. Dr. Buckner on the floor and notified. Upon entering the room, patient is in no acute distress and states that he does not feel any shortness of breath or chest pain. Vital signs obtained and verbal orders given by Dr. Buckner for IV Metoprolol. After IV administration, patient returned to normal sinus rhythm in the 80's. New orders were placed by Dr. Buckner, will continue to monitor. documented in this encounter Assessments Diagnosis Bronchitis- Primary Bronchitis, not specified as acute or chronic Respiratory failure with hypoxia and hypercapnia, unspecified chronicity (HCC) Chief Complaint and Reason for Visit Chief Complaint Admit Date SUSTAINED SVT, RLL INFILITRATE, DEHYDRAT ION July 28, 2024 9:22pm Reason for Visit Admit Date Acute hyponatremia July 28, 2024 9:2 2pm Dehydration July 28, 2024 9:2 2pm Elevated troponin July 28, 2024 9:2 2pm Pulmonary infiltrate in right lung on CX R July 28, 2024 9:22pm Sustained SVT July 28, 2024 9:2 2pm Chief Complaint Admit Date SVT July 28, 2024 6:3 7pm SUSTAINED SVT, RLL INFILITRATE, DEHYDRAT ION July 28, 2024 9:22pm SUSTAINED SVT, RLL INFILITRATE, DEHYDRAT ION July 29, 2024 7:50am SUSTAINED SVT, RLL INFILITRATE, DEHYDRAT ION July 30, 2024 11:08am SUSTAINED SVT, RLL INFILITRATE, DEHYDRAT ION July 31, 2024 1:58pm Other pulmonary embolism without acute c or pulmona September 03, 2024 4:25pm SVT (KYE) October 17, 2024 9:24a m Reason for Visit Admit Date Obesity (BMI 30-39.9) July 28, 2024 9 :22pm Sustained SVT July 28, 2024 9:2 2pm Acute hyponatremia July 28, 2024 9:2 2pm Dehydration July 28, 2024 9:2 2pm Diarrhea July 28, 2024 9:2 2pm Elevated troponin July 28, 2024 9:2 2pm Chronic alcohol abuse July 28, 2024 9 :22pm Hyponatremia July 28, 2024 9:2 2pm Transaminitis July 28, 2024 9:2 2pm Chief Complaint Admit Date SVT July 28, 2024 6:3 7pm SUSTAINED SVT, RLL INFILITRATE, DEHYDRAT ION July 28, 2024 9:22pm SUSTAINED SVT, RLL INFILITRATE, DEHYDRAT ION July 29, 2024 7:50am SUSTAINED SVT, RLL INFILITRATE, DEHYDRAT ION July 30, 2024 11:08am SUSTAINED SVT, RLL INFILITRATE, DEHYDRAT ION July 31, 2024 1:58pm Other pulmonary embolism without acute c or pulmona September 03, 2024 4:25pm SVT (KYE) October 17, 2024 9:24a m ABN HR October 22, 2024 8:02a m Reason for Visit Admit Date Obesity (BMI 30-39.9) July 28, 2024 9 :22pm Sustained SVT July 28, 2024 9:2 2pm Acute hyponatremia July 28, 2024 9:2 2pm Dehydration July 28, 2024 9:2 2pm Diarrhea July 28, 2024 9:2 2pm Elevated troponin July 28, 2024 9:2 2pm Chronic alcohol abuse July 28, 2024 9 :22pm Hyponatremia July 28, 2024 9:2 2pm Transaminitis July 28, 2024 9:2 2pm Right bundle branch block October 17, 2024 9:24am Sustained SVT October 17, 2024 9:24a m Hypertension October 17, 2024 9:24a m Chief Complaint Admit Date Other pulmonary embolism without acute c or pulmona September 03, 2024 4:25pm SVT (KYE) October 17, 2024 9:24a m ABN HR October 22, 2024 8:02a m 2 M FU December 18, 2024 8:04am Reason for Visit Admit Date Right bundle branch block October 17, 2024 9:24am Sustained SVT October 17, 2024 9:24a m Hypertension Jessica 2nd, 2025 9:24a m Right bundle branch block December 18, 2024 8:04am Sustained SVT December 18, 2024 8:04am Hypertension December 18, 2024 8:04am Additional Source Comments (unrecognized sect ion and content) No Status Records FoundNo Status Records FoundNo Status Records Found INFORMATION SOURCE (unrecogn ized section and content) DATE CREATED AUTHOR 03/22/2020 [facility] DATE CREATED AUTHOR AUTHOR'S ORGANIZ ATION 05/23/2024 [facility] DATE CREATED AUTHOR AUTHOR'S ORGANIZ ATION 12/18/2024 [facility] Reason for Visit (unrecogniz ed section and content) Reason Comments Shortness of Breath Status Reason Specialty Diagnoses / Procedures Referre d By Contact Referred To Contact Diagnoses Bronchitis Respiratory failure with hypoxia and hypercapnia, unspecified chronicity (HCC) Reason Comments Epiretinal Membrane Evaluation Right eye Choroidal nevus Left eye Reason Comments Dry Eye(s) Both Eyes 1 week follow up Kate Buckner MD - 03/20/2020 11:08 AM EST H&P Notes (unrecognized sect ion and content) [facility] Medicine Inpatient H&P 03/20/2020 Kate Buckner MD [facility] Patient: Mina Mcgee Date of : 1940 (79 y.o.) PCP: Provider Not in System Assessment Mina Mcgee 79 y.o. male presents with progressive shortness of breath over past 3 to 4 weeks associated with some wheezing. Principal Problem: Bronchitis Acute bronchitis Admit to observation. Start on azithromycin and prednisone. Duo nebs. Incentive spirometry. Oxygen as needed. CT chest reviewed, no PE, no dissection. No other acute pathology. Hypertension Currently well controlled, continue home dose of losartan. Lovenox for DVT prophylaxis. Cardiac diet. Full code. SUBJECTIVE: Chief Complaint: SOB History of Presenting Illness: 79-year-old male with history of hypertension presenting with complaints of shortness of breath worsening over past 3 to 4 weeks, complaining of some wheezing, sore throat and cough but unable to bring any phlegm. Also complains of some rhinorrhea. Overall feels slightly fatigued. Denies any fevers chills nausea vomiting diarrhea. Denies any chest pain palpitations or lightheadedness. Denies any hematuria or hematochezia. Covid test was negative. Chest x-ray with possible developing right basilar pneumonia however CT chest as a follow-up was done which did not show any pneumonia. He likely has some bronchitis along with atelectasis. Troponins have been negative. Otherwise labs grossly unremarkable except slightly elevated white count of 11.42. Review of Systems: 10 systems reviewed and negative other than noted in HPI History: Past Medical History: Diagnosis Date Hypertension History reviewed. No pertinent surgical history. History reviewed. No pertinent family history. Social History Tobacco Use Smoking Status Never Smoker Smokeless Tobacco Never Used Social History Substance and Sexual Activity Alcohol Use Never Frequency: Never Allergies: Patient has no known allergies. Home Medications: Outpatient Medications as of 03/20/2020 Medication Sig losartan (COZAAR) 50 MG tablet Take 50 mg by mouth daily . omeprazole (PRILOSEC) 40 MG capsule Take 40 mg by mouth daily . OBJECTIVE: Physical Examination: BP 100/60 Pulse 75 Temp 98.4 F (36.9 C) (Oral) Resp 16 Ht 5' 7 Wt 86.2 kg (190 lb) SpO2 97% BMI 29.76 kg/m General Appearance: Alert, well appearing, and in no acute distress. HEENT: Head - Normocephalic, atraumatic. Eyes - HARYD bilaterally and EOMI. Ears - normal external appearance, hearing intact. Nose - normal, no erythema. Throat - mucous membranes moist, pharynx without lesions. Neck: Supple, trachea midline. Cardiovascular: S1, S2 normal. No murmurs, rubs, clicks or gallops appreciated. No pedal edema. Respiratory: Minimal expiratory wheezing. No crackles. Shallow breaths. Abdomen: Soft, non-tender, normal bowel sounds, non-distended, no masses or organomegaly appreciated. Neurological: Grossly normal motor and sensory exam. No focal deficits. Musculoskeletal: No joint tenderness, deformity or swelling. Skin: Normal coloration and turgor. No rashes. Psych: Alert, oriented x 3. Normal mood and affect. Laboratory and Additional Data Reviewed: Results/Medications Reviewed 03/20/20 11:08 AM: Results from last 7 days Lab Units 03/20/20 0614 SODIUM mmol/L 138 POTASSIUM mmol/L 4.0 CHLORIDE mmol/L 104 BUN mg/dL 20 CREATININE mg/dL 1.00 GLUCOSE mg/dL 119* CALCIUM mg/dL 8.2* Results from last 7 days Lab Units 03/20/20 0445 03/20/20 0422 WBC K/mcL -- 11.42* HGB g/dL -- 15.5 HEMOGLOBIN BG g/dL 16.2 16.2 -- HEMATOCRIT, CALCULATED % 49.7 49.7 -- HCT % -- 48.0 PLT K/mcL -- 246 Results from last 7 days Lab Units 03/20/20 0614 TROPONIN I ng/L <15 Results from last 7 days Lab Units 03/20/20 0423 INR 1.0 Results from last 7 days Lab Units 03/20/20 0614 ALK PHOS U/L 96 BILIRUBIN TOTAL mg/dL 0.5 BILIRUBIN DIRECT mg/dL 0.2 TOTAL PROTEIN g/dL 7.4 ALTR U/L 14 AST U/L 14 CULTURES: Reviewed 11:08 AM IMAGING: Reviewed 11:08 AM documented in this encounter Cheryl Fung RN - 03/20/2020 1:53 PM Rachell Rodriguez RN - 03/20/2020 12:41 PM Cheryl Goyal RN - 03/20/2020 11:59 AM Cheryl Goyal RN - 03/20/2020 11:49 AM EST ED Notes (unrecognized secti on and content) CALLED AND UPDATED MATT CARRILLO THAT PT RECEIVED A BED AND THE NUMBER TO REACH HIM PT ASSISTED WITH URINAL. NO DISTRESS OBSERVED. RESPS EVEN AND UNLABORED. CALL LIGHT REMAINS IN REACH PT RESTING IN BED COMFORTABLY, RETRIEVED PT CELL PHONE FROM BEDSIDE CHAIR AND TOLD HIM DAUGHTER WANTED HIM TO HAVE IT NEARBY, PT VOICED UNDERSTANDING, PT STATED NEEDS MET AT THIS TIME, CALL LIGHT IN REACH CALLED DAUGHTER LORENA TO UPDATE HER ON HER DAD AND THAT PT WILL BE ADMITTED, LORENA WAS THANKFUL FOR UPDATE AND ASKED TO BE UPDATED WHEN PT WAS ASSIGNED A BED, WILL UPDATE WHEN PT ASSIGNED A BED, LORENA STATED SHE HAS NO OTHER QUESTIONS OR CONCERNS AT THIS TIME RT AT BEDSIDE PT STATES HE IS UNCOMFORTABLE, REPOSITIONED PT IN BED, PROVIDED WARM BLANKETS, PT STATES NEEDS MET AT THIS TIME, CALL LIGHT IN REACH PT DAUGHTER LORENA CALLED FOR AN UPDATE, UPDATEDDAUGHTER, DAUGHTER STATED TO CALL HER IF PT IS DISCHARGED [phone] at this time Pt calling out to the franklin. This RN enters room. Pt again states that he is leaving and needs to see a doctor and no one has been in to see me. pt requesting an exact time the doctor will be in to see him. This RN reminds pt that I was in to see him approx. 30 mins ago and that I am unsure what the exact time the doctor will be in to see him. Pt states You guys aren't even doing anything for me. This RN reminds pt that he is receiving ATBs, is utilizing oxygen, and is going to have a CT of his chest complete. Pt states well I won't be staying here much longer. Pt calling out to franklin. This RN enters room. Pt states I am leaving, I need to see a doctor. You aren't doing anything for me. This RN notifies pt that he is receiving ATBs and is requiring oxygen and that the doctor will be in to see him once the results are back. Pt states well I won't be here for much longer. I am cold and uncomfortable and you aren't doing anything for me. This RN offers apologies and offers to bring pt blanket. Pt accepts offer. This RN provided pt with blankets and repositioned pt to comfort. Special isolation precautions are in place with signage outside this patient's room. This pet care attendant performs hand hygiene and enters the patient room wearing: ? gloves ? an appropriately fitting (N-95, PAPR, Aura) mask ? face shield ? protective gown to provide care. See documentation for the care provided. PT WITH C/O SOB FOR PAST 2-3 WEEKS. DENIES CHEST PAIN. documented in this encounter Quick Note - Deborah Cuevas RN - 03/22/2020 12:54 PM [facility] Roro Lorenzana PT - 03/21/2020 10:18 AM [facility] - Rosemarie Quiñones OT - 03/21/2020 10:14 AM EST Miscellaneous Notes (unrecog nized section and content) Pt discharged home. Education provided on medications and follow up appointments. IV removed and returned patient belongings. Patient has no other questions at this time. PHYSICAL THERAPY VISIT VARIANCE NOTE Attempted to see patient at this time, but unable secondary to: PT Visit [facility]: Awaiting Medical Clearance (comment). Per OT note, Patient admitted with bronchitis. Nursing reports that the patient just went in to SVT. Will follow up as appropriate. OCCUPATIONAL THERAPY VISIT VARIANCE NOTE Attempted to see patient at this time, but unable secondary to: OT Visit [facility]: Awaiting Medical Clearance (comment). Patient admitted with bronchitis. Nursing reports that the patient just went in to SVT and to hold OT eval at this time. Will follow up as appropriate. Patient presents emerged part with shortness of breath, steroids antibiotics breathing treatments given, signed out to me by previous physician, for CT PE follow-up. CT PE without pulmonary embolism, continues to be on 4 L oxygen will admit to the hospital documented in this encounter Goals (unrecognized section and content) Goals may be documented in a n alternate sectionGoals may be documented in an alternate sectionGoals may be documented in an alternate sectionGoals may be documented in an alternate sectionGoals may be documented in an alternate sectionGoals may be documented in an alternate section Care Teams (unrecognized sec tion and content) Team Status: Active Member Role Status Dates Dr. Elvis Fishman MD Family Provider Active Dr. Elvis Fishman MD Primary Care Provider Active Team Status: Inactive Member Role Status Dates Dr. Elvis Fishman MD Primary Care Provi juan, Attending Provider, Referring Provider Active Team Status: Inactive Member Role Status Dates Dr. Elvis Fishman MD Primary Care Provider, Attending Provider Active Rougher Operator Relationship Specialty Start Date End Date Elvis Fishman Chi PCP - General Family Medicine 01/26/11 Rougher Operator Relationship Specialty Start Date End Date Elvis Fishman Chi PCP - General Family Medicine 01/26/11 Team Status: Active Member Role Status Dates Dr. Elvis Fishman MD Primary Care Provider Active Team Status: Active Member Role Status Dates Dr. Elvis Fishman MD Primary Care Provider Active Start: July 28, 2024 Dr. Jc Nichols MD Emergency Provider Active S tart: July 28, 2024 Dr. Andrea Barnes DO Admit Provider Active Start: July 28, 2024 Dr. Andrea Barnes DO Attending Provider Active Start: July 28, 2024 Team Status: Active Member Role/Relationship Status Dates Dr. Elvis Fishman MD Primary Care Provider Active Team Status: Active Member Role/Relationship Status Dates Dr. Elvis Fishman MD Primary Care Provider Active Start: July 28, 2024 End: July 28, 2024 Dr. Bello Persaud MD Attending Provider Active Start: July 28, 2024 End: July 28, 2024 Dr. Bello Persaud MD Referring Provider Active Start: July 28, 2024 End: July 28, 2024 Team Status: Inactive Member Role/Relationship Status Dates Dr. Elvis Fishman MD Primary Care Provider Active Start: July 28, 2024 End: July 31, 2024 Dr. Jc Nichols MD Emergency Provider Active S tart: July 28, 2024 End: July 31, 2024 Dr. Andrea Barnes DO Admit Provider Active Start: July 28, 2024 End: July 31, 2024 Dr. Andrea Barnes DO Other Provider Active Start: July 28, 2024 End: July 31, 2024 Dr. Isabelle Guillen MD Attending Provider Active Start: July 28, 2024 End: July 31, 2024 Dr. Angelito Spence DO Other Provider Active Star t: July 28, 2024 End: July 31, 2024 Team Status: Active Member Role/Relationship Status Dates Dr. Elvis Fishman MD Primary Care Provider Active Start: July 29, 2024 Dr. Jc Nichols MD Emergency Provider Active S tart: July 29, 2024 Dr. Andrea Barnes DO Admit Provider Active Start: July 29, 2024 Dr. Andrea Barnes DO Other Provider Active Start: July 29, 2024 Dr. Angelito Spence DO Attending Provider Active Start: July 29, 2024 Dr. Angelito Spence DO Other Provider Active Star t: July 29, 2024 Team Status: Active Member Role/Relationship Status Dates Dr. Elvis Fishman MD Primary Care Provider Active Start: July 30, 2024 Dr. Khurram Reyes MD Attending Provider Active S tart: July 30, 2024 Team Status: Active Member Role/Relationship Status Dates Dr. Elvis Fishman MD Primary Care Provider Active Start: July 30, 2024 Dr. Angelito Reeder MD Attending Provider Active S tart: July 30, 2024 Dr. Andrea Barnes DO Referring Provider Active Start: July 30, 2024 Team Status: Active Member Role/Relationship Status Dates Dr. Elvis Fishman MD Primary Care Provider Active Start: July 30, 2024 Dr. Jc Nichols MD Emergency Provider Active S tart: July 30, 2024 Dr. Andrea Barnes DO Admit Provider Active Start: July 30, 2024 Dr. Andrea Barnes DO Other Provider Active Start: July 30, 2024 Dr. Isabelle Guillen MD Attending Provider Active Start: July 30, 2024 Dr. Isabelle Guillen MD Other Provider Active St art: July 30, 2024 Dr. Angelito Spence DO Other Provider Active Star t: July 30, 2024 Team Status: Active Member Role/Relationship Status Dates Dr. Elvis Fishman MD Primary Care Provider Active Start: July 31, 2024 Dr. Jc Nichols MD Emergency Provider Active S tart: July 31, 2024 Dr. Andrea Barnes DO Admit Provider Active Start: July 31, 2024 Dr. Andrea Barnes DO Other Provider Active Start: July 31, 2024 Dr. Isabelle Guillen MD Attending Provider Active Start: July 31, 2024 Dr. Isabelle Guillen MD Other Provider Active St art: July 31, 2024 Dr. Angelito Spence DO Other Provider Active Star t: July 31, 2024 Team Status: Inactive Member Role/Relationship Status Dates Dr. Elvis Fishman MD Primary Care Provider Active Start: September 03, 2024 End: September 03, 2024 Dr. Elvis Fishman MD Attending Provider Active Start: September 03, 2024 End: September 03, 2024 Dr. Elvis Fishman MD Referring Provider Active Start: September 03, 2024 End: September 03, 2024 Team Status: Inactive Member Role/Relationship Status Dates Dr. Elvis Fishman MD Primary Care Provider Active Start: September 03, 2024 End: September 03, 2024 Dr. Elvis Fishman MD Attending Provider Active Start: September 03, 2024 End: September 03, 2024 Dr. Elvis Fishman MD Referring Provider Active Start: September 03, 2024 End: September 03, 2024 Team Status: Inactive Member Role/Relationship Status Dates Dr. Elvis Fishman MD Primary Care Provider Active Start: October 17, 2024 End: October 17, 2024 Dr. Elvis Fishman MD Referring Provider Active Start: October 17, 2024 End: October 17, 2024 Dr. Khurram Reyes MD Attending Provider Active S tart: October 17, 2024 End: October 17, 2024 Team Status: Inactive Member Role/Relationship Status Dates Dr. Elvis Fishman MD Primary Care Provider Active Start: October 22, 2024 End: October 22, 2024 Dr. Elvis Fishman MD Referring Provider Active Start: October 22, 2024 End: October 22, 2024 Dr. Khurram Reyes MD Attending Provider Active S tart: October 22, 2024 End: October 22, 2024 Team Status: Inactive Member Role/Relationship Status Dates Dr. Elvis Fishman MD Primary Care Provider Active Start: September 03, 2024 End: September 03, 2024 Dr. Elvis Fishman MD Attending Provider Active Start: September 03, 2024 End: September 03, 2024 Dr. Elvis Fishman MD Referring Provider Active Start: September 03, 2024 End: September 03, 2024 Team Status: Inactive Member Role/Relationship Status Dates Dr. Elvis Fishman MD Primary Care Provider Active Start: September 03, 2024 End: September 03, 2024 Dr. Elvis Fishman MD Attending Provider Active Start: September 03, 2024 End: September 03, 2024 Dr. Elvis Fishman MD Referring Provider Active Start: September 03, 2024 End: September 03, 2024 Team Status: Inactive Member Role/Relationship Status Dates Dr. Elvis Fishman MD Primary Care Provider Active Start: October 17, 2024 End: October 17, 2024 Dr. Elvis Fishman MD Referring Provider Active Start: October 17, 2024 End: October 17, 2024 Dr. Khurram Reyes MD Attending Provider Active S tart: October 17, 2024 End: October 17, 2024 Team Status: Inactive Member Role/Relationship Status Dates Dr. Elvis Fishman MD Primary Care Provider Active Start: October 22, 2024 End: October 22, 2024 Dr. Elvis Fishman MD Referring Provider Active Start: October 22, 2024 End: October 22, 2024 Dr. Khurram Reyes MD Attending Provider Active S tart: October 22, 2024 End: October 22, 2024 Team Status: Inactive Member Role/Relationship Status Dates Dr. Elvis Fishman MD Primary Care Provider Active Start: December 18, 2024 End: December 18, 2024 Dr. Elvis Fishman MD Referring Provider Active Start: December 18, 2024 End: December 18, 2024 Bridget Montiel MANAGER FORENSIC, MANAGER FORENS[employer]-C Attending Provider Active Start: December 18, 2024 End: December 18, 2024 Source Comments (unrecognize d section and content) In the event this informatio n is protected by the Federal Confidentiality of Alcohol and Drug Abuse Patient Records regulations: The Federal rules restrict any use of the information to criminally investigate or prosecute any alcohol or drug abuse patient.[facility] the event this information is protected by the Federal Confidentiality of Alcohol and Drug Abuse Patient Records regulations: The Federal rules restrict any use of the information to criminally investigate or prosecute any alcohol or drug abuse patient.[facility] FOR RECORDS PERTAINING TO PATIENTS WHO ARE OR HAVE BEEN ENROLLED IN A CHEMICAL DEPENDENCY/SUBSTANCEABUSE PROGRAM, SOME INFORMATION MAY BE OMITTED. This clinical summary was aggregated from multiple sources. Caution should be exercised in using it in the provision of clinical care. This summary normalizes information from multiple sources, and as a consequence, information in this document may materially change the coding, format and clinical context of patient data. In addition, data may be omitted in some cases. CLINICAL DECISIONS SHOULD BE BASED ON THE PRIMARY CLINICAL RECORDS. [employer] [facility]. provides no warranty or guarantee of the accuracy or completeness of information in this document.
[2025-03-04 10:21] LABS: Vitamin D,25 Hydroxy 22.5 ng/mL (30-100)
[2025-03-04 11:13] LABS: AST(SGOT) 17 U/L (<=37); Alanine Aminotransfer ALT/SGPT 10 U/L (<=46); Albumin, Serum 4.4 g/dL (3.4-4.8); Alkaline Phosphatase 90 U/L (40-129); Anion Gap 12 (5-15); BUN 17 mg/dL (4-19); BUN/Creat Ratio 19.6 RATIO (10-20); Calcium,Total 10.1 mg/dL (7.6-11.0); Carbon Dioxide 29.2 mmol/L (21.0-32.0); Chloride 96 mmol/L (98-108); Globulin 2.9 g/dL (2.2-4.2); Glucose 110 mg/dL (70-99); Potassium 4.8 mmol/L (3.3-5.1)
[2025-03-04 17:10] LABS: Xtra Tube Kwok EXTRA TUBE
== END | disposition home or self-care (01) ==
LOC: POLAB3 09:10
PROVIDERS: PCP Family Medicine Geriatric Medicine; Visit Provider Family Medicine Geriatric Medicine
DX: I10 Essential (primary) hypertension (principal); E55.9 Vitamin D deficiency, unspecified
CPT/HCPCS: 36415; 80053; 82306; 84443; 85025